=== PATIENT | female | born 1965 | race Caucasian/White ===

== ENCOUNTER 2023-06-02 08:05 | Outpatient (OUT) | payer OTHER, SELFPAY ==
[2023-06-02 08:39] LABS: Basophils Percent Auto 0.7 % (0.2-2.0); Eosinophils Absolute Auto 0.4 10^3/uL (0.0-0.7); Eosinophils Percent Auto 8.2 % (0.9-7.0); Hematocrit 44.2 % (36.0-48.0); Hemoglobin 14.7 g/dL (12.0-16.0); Immature Granulocytes Abs Auto 0.01 10^3/uL (0.00-0.03); Immature Granulocytes Pct Auto 0.2 % (0.0-0.5); Lymphocytes Absolute Auto 1.8 10^3/uL (1.2-3.8); Lymphocytes Percent Auto 40.1 % (20.5-60.0); Mean Corpuscular HGB Conc 33.3 g/dL (29.9-35.2); Mean Corpuscular Hemoglobin 28.6 pg (26.7-34.0); Mean Platelet Volume 11.5 fL (9.5-13.5); Monocytes Absolute Auto 0.4 10^3/uL (0.3-0.8); Monocytes Percent Auto 8.5 % (1.7-12.0); Neutrophils Absolute Auto 1.9 10^3/uL (1.4-6.5); Neutrophils Percent Auto 42.3 % (43.0-75.0); Platelet Count 206 10^3/uL (150-450); Red Blood Count 5.14 10^6/uL (4.20-5.40); Red Cell Distribution Width 14.3 % (11.0-15.0); White Blood Count 4.5 10^3/uL (4.0-11.0)
[2023-06-02 09:51] LABS: Alanine Aminotransferase 29 U/L (14-59); Albumin Level 3.8 g/dL (3.4-5.0); Alkaline Phosphatase 79 U/L (46-116); Anion Gap 10.4; Aspartate Amino Transferase 20 U/L (15-37); BUN Creatinine Ratio 20.5; Bilirubin Total 0.5 mg/dL (0.2-1.0); Calcium 9.5 mg/dL (8.5-10.1); Carbon Dioxide 29.1 mmol/L (21.0-32.0); Chloride 105 mmol/L (98-107); Chol HDL Ratio 2.9; Cholesterol 233 mg/dL (<=200); Estimated GFR (African America >60 (>=60); Estimated GFR (Non-African Ame >60 (>=60); Globulin 3.8 g/dL; Glucose 95 mg/dL (74-106); HDL Cholesterol 79 mg/dL (40-60); Potassium 4.5 mmol/L (3.5-5.1); Sodium 140 mmol/L (136-145); Thyroid Stimulating Hormone 1.292 uIU/mL (0.358-3.740); Total Protein 7.6 g/dL (6.4-8.2); Triglycerides 131 mg/dL (<=150); VLDL CHOLESTEROL 26.2 mg/dL
[2023-06-02 10:11] LABS: Estimated Average Glucose 105 mg/dL; Glycohemoglobin A1C 5.3 % (4.5-6.2)
[2023-06-04 12:13] LABS: Insulin 9.6 uIU/mL (2.6-24.9)
== END 2023-06-02 08:06 | disposition home or self-care (01) ==
PROVIDERS: PCP Family Medicine; Visit Provider Family Medicine
DX: Z00.00 Encounter for general adult medical examination without abnormal findings (principal)
CPT/HCPCS: 36415; 80053; 80061; 83036; 83525; 83540; 83550; 84436; 84443; 84481; 85025

== ENCOUNTER 2023-07-09 08:40 | Outpatient (OUT) | payer OTHER, SELFPAY ==
--- NOTE | 2023-07-09 08:15 | NM_ITS ---
Patient: CAMMY MERINO Exam Date: 07/09/2023 : 1965 Gender:F Ordering : DR Brad Medrano . Admission #: [id number] Family : Order #: [id number] CLICK HERE TO VIEW EXAM RADIOLOGY REPORT PROCEDURE: NM MOISÉS PERF SPECT REST STR COMPARISON: None. INDICATIONS: CHEST PAIN TECHNIQUE: Exam Description: Stress/Rest two day protocol gated SPECT Rest Imagin.0 mCi Tc-99m Cardiolite IV on 07/09/2023 Stress Imaging 30.0 mCi Tc-99m Cardiolite IV on 07/09/2023 Exercise Protocol: Juventino Heart Rate (bpm): Rest: 50 Max: 153 PMHR: 95 Blood Pressure: Rest: 120/80 Max: 178/92 Exercise Time: Minutes: 9 Seconds: 32 Stage Reached: Stage: 4 Mets 11.8 Symptoms: Rest and peak stress ECG findings were normal and the exercise portion of the study was normal per attending physician Dr. Thomas . For more details please see separate cardiac stress test report. FINDINGS: QUALITY OF STUDY: Excellent. PERFUSION DEFECT: None. LOCATION: N/A SIZE: N/A. SEVERITY: N/A. TYPE: N/A. WALL MOTION: Normal. LV SIZE: Normal. 63 mL. TID / TCD: None; 0.6 LVEF: Normal. Calculated EF 81%. SUMMARY: Myocardial perfusion imaging study is NORMAL. CONCLUSION: 1. Normal nuclear medicine myocardial perfusion scan. Dictated by: Brice Cormier M.D. on 07/10/2023 at 14:32 Approved by: Brice Cormier M.D. on 07/10/2023 at 14:34
--- NOTE | 2023-07-09 12:23 | PM.STRESS ---
Stress Test Stress Test Requesting physician: Brad Medrano Procedure: Exercise Cardiolite stress test General Information: Reason for Stress Test: Chest pain Cardiac History and Risk Factors: No personal risk factors listed. Father from [place]. Resting 12 - Lead Electrocardiogram: Rate & rhythm: Sinus bradycardia at a rate of 49. [place]: Normal T-waves: Flattened in aVL ST-segments: Normal orientation Stress Test: Protocol: Juventino protocol was followed, with injection of Cardiolite once target heart rate was achieved. Exercise capacity: Excellent exercise capacity. Total exercise time of 9 minutes 32 seconds reached Juventino stage 4 at 4.2MPH, 16% grade, & 11.8 METs. Blood pressure: Initial: 120/80, Maximum: 178/92, Recovery: 146/88 Rate & rhythm: Patient remained in sinus rhythm during the exercise and recovery portions of the study.? The maximum heart rate was 153, which was 95% of the maximum predicted heart rate 160. ST-segments & T-waves: There were no T-wave changes and no ST-segment changes when compared to the baseline EKG. Patient response/symptoms: There were no symptoms similar to the chief complaint. Interpretation: Normal exercise stress test. Patient was asymptomatic regarding chest pain. Cardiolite imaging interpretation will be reported separately. Clinical correlation required.?
== END 2023-07-09 08:41 | disposition home or self-care (01) ==
LOC: NM 08:41
PROVIDERS: PCP Family Medicine; Visit Provider Family Medicine
DX: R07.9 Chest pain, unspecified (principal)
CPT/HCPCS: 78452; 93017; A9500

== ENCOUNTER 2024-10-04 08:09 | Outpatient (OUT) | payer OTHER, SELFPAY ==
[2024-10-04 08:39] LABS: Basophils Percent Auto 0.5 % (0.2-2.0); Eosinophils Absolute Auto 0.2 10^3/uL (0.0-0.7); Eosinophils Percent Auto 4.1 % (0.9-7.0); Hematocrit 44.4 % (36.0-48.0); Hemoglobin 14.6 g/dL (12.0-16.0); Immature Granulocytes Abs Auto 0.01 10^3/uL (0.00-0.03); Immature Granulocytes Pct Auto 0.2 % (0.0-0.5); Lymphocytes Absolute Auto 1.8 10^3/uL (1.2-3.8); Lymphocytes Percent Auto 32.8 % (20.5-60.0); Mean Corpuscular HGB Conc 32.9 g/dL (29.9-35.2); Mean Corpuscular Hemoglobin 28.8 pg (26.7-34.0); Mean Corpuscular Volume 87.6 fL (81.0-99.0); Mean Platelet Volume 11.3 fL (9.5-13.5); Monocytes Absolute Auto 0.4 10^3/uL (0.3-0.8); Neutrophils Absolute Auto 3.1 10^3/uL (1.4-6.5); Neutrophils Percent Auto 55.4 % (43.0-75.0); Platelet Count 232 10^3/uL (150-450); Red Blood Count 5.07 10^6/uL (4.20-5.40); Red Cell Distribution Width 13.7 % (11.0-15.0); White Blood Count 5.6 10^3/uL (4.0-11.0)
[2024-10-04 08:49] LABS: Bilirubin Urine NEGATIVE (NEGATIVE); Blood Urine NEGATIVE (NEGATIVE); Clarity Urine CLEAR (CLEAR); Color Urine LT. YELLOW (YELLOW); Glucose Urine UA NEGATIVE (NEGATIVE); Ketones Urine NEGATIVE (NEGATIVE); Leukocyte Esterase Urine TRACE (NEGATIVE); Nitrite Urine NEGATIVE (NEGATIVE); Protein Urine NEGATIVE (NEG/TRACE); Urobilinogen Urine 0.2 EU/dL (0.2-1.0)
[2024-10-04 08:51] LABS: Estimated Average Glucose 111 mg/dL; Glycohemoglobin A1C 5.5 % (4.5-6.2)
[2024-10-04 09:32] LABS: Alanine Aminotransferase 31 U/L (14-59); Albumin Globulin Ratio 1.1; Albumin Level 3.7 g/dL (3.4-5.0); Alkaline Phosphatase 93 U/L (46-116); Anion Gap 13.2; Aspartate Amino Transferase 15 U/L (15-37); BUN Creatinine Ratio 21.7; Bilirubin Total 0.5 mg/dL (0.2-1.0); Calcium 9.4 mg/dL (8.5-10.1); Carbon Dioxide 28.9 mmol/L (21.0-32.0); Chloride 102 mmol/L (98-107); Chol HDL Ratio 2.8; Cholesterol 236 mg/dL (<=200); Estimated GFR (African America >60 (>=60 mL/min/1.73m^2); Estimated GFR (Non-African Ame >60 (>=60 mL/min/1.73m^2); Free T3 2.29 pg/mL (2.18-3.98); Globulin 3.4 g/dL; Glucose 93 mg/dL (74-106); HDL Cholesterol 83 mg/dL (40-60); Potassium 4.1 mmol/L (3.5-5.1); Sodium 140 mmol/L (136-145); Thyroid Stimulating Hormone 1.321 uIU/mL (0.358-3.740); Total Protein 7.1 g/dL (6.4-8.2); Triglycerides 99 mg/dL (<=150); VLDL CHOLESTEROL 19.8 mg/dL
[2024-10-04 09:52] LABS: Bacteria Urine SMALL #/HPF (NONE SEEN); Cast Seen? NONE SEEN #/LPF (NONE SEEN); Crystals Seen? None Seen #/HPF (None Seen); Mucus Urine LARGE (NONE SEEN); Squamous Epithelial Cell Urine FEW #/LPF (NONE/RARE)
[2024-10-05 11:07] LABS: Insulin 8.2 uIU/mL (2.6-24.9)
== END 2024-10-04 08:10 | disposition home or self-care (01) ==
LOC: LAB 08:11
PROVIDERS: PCP Family Medicine; Visit Provider Family Medicine
DX: Z00.00 Encounter for general adult medical examination without abnormal findings (principal)
CPT/HCPCS: 36415; 80053; 80061; 81001; 82306; 83036; 83525; 83540; 84436; 84443; 84481; 85025; 87086

== ENCOUNTER 2025-03-07 07:25 | Outpatient (OUT) | payer OTHER, SELFPAY ==
--- NOTE | 2025-03-07 07:36 | XR_ITS ---
The [address] [address] Patient Name: CAMMY MERINO MRN: [id number] date: 1965 Sex: F Assigned Patient Location: [facility] Current Patient Location: [facility] Accession/Order Number: [id number] Exam Date: 03/07/2025 14:18 Report Date: 03/07/2025 14:20 At the request of: TENISHA BARLOW MD Procedure: XR soft tissue neck LATERAL SOFT TISSUE NECK CLINICAL HISTORY: CHRONIC COUGHING R05.3 COMPARISON: None FINDINGS: Single lateral view the soft tissues demonstrate unremarkable. The tracheal air column. The laryngeal air column. Patient is mildly rotated which likely accounts for the prominence of the epiglottic soft tissues. Mild reversal cervical lordosis may be positional. Degenerative changes notably C4-C6. XR/XR soft tissue neck IMPRESSION: PROMINENT EPIGLOTTIS LIKELY POSITIONAL. OTHERWISE UNREMARKABLE X-RAY SOFT TISSUES OF THE NECK. Impression dictated by: Presley Elliott M.D. 03/07/2025 2:20 PM Dictation Location: [place] [address] Electronically authenticated by: [id number] Y Date: 03/07/2025 14:20
--- NOTE | 2025-03-07 07:36 | XR_ITS ---
[address] [address] Patient Name: CAMMY MERINO MRN: [id number] date: 1965 Sex: F Assigned Patient Location: [facility] Current Patient Location: [facility] Accession/Order Number: [id number] Exam Date: 03/07/2025 14:17 Report Date: 03/07/2025 14:18 At the request of: TENISHA BARLOW MD Procedure: XR chest 2V PA AND LATERAL CHEST: CLINICAL HISTORY: CHRONIC COUGHING R05.3 COMPARISON: None FINDINGS: Unremarkable cardiomediastinal silhouette. Right hilar calcified granulomas. Lungs are clear. No effusion or pneumothorax. Mild degenerative changes of the mid thoracic spine. XR/XR chest 2V IMPRESSION: NO ACUTE CARDIOPULMONARY ABNORMALITY. Impression dictated by: Presley Elliott M.D. 03/07/2025 2:18 PM Dictation Location: [place] [address] Electronically authenticated by: [id number] Y Date: 03/07/2025 14:18
== END 2025-03-07 07:26 | disposition home or self-care (01) ==
LOC: RAD 07:28
PROVIDERS: PCP Family Medicine; Visit Provider Family Medicine
DX: R05.3 Chronic cough (principal)
CPT/HCPCS: 70360; 71046

== ENCOUNTER 2025-04-15 16:25 | Outpatient (OUT) | payer OTHER, SELFPAY ==
[2025-04-15 16:48] LABS: Basophils Percent Auto 0.6 % (0.2-2.0); Eosinophils Absolute Auto 0.4 10^3/uL (0.0-0.7); Eosinophils Percent Auto 8.5 % (0.9-7.0); Hematocrit 41.3 % (36.0-48.0); Hemoglobin 14.1 g/dL (12.0-16.0); Lymphocytes Absolute Auto 1.8 10^3/uL (1.2-3.8); Lymphocytes Percent Auto 37.4 % (20.5-60.0); Mean Corpuscular HGB Conc 34.1 g/dL (29.9-35.2); Mean Corpuscular Hemoglobin 29.1 pg (26.7-34.0); Mean Corpuscular Volume 85.2 fL (81.0-99.0); Mean Platelet Volume 10.8 fL (9.5-13.5); Monocytes Absolute Auto 0.5 10^3/uL (0.3-0.8); Monocytes Percent Auto 9.5 % (1.7-12.0); Neutrophils Absolute Auto 2.1 10^3/uL (1.4-6.5); Platelet Count 235 10^3/uL (150-450); Red Blood Count 4.85 10^6/uL (4.20-5.40); Red Cell Distribution Width 13.8 % (11.0-15.0); White Blood Count 4.7 10^3/uL (4.0-11.0)
== END 2025-04-15 16:26 | disposition home or self-care (01) ==
PROVIDERS: PCP Family Medicine; Visit Provider Family Medicine
DX: R05.3 Chronic cough (principal)
CPT/HCPCS: 36415; 85025; 86713; 86738

== ENCOUNTER 2025-05-30 06:46 | Outpatient (OUT) | payer OTHER, SELFPAY ==
--- NOTE | 2025-05-30 | XR_ITS ---
The [address] [address] Patient Name: CAMMY MERINO MRN: [id number] date: 1965 Sex: F Assigned Patient Location: [facility] Current Patient Location: [facility] Accession/Order Number: [id number] Exam Date: 05/30/2025 08:05 Report Date: 05/30/2025 08:06 At the request of: TENISHA BARLOW MD Procedure: XR chest 2V PA AND LATERAL CHEST: CLINICAL HISTORY: RR05.3 Chronic coughing COMPARISON: 03/07/2025 FINDINGS: Unremarkable cardiomediastinal. Right hilar/mediastinal calcified granulomas. No focal opacity, effusion or pneumothorax. XR/XR chest 2V IMPRESSION: NO ACUTE CARDIOPULMONARY ABNORMALITY. Impression dictated by: Presley Elliott M.D. 05/30/2025 8:06 AM Dictation Location: [place] [address] Electronically authenticated by: [id number] Y Date: 05/30/2025 08:06
--- OUTSIDE RECORDS SUMMARY | 2025-05-30 06:48 | XMS_ITS | CCD ---
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 Foreign Angela RN 03/30/25 12:33:40 Post-Care Text: The patient received appropriate medication(s) safely administered during the perioperative period Surgical Procedures FT Entry 1 Procedure Description Procedure EGD AND COLONOSCOPY Modifiers . Surgeon Description EGD with gastric biopsy. Colonoscopy with left colon biopsy and rectal biopsy Primary Procedure Yes Primary Surgeon Mary Carey MD Start 03/30/25 12:35:00 Stop 03/30/25 12:54:00 Anesthesia Type General Surgical Service Gastroenterology Wound Class 2 - Clean-Contaminated Last Modified By: Foreign Angela RN 03/30/25 13:05:42 General Case Data FT Pre-Care Text: Classifies surgical wound, implements aseptic technique, initiates traffic control Entry 1 Case Information OR ENDO 1 FT Case Level Level 2 Wound Class 2 - Clean-Contaminated Specialty Gastroenterology ASA Class 2 Preop Diagnosis Heartburn, History of Postop Same As Preop No colon polyps, Left sided ulcerative colitis Postop Diagnosis EGD- Gastritis, Hiatal Outcomes Met? Yes hernia, LA grade D esophagitis. Colonoscopy- Internal hemorrhoids Last Modified By: Foreign Angela RN 03/30/25 13:05:51 Post-Care Text: The patient is free from signs and symptoms of infection Skin Assessment (Pre Procedure) FT Pre-Care Text: Implements protective measures to prevent skin/ tissue injury due to thermal or mechanical sources Evaluates for signs and symptoms of physical injury to skin and tissue Entry 1 Skin Integrity Dry, Warm Skin Abnormality No Outcomes Met? Yes Last Modified By: Foreign Angela RN 03/30/25 12:35:43 Post-Care Text: The patient is free from signs and symptoms of injury caused by extraneous objects Patient Positioning FT Pre-Care Text: Identifies physical alterations that require additional precautions for procedure-specific pos (more content not included)... Normal [facility] Discharge Instructionson Discharge Instructions Discharge Instructions BETSY MENCHACA :1965 Visit Date:03/30/2025 Inpatient Discharge Instructions Your Care Team Admitting Physician - Mary Carey MD Referring Physician - Mary Carey MD Reason for Your Visit LEFT SIDED ULCERATIVE COLITIS, HISTORY OF COLON POLYPS, HEARTBURN, ELEVATED LIVER ENZYMES Your Diagnosis Acute colitis Chronic GERD Tests Performed Pathology Tissue Exam -- Results Pending -- Please visit your patient portal for your results or contact your primary care physician. This Is Your Medications List ascorbic acid (Vitamin C) cetirizine cholecalciferol (Vitamin D3) esomeprazole (Nexium 40 mg Cap-EC) famotidine (Pepcid 40 mg Tab) famotidine (famotidine 40 mg Tab) levothyroxine mesalamine (mesalamine 1.2 g oral enteric coated tablet) multivitamin (Multi Vitamin+) potassium citrate Procedure History Colonoscopy (02/25/2021), H/O: tubal ligation (05/19/1989), D&C (03/24/1988). Discharge Vitals Temperature (Temporal Artery) 36.5 ???C Heart Rate (Monitored) 67 Respiratory Rate 12 Blood Pressure 110/59 Height 162 cm Weight 78.7 kg BMI 29.99 What to do next Instructions From Your Doctor Event Name Event Result Discharge Activity Resume normal activities in 24 hours Discharge Restrictions No driving for 24 hrs Discharge Diet(s) Regular Call Your Doctor For Persistent or heavy bleeding Discharge Instructions Discharge Instructions New Follow Up Appointments after Discharge Follow Up with Mary Carey When: Comments: Call for any problems. Where: [address] [place], [place] [address]dict [place]assandra, [address] [address] [phone] Business (1) Medications What How Much When Instructions Next Dose Unchanged ascorbic acid (Vitamin C) 500 Milligram By Mouth Every day Unchanged cetirizine 10 Milligram By Mouth Every day Unchanged cholecalciferol (Vitamin D3) 50,000 International unit By Mouth Every week Unchanged esomeprazole (Nexium 40 mg Cap-EC) 1 Capsules By Mouth Every day Unchanged famotidine (famotidine 40 mg Tab) 1 Tablets By Mouth Once a day (at bedtime) Unchanged famotidine (Pepcid 40 mg Tab) 1 Tablets By Mouth Once a day (at bedtime) Unchanged levothyroxine 25 Microgram By Mouth Every day Unchanged mesalamine (mesalamine 1.2 g oral enteric coated tablet) 2 Tablets By Mouth Every day Unchanged multivitamin (Multi Vitamin+) By Mouth Every day Unchanged potassium citrate Every day Test Results No qualifying data available. Allergies No Known Allergies Problems Ongoing - Any problem that you are currently receiving treatment for. Elevated liver enzymes Heartburn History of colon polyps Left sided ulcerative colitis Smoker Historical - Any problem that you are no longer receiving treatment for. ANEMIA, UNSPECIFIED Cystocele H/O: migraine Hypothyroidism Second degree uterine prolapse Education Materials Gastritis, Adult Gastritis is irritation and swelling (inflammation) of the stomach. There are two kinds of gastritis: ??? Acute gastritis. This kind develops quickly. ??? Chronic gastritis. This kind is much more common. It develops slowly and lasts for a long time. It is important to get help for this condition. If you do not get help, your stomach can bleed, and you can get sores (ulcers) in your stomach. What are the causes? This condition may be caused by: ??? Germs that get to your stomach and cause an infection. ??? Drinking too much alcohol. ??? Medicines you are taking. ??? Having too much acid in the stomach. ??? Having a disease of the stomach. Other causes may include: ??? An allergic reaction. ??? Some cancer treatments (radiation). ??? Smoking cigarettes or using products that contain nicotine or tobacco. In some cases, the cause of this condition is not known. What increases the risk? Having a disease of the intestines. ??? Having Crohn's disease. ??? Using aspirin or ibuprofen and other NSAIDs to treat other conditions. ??? Stress. What are the signs or symptoms? Pain in your stomach. ??? A burning feeling in your stomach. ??? Feeling like you may vomit (nauseous). ??? Vomiting or vomiting blood. ??? Feeling too full after you eat. ??? Weight loss. ??? Bad breath. ??? Blood in your poop (stool). In some cases, there are no symptoms. How is this treated? This condition is treated with medicines. The medicines that are used depend on what caused the condition. You may be given: ??? Antibiotic medicine, if your condition was caused by an infection from germs. ??? H2 blockers and similar medicines, if your condition was caused by too much acid in the stomach. Treatment may also include stopping the use of certain medicines, such as aspirin or ibuprofen. Follow these instructions at home: (more content not included)... Normal [facility] Comment on above: Result Comment: Elec tronically Signed By: Raad FERRERA, Tanya\.br\Date and Time Signed: 03/30/25 13:04 EDT Inpatient Patient Summaryon 03-30-2025 Inpatient Patient Summary Inpatient Patient Summary [place] [id number] [facility] Clinical Discharge Instructions PERSON INFORMATION Name: BETSY MENCHACA PHYSICIANS Admitting Physician: Mary Carey MD Attending Physician: Mary Carey MD PCP: Tenisha Medrano MD Diagnosis: Acute colitis; Chronic GERD Comment: PATIENT EDUCATION INFORMATION Instructions: Medication Leaflets: Follow up: MEDICATION LIST Medications to Continue with No Changes Other Medications ascorbic acid (Vitamin C) 500 Milligram By Mouth every day. cetirizine 10 Milligram By Mouth every day. cholecalciferol (Vitamin D3) 50,000 International unit By Mouth every week. esomeprazole (Nexium 40 mg Cap-EC) 1 Capsules By Mouth every day. Refills: 3., before dinner famotidine (famotidine 40 mg Tab) 1 Tablets By Mouth once a day (at bedtime). Refills: 3. famotidine (Pepcid 40 mg Tab) 1 Tablets By Mouth once a day (at bedtime). Refills: 2. levothyroxine 25 Microgram By Mouth every day. mesalamine (mesalamine 1.2 g oral enteric coated tablet) 2 Tablets By Mouth every day. Refills: 11., Ulcerative colitis multivitamin (Multi Vitamin+) By Mouth every day. potassium citrate every day. Comment: Normal [facility] Main OR PACU II Recordon Main OR PACU II Record Main OR PACU II Record PACU Phase II Document Type FT Summary Primary Physician: Mary Carey MD Finalized Date/Time: 03/30/25 13:38:16 Pt. Name: BETSY MENCHACA/Sex: 1965 Female Med Rec #: [id number] Physician: Mary Carey MD Financial #: [id number] Pt. Type: O Room/Bed: / Admit/Disch: 03/30/25 11:29:45 - Institution: Case Times PACU II FT Pre-Care Text: Identifies barriers to communication and implements measures to provide psychological support and determines knowledge level Develops individualized plan of care, and ensures continuity of care Maintains patient's dignity and privacy, and maintains patient confidentiality Identifies and reports philosophical, cultural, and spiritual beliefs and values Identifies individual values and wishes concerning care administers prescribed antibiotic therapy and immunizing agents as ordered, Evaluates postoperative tissue perfusion Implements thermoregulation measures, and monitors body temperature Evaluates postoperative respiratory status Evaluates postoperative cardiac status Evaluates postoperative neurological status Assesses pain control, collaborated in initiating patient-controlled analgesia and implements alternative methods of pain control Verifies allergies, administers prescribed medications and solutions, evaluates response to medications Entry 1 In PACU II 03/30/25 12:58:00 Discharge from PACU 03/30/25 13:25:00 II Outcomes Met? Yes Last Modified By: Tanya Shankar RN 03/30/25 13:38:11 Post-Care Text: The patient demonstrates knowledge of the expected response to the operative or invasive procedure The patient's care is consistent with the individualized perioperative plan of care The patient's right to privacy is maintained The patient's value system, lifestyle, ethnicity, and culture are considered, respected, and incorporated into the perioperative plan of care The patient participates in decisions affecting his or her perioperative plan of care. The patient is free from signs and symptoms of infection The patient has wound/tissue perfusion consistent with or improved from baseline levels established preoperatively The patient is at or returning to normothermia at the conclusion of the immediate postoperative period The patient's respiratory function is consistent with or improved from baseline levels established preoperatively The patient's cardiovascular status is consistent with or improved from baseline levels established preoperatively The patient's neurological status is consistent with or improved from baseline levels established preoperatively The patient demonstrates and/or reports adequate pain control throughout the perioperative period The patient received appropriate medication(s), safely administered during the perioperative period Finalized By: Tanya Shankar RN Document Signatures Signed By: Tanya Shankar RN 03/30/25 13:38 Normal [facility] Main OR Preoperative Recordo n 03-30-2025 Main OR Preoperative Record Main OR Preoperative Record Holding Area Document Type FT Summary Primary Physician: Mary Carey MD Finalized Date/Time: 03/30/25 11:40:15 Pt. Name: BETSY MENCHACA VIK Arellano/Sex: 1965 Female Med Rec #: [id number] Physician: Mary Carey MD Financial #: [id number] Pt. Type: O Room/Bed: / Admit/Disch: 03/30/25 11:29:45 - Institution: Case Times Holding FT Pre-Care Text: Verifies consent for planned procedure, identifies individual values and wishes concerning care, includes family members in perioperative teaching Secures patient's records' belongings, and valuables, maintains patient's dignity and privacy, and maintains patient confidentiality Entry 1 In Holding 03/30/25 07:00:00 Outcomes Met? Yes Last Modified By: Arin Albarran RN 03/30/25 11:39:13 Post-Care Text: The patient participates in decisions affecting his or her perioperative plan of care The patient's right to privacy is maintained Surgery Checklist FT Entry 1 Patient Birthday, ID Band Procedure History and Physical, Identification: Check, Patient Verification: Surgical Consent, With Participation Patient NPO after Midnight: No Date/Time: 03/30/25 07:00:00 Personal Items: Jewelry Personal Items necklace, braclets, Comment: rings Limitations: no Complaints of Pain: No Pain Comment: no Operative Site n/a Marking: Marked By: n/a Availability Equipment Verified: Does Patient Smoke No Patient states Yes Comment - Adult spouse postop adult Supervision supervision available Case Cancelled in No Holding Area see comments below for reason Last Modified By: Arin Albarran RN 03/30/25 11:40:13 Finalized By: Arin Albarran RN Document Signatures Signed By: Arin Albarran RN 03/30/25 11:40 Normal [facility] Outpatient Surgery Discharge Instructionon 03-30-2025 Outpatient Surgery Discharge Instruction Outpatient Surgery Discharge Instruction [address] [address] Patient Discharge Instructions PERSON INFORMATION Name: BETSY MENCHACA Date of : 1965 Current Date: 03/30/2025 12:28:44 PHYSICIANS Admitting Physician: Mary Carey MD Discharge Diagnosis: Acute colitis; Chronic GERD BETSY MENCHACA has been given the following list of follow-up instructions, prescriptions, and patient education materials: PATIENT FOLLOW-UP INFORMATION Diet: Regular Discharge Activity: Resume normal activities in 24 hours Discharge Restrictions: No driving for 24 hrs Call Your Doctor For: Persistent or heavy bleeding IF UNABLE TO CONTACT YOUR PHYSICIAN AND YOU FEEL IT IS AN EMERGENCY, GO TO THE NEAREST EMERGENCY ROOM OR CALL 911 ANGELIQUE [address] Paz MARY BETH, have received the attached patient education materials/instruction s and have verbalized understanding: May we do a follow up call? Yes No I was present when discharge instructions were given Patient Signature Date Clinican/Nurse Signature Date Follow up: Pharmacy Information: You may receive a survey from [facility] asking you to rate your care experience. Your feedback is important and will help us understand what we do well and how we can improve the quality of care we provide to you, your loved ones and our community. It???s an honor to serve you. Thank you for choosing [facility] HERE ARE THE MEDICATION CHANGES THAT OCCURRED DURING YOUR HOSPITAL STAY Medications to Continue with No Changes Other Medications ascorbic acid (Vitamin C) 500 Milligram By Mouth every day. cetirizine 10 Milligram By Mouth every day. cholecalciferol (Vitamin D3) 50,000 International unit By Mouth every week. esomeprazole (Nexium 40 mg Cap-EC) 1 Capsules By Mouth every day. Refills: 3., before dinner famotidine (famotidine 40 mg Tab) 1 Tablets By Mouth once a day (at bedtime). Refills: 3. famotidine (Pepcid 40 mg Tab) 1 Tablets By Mouth once a day (at bedtime). Refills: 2. levothyroxine 25 Microgram By Mouth every day. mesalamine (mesalamine 1.2 g oral enteric coated tablet) 2 Tablets By Mouth every day. Refills: 11., Ulcerative colitis multivitamin (Multi Vitamin+) By Mouth every day. potassium citrate every day. PATIENT EDUCATION INFORMATION Instructions: Medication Leaflets: [facility] Gastroenterology Office/Clin ic Noteon 03-16-2025 Gastroenterology Office/Clinic Note Gastroenterology Office/Clinic Note Chief Complaint Colonoscopy HPI Staff New patient is a(n) 60 year old female who presents today for a 3 year colonoscopy recall (OVERDUE). Denies Fhx colon cancer/diseases. Any n/v/c/d, abd pain, bloody or mucus stools? no Blood thinners? no GLP-1 agonists? no History of Present Illness Reviewed HPI collected by staff Review of Systems PHQ Score Initial Depression Screen Score: 0 SCORE All systems reviewed, negative; Except for above Physical Exam Vitals & Measurements HR: 70(Peripheral) BP: 115/75 HT: 162 cm HT: 64 in WT: 173.504 lb WT: 78.7 kg BMI: 29.99 No acute distress Procedure EGD 10/18/18: Impression and Plan 1. Distal esophageal Schatzki ring, dilated using 60 [place] Breen dilator 2. Concentric esophageal rings, proximal and distal esophageal biopsies obtained 3. Mild gastric erosions, biopsied Pathology: Diagnosis Comment (Verified) Distal squamous esophageal mucosa contains intraepithelial eosinophils up to 10 per high power field. Final Diagnosis (Verified) A: DISTAL ESOPHAGUS, BIOPSY: ??? SQUAMOUS MUCOSA WITH EOSINOPHILIC INFILTRATE AND MARKED BASAL HYPERPLASIA. B: STOMACH, BIOPSY: ??? ANTRAL MUCOSA WITH MILD CHRONIC GASTRITIS AND FOVEOLAR HYPERPLASIA. ??? NO H. PYLORI MICROORGANISMS IDENTIFIED IMMUNOSTAIN. C: PROXIMAL ESOPHAGUS, BIOPSY: ??? SQUAMOUS MUCOSA WITH OCCASIONAL EOSINOPHILIC INFILTRATE. Colonoscopy 02/25/21: Impression: 1. Normal terminal ileum, photograph taken 2. Sessile polyp, 2 mm, in the ascending, removed completely with cold snare 3. Normal rectal and colonic mucosa, random biopsies obtained from the rectum Recommendations: Repeat colonoscopy:: In 3 years. Pathology: Final Diagnosis (Verified) A: POLYP, ASCENDING COLON, POLYPECTOMY: ??? HYPERPLASTIC POLYP. B: RECTUM, BIOPSY: ??? COLONIC MUCOSA WITH LYMPHOID AGGREGATES, WITHIN NORMAL LIMITS. Assessment/Plan 1. Left sided ulcerative colitis (K51.50: Left sided colitis without complications) Diagnosed in 2011. She achieved clinical remission with oral mesalamine She achieved endoscopic healing and histologic healing. Decreased mesalamine dose from 2.4 grams to 1.2 grams There was no evidence of extra GI manifestation of ulcerative colitis Colonoscopy 02/2021: 1 HP, negative rectal biopsy She is still taking mesalamine 2.4g daily Has 1-2 BMs daily Reports minimal change in caliber of stools Denies blood in stools and urgency Schedule Colonoscopy to evaluate. Discussed risks such as bleeding, injury and perforation as well as benefits. Patient agreeable. 2. History of colon polyps (Z86.0100: Personal history of colon polyps, unspecified) 3. Heartburn (R12: Heartburn) Switch pantoprazole to Nexium before dinner, famotidine at bedtime symptoms most of the time had EGD before 4. Elevated liver enzymes (R74.8: Abnormal levels of other serum enzymes) in 2019 Labs done recently at [facility] Reviewed labs from outside hospital September 2024 had normal CBC and CMP I, Tamanna Vázquez, personally scribed for Mary Carey on 02/12/2025 13:10:42. . Documentation recorded by Tamanna Vázquez, accurately reflects the services I performed and decisions made by me. Mary Carey MD Follow-up No qualifying data available Problem List/Past Medical History Ongoing Elevated liver enzymes Heartburn History of colon polyps Left sided ulcerative colitis Smoker Historical ANEMIA, UNSPECIFIED Cystocele H/O: migraine Hypothyroidism Second degree uterine prolapse Procedure/Surgical History Colonoscopy (02/25/2021), H/O: tubal ligation (05/19/1989), D&C (03/24/1988). Medications cetirizine, 10 mg, Oral, Daily famotidine 40 mg Tab, 40 mg= 1 tab(s), Oral, Once a day (at bedtime), 3 refills levothyroxine, 25 mcg, Oral, Daily mesalamine 1.2 g oral enteric coated tablet, 2.4 gm= 2 tab(s), Oral, Daily, 11 refills Multi Vitamin+ Nexium 40 mg Cap-EC, 40 mg= 1 cap(s), Oral, Daily, 3 refills Pepcid 40 mg Tab, 40 mg= 1 tab(s), Oral, Once a day (at bedtime), 2 refills potassium citrate, Daily Vitamin C, 500 mg, Oral, Daily Vitamin D3, [id number] International_Unit, Oral, qWeek Allergies No Known Allergies Social History Alcohol - Low Risk, 11/25/2010 Never., 02/11/2025 Substance Abuse - Denies Substance Abuse, 11/25/2010 Never., 02/11/2025 Tobacco - Denies Tobacco Use, 11/25/2010 Former smoker, quit more than 30 days ago Tobacco Use:. Never Smokeless Tobacco Use:. Cigarettes, 02/12/2025 Family History Acute myocardial infarction: Father. Primary malignant neoplasm of female breast: Sister. Immunizations Vaccine Date Status influenza virus vaccine, inactivated 08/15/2023 Recorded SARS-CoV-2 (COVID-19) mRNA-1273 vaccine 11/25/2021 Recorded influenza virus vaccine, inactivated 08/18/2021 Recorded SARS-CoV-2 (COVID-19) mRNA-1273 vaccine (more content not included)... Normal [facility] Comment on above: Result Comment: Elec tronically Signed By: Mary Carey MD\.br\Date and Time Signed: 03/16/25 14:36 EDT Ambulatory Visit Summaryon 0 02-12-2025 Ambulatory Visit Summary Ambulatory Visit Summary BETSY MENCHACA :1965 Visit Date:02/12/2025 Ambulatory Visit Instructions Your Diagnosis Left sided ulcerative colitis History of colon polyps Heartburn Elevated liver enzymes Your Care Team Attending Physician - Mary Carey MD Primary Care Physician - Tenisha Medrano MD This Is Your Medications List esomeprazole (Nexium 40 mg Cap-EC) famotidine (famotidine 40 mg Tab) Contact prescribing physician if questions or concerns ascorbic acid (Vitamin C) cetirizine cholecalciferol (Vitamin D3) famotidine (Pepcid 40 mg Tab) levothyroxine mesalamine (mesalamine 1.2 g oral enteric coated tablet) multivitamin (Multi Vitamin+) potassium citrate [Image Removed: STOP]Stop taking these medications pantoprazole (pantoprazole 40 mg Oral EC Tab) Procedures Performed Colonoscopy (02/25/2021), H/O: tubal ligation (05/19/1989), D&C (03/24/1988). Discharge Vitals Heart Rate (Peripheral) 70 Blood Pressure 115/75 Height 162 cm Height 64 in Weight 78.7 kg Weight 173.504 lb BMI 29.99 Medications What How Much When Instructions New esomeprazole (Nexium 40 mg Cap-EC) 1 Capsules By Mouth Every day Refills: [address] [facility]/pharmacy #[id number] New famotidine (famotidine 40 mg Tab) 1 Tablets By Mouth Once a day (at bedtime) Refills: [address] [facility]/pharmacy #[id number] Unchanged ascorbic acid (Vitamin C) 500 Milligram By Mouth Every day Contact prescribing physician if questions or concerns Unchanged cetirizine 10 Milligram By Mouth Every day Contact prescribing physician if questions or concerns Unchanged cholecalciferol (Vitamin D3) 50,000 International unit By Mouth Every week Contact prescribing physician if questions or concerns Unchanged famotidine (Pepcid 40 mg Tab) 1 Tablets By Mouth Once a day (at bedtime) Contact prescribing physician if questions or concerns Unchanged levothyroxine 25 Microgram By Mouth Every day Contact prescribing physician if questions or concerns Unchanged mesalamine (mesalamine 1.2 g oral enteric coated tablet) 2 Tablets By Mouth Every day Contact prescribing physician if questions or concerns Unchanged multivitamin (Multi Vitamin+) Contact prescribing physician if questions or concerns Unchanged potassium citrate Every day Contact prescribing physician if questions or concerns Pharmacy Information [facility]/pharmacy #[id number]: [address] [place], [place] [phone] What How Much When Comments Stop Taking pantoprazole (pantoprazole 40 mg Oral EC Tab) 40 Milligram By Mouth 2 times a day Allergies No Known Allergies Problems Ongoing - Any problem that you are currently receiving treatment for. Elevated liver enzymes Heartburn History of colon polyps Left sided ulcerative colitis Smoker Historical - Any problem that you are no longer receiving treatment for. ANEMIA, UNSPECIFIED Cystocele H/O: migraine Hypothyroidism Second degree uterine prolapse Patient Survey You may receive a survey via text or e-mail asking about your office visit. Please share your experience with us by completing your survey. We appreciate your feedback and thank you for choosing us for your care. Normal [facility] X-ray reportOrdered By: Janes Hall on 12-30-2024 Study report [facility] [address] [place] [place] [id number] XRay Report Signed Patient: Betsy Menchaca MR#: [id number] : 1965 Acct:[id number] Age/Sex: 59 / F ADM Date: 5 Loc: [facility] Room: Type: [facility] Attending Dr: Stanislaw Truong MD Copies to: Stanislaw Truong MD~ Ordering Provider: Stanislaw Truong MD Date of Service: 12/30/24 XR/XR shoulder LT min 2V*: M25.512 - Pain in left shoulder 4 views left shoulder plain film HISTORY: Left anterior shoulder pain for months COMPARISON: None ACUTE FINDINGS: None DEGENERATIVE CHANGE: Mild SOFT TISSUE FINDINGS: Unremarkable JOINT EFFUSION: None POSTOP CHANGES: None BONY MINERALIZATION: Adequate XR/XR shoulder LT min 2V* IMPRESSION: Mild degeneration Impression dictated by: Soy Hall M.D.12/30/2024 4:09 PM Dictation Location: [place] [address] Transcribed By: [facility] 12/30/24 1609 Dictated By: Soy Hall DO 12/30/24 1608 Signed By: 12/30/24 1609 [facility] XR shoulder LT min 2V*on XR shoulder LT min 2V* [facility] [place] [address] XRay Report Signed Patient: Betsy Menchaca MR#: [id number] : 1965 Acct:[id number] Age/Sex: 59 / F ADM Date: 12/30/24 Loc: [facility] Room: Type: [facility] Attending Dr: Stanislaw Truong MD Copies to: Stanislaw Truong MD Ordering Provider: Stanislaw Truong MD Date of Service: 12/30/24 XR/XR shoulder LT min 2V*: M25.512 - Pain in left shoulder 4 views left shoulder plain film HISTORY: Left anterior shoulder pain for months COMPARISON: None ACUTE FINDINGS: None DEGENERATIVE CHANGE: Mild SOFT TISSUE FINDINGS: Unremarkable JOINT EFFUSION: None POSTOP CHANGES: None BONY MINERALIZATION: Adequate XR/XR shoulder LT min 2V* IMPRESSION: Mild degeneration Impression dictated by: Soy Hall M.D.12/30/2024 4:09 PM Dictation Location: [place] [address] Transcribed By: [facility] 12/30/24 1609 Dictated By: Soy Hall DO 12/30/24 1608 Signed By: 12/30/24 1609 Normal [facility] MA Mamm Screen w/CAD if perf and 3D Bilon 09-02-2024 MA Mamm Screen w/CAD if perf and 3D Viet Exam Date/Time: 08/30/2024 09:27 EDT Reason for Exam: Z12.31 Report IMPRESSION: BIRADS 1 NEGATIVE, NORMAL INTERVAL FOLLOW-UP.12 MONTH RECALL. CLINICAL HISTORY: Z12.31. COMPARISON: 08/04/2023. COMMENT: Routine views and tomosynthesis views of both breasts were obtained. The breasts are heterogeneously dense, which may obscure small masses. No dominant breast mass nor neoplastic calcifications are noted. There has been no significant change when compared to the prior exam. The examination was reviewed with Computer Aided Detection. Breast Density: Yes Mammography is very important to your health. The current [employer] and National [employer] Network guidelines recommends annual mammography beginning at age 40. This facility utilizes a reminder system to ensure all patients receive reminder notifications at the appropriate time based on the recommendations of this exam. Board Certified Radiologists. Accredited by the ACR and FDA. Ordering Provider: REFERRAL, SELF FINAL REPORT Dictated: 09/02/2024 1:45 pm Antelmo Godfrey M.D. Signed (Electronic Signature): 09/02/2024 1:45 pm Signed by: Antelmo Godfrey M.D. Transcribed by: CASEY Technologist: ROBERTO Assessment: BI-RADS Category 1-Negative Recommendation: Normal interval follow-up Normal [facility] US venous duplex LE BIon US venous duplex LE BI [facility] [address] [place], [place] [id number] Ultrasound Report Signed Patient: Betsy Menchaca MR#: [id number] : 1965 Acct:[id number] Age/Sex: 59 / F ADM Date: 06/02/24 Loc: Room: Type: [facility] Attending Dr: Minal Juan [employer] Ordering Provider: Minal Juan APRN Date of Service: 06/02/24 US/US venous duplex LE BI: I83.813 - Varicose veins of bilateral lower extremities w... Copies to: Minal Juan APRN BILATERAL LOWER EXTREMITY VENOUS DUPLEX INDICATION: Left ankle swelling and varicose veins. PROCEDURE: Color-flow duplex scanning is used to interrogate the deep venous system of the right and left lower extremities. The common femoral vein, femoral vein and popliteal vein show good compressibility with normal proximal and distal augmentation. The calf veins are compressible. US/US venous duplex LE BI IMPRESSION: NO EVIDENCE FOR DEEP VEIN THROMBOSIS OR PROXIMAL SUPERFICIAL THROMBOPHLEBITIS IN THE RIGHT OR LEFT LOWER EXTREMITY. Severe and continuous reflux was identified in the greater saphenous vein bilaterally. There is also severe reflux identified in the common femoral vein bilaterally. The right greater saphenous vein is patent from the groin to the ankle and size was twice normal. The left greater saphenous vein was patent from the groin to the ankle and the size was twice normal. Impression dictated by: Fran Shukla MD06/02/2024 11:57 AM [facility] Tech: Araceli Villareal Transcribed By: LIGIA 06/02/24 1157 Dictated By: Fran Shukla MD 06/02/24 1156 Signed By: 06/02/24 1157 Normal [facility] CT FEMUR RT WO CONon 022 CT FEMUR RT WO CON EXAMINATION: CT FEMU R RT WO CON HISTORY: Localized swelling of right lower limb COMPARISON: No relevant comparison available. TECHNIQUE: Multi-planar CT images were created without IV contrast. Dose reduction techniques were achieved by using automated exposure control and/or adjustment of mA and/or kV according to patient size and/or use of iterative reconstruction technique. FINDINGS: BONES: No acute fracture or dislocation. No focal lytic or sclerotic changes. No significant degenerative change. SOFT TISSUES: Negative. No visible soft tissue swelling. EFFUSION: None visible. OTHER: Negative. IMPRESSION: No abnormalities observed Electronically authenticated by: HERMILA SOLIS Date: 2022-09-17 08:44 Normal [facility] CBC AUTO DIFFon 05-13-2022 BASO # 0.0 103/ul Normal 0.0-0.1 [facility] Comment on above: Performed By: #### C BC #### [facility] [address] [place] [address] Dr. Elizabeth Mcpherson Basophils/100 WBC (Bld) 0.6 % Normal 0.2-2.0 [facility] Comment on above: Performed By: #### C BC #### [facility] [address] [place] [address] Dr. Elizabeth Mcpherson EO # 0.5 103/ul Normal 0.0-0.7 [facility] Comment on above: Performed By: #### C BC #### [facility] [address] [place] [address] Dr. Elizabeth Mcpherson Eosinophils/100 WBC (Bld) 8.4 % Critically high 0.9-7.0 [facility] Comment on above: Performed By: #### C BC #### [facility] [address] [place] [address] Dr. Elizabeth Mcpherson Erythrocyte distribution width (RBC) [Ratio] 14.3 % Normal 11.0-15.0 [facility] Comment on above: Performed By: #### C BC #### [facility] [address] [place] [address] Dr. Elizabeth Mcpherson Hematocrit (Bld) [Volume fraction] 42.8 % Normal 36.0-48.0 [facility] Comment on above: Performed By: #### C BC #### [facility] [address] [place] [address] Dr. Elizabeth Mcpherson Hemoglobin (Bld) [Mass/Vol] 14.0 g/dL Normal 12.0-16.0 [facility] Comment on above: Performed By: #### C BC #### [facility] [address] [place] [address] Dr. Elizabeth Mcpherson IG # 0.01 10e3/ul Normal 0.00-0.03 [facility] Comment on above: Performed By: #### C BC #### [facility] [address] [place] [address] Dr. Elizabeth Mcpherson IG % 0.2 % Normal 0.0-0.5 [facility] Comment on above: Performed By: #### C BC #### [facility] [address] [place] [address] Dr. Elizabeth Mcpherson LYMPH # 2.0 103/ul Normal 1.2-3.8 [facility] Comment on above: Performed By: #### C BC #### [facility] [address] [place] [address] Dr. Elizabeth Mcpherson Lymphocytes/100 WBC (Bld) 37.2 % Normal 20.5-60.0 [facility] Comment on above: Performed By: #### C BC #### [facility] [address] [place] [address] Dr. Elizabeth Mcpherson MANUAL DIFF REQ NO Normal [facility] Comment on above: Performed By: #### C BC #### [facility] [address] [place] [address] Dr. Elizabeth Mcpherson MCH (RBC) [Entitic mass] 28.5 pg Normal 26.7-34.0 [facility] Comment on above: Performed By: #### C BC #### [facility] [address] [place] [address] Dr. Elizabeth Mcpherson MCHC (RBC) [Mass/Vol] 32.7 g/dL Normal 29.9-35.2 [facility] Comment on above: Performed By: #### C BC #### [facility] [address] [place] [address] Dr. Elizabeth Mcpherson MCV (RBC) [Entitic vol] 87.2 fL Normal 81.0-99.0 [facility] Comment on above: Performed By: #### C BC #### [facility] [address] [place] [address] Dr. Elizabeth Mcpherson MONO # 0.4 103/ul Normal 0.3-0.8 [facility] Comment on above: Performed By: #### C BC #### [facility] [address] [place] [address] Dr. Elizabeth Mcpherson Monocytes/100 WBC (Bld) 7.9 % Normal 1.7-12.0 [facility] Comment on above: Performed By: #### C BC #### [facility] [address] [place] [address] Dr. Elizabeth Mcpherson NEUT # 2.5 103/ul Normal 1.4-6.5 [facility] Comment on above: Performed By: #### C BC #### [facility] [address] [place] [address] Dr. Elizabeth Mcpherson Neutrophils/100 WBC (Bld) 45.7 % Normal 43.0-75.0 [facility] Comment on above: Performed By: #### C BC #### [facility] [address] [place] [address] Dr. Elizabeth Mcpherson Platelet mean volume (Bld) [Entitic vol] 11.3 fL Normal 9.5-13.5 [facility] Comment on above: Performed By: #### C BC #### [facility] [address] [place] [address] Dr. Elizabeth Mcpherson PLT 213 103/ul Normal 150-450 [facility] Comment on above: Performed By: #### C BC #### [facility] [address] [place] [address] Dr. Elizabeth Mcpherson RBC 4.91 106/ul Normal 4.20-5.40 [facility] Comment on above: Performed By: #### C BC #### [facility] [address] [place] [address] Dr. Elizabeth Mcpherson WBC 5.4 103/ul Normal 4.0-11.0 [facility] Comment on above: Performed By: #### C BC #### [facility] [address] [place] [address] [address] Elizabeth Mcpherson FREE T3on 05-13-2022 FREE T3 2.54 pg/mlL Normal 2.18-3.98 [facility] Comment on above: Performed By: #### F T3, TSH, CMP, T4, LIPID #### [facility] [address] [place] [address] [address] Elizabeth Mcpherson GLYCOHEMOGLOBIN A1Con 2021 ADA RECOMMENDATION SEE BELOW Normal [facility] Comment on above: Result Comment: ADA RECOMMENDED LIMIT 4.0 - 6.0 ADA THERAPEUTIC TARGET < 7.0 ACTION SUGGESTED > 7.0 Performed By: #### A 1C #### [facility] [address] [place] [address] [address] Elizabeth Mcpherson Glucose [Mass/Vol] 111 mg/dL Normal [facility] Comment on above: Performed By: #### A 1C #### [facility] [address] [place] [address] [address] Elizabeth Mcpherson HbA1c (Bld) [Mass fraction] 5.5 % Normal 4.5-6.2 [facility] Comment on above: Performed By: #### A 1C #### [facility] [address] [place] [address] Dr. Elizabeth Mcpherson LIPID PROFILEon 05-13-2022 CHOL-HDL RATIO NORM SEE BELOW Normal [facility] Comment on above: Result Comment: 3.3 - 4.4 LOW RISK 4.4 - 7.1 AVERAGE RISK 7.1 - 11.0 MODERATE RISK >11.0 HIGH RISK Performed By: #### F T3, TSH, CMP, T4, LIPID #### [facility] [address] [place] [address] [address] Elizabeth Mcpherson Cholesterol [Mass/Vol] 245 mg/dL Critically high <=200 [facility] Comment on above: Performed By: #### F T3, TSH, CMP, T4, LIPID #### [facility] [address] [place] [address] [address] Elizabeth Mcpherson Cholesterol in HDL [Mass/Vol] 69 mg/dL Critically high 40-60 [facility] Comment on above: Performed By: #### F T3, TSH, CMP, T4, LIPID #### [facility] [address] [place] [address] [address] Elizabeth Mcpherson Cholesterol in LDL [Mass/Vol] 145.8 mg/dL Normal [facility] Comment on above: Performed By: #### F T3, TSH, CMP, T4, LIPID #### [facility] [address] [place] [address] [address] Elizabeth Mcpherson Cholesterol.total/Cho lesterol in HDL [Mass ratio] 3.6 {ratio} Normal [facility] Comment on above: Performed By: #### F T3, TSH, CMP, T4, LIPID #### [facility] [address] [place] [address] Dr. Elizabeth Mcpherson HDL NORMAL > or = 60 mg/dl - LO W CARDIOVASCULAR RISK <40 mg/dl - HIGH CARDIOVASCULAR RISK Normal [facility] Comment on above: Performed By: #### F T3, TSH, CMP, T4, LIPID #### [facility] [address] [place] [address] Dr. Elizabeth Mcpherson LDL CALC NORMAL SEE BELOW Normal [facility] Comment on above: Result Comment: <100 mg/dl OPTIMAL 100 - 129 mg/dl NEAR OR ABOVE OPTIMAL 130 - 159 mg/dl BORDERLINE HIGH 160 - 189 mg/dl HIGH >190 mg/dl VERY HIGH Performed By: #### F T3, TSH, CMP, T4, LIPID #### [facility] [address] [place] [address] [address] Elizabeth Mcpherson Triglyceride [Mass/Vol] 151 mg/dL Critically high <=150 [facility] Comment on above: Performed By: #### F T3, TSH, CMP, T4, LIPID #### [facility] [address] [place] [address] Dr. Elizabeth Mcpherson VLDL CALC 30.2 mg/dL Normal [facility] Comment on above: Performed By: #### F T3, TSH, CMP, T4, LIPID #### [facility] [address] [place] [address] Dr. Elizabeth Mcpherson PROF 14(COMP METB)on 022 Albumin [Mass/Vol] 3.6 g/dL Normal 3.4-5.0 [facility] Comment on above: Performed By: #### F T3, TSH, CMP, T4, LIPID #### [facility] [address] [address] [address] Elizabeth Mcpherson Albumin/Globulin [Mass ratio] 1.0 {ratio} Normal [facility] Comment on above: Performed By: #### F T3, TSH, CMP, T4, LIPID #### [facility] [address] [address] [address] Elizabeth Mcpherson ALP [Catalytic activity/Vol] 74 U/L Normal 46-116 [facility] Comment on above: Performed By: #### F T3, TSH, CMP, T4, LIPID #### [facility] [address] [place] [address] Dr. Elizabeth Mcpherson ALT [Catalytic activity/Vol] 27 U/L Normal 14-59 [facility] Comment on above: Performed By: #### F T3, TSH, CMP, T4, LIPID #### [facility] [address] [address] [address] Elizabeth Mcpherson Anion gap [Moles/Vol] 11.4 mmol/L Normal [facility] Comment on above: Performed By: #### F T3, TSH, CMP, T4, LIPID #### [facility] [address] [address] [address] Elizabeth Mcpherson AST [Catalytic activity/Vol] 12 U/L Critically low 15-37 [facility] Comment on above: Performed By: #### F T3, TSH, CMP, T4, LIPID #### [facility] [address] [address] [address] Elizabeth Mcpherson Bilirubin [Mass/Vol] 0.3 mg/dL Normal 0.2-1.0 [facility] Comment on above: Performed By: #### F T3, TSH, CMP, T4, LIPID #### [facility] [address] [address] [address] Elizabeth Mcpherson Calcium [Mass/Vol] 8.8 mg/dL Normal 8.5-10.1 [facility] Comment on above: Performed By: #### F T3, TSH, CMP, T4, LIPID #### [facility] [address] [address] [address] Elizabeth Mcpherson Chloride [Moles/Vol] 106 mmol/L Normal 98-107 [facility] Comment on above: Performed By: #### F T3, TSH, CMP, T4, LIPID #### [facility] [address] [place] [address] Dr. Elizabeth Mcpherson CO2 [Moles/Vol] 27.9 mmol/L Normal 21.0-32.0 [facility] Comment on above: Performed By: #### F T3, TSH, CMP, T4, LIPID #### [facility] [address] [place] [address] Dr. Elizabeth Mcpherson Creatinine [Mass/Vol] 0.88 mg/dL Normal 0.55-1.02 [facility] Comment on above: Performed By: #### F T3, TSH, CMP, T4, LIPID #### [facility] [address] [place] [address] Dr. Elizabeth Mcpherson EGFR-AF EGYPTIAN >60 Normal >=60 [facility] Comment on above: Performed By: #### F T3, TSH, CMP, T4, LIPID #### [facility] [address] [place] [address] Dr. Elizabeth Mcpherson EGFR-NON AF EGYPTIAN >60 Normal >=60 [facility] Comment on above: Performed By: #### F T3, TSH, CMP, T4, LIPID #### [facility] [address] [place] [address] Dr. Elizabeth Mcpherson Globulin (S) [Mass/Vol] 3.5 g/dL Normal [facility] Comment on above: Performed By: #### F T3, TSH, CMP, T4, LIPID #### [facility] [address] [place] [address] Dr. Elizabeth Mcpherson Glucose [Mass/Vol] 108 mg/dL Critically high 74-106 [facility] Comment on above: Performed By: #### F T3, TSH, CMP, T4, LIPID #### [facility] [address] [place] [address] Dr. Elizabeth Mcpherson Potassium [Moles/Vol] 4.3 mmol/L Normal 3.5-5.1 [facility] Comment on above: Performed By: #### F T3, TSH, CMP, T4, LIPID #### [facility] [address] [place] [address] Dr. Elizabeth Mcpherson Protein [Mass/Vol] 7.1 g/dL Normal 6.4-8.2 [facility] Comment on above: Performed By: #### F T3, TSH, CMP, T4, LIPID #### [facility] [address] [place] [address] Dr. Elizabeth Mcpherson Sodium [Moles/Vol] 141 mmol/L Normal 136-145 [facility] Comment on above: Performed By: #### F T3, TSH, CMP, T4, LIPID #### [facility] [address] [place] [address] Dr. Elizabeth Mcpherson Urea nitrogen [Mass/Vol] 19.0 mg/dL Critically high 7.0-18.0 [facility] Comment on above: Performed By: #### F T3, TSH, CMP, T4, LIPID #### [facility] [address] [place] [address] Dr. Elizabeth Mcpherson Urea nitrogen/Creatinine [Mass ratio] 21.6 mg/mg Normal [facility] Comment on above: Performed By: #### F T3, TSH, CMP, T4, LIPID #### [facility] [address] [place] [address] Dr. Elizabeth Mcpherson T4on 05-13-2022 T4 [Mass/Vol] 7.60 ug/dL Normal 4.80-13.90 [facility] Comment on above: Performed By: #### F T3, TSH, CMP, T4, LIPID #### [facility] [address] [place] [address] Dr. Elizabeth Mcpherson TSHon 05-13-2022 TSH 1.222 uIU/mL Normal 0.358-3.740 [facility] Comment on above: Performed By: #### F T3, TSH, CMP, T4, LIPID #### [facility] [address] [place] [address] [address] [address] Elizabeth Mcpherson VITAMIN D 25 OHon 05-13-2022 VIT D 25-OH 95.1 ng/mL Normal [facility] Comment on above: Performed By: #### V ITAD #### [facility] [address] [place], [place] [address] Dr. Elizabeth Mcpherson VIT D RANGES SEE BELOW Normal [facility] Comment on above: Result Comment: <20 ng/mL Vit D deficient 20 - <30 ng/mL Vit D insufficient 30 - 100 ng/mL Vit D sufficient >100 ng/mL Potential Toxicity Performed By: #### V ITAD #### [facility] [address] [place] [address] Dr. Elizabeth Mcpherson Vital Signs Date Time Vital Sign Value Performing Clinician Facility 03-30-2025 13:16-0400 SaO2% (BldA) [Mass fraction] 97 % Hernandez [facility] 03-30-2025 13:16-0400 Heart rate 62 /min Hernandez Sar[facility] 03-30-2025 13:16-0400 Respiratory rate 19 /min Hernandez Sar[facility] 03-30-2025 13:15-0400 Respiratory rate 11 /min Hernandez Sar[facility] 03-30-2025 13:15-0400 SaO2% (BldA) [Mass fraction] 94 % Hernandez Sar[facility] 03-30-2025 13:15-0400 Heart rate 61 /min Hernandez Sar[facility] 03-30-2025 13:15-0400 Blood Pressure Location Hernandez Sarmini [facility] 03-30-2025 13:15-0400 Diastolic blood pressure 81 mm[Hg] Hernandez [facility] 03-30-2025 13:15-0400 Mean blood pressure 97 mm[Hg] Hernandez Sar[facility] 03-30-2025 13:15-0400 Systolic blood pressure 129 mm[Hg] Hernandez Sar[facility] 03-30-2025 13:10-0400 SaO2% (BldA) [Mass fraction] 94 % Hernandez Sar[facility] 03-30-2025 13:10-0400 Heart rate 67 /min Hernandez Sar[facility] 03-30-2025 13:10-0400 Respiratory rate 15 /min Hernandez Sar[facility] 03-30-2025 13:10-0400 Blood Pressure Location Hernandez Sar[facility] 03-30-2025 13:10-0400 Diastolic blood pressure 53 mm[Hg] Hernandez [facility] 03-30-2025 13:10-0400 Mean blood pressure 76 mm[Hg] Hernandez [facility] 03-30-2025 13:10-0400 Systolic blood pressure 123 mm[Hg] Hernandez [facility] 03-30-2025 13:05-0400 Diastolic blood pressure 65 mm[Hg] Hernandez [facility] 03-30-2025 13:05-0400 Systolic blood pressure 121 mm[Hg] Hernandez [facility] 03-30-2025 13:05-0400 Blood Pressure Location Hernandez Sar[facility] 03-30-2025 13:05-0400 Mean blood pressure 84 mm[Hg] Hernandez [facility] 03-30-2025 12:58-0400 Body temperature 97.7 [degF] Hernandez [facility] 03-30-2025 12:55-0400 Respiratory rate 12 /min Hernandez Sar[facility] 03-30-2025 12:45-0400 Respiratory rate 12 /min Hernandez Sar[facility] 03-30-2025 12:30-0400 Respiratory rate 12 /min Hernandez [facility] 03-30-2025 11:52-0400 Body temperature 97.88 [degF] Hernandez [facility] 12-30-2024 10:31-0500 Body height 161.29 cm Tenisha Medrano MD Work Phone: [facility] 12-30-2024 10:31-0500 Body mass index (BMI) [Ratio] 27.6 kg/m2 Tenisha Medrano MD Work Phone: [facility] 12-30-2024 10:31-0500 Body weight 72 kg Tenisha Medrano MD Work Phone: [facility] 09-15-2024 10:30-0500 Body height 161.29 cm MD Tenisha Medrano Work Phone: [facility] 09-15-2024 10:30-0500 Body mass index (BMI) [Ratio] 27.8 kg/m2 MD Tenisha Medrano Work Phone: [facility] 09-15-2024 10:30-0500 Body temperature 97.2 [degF] MD Tenisha Medrano Work Phone: [facility] 09-15-2024 10:30-0500 Body weight 72.57 kg MD Tenisha Medrano Work Phone: [facility] 09-15-2024 10:30-0500 Diastolic blood pressure 68 mm[Hg] MD Tenisha Medrano Work Phone: [facility] 09-15-2024 10:30-0500 Heart rate 72 /min MD Tenisha Medrano Work Phone: [facility] 09-15-2024 10:30-0500 SaO2% (BldA) [Mass fraction] 97 % MD Tenisha Medrano Work Phone: [facility] 09-15-2024 10:30-0500 Systolic blood pressure 104 mm[Hg] MD Tenisha Medrano Work Phone: [facility] 07-15-2024 11:02-0400 Body height 162.56 cm MD Tenisha Medrano Work Phone: [facility] 07-15-2024 11:02-0400 Body mass index (BMI) [Ratio] 27.4 kg/m2 MD Tenisha Medrano Work Phone: [facility] 07-15-2024 11:02-0400 Body temperature 97.7 [degF] MD Tenisha Medrano Work Phone: [facility] 07-15-2024 11:02-0400 Body weight 72.57 kg MD Tenisha Medrano Work Phone: [facility] 07-15-2024 11:02-0400 Diastolic blood pressure 70 mm[Hg] MD Tenisha Medrano Work Phone: [facility] 07-15-2024 11:02-0400 Heart rate 62 /min MD Tenisha Medrano Work Phone: [facility] 07-15-2024 11:02-0400 Systolic blood pressure 110 mm[Hg] MD Tenisha Medrano Work Phone: [facility] 08-18-2021 12:00-0400 Body height 162.56 cm Stanislaw Claricehiwot Other [facility] Other 08-18-2021 12:00-0400 Body mass index (BMI) [Ratio] 27.46 kg/m2 Stanislaw Chiu Other [facility] Other 08-18-2021 12:00-0400 Body weight 72.58 kg Stanislaw Chiu Other [facility] Other Encounters Encounter Date Encounter Type Care Provider Facility Start: 05-13-2025 End: 05-13-2025 Patient encounter procedure Tenisha Ivory MD -MRI [address] Closed Work Phone: Start: 05-13-2025 End: 05-13-2025 ambulatory Tenisha Medrano MD Work Phone: [facility] Work Phone: Start: 03-30-2025 End: 03-30-2025 ambulatory Hernandez Talal Sarmini Facility:[facility] Start: 03-30-2025 End: 03-30-2025 Patient encounter procedure Hernandez Talal Sarmini [facility] Start: 02-12-2025 End: 02-12-2025 ambulatory Hernandez Talal Sarmini Facility:[facility] Start: 01-21-2025 End: 01-21-2025 Office outpatient visit 15 minutes Jorge A Kim DPM Work Phone: [facility] Comment on above: Numbness of toes (Pr imary Dx) Start: 01-21-2025 End: 01-21-2025 ambulatory JORGE A KIM Not Available Start: 12-30-2024 End: 12-30-2024 ambulatory Tenisha Medrano MD Work Phone: [facility] Work Phone: Start: 12-30-2024 End: 12-30-2024 Patient encounter procedure Tenisha Medrano MD Work Phone: [facility] Physician [facility] Work Phone: Start: 09-15-2024 End: 09-15-2024 Patient encounter procedure MD Tenisha Medrano Work Phone: [facility] Physician [facility] Vascular Surgery Work Phone: Start: 09-02-2024 End: 09-02-2024 ambulatory MD Tenisha Medrano Work Phone: [facility] Work Phone: Start: 09-02-2024 End: 09-02-2024 Patient encounter procedure MD Tenisha Medrano Work Phone: [facility] [address] Work Phone: Start: 08-30-2024 End: 08-30-2024 ambulatory SELF REFERRAL Facility:[facility] Start: 08-30-2024 End: 08-30-2024 Patient encounter procedure SELF REFERRAL [facility] Start: 07-15-2024 End: 07-15-2024 ambulatory MD Tenisha Medrano Work Phone: [facility] Work Phone: Start: 07-15-2024 End: 07-15-2024 Patient encounter procedure MD Tenisha Medrano Work Phone: [facility] Physician [facility] Vascular Surgery Work Phone: Start: 06-02-2024 End: 06-02-2024 Patient encounter procedure MD Tenisha Medrano Work Phone: [facility] Work Phone: Start: 06-02-2024 End: 06-02-2024 ambulatory MD Tenisha Medrano Work Phone: [facility] Work Phone: Start: 08-04-2023 End: 08-04-2023 Patient encounter procedure SELF REFERRAL [facility] Start: 09-16-2022 End: 09-17-[address] TENISHA MEDRANO Facility:[facility] Start: 07-01-2022 End: 07-01-2022 Patient encounter procedure ANTELMO FELDER [facility] Start: 05-19-2022 Encounter for genera l adult medical examination without abnormal findings DR TENISHA MEDRANO [facility] Start: 05-13-2022 End: 05-14-[address] TENISHA MEDRANO Facility:[facility] Start: 05-13-2022 End: 05-14-2022 Encounter for general adult medical examination without abnormal findings DR TENISHA MEDRANO Facility:[facility] Start: 11-25-2021 ([facility] C Vac) [facility] Co vid Vaccine Sherice Calvillo [facility] Start: 11-25-2021 End: 11-25-2021 ambulatory Sherice Calvillo Other [facility] Other Start: 10-24-2021 (Procedure) Lionel Chiu [facility] Start: 10-24-2021 End: 10-24-2021 ambulatory Stanislaw Chiu Other [facility] Other Start: 10-10-2021 End: 10-10-2021 ambulatory Stanislaw Chiu Other [facility] Other Start: 10-10-2021 Office outpatient vi sit 25 minutes Stanislaw Chiu [facility] Start: 10-03-2021 (Procedure) Lionel Chiu [facility] Start: 10-03-2021 End: 10-03-2021 ambulatory Stanislaw Chiu Other [facility] Other Start: 09-19-2021 End: 09-19-2021 ambulatory Stanislaw Chiu Other [facility] Other Start: 09-19-2021 Office outpatient vi sit 25 minutes Stanislaw Chiu [facility] Start: 09-12-2021 (Procedure) Short Stanislaw Chiu [facility] Start: 09-05-2021 Office outpatient vi sit 25 minutes Stanislaw Chiu [facility] Start: 08-18-2021 Office outpatient vi sit 25 minutes Stanislaw Claricehiwot [facility] Procedures Date Procedure Procedure Detail Performing Clinician Start: 05-13-2025 MRI of right knee Tenisha Medrano MD Work Phone: Start: 03-30-2025 Colonoscopy Mary Carey Start: 03-30-2025 Esophagogastroduodenoscopy Mary Gu inmonica Start: 12-30-2024 Plain X-ray of left shoulder Tenisha Medrano MD Work Phone: Start: 06-02-2024 Duplex scan of lower limb veins MD Radha Medrano Work Phone: Start: 08-04-2023 Mammography Jorge A Kim DPM Work Phone: Start: 02-25-2021 Colonoscopy Jorge A Kim DPM Work Phone: Start: 02-25-2021 Colonoscopy ANTELMO FELDER Start: 05-19-1989 H/O: tubal ligation ANTELMO FELDER Start: 03-24-1988 D&C ANTELMO FELDER Plan of Treatment Date Care Activity Detail Author Start: 02-25-2031 Screening for malign ant neoplasm of colon [facility] Start: 12-30-2024 Plain X-ray of left shoulder XR shoulder LT min 2V* [facility] Start: 12-30-2024 XR Shoulder - left Views [facility] Start: 08-04-2024 Screening for malign ant neoplasm of breast Mammogram [facility] Start: 07-13-2024 Influenza vaccination Influenza Vacc ine (#1) [facility] Start: 1993 Screening for malign ant neoplasm of cervix [facility] Start: 02-10-1984 Screening for malign ant neoplasm of cervix Pap Smear [facility] Start: 1965 Screening for malign ant neoplasm of colon [facility] US Lower extremity v ein - left [facility] Immunizations Immunization Date Immunization Notes Care Provider Nakul covarrubias 08-15-2023 influenza virus vaccine, unspecified formulation Jroge A Kim DPM Work Phone: [facility] 11-25-2021 COVID-19 Chandana Calvillo Other [facility] 08-18-2021 influenza virus vaccine, unspecified formulation Hernandez Sarmini [facility] 12-16-2020 COVID-19 mRNA-1273 (Moderna) MD Tenisha Medrano Work Phone: [facility] 11-18-2020 COVID-19 mRNA-1273 (Moderna) MD Tenisha Medrano Work Phone: [facility] 08-09-2020 influenza virus vaccine, unspecified formulation Hernandez Sarmini [facility] 09-03-2019 influenza, unspecifi ed formulation Hernandez Sarmini [facility] 08-26-2015 influenza virus vaccine, unspecified formulation Hernandez Sarmini [facility] 08-26-2015 influenza, seasonal, injectable Stanislaw Chiu Other [facility] Payers Date Payer Category Payer Unknown [id number] 2025 Private Health Insurance [employer] [id number] 2024 Self-pay [id number] 1965 Unknown [id number] 1965 Unknown [id number] 1965 Unknown [id number] 1965 Unknown [id number] 1965 Unknown [id number] 1965 Unknown [id number] 1959 Unknown [id number] Unknown [id number] Unknown [id number] Unknown [id number] Unknown [id number] Worker's Compensation [facility] t Ind [id number] Social History Date Type Detail Facility Start: 01-21-2025 Sex Assigned At [facility] [employer] [facility] Other Start: 03-22-2021 Tobacco smoking status Smoker (finding) [facility] Tobacco smoking status Never [facility] Start: 10-24-2021 End: 07-15-2024 Tobacco smoking status NHIS Ex-smoker (finding) [facility] Start: 1965 Sex Assigned At Female [facility] Start: 02-23-2010 End: 12-30-2024 Sex Female (finding) [facility] History of tobacco use Cigarette Smoker [facility] Start: 01-21-2025 Cigarettes smoked current (pack per day) - Reported 1 [facility] Start: 01-21-2025 Tobacco use and exposure Former smokeless tobacco user [facility] Start: 01-21-2025 Alcoholic beverage intake Ex-drinker (finding) [facility] Start: 01-20-2025 Gender identity Identifies as female gender (finding) [facility] Sexual Orientation [facility] Functional Status Date Assessment Result Facility 03-30-2025 Functional Status N/A [facility] Clinical Notes 08-18-2021 to 03-30-2025 Note Date & Type Note Facility 03-30-2025 Note Progress Note-Physic esdras Patient: BETSY MENCHACA Age: 60 years Sex: Female : 1965 Associated Diagnoses: None Author: Iron PEDROZA, Trenton Olivia Postoperative Information Postoperative disposition: Postoperative disposition: Home. Optimetrix number: Optimetrix number [id number]. Anesthetic utilized: Monitored anesthesia care. Health Status Allergies: Allergic Reactions (All) No Known Allergies Current medications: (Selected) Inpatient Medications Ordered Sodium Chloride 0.9% IV Antonia 1000 mL 1,000 mL: 1,000 mL, IV, 20 mL/hr, Routine, Start date 03/30/25 6:45:00 EDT, 50 hour(s), Total volume (mL): 1,000 Prescriptions Prescribed Nexium 40 mg Cap-EC: 40 mg = 1 cap(s), Oral, Daily, # 90 cap(s), Refills(s) 3, [id number], 162, cm, 02/12/25 12:52:00 EDT, Height/Length Dosing, 78.7, kg, 02/12/25 12:52:00 EDT, Weight Dosing Pepcid 40 mg Tab: 40 mg = 1 tab(s), Oral, Once a day (at bedtime), # 30 tab(s), Refills(s) 2, [id number], 162, cm, 03/22/21 10:15:00 EDT, Height/Length Dosing, 75.7, kg, 03/22/21 10:15:00 EDT, Weight Dosing famotidine 40 mg Tab: 40 mg = 1 tab(s), Oral, Once a day (at bedtime), # 90 tab(s), Refills(s) 3, [id number], 162, cm, 02/12/25 12:52:00 EDT, Height/Length Dosing, 78.7, kg, 02/12/25 12:52:00 EDT, Weight Dosing mesalamine 1.2 g oral enteric coated tablet: 2.4 gram, 2 tab(s), Oral, Daily, 60 tab(s), Refill(s) 11, [id number], 162, cm, 01/17/21 14:27:00 EST, Height/Length Dosing, 75.5, kg, 01/17/21 14:27:00 EST, Weight Dosing Documented Medications Documented Multi Vitamin+: Oral, Daily, Refill(s) 0, Prophylaxis Vitamin C: 500 mg, Oral, Daily, Refills(s) 0, Prophylaxis Vitamin D3: 50,000 International_Unit, Oral, qWeek, Refills(s) 0, Prophylaxis cetirizine: 10 mg, Oral, Daily, Refills(s) 0, Allergy symptoms levothyroxine: 25 microgram, Oral, Daily, Refills(s) 0, Thyroid potassium citrate: Daily, Refills(s) 0, Prophylaxis, Home Medications (10) Active cetirizine 10 mg, Oral, Daily famotidine 40 mg Tab 40 mg = 1 tab(s), Oral, Once a day (at bedtime) levothyroxine 25 microgram, Oral, Daily mesalamine 1.2 g oral enteric coated tablet 2.4 gram = 2 tab(s), Oral, Daily Multi Vitamin+ , Oral, Daily Nexium 40 mg Cap-EC 40 mg = 1 cap(s), Oral, Daily Pepcid 40 mg Tab 40 mg = 1 tab(s), Oral, Once a day (at bedtime) potassium citrate , Daily Vitamin C 500 mg, Oral, Daily Vitamin D3 50,000 International_Unit, Oral, qWeek Problem list: All Problems Elevated liver enzymes / SNOMED CT 5469247522 / Confirmed Heartburn / SNOMED CT 91500212 / Confirmed History of colon polyps / SNOMED CT 4583881831 / Confirmed Left sided ulcerative colitis / SNOMED CT 9319486462 / Confirmed Smoker / SNOMED CT 058615047 / Confirmed Added secondary to documentation in Social History. Resolved: ANEMIA, UNSPECIFIED / ICD-9-CM 285.9 Resolved: Cystocele / SNOMED CT 17078522 Resolved: H/O: migraine / SNOMED CT 281043570 Resolved: Hypothyroidism / SNOMED CT 42680123 Resolved: Second degree uterine prolapse / SNOMED CT 78324658 Physical Examination Vital Signs 03/30/2025 13:16 EDT SpO2 97 % 03/30/2025 13:16 EDT Heart Rate Monitored 62 bpm Respiratory Rate Monitored 19 br/min 03/30/2025 13:15 EDT Respiratory Rate Monitored 11 br/min 03/30/2025 13:15 EDT SpO2 94 % 03/30/2025 13:15 EDT Heart Rate Monitored 61 bpm 03/30/2025 13:15 EDT Systolic Blood Pressure 129 mmHg Diastolic Blood Pressure 81 mmHg Blood Pressure Location Left arm Mean Arterial Pressure, Cuff 97 mmHg 03/30/2025 13:10 EDT SpO2 94 % 03/30/2025 13:10 EDT Heart Rate Monitored 67 bpm Respiratory Rate Monitored 15 br/min 03/30/2025 13:10 EDT Systolic Blood Pressure 123 mmHg Diastolic Blood Pressure 53 mmHg LOW Blood Pressure Location Left arm Mean Arterial Pressure, Cuff 76 mmHg 03/30/2025 13:05 EDT Heart Rate Monitored 64 bpm Respiratory Rate Monitored 14 br/min SpO2 96 % 03/30/2025 13:05 EDT Systolic Blood Pressure 121 mmHg Diastolic Blood Pressure 65 mmHg 03/30/2025 13:05 EDT Blood Pressure Location Left arm Mean Arterial Pressure, Cuff 84 mmHg 03/30/2025 12:58 EDT SpO2 94 % 03/30/2025 12:58 EDT Heart Rate Monitored 67 bpm Respiratory Rate Monitored 12 br/min 03/30/2025 12:58 EDT Systolic Blood Pressure 110 mmHg Diastolic Blood Pressure 59 mmHg 03/30/2025 12:58 EDT Temperature Temporal Artery 36.5 DegC Blood Pressure Location Left arm Mean Arterial Pressure, Cuff 76 mmHg 03/30/2025 12:55 EDT Heart Rate Monitored 72 bpm bpm Respiratory Rate 12 br/min br/min 03/30/2025 12:54 EDT Systolic Blood Pressure 111 mmHg mmHg Diastolic Blood Pressure 73 mmHg mmHg 03/30/2025 12:51 EDT Systolic Blood Pressure 113 mmHg mmHg Diastolic Blood Pressure 75 mmHg mmHg 03/30/2025 12:50 EDT Heart Rate Monitored 74 bpm bpm SpO2 94 % % 03/30/2025 12:48 EDT Systolic Blood Pressure 119 mmHg mmHg Diastolic Blood Pressure 80 mmHg mmHg (more content not included)... [facility] Comment on above: Result Comment: Elec tronically Signed By: Iron PEDROZA, Trenton Olivia\.br\Date and Time Signed: 03/30/25 15:05 EDT 03-30-2025 Hospital Discharg e instructions Patient Education 03/30/2025 13:04:20 Gastritis, Adult, Qhmp-xj-Qevl Gastritis, Adult Gastritis is irritation and swelling (inflammation) of the stomach. There are two kinds of gastritis: Acute gastritis. This kind develops quickly. Chronic gastritis. This kind is much more common. It develops slowly and lasts for a long time. It is important to get help for this condition. If you do not get help, your stomach can bleed, and you can get sores (ulcers) in your stomach. What are the causes? This condition may be caused by: Germs that get to your stomach and cause an infection. Drinking too much alcohol. Medicines you are taking. Having too much acid in the stomach. Having a disease of the stomach. Other causes may include: An allergic reaction. Some cancer treatments (radiation). Smoking cigarettes or using products that contain nicotine or tobacco. In some cases, the cause of this condition is not known. What increases the risk? Having a disease of the intestines. Having Crohn's disease. Using aspirin or ibuprofen and other NSAIDs to treat other conditions. Stress. What are the signs or symptoms? Pain in your stomach. A burning feeling in your stomach. Feeling like you may vomit (nauseous). Vomiting or vomiting blood. Feeling too full after you eat. Weight loss. Bad breath. Blood in your poop (stool). In some cases, there are no symptoms. How is this treated? This condition is treated with medicines. The medicines that are used depend on what caused the condition. You may be given: Antibiotic medicine, if your condition was caused by an infection from germs. H2 blockers and similar medicines, if your condition was caused by too much acid in the stomach. Treatment may also include stopping the use of certain medicines, such as aspirin or ibuprofen. Follow these instructions at home: Medicines Take qiii-hml-bxyxnzr and prescription medicines only as told by your doctor. If you were prescribed an antibiotic medicine, take it as told by your doctor. Do not stop taking it even if you start to feel better. Alcohol use Do not drink alcohol if: ?Your doctor tells you not to drink. ?You are , may be , or are planning to become . If you drink alcohol: ?Limit your use to: ?0 1 drink a day for women. ?0 2 drinks a day for men. ?Know how much alcohol is in your drink. In the [place] one drink equals one 12 oz bottle of beer (355 mL), one 5 oz glass of wine (148 mL), or one 1 oz glass of hard liquor (44 mL). General instructions Eat small meals often, instead of large meals. Avoid foods and drinks that make you feel worse. Drink enough fluid to keep your pee (urine) pale yellow. Talk with your doctor about ways to manage stress. You can exercise or do deep breathing, meditation, or yoga. Do not smoke or use any products that contain nicotine or tobacco. If you need help quitting, ask your doctor. Keep all follow-up visits. Contact a doctor if: Your symptoms get worse. Your stomach pain gets worse. Your symptoms go away and then come back. You have a fever. Get help right away if: You vomit blood or something that looks like coffee grounds. You have black or dark red poop. You throw up any time you try to drink fluids. These symptoms may be an emergency. Get help right away. Call your local emergency services (911 in the [place] Do not wait to see if the symptoms will go away. Do not drive yourself to the hospital. Summary Gastritis is irritation and swelling (inflammation) of the stomach. You must get help for this condition. If you do not get help, your stomach can bleed, and you can get sores (ulcers) in your stomach. You can be treated with medicines for germs or medicines to block too much acid in your stomach. This information is not intended to replace advice given to you by your health care provider. Make sure you discuss any questions you have with your health care provider. Document Revised: 03/04/2022 Document Reviewed: 03/04/2022 [employer] Patient Education 2023 [employer]. 03/30/2025 13:04:13 Esophagitis Esophagitis Esophagitis is inflammation of the esophagus. The esophagus is the tube that carries food from the mouth to the stomach. Esophagitis can cause soreness or pain in the esophagus. This condition can make it difficult and painful to swallow. What are the causes? Most causes of esophagitis are not serious. Common causes of this condition include: Gastroesophageal reflux disease (GERD). This is when stomach contents move back up into the esophagus (reflux). Repeated vomiting. An allergic reaction, especially caused by food allergies (eosinophilic esophagitis). Injury to the esophagus by swallowing large pills with or without water, or swallowing certain types of medicines. Swallowing harmful chemicals, such as household cleaning products. Drinking a lot of alcohol. An infection of the esophagus. This most often occurs in people who have a weakened immune system. Radiation or chemotherapy treatment for cancer. Certain diseases such as sarcoidosis, Crohn's disease, and scleroderma. What are the signs or symptoms? Symptoms of this condition include: Difficult or painful swallowing. Pain with swallowing acidic liquids, such as citrus juices. You may also have pain when you burp. Chest pain and difficulty breathing. Nausea and vomiting. Pain in the abdomen. Weight loss. Ulcers in the mouth and white patches in the mouth (candidiasis). Fever. Coughing up blood or vomiting blood. Stool that is black, tarry, or bright red. How is this diagnosed? This condition may be diagnosed based on your medical history and a physical exam. You may also have other tests, including: A test to examine your esophagus and stomach with a small flexible tube with a camera (endoscopy). A test that measures the acidity level in your esophagus. A test that measures how much pressure is on your esophagus. A barium swallow or modified barium swallow to show the shape, size, and functioning of your esophagus. Allergy tests. How is this treated? Treatment for this condition depends on the cause of your esophagitis. In some cases, steroids or other medicines may be given to help relieve your symptoms or to treat the underlying cause of your condition. You may have to make some lifestyle changes, such as: Avoiding alcohol. Quitting any products that contain nicotine or tobacco. These products include cigarettes, chewing tobacco, and vaping devices, such as e-cigarettes. If you need help quitting, ask your health care provider. Changing your diet. Exercising. Changing your sleep habits and your sleep environment. Follow these instructions at home: Medicines Take pchb-xtq-kyqwsld and prescription medicines only as told by your health care provider. Do not take aspirin, ibuprofen, or other NSAIDs unless your health care provider told you to do so. If you have trouble taking pills: ?Use a pill splitter to decrease the size of the pill. This will decrease the chance of the pill getting stuck or injuring your esophagus. ?Drink water after you take a pill. Eating and drinking Avoid foods and drinks that seem to make your symptoms worse. Follow a diet as recommended by your health care provider. This may involve avoiding foods and drinks such as: ?Coffee and tea, with or without caffeine. ?Drinks that contain alcohol. ?Energy drinks and sports drinks. ?Carbonated drinks or sodas. ?Chocolate and cocoa. ?Peppermint and mint flavorings. ?Garlic and onions. ?Horseradish. ?Spicy and acidic foods, including peppers, chili powder, romero powder, vinegar, hot sauces, and barbecue sauce. ?Ballard fruit juices and citrus fruits, such as oranges, jeri, and limes. ?Tomato-based foods, such as red sauce, chili, salsa, and pizza with red sauce. ?Fried and fatty foods, such as donuts, sao tomean fries, potato chips, and high-fat dressings. ?High-fat meats, such as hot dogs and fatty cuts of red and white meats, such as rib eye steak, sausage, ham, and baker. ?High-fat dairy items, such as whole milk, butter, and cream cheese. Lifestyle Eat small, frequent meals instead of large meals. Avoid drinking large amounts of liquid with your meals. Avoid eating meals during the 2 3 hours before bedtime. Avoid lying down right after you eat. Do not exercise right after you eat. Do not use any products that contain nicotine or tobacco. These products include cigarettes, chewing tobacco, and vaping devices, such as e-cigarettes. If you need help quitting, ask your health care provider. General instructions Pay attention to any changes in your symptoms. Let your health care provider know about them. Wear loose-fitting clothing. Do not wear anything tight around your waist that causes pressure on your abdomen. Raise (elevate) the head of your bed about 6 inches (15 cm). You may need to use a wedge to do this. Try relaxation strategies such as yoga, deep breathing, or meditation to manage stress. If you need help reducing stress, ask your health care provider. If you are overweight, reduce your weight to an amount that is healthy for you. Ask your health care provider for guidance about a safe weight loss goal. Keep all follow-up visits. This is important. Contact a health care provider if: You have new symptoms. You have unexplained weight loss. You have difficulty swallowing, or it hurts to swallow. You have wheezing or a cough that does not go away. Your symptoms do not improve with treatment. You have frequent heartburn for more than two weeks. Get help right away if: You have sudden severe pain in your arms, neck, jaw, teeth, or back. You suddenly feel sweaty, dizzy, or light-headed. You have chest pain or shortness of breath. You vomit and the vomit is green, yellow, or black, or it looks like blood or coffee grounds. Your stool is red, bloody, or black. You have a fever. You cannot swallow, drink, or eat. These symptoms may represent a serious problem that is an emergency. Do not wait to see if the symptoms will go away. Get medical help right away. Call your local emergency services (911 in the [place] Do not drive yourself to the hospital. Summary Esophagitis is inflammation of the esophagus. Most causes of esophagitis are not serious. Follow your health care provider's instructions about eating and drinking. Contact a health care provider if you have new symptoms, have weight loss, or coughing that does not stop. Get help right away if you have severe pain in the arms, neck, jaw, teeth, or back, or if you have chest pain, shortness of breath, or fever. This information is not intended to replace advice given to you by your health care provider. Make sure you discuss any questions you have with your health care provider. Document Revised: 05/09/2021 Document Reviewed: 05/09/2021 [employer] Patient Education 2023 [employer]. 03/30/2025 13:04:11 Endoscopy, Care After Procedure [facility] ([facility]) Endoscopy Care After Procedure Please read the instructions outlined below and refer to this sheet in the next few weeks. These discharge instructions provide you with general information on caring for yourself after you leave the hospital. Your doctor may also give you specific instructions. While your treatment has been planned according to the most current medical practices available, unavoidable complications occasionally occur. If you have any problems or questions after discharge, please call your doctor. ACTIVITY You may resume your regular activity but move at a slower pace for the next 24 hours. Take frequent rest periods for the next 24 hours. Walking will help expel (get rid of) the air and reduce the bloated feeling in your abdomen. No driving for 24 hours (because of the anesthesia (medicine) used during the test). You may shower. Do not sign any important legal documents or operate any machinery for 24 hours (because of the anesthesia used during the test). NUTRITION Drink plenty of fluids. You may resume your normal diet. Begin with a light meal and progress to your normal diet. Avoid alcoholic beverages for 24 hours or as instructed by your caregiver. MEDICATIONS You may resume your normal medications unless your caregiver tells you otherwise. WHAT YOU CAN EXPECT TODAY You may experience abdominal discomfort such as a feeling of fullness or gas pains. FOLLOW-UP Your doctor will discuss the results of your test with you. SEEK IMMEDIATE MEDICAL ATTENTION IF ANY OF THE FOLLOWING OCCUR: Excessive nausea (feeling sick to your stomach) and/or vomiting. Severe abdominal pain and distention (swelling). Trouble swallowing. Temperature over 100 F (37.8 C). Rectal bleeding or vomiting of blood. Document Released: 06/12/2005 Document Re-Released: 04/22/2007 [employer] Patient Information [employer]. 03/30/2025 13:04:00 Colonoscopy, Care After Surgery [facility]) Colonoscopy Care After Surgery Please read the instructions outlined below and refer to this sheet in the next few weeks. These discharge instructions provide you with general information on caring for yourself after you leave the hospital. Your doctor may also give you specific instructions. While your treatment has been planned according to the most current medical practices available, unavoidable complications occasionally occur. If you have any problems or questions after discharge, please call your doctor. ACTIVITY You may resume your regular activity, but move at a slower pace for the next 24 hours. Take frequent rest periods for the next 24 hours. Walking will help get rid of the air and reduce the bloated feeling in your abdomen (belly). No driving for 24 hours (because of the anesthesia (medicine) used during the test). You may shower. Do not sign any important legal documents or operate any machinery for 24 hours (because of the anesthesia used during the test). NUTRITION Drink plenty of fluids. You may resume your normal diet as instructed by your doctor. Begin with a light meal and progress to your normal diet. Heavy or fried foods are harder to digest and may make you feel nauseated (sick to your stomach). Avoid alcoholic beverages for 24 hours or as instructed. MEDICATIONS You may resume your normal medications unless your doctor tells you otherwise. WHAT YOU CAN EXPECT TODAY Some feelings of bloating in the abdomen. Passage of more gas than usual. Spotting of blood in your stool or on the toilet paper. FOLLOW-UP Your doctor will discuss the results of your test with you. SEEK IMMEDIATE MEDICAL ATTENTION IF: There is more than a spotting of blood in your stool. There is abdominal distention (your abdomen is swollen). There is vomiting. You have a temperature over 101.5 F. There is abdominal pain or discomfort that is severe or gets worse throughout the day. Follow Up Care 02/12/2025 15:16:15 With:Mary Carey Address: [address] [place], [place] [address]viviana, [address] [place] [phone] [facility] (1) When: Unknown Comments:Call for any problems. [facility] 03-30-2025 Evaluation + Plan note Extrac yrn from: Title:ANES Post-operative Note - Endo Author:Trenton Ornelas MD. Date:03/30/25 Plan Transfer/Discharge: Transfer/Discharge Discharge when meets criteria ( From PACU to Ambulatory Surgery Unit, and To home ). Extracted from: Title:1Preop H&P Author:Cherry PEDROZA, Mary cid Date:03/30/25 Impression and Plan Impression: gerd, colitis Plan: -EGD and Colonoscopy Extracted from: Title:ANES Pre-operative Note - Endo Author:Trenton Perdue MD. Date:03/30/25 Plan [place] [employer] (ASA) physical status classification: Class II. Anesthetic Preoperative Plan: Anesthesia General, and -TIVA. [facility] [id number] NotePatient Education - Text Endoscopy Care After Procedure Please read the instructions outlined below and refer to this sheet in the next few weeks. These discharge instructions provide you with general information [facility] Your doctor may also give you specific instructions. While your treatment has been planned according to the most current medical practices available, unavoidable complications occasionally occur. If you have any problems or questions after discharge, please call your doctor. ACTIVITY ??? You may resume your regular activity but move at a slower pace for the next 24 hours. ??? Take frequent rest periods for the next 24 hours. ??? Walking will help expel (get rid of) the air and reduce the bloated feeling in your abdomen. ??? No driving for 24 hours (because of the anesthesia (medicine) used during the test). ??? You may shower. ??? Do not sign any important legal documents or operate any machinery for 24 hours (because of theanesthesia used during the test). NUTRITION ??? Drink plenty of fluids. ??? You may resume your normal diet. ??? Begin with a light meal and progress to your normal diet. ??? Avoid alcoholic beverages for 24 hours or as instructed by your caregiver. MEDICATIONS ??? You may resume your normal medications unless your caregiver tells you otherwise. WHAT YOU CAN EXPECT TODAY ??? You may experience abdominal discomfort such as a feeling of fullness or ???gas??? pains. FOLLOW-UP ??? Your doctor will discuss the results of your test with you. seek immediate medical attention if any of the following occur: ??? Excessive nausea (feeling sick to your stomach) and/or vomiting. ??? Severe abdominal pain and distention (swelling). ??? Trouble swallowing. ??? Temperature over 100 F (37.8??? C). ??? Rectal bleeding or vomiting of blood. Document Released: 06/12/2005 Document Re-Released: 04/22/2007 [employer]Care??? Patient Information ???2009 [employer]. Colonoscopy Care After Surgery Please read the instructions outlined below and refer to this sheet in the next few weeks. These discharge instructions provide you with general information on caring for yourself after you leave the[facility]. Your doctor may also give you specific instructions. While your treatment has been planned according to the most current medical practices available, unavoidable complications occasionally occur. If you have any problems or questions after discharge, please call your doctor. ACTIVITY You may resume your regular activity, but move at a slower pace for the next 24 hours. Take frequent rest periods for the next 24 hours. Walking will help get rid of the air and reduce the bloated feeling in your abdomen (belly). No driving for 24 hours (because of the anesthesia (medicine) used during the test). You may shower. Do not sign any important legal documents or operate any machinery for 24 hours (because of the anesthesia used during the test). NUTRITION Drink plenty of fluids. You may resume your normal diet as instructed by your doctor. Begin with a light meal and progress to your normal diet. Heavy or fried foods are harder to digestand may make you feel nauseated (sick to your stomach). Avoid alcoholic beverages for 24 hours or as instructed. MEDICATIONS You may resume your normal medications unless your doctor tells you otherwise. WHAT YOU CAN EXPECT TODAY Some feelings of bloating in the abdomen. Passage of more gas than usual. Spotting of blood in your stool or on the toilet paper. FOLLOW-UP Your doctor will discuss the results of your test with you. SEEK IMMEDIATE MEDICAL ATTENTION IF: There is more than a spotting of blood in your stool. There is abdominal distention (your abdomen is swollen). There is vomiting. You have a temperature over 101.5 F. There is abdominal pain or discomfort that is severe or gets worse throughout the day. Gastroenterology Esophagitis Esophagitis is inflammation of the esophagus. The esophagus is the tube that carries food from the mouth to the stomach. Esophagitis can cause soreness or pain in the esophagus. This condition can make it difficult and painful to swallow. What are the causes? Most causes of esophagitis are not serious. Common causes of this condition include: ??? Gastroesophageal reflux disease (GERD). This is when stomach contents move back up into the esophagus (reflux). ??? Repeated vomiting. ??? An allergic reaction, especially caused by food allergies (eosinophilic esophagitis). ??? Injury to the esophagus by swallowing large pills with or without water, or swallowing certain types of medicines. ??? Swallowing harmful chemicals, such as household cleaning products. ??? Drinking a lot of alcohol. ??? An infection of the esophagus. This most often occurs in people who have a weakened immune system. ??? Radiation or chemotherapy treatm (more content not included)...[facility]05-19-2025 NoteEndoscopic Procedure Report - Other Patient: BETSY MENCHACA Age: 60 years Sex: Female : 1965 Associated Diagnoses: None Author: Mary Carey MD Pre-Procedure Procedure Date 03/30/2025 12:56:00 . Procedure Type: Colonoscopy with biopsy. Procedure provider Performed by Mary Carey MD. Current history and physical Documented on chart. Colonoscopy ([id number]) on 02/25/2021 at 56 Years. H/O: tubal ligation ([id number]) on 05/19/1989 at 24 Years. D&C on 03/24/1988 at 23 Years.. Past Medical History Resolved Hypothyroidism (09622344): Resolved. ANEMIA, UNSPECIFIED (285.9): Resolved. H/O: migraine (218188388): Resolved. Cystocele (49663066): Resolved. Second degree uterine prolapse (52105869): Resolved.. Family History Primary malignant neoplasm of female breast Sister Acute myocardial infarction Father . Procedure History Colonoscopy ([id number]) on 02/25/2021 at 56 Years. H/O: tubal ligation ([id number]) on 05/19/1989 at 24 Years. D&C on 03/24/1988 at 23 Years.. Colorectal neoplasm risk assessment High risk UC. . Informed Consent After discussing the rationale, risks and benefits, and alternatives to this procedure, the patient provided signed consent for the procedure. Pre-procedure diagnosis: Diagnostic: Colitis. Medications (Selected) Inpatient Medications Ordered Lactated Ringers IV Antonia 1000 mL 1,000 mL: 1,000 mL, IV, 100 mL/hr, Routine, Start date 03/30/25 12:00:00 EDT, 10 hour(s), Total volume (mL): 1,000, 78.7 kg, 1.88, m2 Sodium Chloride 0.9% IV Antonia 1000 mL 1,000 mL: 1,000 mL, IV, 20 mL/hr, Routine, Start date 03/30/25 6:45:00 EDT, 50 hour(s), Total volume (mL): 1,000 Zofran 4 mg/2 mL Injection: 4 mg = 2 mL, Injection, IV Push, Once PRN Nausea/Vomiting, Routine, Start date 03/30/25 12:00:00 EDT, 03/30/25 12:00:00 EDT Prescriptions Prescribed Nexium 40 mg Cap-EC: 40 mg = 1 cap(s), Oral, Daily, # 90 cap(s), Refills(s) 3, Pharmacy: [facility]/pharmacy #[id number], 162, cm, 02/12/25 12:52:00 EDT, Height/Length Dosing, 78.7, kg, 02/12/25 12:52:00 EDT, Weight Dosing Pepcid 40 mg Tab: 40 mg = 1 tab(s), Oral, Once a day (at bedtime), # 30 tab(s), Refills(s) 2, Pharmacy: [facility]/pharmacy #[id number], 162, cm, 03/22/21 10:15:00 EDT, Height/Length Dosing, 75.7, kg, 03/22/21 10:15:00 EDT, Weight Dosing famotidine 40 mg Tab: 40 mg = 1 tab(s), Oral, Once a day (at bedtime), # 90 tab(s), Refills(s) 3, [id number], cm, 02/12/25 12:52:00 EDT, Height/Length Dosing, 78.7, kg, 02/12/25 12:52:00 EDT, Weight Dosing mesalamine 1.2 g oral enteric coated tablet: 2.4 gram, 2 tab(s), Oral, Daily, 60 tab(s), Refill(s) 11, [facility]/pharmacy #[id number], 162, cm, 01/17/21 14:27:00 EST, Height/Length Dosing, 75.5, kg, 01/17/21 14:27:00 EST, Weight Dosing Documented Medications Documented Multi Vitamin+: Oral, Daily, Refill(s) 0, Prophylaxis Vitamin C: 500 mg, Oral, Daily, Refills(s) 0, Prophylaxis Vitamin D3: 50,000 International_Unit, Oral, qWeek, Refills(s) 0, Prophylaxis cetirizine: 10 mg, Oral, Daily, Refills(s) 0, Allergy symptoms levothyroxine: 25 microgram, Oral, Daily, Refills(s) 0, Thyroid potassium citrate: Daily, Refills(s) 0, Prophylaxis ASA Classification: Class II. . Monitoring: See anesthesia record. . Procedure The procedure was performed in the hospital. See anesthesia record for sedation given during procedure. The patient was positioned starting in the left lateral decubitus position. Endoscope type usedwas an adult-size. The endoscope was lubricated then introduced through the anus. The scope was advanced to the cecum. No difficulties encountered during the procedure. The bowel preparation quality was adequate (see polyps greater than or equal to 6 millimeters). The patient tolerated the procedure well. Time to cecum: 2 min Time of withdrawal: 7 min Findings 1. Colonic mucosa with normal, with normal vascular pattern, no ulcers or erosions, no erythema, Lee score 0. Random biopsies were taken from the left colon and rectum to assess histology 2. Normal Terminal ileum 3. Small internal hemorrhoids Images Procedure images: Rec1_hd_video_2025_[id number]____[id number].jpg Rec_hd_video____39_[id number].jpg Rec_hd_video____12_634.jpg Rec_hd_video_2024____01_701.jpg Rec1_hd_video_2024___00_[id number].jpg . Post-Procedure Complications: none. Estimated blood loss: Minimal. Specimens: sent to pathology. Devices/ implants: none left in place. Impression and Plan 1. Colonic mucosa with normal, with normal vascular pattern, no ulcers or erosions, no erythema, Lee score 0. Random biopsies were taken from the left colon and rectum to assess histology 2. Normal Terminal ileum 3. Small internal hemorrhoids (more content not included)...[facility]:Result Comment: Electronically Signed By: Mary Carey MD\.br\Date and Time Signed: 03/30/25 12:57 EDTOther Comment: Missing Attachment - attachment storage system not supported [id number] Can be viewed in source system Missing Attachment - attachment storage system not supported [id number] Can be viewed in source systemMissing Attachment - attachment storage system not supported [id number] Can be viewed in source systemMissing Attachment - attachment storage system not supported [id number] Can be viewed in source systemMissing Attachment - attachment storage system not supported [id number] Can be viewed in source [id number] NoteEndoscopic Procedure Report - Other Patient: BETSY MENCHACA Age: 60 years Sex: Female : 1965 Associated Diagnoses: None Author: Mary Carey MD Pre-Procedure Procedure Date 03/30/2025 12:43:00 . Procedure Type: Esophagogastroduodenoscopy with biopsy. Procedure provider Performed by Mary Carey MD. Current history and physical Documented on chart. Informed Consent After discussing the rationale, risks and benefits, and alternatives to this procedure, the patient provided signed consent for the procedure. Pre-procedure diagnosis: GERD. Medications Anticoagulant/antiplatelet None. ASA Classification: Class II. . Monitoring: See anesthesia record. . Procedure The procedure was performed in the hospital. See anesthesia record for sedation given during procedure. The patient was positioned starting in the left lateral decubitus position and with safety measures. Endoscope type used was an adult- size, introduced orally, advanced to the 3rd portion of the duodenum. No difficulty was encountered during the procedure. Views were excellent. The patient tolerated the procedure well. Findings 1. Esophageal landmarks identified, diaphragm at 40 cm, GE junction at 36 cm, 4 cm hiatal hernia 2. LA grade D severe erosive esophagitis noted extending about 10-15 above the GE junction cm, cannot rule out Vickers's esophagus 3. Mild gastritis characterized by patchy erythema and minimal hemorrhage in the body of the stomach, otherwise normal examined stomach. Random biopsies were taken rule H. pylori 4. Normal examined duodenum Images Procedure images: Rec1_hd_video__51_[id number].jpg Rec1_hd_video__51_[id number].jpg Rec1_hd_video__51_[id number].jpg Rec1_hd_video__51_31_222.jpg Rec1_hd_video__51_28_050.jpg Rec1_hd_video__51_22_460.jpg Rec1_hd_video___19_960.jpg Rec1_hd_video__49_52_732.jpg Rec1_hd_video__49_49_[id number].jpg Rec1_hd_video__T1_[id number].jpg Rec1_hd_video__49_36_[id number].jpg Rec1_hd_video__49_30_[id number].jpg Rec1_hd_video__48_[id number].jpg Rec1_hd_video_2024___48_[id number].jpg . Post-Procedure Complications: none. Estimated blood loss: minimal. Specimens: sent to pathology. Devices/ implants: none left in place. Impression and Plan 1. Esophageal landmarks identified, diaphragm at 40 cm, GE junction at 36 cm, 4 cm hiatal hernia 2. LA grade D severe erosive esophagitis noted extending about 10-15 above the GE junction cm, cannot rule out Vickers's esophagus 3. Mild gastritis characterized by patchy erythema and minimal hemorrhage in the body of the stomach, otherwise normal examined stomach. Random biopsies were taken rule H. pylori 4. Normal examined duodenum Recommendations: -Resume previous diet -Increase Nexium 40 mg twice a day before meals, continue Pepcid at bedtime - Repeat EGD in 3 months to ensure esophagitis healing and assess for Vickers's, if not healed yet we will consider vonoprazan -Await pathology results, follow in GI clinic in 1-2 after dischargeNationwide Children'S HospitalComment on above:Result Comment: Electronically Signed By: Cherry PEDROZA, Mary Bolanos\.br\Date and Time Signed: 03/30/25 12:44 EDTOther Comment: Missing Attachment - attachment storage system not supported [id number] Can be viewed in source system Missing Attachment - attachment storage system not supported [id number] Can be viewed in source systemMissing Attachment - attachment storage system not supported [id number] Can be viewed in source systemMissing Attachment - attachment storage system not supported [id number] Can be viewed in source systemMissing Attachment - attachment storage system not supported [id number] Can be viewed in source systemMissing Attachment - attachment storage system not supported [id number] Can be viewed in source systemMissing Attachment - attachment storage system not supported [id number] Can be viewed in source systemMissing Attachment - attachment storage system not supported [id number] Can be viewed in source system Missing Attachment - attachment storage system not supported [id number] Can be viewed in source systemMissing Attachment - attachment storage system not supported [id number] Can be viewed in source systemMissing Attachment - attachment storage system not supported [id number] Can be viewed in source systemMissing Attachment - attachment storage system not supported [id number] Can be viewed in source systemMissing Attachment - attachment storage system not supported [id number] Can be viewed in source systemMissing Attachment - attachment storage system not supported [id number] Can be viewed in source [id number] Note History and Physical Patient: BETSY MENCHACA Age: 60 years Sex: Female : 1965 Associated Diagnoses: None Author: Mary Carey MD Preoperative Information Indication for procedure and diagnosis: gerd, colitis Chief Complaint as above Review of Systems All systems reviewed, negative except as mentioned above Health Status Current medications: (Selected) Inpatient Medications Ordered Lactated Ringers IV Antonia 1000 mL 1,000 mL: 1,000 mL, IV, 100 mL/hr, Routine, Start date 03/30/25 12:00:00 EDT, 10 hour(s), Total volume (mL): 1,000, 78.7 kg, 1.88, m2 Sodium Chloride 0.9% IV Antonia 1000 mL 1,000 mL: 1,000 mL, IV, 20 mL/hr, Routine, Start date 03/30/25 6:45:00 EDT, 50 hour(s), Total volume (mL): 1,000 Zofran 4 mg/2 mL Injection: 4 mg = 2 mL, Injection, IV Push, Once PRN Nausea/Vomiting, Routine, Start date 03/30/25 12:00:00 EDT, 03/30/25 12:00:00 EDT Prescriptions Prescribed Nexium 40 mg Cap-EC: 40 mg = 1 cap(s), Oral, Daily, # 90 cap(s), Refills(s) 3, Pharmacy: [id number], 162, cm, 02/12/25 12:52:00 EDT, Height/Length Dosing, 78.7, kg, 02/12/25 12:52:00 EDT, Weight Dosing Pepcid 40 mg Tab: 40 mg = 1 tab(s), Oral, Once a day (at bedtime), # 30 tab(s), Refills(s) 2, [id number], cm, 03/22/21 10:15:00 EDT, Height/Length Dosing, 75.7, kg, 03/22/21 10:15:00 EDT, Weight Dosing famotidine 40 mg Tab: 40 mg = 1 tab(s), Oral, Once a day (at bedtime), # 90 tab(s), Refills(s) 3, [id number] 162, cm, 02/12/25 12:52:00 EDT, Height/Length Dosing, 78.7, kg, 02/12/25 12:52:00 EDT, Weight Dosing mesalamine 1.2 g oral enteric coated tablet: 2.4 gram, 2 tab(s), Oral, Daily, 60 tab(s), Refill(s) 11, [id number], cm, 01/17/21 14:27:00 EST, Height/Length Dosing, 75.5, kg, 01/17/21 14:27:00 EST, Weight Dosing Documented Medications Documented Multi Vitamin+: Oral, Daily, Refill(s) 0, Prophylaxis Vitamin C: 500 mg, Oral, Daily, Refills(s) 0, Prophylaxis Vitamin D3: 50,000 International_Unit, Oral, qWeek, Refills(s) 0, Prophylaxis cetirizine: 10 mg, Oral, Daily, Refills(s) 0, Allergy symptoms levothyroxine: 25 microgram, Oral, Daily, Refills(s) 0, Thyroid potassium citrate: Daily, Refills(s) 0, Prophylaxis, Home Medications (10) Active cetirizine 10 mg, Oral, Daily famotidine 40 mg Tab 40 mg = 1 tab(s), Oral, Once a day (at bedtime) levothyroxine 25 microgram, Oral, Daily mesalamine 1.2 g oral enteric coated tablet 2.4 gram = 2 tab(s), Oral, Daily Multi Vitamin+ , Oral, Daily Nexium 40 mg Cap-EC 40 mg = 1 cap(s), Oral, Daily Pepcid 40 mg Tab 40 mg = 1 tab(s), Oral, Once a day (at bedtime) potassium citrate , Daily Vitamin C 500 mg, Oral, Daily Vitamin D3 50,000 International_Unit, Oral, qWeek Problem list: All Problems Smoker / SNOMED CT [id number] / Confirmed Added secondary to documentation in Social History. Left sided ulcerative colitis / SNOMED CT [id number] / Confirmed History of colon polyps / SNOMED CT 3355180046 / Confirmed Heartburn / SNOMED CT 71625483 / Confirmed Elevated liver enzymes / SNOMED CT 3302071451 / Confirmed Histories Past Medical History: Resolved Hypothyroidism (10786058): Resolved. ANEMIA, UNSPECIFIED (285.9): Resolved. H/O: migraine (326755551): Resolved. Cystocele (95749609): Resolved. Second degree uterine prolapse (39092633): Resolved. Family History: Father Acute myocardial infarction Sister Primary malignant neoplasm of female breast Procedure history: Colonoscopy (835012616) on 02/25/2021 at 56 Years. H/O: tubal ligation (720363789) on 05/19/1989 at 24 Years. D&C on 03/24/1988 at 23 Years. Social History Social & Psychosocial Habits Alcohol 02/12/2025 Risk Assessment: Low Risk Substance Abuse 02/12/2025 Risk Assessment: Denies Substance Abuse Tobacco 02/12/2025 Risk Assessment: Denies Tobacco Use 02/12/2025 Tobacco Use: Former smoker, quit more Smokeless tobacco use: Never Type: Cigarettes . Physical Examination Vital Signs (last 24 hrs) Last Charted Temp Temporal 36.6 DegC (MARCH 30 11:52) Heart Rate Monitored 64 bpm (MARCH 30:52) Resp Rate 16 br/min (MARCH 30 11:52) SBP 122 mmHg (MARCH 30 11:52) DBP 73 mmHg (MARCH 30 11:52) Weight 78.7 kg (MARCH 30 11:40) BMI 29.99 (MARCH 30 11:40) General: in Nad Abdomen: Soft, NTND Impression and Plan Impression: gerd, colitis Plan: -EGD and ColonoscopyNationwide Children'S HospitalComment on above:Result Comment: Electronically Signed By: Cherry PEDROZA, Mary Bolanos\.leeroy\Date and Time Signed: 03/30/25 12:28 [id number] NoteProgress Note-Physician Patient: BETSY MENCHACA Age: 60 years Sex: Female : 1965 Associated Diagnoses: None Author: Iron PEDROZA, Trenton Olivia Preoperative Information Anesthesia Preop Info: Time patient last ate or drank 03/30/2025 00:00:00. Anesthesia history: Patient history: No prior anesthetic problems. Anesthesia results: Anesthesia results from flowsheet : Results 03/30/2025 11:40 EDT Height and Weight - Text 03/30/2025 11:54 EDT Sodium Chloride 0.9% intravenous solution Begin Bag 1,000 mL mL 03/30/2025 11:52 EDT SpO2 97 % 03/30/2025 11:52 EDT Respiratory Rate Monitored 16 br/min 03/30/2025 11:52 EDT Temperature Temporal Artery 36.6 DegC Heart Rate Monitored 64 bpm Systolic Blood Pressure 122 mmHg Diastolic Blood Pressure 73 mmHg Blood Pressure Location Left arm Oxygen Therapy Room air 03/30/2025 11:50 EDT 03/30/2025 11:54 Over the needle Forearm Right 20 gauge Peripheral IV Activity: Start Peripheral IV Number of Attempts: 1 Peripheral IV Site Condition: No complications Peripheral IV Drainage Description: None Peripheral IV Infiltration Score: 0 Peripheral IV Phlebitis Score: 0 Peripheral IV Care: Secured with tape Peripheral IV Dressing: Dry, Intact, Transparent Peripheral IV Patency: No complications Peripheral IV Equipment: Manual Peripheral IV Tubing and Supplies 10 gtt Primary tubing, 42 extension tubing, IV start kit Peripheral IV Response to Activity: pt tolerated well, IV start per A Workman RN 03/30/2025 11:40 EDT Height/Length Measured 162 cm Height/Length Dosing 162.0 cm Weight Dosing 78.7 kg BSA Measured 1.88 m2 Body Mass Index Measured 29.99 kg/m2 Weight Measured 78.7 kg Verbalizes Home Medications Accurately Manages Home Medication Administration Independently Symptomatic After Exposure to Contagion No Symptomatic After Travel High-Risk Area No Droplet, Contact Isolation Verification N/A Airborne,Contact Isolation Verification N/A . Informed consent: Signed by patient. Re-evaluation prior to induction: Initial evaluation reviewed: No significant change. Review of Systems Respiratory: Negative except as documented in history of present illness. Cardiovascular: Negative except as documented in history of present illness. Health Status Allergies: Allergic Reactions (Selected) No Known Allergies, Allergies (1) Active Severity Reaction No Known Allergies None Documented Current medications: (Selected) Inpatient Medications Ordered Sodium Chloride 0.9% IV Antonia 1000 mL 1,000 mL: 1,000 mL, IV, 20 mL/hr, Routine, Start date 03/30/25 6:45:00 EDT, 50 hour(s), Total volume (mL): 1,000 Prescriptions Prescribed Nexium 40 mg Cap-EC: 40 mg = 1 cap(s), Oral, Daily, # 90 cap(s), Refills(s) 3, Pharmacy: [facility]/pharmacy #[id number], 162, cm, 02/12/25 12:52:00 EDT, Height/Length Dosing, 78.7, kg, 02/12/25 12:52:00 EDT, Weight Dosing Pepcid 40 mg Tab: 40 mg = 1 tab(s), Oral, Once a day (at bedtime), # 30 tab(s), Refills(s) 2, Pharmacy: [facility]/pharmacy #[id number], 162, cm, 03/22/21 10:15:00 EDT, Height/Length Dosing, 75.7, kg, 03/22/21 10:15:00 EDT, Weight Dosing famotidine 40 mg Tab: 40 mg = 1 tab(s), Oral, Once a day (at bedtime), # 90 tab(s), Refills(s) 3, Pharmacy: [facility]/pharmacy #[id number], 162, cm, 02/12/25 12:52:00 EDT, Height/Length Dosing, 78.7, kg, 02/12/25 12:52:00 EDT, Weight Dosing mesalamine 1.2 g oral enteric coated tablet: 2.4 gram, 2 tab(s), Oral, Daily, 60 tab(s), Refill(s) 11, [facility]/pharmacy #[id number], 162, cm, 01/17/21 14:27:00 EST, Height/Length Dosing, 75.5, kg, 01/17/21 14:27:00 EST, Weight Dosing Documented Medications Documented Multi Vitamin+: Oral, Daily, Refill(s) 0, Prophylaxis Vitamin C: 500 mg, Oral, Daily, Refills(s) 0, Prophylaxis Vitamin D3: 50,000 International_Unit, Oral, qWeek, Refills(s) 0, Prophylaxis cetirizine: 10 mg, Oral, Daily, Refills(s) 0, Allergy symptoms levothyroxine: 25 microgram, Oral, Daily, Refills(s) 0, Thyroid potassium citrate: Daily, Refills(s) 0, Prophylaxis, Home Medications (10) Active cetirizine 10 mg, Oral, Daily famotidine 40 mg Tab 40 mg = 1 tab(s), Oral, Once a day (at bedtime) levothyroxine 25 microgram, Oral, Daily mesalamine 1.2 g oral enteric coated tablet 2.4 gram = 2 tab(s), Oral, Daily Multi Vitamin+ , Oral, Daily Nexium 40 mg Cap-EC 40 mg = 1 cap(s), Oral, Daily Pepcid 40 mg Tab 40 mg = 1 tab(s), Oral, Once a day (at bedtime) potassium citrate , Daily Vitamin C 500 mg, Oral, Daily Vitamin D3 50,000 International_Unit, Oral, qWeek , Medications (1) Active Scheduled: (0) Continuous: (1) Sodium Chloride 0.9% 1,000 mL 1,000 mL, IV, 20 mL/hr PRN: (0) Problem list: All Problems Elevated liver enzymes / SNOMED CT 1074319429 / Confirmed Heartburn / SNOMED CT 88056994 / Confirmed History of colon polyps / SNOMED CT 4660996044 / Confirmed Left sided ulcerative colitis / SNOMED CT 6069206146 / Confirmed Smoker / SNOMED CT 016723101 / Confirmed Adde (more content not included)...[facility] Children'S HospitalComment on above: Result Comment: Electronically Signed By: Iron PEDROZA, Trenton Olivia\.br\Date and Time Signed: 03/30/25 12:00 [id number] History of Present illness Narrative* Jorge A Kim DPM - 01/21/2025 10:30 AM EDT Reason for Appointment Established Patient: RT toeS numbness History of Present Illness Established patient presents for RT toe 2 and 3 numbness. Patient has noticed numbness feeling for the past few months. Numbness comes and goes.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
== END 2025-05-30 06:47 | disposition home or self-care (01) ==
LOC: LAB 06:46
PROVIDERS: PCP Family Medicine; Visit Provider Family Medicine
DX: R05.3 Chronic cough (principal)
CPT/HCPCS: 71046; 87070; 87077; 87205

== ENCOUNTER 2025-09-22 12:28 | Outpatient (OUT) | payer OTHER, SELFPAY ==
--- OUTSIDE RECORDS SUMMARY | 2025-09-10 11:00 | XMS_ITS ---
Author Organization [facility] in [place] Address [address] [place] [address] Care Team Providers Care Leather Lacer Name Role Phone Baljinder Medrano Primary Care Provider Allergies No Known Allergies REASON FOR VISIT Started with left sided back pain- moved over to the right side, shooting down into the buttock andin the thigh- sometimes down to the ankle, Has been taking IBU but isn't supposed to be due to Colitis- is the only thing that will help some, Went to chiropractor earlier in the week Medications Medication SIG (Take, Route, Frequency, Duration) Notes Start Date End Date Status Multivitamin ActivepredniSONE 10 MG5 tabs per day for 3 days, 4 tabs per day for 3 ays, 3 tabs perday for 3 days, 2 tabs per day for 3days, 1 tab a day for 3 days, 1/2 tab a day for 4 days Orally Once a day; Duration: 19 days5Active Baclofen 20 MG1-2 tabs Orally qhs5ActiveTrelegy Ellipta 100-62.5-25 MCG/ACT1 puff Inhalation Once a day5ActiveNexIUM 20 MG1 tablet orally twice dailyActiveMesalamine 1.2 GMTAKE 2 TABLET BY MOUTH EVERY DAY; Duration: 90 daysActiveLevothyroxine Sodium 25 MCG1 tablet in the morning on an empty stomach Orally Once a day; Duration: 90 daysActiveFamotidine 40 MG1 tablet Orally Once a day5ActiveFluconazole 100 MG1 tablet Orally daily; Duration: 10 days 5ActiveCetirizine HCl 10 MGTAKE 1 TABLET BY MOUTH EVERY DAY; Duration: 90 daysActiveVitamin CActiveVitamin D3 1.25 MG (61668 UT)1 capsule Orally once a week; Duration: 90 daysActiveVentolin HFA 108 (90 Base) MCG/ACT2 puff as needed Inhalation every 4 hrs5Active Social History Tobacco Use: Social History Observation Description Date Details (start date - stop date) Former Smoker 11/12/1981 - 11/12/2000 Tobacco Use/Smoking Question Answer Notes Patient is a former smoker When did you start smoking?11/12/1981When did you stop smoking?11/12/2000 Problems Problem Type SNOMED Code ICD Code Onset Dates Problem Status W/U Status Risk Notes Problem Lumbar radiculopathy (486747239) Lumbar r adiculopathy (M54.16) Activeconfirmed Vital Signs Height 63 in 09/10/2025 Blood pressure systolic 134 mm Hg 09/10/20 25 Blood pressure diastolic 96 mm Hg 025 Encounters Encounter Location Date Provider Diagnosis [facility] [address] [place] [address] 09/10/2025 Baljinder Hoy Lumbar radiculopathy M54.16 Assessments Encounter Date Diagnosis (ICD Code) Assessment Notes Treatment Notes Treatment Clinical Notes Section Notes 09/10/2025 Lumbar radiculopathy (ICD-10 - M 54.16) 09/10/2025OtherRecommended to rest and use a heating pad on the area. Take NSAIDs for pain as needed Plan Of Treatment Medication Medication Name Sig Start Date Stop Date Notes predniSONE 10 MG 5 tabs per day for 3 days, 4 tabs per day for 3 ays, 3 tabs perday for 3 days, 2 tabs per day for 3 days, 1 tab a day for 3 days, 1/2 tab a day for 4 days Orally Once a day; Duration: 19 days 09/10/2025 Baclofen 20 MG1-2 tabs Orally qhs09/10/2025Mesalamine 1.2 GMTAKE 2 TABLET BY MOUTH EVERY DAY; Duration: 90 daystiZANidine HCl 4 MG2 tablets Orally at bedtime 08/20/2023Treatment Notes Assessment Notes Other Recommended to rest and use a heating pad on the area. Take NSAIDs for pain as needed Pending Test Test Name Order Date XR LSPINE MIN 4 VIEWS 09/10/2025 Medications Administered Medication Instructions Date of Administration Dosage Notes Ketorolac Tromethamine mgOrphenadrine Rrmspuj47 mgTriamcinolone 40 mg/ml 20 mg Progress Notes * Betsy MENCHACA BDOB: [birth year] (60 yo F)Acc No.[id number]:09/10/2025 Progress Note Patient: Betsy CUNNINGHAM :?Brad IvoryTray Medrano ([facility]), MDDOB:1965???Age: 60 Y???Sex:FemaleDate:09/10/2025Phone:[phone]:[address] [place] [address], [place], [id number] In:03:50 PM ESTCheck Out:04:53 PM EST Subjective: * Chief Complaints: * S tarted with left sided back pain- moved over to the right side, shooting down into the buttock and in the thigh- sometimes down to the ankleHas been taking IBU but isn't supposed to be due to Colitis- is the only thing that will help someWent to chiropractor earlier in the week * HPI: ???General:? Back pain and then pain radiating into R leg has had sig back painint past has been gpoing on for years - come and goes - has been this bad for lat6-8 week sbut progressively worse. ???Back Pain:? The patient complains of -. The symptoms have been present for1-2 days. The patient believes symptoms are injury related No. The symptoms are mild. Symptomatic treatment has included heating pad, stretching. Associated symptoms include None. * ROS: ???General/Constitutional:?Lightheadedness?denies.?Change in appetite?denies.?Weight Change?denies.?Cardiovascular:?Irregular heartbeat?denies.?Swelling in hands/feet denies.?Respiratory:?Shortness of breath?denies.?Shortness of breath with e xertion?denies.?Wheezing?denies.?Musculoskeletal:?Comments?See HPI for details.?Neurologic:?Dizziness?denies.?Fainting?denies.?Headache denies.? * Active Problem List M76.11 Psoas tendinitis, ri ght hip Modified On:05/20/2023 Status:ntgdrvgfrB54.909Migraine headache Modified On:05/20/2023 Status:rykfvmismJ81.9Hypothyroidism Modified On:05/20/2023 Status:iayrcjecoK17.9Vitamin D deficiency Modified On:05/20/2023 Status:iuotbqporL74.50Arthralgia Modified On:05/20/2023 Status:wsebmhjusL32.9Colitis Modified On:05/20/2023 Status:lukyuarlgC50.0Osteoporosis Modified On:05/20/2023 Status:iquzucpkgC76.90Cervical disc disease Modified On:05/20/2023 Status:jqcvlwjesJ69.2Seasonal allergic rhinitis Modified On:05/20/2023 Status:pmuqyzjduU90.2Schatzki's ring Modified On:08/20/2023 Status:tbsrctirpH35.00Well adult Modified On:05/21/2023 Status:aumnsryfmR04.8Varicose vein Modified On:07/16/2024 Status:xjahikbzmO22.9Acute bronchitis, unspecified organism Modified On:12/25/2024 Status:smfqzzyjwR22.9Acute bronchitis Modified On:02/16/2025 Status:bqflcvlatF11.90Internal derangement of knee Modified On:04/23/2025U Status:twipidnrpU55.70Barrett esophagus Modified On:07/20/2025U Status:kfuhjwrxiR72.1Sacroiliitis Modified On:08/13/2025W/U Status:dcrdbvifwH33.16Lumbar radiculopathy Modified On:09/10/2025W/U Status:confirmed * Medical History: * Surgical History: E sophageal Dilation- Dr. Howard 10/2018Total Abdominal Hysterectomy 11/2010Trapezius Trigger Point Inj- Dr. Chiu ervical branch Block C3,C4,C5 ervical Facet Medial Branch Denercation C3,C4,C5- Dr. Chiu GD/Colonoscopy 03/30/2025 * Hospitalization/Major Diagno stic Procedure: D enies Past Hospitalization * Family History: F ather: 60 yrs, Heart Attack- at 62. M other: . B dominiqueer(s): alive. S ister(s): alive, breast cancer, diagnosed with Diabetes. S on(s): alive. 1 brother(s) , 2 sister(s) . 3 son(s) - healthy. . * Social History: ???Tobacco Use:?Tobacco Use/Smoking?Patient is a?former smoker ?When did you start smoking??11/12/1981 ?When did you stop smoking??11/12/2000 * Medications: T akingCetirizine HCl 10 MG Tablet TAKE 1 TABLET BY MOUTH EVERY DAY Famotidine 40 MG Tablet 1 tablet Orally Once a day Fluconazole 100 MG Tablet 1 tablet Orally daily Levothyroxine Sodium 25 MCG Tablet 1 tablet in the morning on an empty stomach Orally Once a day Mesalamine 1.2 GM Tablet Delayed Release TAKE 2 TABLET BY MOUTH EVERY DAY Multivitamin NexIUM(Esomeprazole Magnesium) 20 MG Capsule Delayed Release 1 tablet orally twice daily tiZANidine HCl 4 MG Tablet 2 tablets Orally at bedtime Trelegy Ellipta(Uglejpvqxcl-Mdxvciidy-Amoygl) 100-62.5-25 MCG/ACT Aerosol Powder Breath Activated 1 puff Inhalation Once a day Ventolin HFA(Albuterol Sulfate HFA) 108 (90 Base) MCG/ACT Aerosol Solution 2 puff as needed Inhalation every 4 hrs Vitamin C Vitamin D3 1.25 MG (16766 UT) Capsule 1 capsule Orally once a week Medication List reviewed and reconciled with the patientTaking Cetirizine HCl 10 MG Tablet TAKE 1 TABLET BY MOUTH EVERY DAY Taking Famotidine 40 MG Tablet 1 tablet Orally Once a day Taking Fluconazole 100 MG Tablet 1 tablet Orally daily Taking Levothyroxine Sodium 25 MCG Tablet 1 tablet in the morning on an empty stomach Orally Once a day Taking Mesalamine 1.2 GM Tablet Delayed Release TAKE 2 TABLET BY MOUTH EVERY DAY Taking Multivitamin Taking NexIUM(Esomeprazole Magnesium) 20 MG Capsule Delayed Release 1 tablet orally twice daily Taking tiZANidine HCl 4 MG Tablet 2 tablets Orally at bedtime Taking Trelegy Ellipta(Dfqcrtuykko-Xsntoecnt-Tgfokf) 100-62.5-25 MCG/ACT Aerosol Powder Breath Activated 1 puff Inhalation Once a day Taking Ventolin HFA(Albuterol Sulfate HFA) 108 (90 Base) MCG/ACT Aerosol Solution 2 puff as needed Inhalation every 4 hrs Taking Vitamin C Taking Vitamin D3 1.25 MG (96438 UT) Capsule 1 capsule Orally once a week Medication List reviewed and reconciled with the patient * Allergies: N .K.D.A.no[Allergies Verified] Objective: * Vitals: W t: Not Taken - Patient Unable, Ht: 63 in, BP:134/96mm Hg. * Examination: ???General Examination: ?GENERAL APPEARANCE:?in no acute distress, well developed, well nourished.?LUNGS:? clear to auscultation bilaterally.?CARDIO:? S1, S2 normal, no murmurs, rubs, gallops.?MUSCULOSKELETAL:?poor romin back due tpopaon adn + SR on the right improved with knee flexion decreased patellar reflex.?EXTREMITIES:? no clubbing, cyanosis, or edema.?NEUROLOGIC:? alert, oriented to time, place, & person. ??? Assessment: * Assessment: 1.?Lumbar radiculopathy - M54.16 (Primary)??? Plan: * Treatment: Stop tiZANidine HCl Tablet, 4 MG, 2 tablets, Orally, at bedtime;?Start Baclofen Tablet, 20 MG,1-2 tabs, Orally, qhs, 60, Refills 3;?Start predniSONE Tablet, 10 MG, 5 tabs per day for 3 days, 4 tabs per day for 3 ays, 3 tabs perday for 3 days, 2 tabs per day for 3 days, 1 tab a day for 3 days, 1/2 tab a day for 4 days, Orally, Once a day, 19 days, 47, Refills 0;?Refill Mesalamine Tablet Delayed Release, 1.2 GM, TAKE 2 TABLET BY MOUTH EVERY DAY, 90 days, 180, Refills 3.?Imaging: XR LSPINE MIN 4 VIEWS2.?Others? Notes: Recommended to rest and use a heating pad on the area. Take NSAIDs for pain as needed? * Therapeutic Injections: Triamcinolone 40 mg/ml : 120 mg (Route: Intramuscular) given by Bonnie Amezquita SA on left gluteus (Lumbar radiculopathy)??? Ketorolac Tromethamine : 60 mg (Route: Intramuscular) given by Bonnie Amezquita SA on right gluteus (Lumbar radiculopathy)??? Orphenadrine Citrate : 60 mg (Route: Intramuscular) given by Bonnie Amezquita SA on right gluteus (Lumbar radiculopathy) * Procedure Codes: [id number] THERAP.INJ. OF MED. INTRAMUSCULAR OR [id number] TMC ACET,PER 10MG., Units: 12.00 J1885 TORADOL, PER 15 MG, Units: 4.00 , Modifiers: JZ J2360 NORFLEX,UP TO 60MG. * * Sign off status: CompletedVisit Status:?CHK (Check Out) true * Provider: Donald Medrano ([facility])MD Date: 1 Generated for Printing/Faxing/eTransmitting on:?09/22/2025 12:31 PM EST History and Physical Notes * HPI (History of Present Illness) CategorySub-CategoryDetailNotesCategory NotesGeneral Back pain and then pain radiating into R leg has had sig back painint past has been gpoing on for years - come and goes - has been this bad for lat6-8 week sbut progressively worse Examination CategorySub-CategoryDetailNotesCategory NotesGeneral ExaminationGENERAL APPEARANCE:in no acute distress, well developed, well nourishedCARDIO:S1, S2 normal, no murmurs, rubs, gallopsLUNGS:clear to auscultation bilaterally NEUROLOGIC:alert, oriented to time, place, & personEXTREMITIES:no clubbing, cyanosis, or edemaMUSCULOSKELETAL:poor romin back due tpopaon adn + SR on the right improved with knee flexiondecreased patellar reflex
--- OUTSIDE RECORDS SUMMARY | 2025-09-15 03:50 | XMS_ITS ---
Author Organization [facility] in [place] Address [address] [place] [address] Care Team Providers Care Solution Make Up Operator Name Role Phone Baljinder Medrano Primary Care Provider [phone] REASON FOR VISIT MRI lspine Encounters Encounter Location Date Provider Diagnosis [facility] [address] [place] [address] 09/15/2025 Baljinder Medrano Lumbar radiculopathy M54.16 Assessments Encounter Date Diagnosis (ICD Code) Assessment Notes Treatment Notes Treatment Clinical Notes Section Notes 09/15/2025 Lumbar radiculopathy (ICD-10 - M 54.16) Plan Of Treatment Pending Test Test Name Order Date MRI LSPINE WO CON 09/15/2025 Progress Notes * Betsy MENCHACA BDOB: [birth year] (60 yo F)Acc No.[id number]:09/15/2025 Patient:?Betsy MENCHACA :1965???Age:60 Y???Sex:FemalePhone:[phone] Address:[address] [place] [address], [address] Subjective: * Chief Complaints: * M RI lspine * Medical History: * Surgical History: * Hospitalization/Major Diagno stic Procedure: * Medications: Objective: * Vitals: * Physical Examination: ??? Assessment: * Assessment: 1.?Lumbar radiculopathy - M54.16 (Primary)??? Plan: * Treatment: ?Imaging: MRI LSPINE WO CON * Procedure Codes: * true * Date:?Generated for Printing/Faxing/eTransmitting on:?09/22/2025 12:31 PM EST
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
--- OUTSIDE RECORDS SUMMARY | 2025-09-21 04:20 | XMS_ITS ---
Author Organization [facility] [place] Address [address] [place] [address] Care Team Providers Care Platform Loader Name Role Phone Baljinder Medrano Primary Care Provider REASON FOR VISIT MRI question Encounters Encounter Location Date Provider Diagnosis [facility] [address] [place] [address] 09/21/2025 Baljinder Mitchell Sacroiliitis M46.1 Assessments Encounter Date Diagnosis (ICD Code) Assessment Notes Treatment Notes Treatment Clinical Notes Section Notes 09/21/2025 Sacroiliitis (ICD-10 - M46.1) Plan Of Treatment Pending Test Test Name Order Date MRI Sacrum Coccyx w/o Contrast Progress Notes * Betsy MENCHACA BDOB: [birth year] (60 yo F)Acc No.[id number]:09/21/2025 Patient:?Betsy MENCHACA :1965???Age:60 Y???Sex:FemalePhone:[phone] Address:[address] [place] [address], [phone] Subjective: * Chief Complaints: * M RI question * Medical History: * Surgical History: * Hospitalization/Major Diagno stic Procedure: * Medications: Objective: * Vitals: * Physical Examination: ??? Assessment: * Assessment: 1.?Sacroiliitis - M46.1 (Primary)??? Plan: * Treatment: ?Imaging: MRI Sacrum Coccyx w/o Contrast * Procedure Codes: * true * Date:?Generated for Printing/Faxing/eTransmitting on:?09/22/2025 12:30 PM EST
--- NOTE | 2025-09-22 | MR_ITS ---
The [address] [address] Patient Name: CAMMY MERINO MRN: [id number] date: 1965 Sex: F Assigned Patient Location: MRI Current Patient Location: MRI Accession/Order Number: [id number] Exam Date: 09/22/2025 13:00 Report Date: 09/22/2025 18:17 At the request of: TENISHA BARLOW MD Procedure: MR pelvis wo con MR pelvis wo con 09/22/2025 2:30 PM SIGNS AND SYMPTOMS: lumbar radiculopathy PROTOCOL: Multiplanar multisequence MR images of the pelvis were obtained without IV contrast COMPARISON: None. FINDINGS: Hips: Alignment: Normal Femoroacetabular impingement anatomy: None. Dysplasia: None. Fluid: No joint effusion. Labrum: Grossly intact. Cartilage: Femoral: Preserved. Acetabular: Preserved. Capsule/ligaments: Normal. Muscles/tendons/entheses: Flexors: Normal. Extensors: Normal. Abductors: Normal. Adductors: Normal. Rotators: Normal. Hamstrings: Normal. Bones (other than subarticular marrow): Edema is noted in the sacral ala bilaterally. Linear T1 hypointense signal is noted along the sacral ala left greater than right. These changes are most consistent with sacral insufficiency fractures more notably on the left compared to the right. Degenerative changes are noted in the lower lumbar spine which are better detailed on lumbar spine MRI from the same date. Vessels: Normal. Nerves: Visualized bilateral sciatic and femoral nerves appear normal. Soft tissues: Normal. Viscera: Visualized pelvic structures appear normal. No lymphadenopathy by size criteria. No free fluid in the pelvis. There is evidence of prior hysterectomy. MR/MR pelvis wo con IMPRESSION: Edema is noted in the sacral ala bilaterally. Linear T1 hypointense signal is noted along the sacral ala left greater than right. These changes are most consistent with sacral insufficiency fractures more notably on the left compared to the right. Impression dictated by: Paddy Cheung M.D. 09/22/2025 6:17 PM Dictation Location: [place] [address] Electronically authenticated by: [id number] Y Date: 09/22/2025 18:17
--- NOTE | 2025-09-22 | MR_ITS ---
The [address] [address] Patient Name: CAMMY MERINO MRN: [id number] date: 1965 Sex: F Assigned Patient Location: MRI Current Patient Location: MRI Accession/Order Number: [id number] Exam Date: 09/22/2025 13:00 Report Date: 09/22/2025 18:04 At the request of: TENISHA BARLOW MD Procedure: MR lumbar spine wo con MR lumbar spine wo con 09/22/2025 2:30 PM SIGNS AND SYMPTOMS: ^lumbar radiculopathy PROTOCOL: Multiplanar multisequence MR images of the lumbar spine without IV contrast COMPARISON: None. FINDINGS: The bones of the lumbar spine are in anatomic alignment. There is preservation of vertebral body heights. There is severe intervertebral disc height loss at L4-5 with Schmorl's node formation in the endplates. Edema is noted along the sacral ala bilaterally. These may represent sacral insufficiency fractures. There is a benign-appearing hemangioma of the L2 vertebral body. The conus terminates at the inferior endplate of the L1 vertebral body level. No epidural or paraspinous fluid collection is appreciated. Simple cysts are noted in the renal cortices requiring no further follow-up. At T12-L1: There is a normal disc, central canal, and neural foramen. At L1-L2: There is a normal disc, central canal, and neural foramen. At L2-L3: There is a normal disc, central canal, and neural foramen. At L3-L4: There is a broad-based disc bulge with mild spinal canal narrowing and mild bilateral neural foraminal narrowing. At L4-L5: There is a circumferential disc bulge with facet hypertrophy and ligamentum flavum thickening. There is mild spinal canal stenosis with mild left and moderate right neural foraminal stenosis. At L5-S1: There is facet hypertrophy. There is a broad-based disc bulge with mild endplate osteophyte formation. There is mild right neural foraminal narrowing without spinal canal narrowing. MR/MR lumbar spine wo con IMPRESSION: Edema is noted along the sacral ala bilaterally. These may represent sacral insufficiency fractures. At L4-L5: There is a circumferential disc bulge with facet hypertrophy and ligamentum flavum thickening. There is mild spinal canal stenosis with mild left and moderate right neural foraminal stenosis. Lesser degrees of degenerative changes noted as above. Impression dictated by: aPddy Cheung M.D. 09/22/2025 6:04 PM Dictation Location: [place] [address] Electronically authenticated by: [id number] Y Date: 09/22/2025 18:04
--- OUTSIDE RECORDS SUMMARY | 2025-09-22 12:31 | XMS_ITS | Clinical Summary ---
Author Organization [facility] Address [address] [place] [address] Care Team Providers Care Television Repairer Name Role Phone Unavailable Primary Care Provider Unavailabl e Allergies No known active allergies Medications MedicationSigDispense QuantityRefillsLast FilledStart DateEnd DateStatus cetirizine (ZyrTEC) 10 MG tablet Take 10 mg by mouth Daily11/06/2024ctive cholecalciferol (Vitamin D-3) 1.25 MG (53384 UT) capsule Take by mouth 1 (one) time per week5Active levothyroxine (Synthroid, Levoxyl) 25 MCG tablet TAKE 1 TABLET BY MOUTH EVERY DAY IN THE MORNING ON EMPTY STOMACH FOR 90 DAYS Active mesalamine (Lialda) 1.2 g EC tablet Take 2.4 g by mouth DailyActive pantoprazole (ProtoNix) 40 MG EC tablet Take 40 mg by mouth in the morning and 40 mg before bedtime.Active tiZANidine (Zanaflex) 4 MG tablet Take 8 mg by mouth at alliwlc5702/15/2024ctive Ascorbic Acid (VITAMIN C PO) Take by mouthActive Multiple Vitamin (multivitamin) tablet Take 1 tablet by mouth DailyActive Active Problems No known active problems Family History Medical HistoryRelationNameCommentsHeart attackFatherDiabetes type INieceBreast cancerSisterDiabetes type ISisterRelationNameStatusCommentsFatherNieceAlive Sister Social History Tobacco UseTypesPacks/DayYears UsedDateSmoking Tobacco: QearbyCjmdmlxpfk177 Smokeless Tobacco: Former Tobacco Cessation:Counseling Given: Not Answered Alcohol UseStandard Drinks/WeekCommentsNot Currently0 (1 standard drink = 0.6 oz pure alcohol)CommentsUnknownSex and Gender InformationValueDate Recorded Sex Assigned at RposkZrxhju79/11/2025 10:45 AM EDTLegal RumHnaayc24/15/2023 11:05 PM EDTGender EsfbkitfTndyit74/11/2025 10:45 AM EDTSexual OrientationNot on file Last Filed Vital Signs Vital SignReadingTime TakenCommentsBlood Znjveehc371/9301/ 12:00 PM EST Pulse--Temperature--Respiratory Rate--Oxygen Saturation--Inhaled Oxygen Concentration--Qfqone22.2 kg (157 lb)09/16/2021 12:00 PM BNAJsvkbd786 cm (5' 3 ) 09/16/2021 12:00 PM EDTBody Mass Index27.8109/16/2021 12:00 PM EDT Plan of Treatment Health MaintenanceDue DateLast DoneCommentsCT Rmjmuakhvstg1965FIT-DNA 1965FIT1965FOBT1965 9945Jecesxlixmosf1963Pap Smear02/10/1984 Cervical Cancer Mhlbkytss36/31/1993HPV/Odcwzo3502/09/19934495Xnyzlxmkt45/23/2024 08/04/2023, 07/01/2022, 02/10/2022, Additional history existsCOVID-19 Vaccine ( season)501/, 12/16/2020, 11/18/2020Influenza Vaccine (#1)/02/2023, 08/18/2021, 08/09/2020, Additional history exists Apvdfqzphyq60/16/203104/olorectal Cancer Ymkdfiqln37/16/2031Pneumococcal Vaccine: Pediatrics (0 to 5 Years) and At-Risk Patients (6 to 64 Years)Aged Out No longer eligible based on patient's age to complete this topic Procedures Procedure NamePriorityDate/TimeAssociated DiagnosisCommentsMAMMOGRAM, BILATERAL, SCREEN:*Feegddg2008/04/2023 11:58 AM EDTfrom Last 3 Months or Most Recently Relevant to Health Maintenance Results * MAMMOGRAM, BILATERAL, SCREEN:* (08/04/2023 11:58 AM EDT)Anatomical Region LateralityModalityRadiographic Imaging Narrative Authorizing ProviderResult TypeResult StatusUnknown Practice AIMG XR PROCEDURES Final Result from Last 3 Months or Most Recently Relevant to Health Maintenance Insurance
--- OUTSIDE RECORDS SUMMARY | 2025-09-22 12:32 | XMS_ITS | Patient Health Record ---
Author Organization The [facility] in [place] Address [address] [place] [address] Care Team Providers Care Restaurant Crew Person Name Role Phone Baljinder Barlow Primary Care Provider Allergies No Known Allergies Results Component Value Reference Range Notes CBC AUTO DIFF Reviewed date:10/06/2024 02:07:35 PM Interpretation: Performing Lab: Notes/Report: [facility] , White Blood Count 5.6 4.0-11.0 10 3/uL Red Blood Count5.074.20-5.40 10 6/xXMayoqhguxa08.612.0-16.0 g/gYMtyjbeqbew37.4 36.0-48.0 %Mean Corpuscular Sooavr70.681.0-99.0 fLMean Corpuscular Hemoglobin 28.826.7-34.0 pgMean Corpuscular HGB Conc32.929.9-35.2 g/dLRed Cell Distribution Width13.711.0-15.0 %Platelet Rtgbp051229-130 10 3/uLMean Platelet Yexdrp40.39.5- 13.5 fLNeutrophils Percent Auto55.443.0-75.0 %Lymphocytes Percent Auto32.820.5- 60.0 %Monocytes Percent Auto7.01.7-12.0 %Eosinophils Percent Auto4.10.9-7.0 % Basophils Percent Auto0.50.2-2.0 %Immature Granulocytes Pct Auto0.20.0-0.5 % Neutrophils Absolute Auto3.11.4-6.5 10 3/uLLymphocytes Absolute Auto1.81.2-3.8 10 3/uLMonocytes Absolute Auto0.40.3-0.8 10 3/uLEosinophils Absolute Auto0.20.0- 0.7 10 3/uLBasophils Absolute Auto0.00.0-0.1 10 3/uLImmature Granulocytes Abs Auto0.010.00-0.03 10 3/uLPerforming Lab:see note - [facility] FREE T3 Reviewed date:10/06/2024 02:07:35 PM Interpretation: Performing Lab: Notes/Report: [facility] ,Free T32.292.18-3.98 pg/mLPerforming Lab:see [facility] GLYCOHEMOGLOBIN A1C Reviewed date:10/06/2024 02:07:35 PM Interpretation: Performing Lab: Notes/Report: [facility] ,Glycohemoglobin A1C5.54.5-6.2 % ADA RECOMMENDED LIMIT 4.0 - 6.0 ADA THERAPEUTIC TARGET < 7.0 ACTION SUGGESTED > 7.0 Estimated Average Wcqpjtm394Vvqlelglcb [facility] Reviewed date:10/06/2024 02:07:35 PM Interpretation: Performing Lab: Notes/Report: [facility] ,Insulin8.22.6-24.9 uIU/mL Performed at: [facility] [address] [id number] Lab[employer] Filter Plant: Swapnil Ruiz PhD, Phone: [phone] Performing Lab:[facility] LBIRON Reviewed date:10/06/2024 02:07:35 PM Interpretation: Performing Lab: Notes/Report: [facility] ,Iron56.050.0-170.0 ug/dLPerforming Lab:see [facility] LB LIPID PROFILE Reviewed date:10/06/2024 02:07:35 PM Interpretation: Performing Lab: Notes/Report: [facility] ,Psqsduyzbqfkh94<=150 mg/wIUkbxokxcshm492<=200 mg/dLHDL Jjtugnnjyzm5374-64 mg/dL > or =60 mg/dl - LOW CARDIOVASCULAR RISK <40 mg/dl - HIGH CARDIOVASCULAR RISK LDL Cholesterol Nblzxeowqu537.0 <100 mg/dl OPTIMAL 100-129 mg/dl NEAR OR ABOVE OPTIMAL 130-159 mg/dl BORDERLINE HIGH 160-189 mg/dl HIGH >190 mg/dl VERY HIGH VLDL NJGCBVBIAKM27.8Chol HDL Ratio2.8 3.3 - 4.4 LOW RISK 4.4 - 7.1 AVERAGE RISK 7.1 - 11.0 MODERATE RISK >11.0 HIGH RISK Performing Lab:see note - [facility] LBPROF 14(COMP METB) Reviewed date:10/06/2024 02:07:35 PM Interpretation: Performing Lab: Notes/Report: [facility] ,Wtwdoi596299-742 mmol/LPotassium4.13.5-5.1 mmol/CMgsivtnd33728-711 mmol/LCarbon Snzciuz53.921.0-32.0 mmol/LAnion Gap13.4Myhwaof2154-356 mg/dLBlood Urea Nitrogen 20.07.0-18.0 mg/dLCreatinine0.920.55-1.02 mg/dLEstimated GFR ( Edda>60 >=60 mL/min/1.73m 2Estimated GFR (Non- Crystal>60>=60 mL/min/1.73m 2BUN Creatinine Ratio21.4Vhspvnu9.48.5-10.1 mg/dLBilirubin Total0.50.2-1.0 mg/dL Aspartate Amino Rihbdrkjlso0183-15 U/LAlanine Gpojvfytlrmlnufq3316-03 U/L Alkaline Buqthkgofky6591-306 U/LTotal Protein7.16.4-8.2 g/dLAlbumin Level3.73.4- 5.0 g/dLGlobulin3.4Albumin Globulin Ratio1.1Performing Lab:see note - [facility] LBT4 Reviewed date:10/06/2024 02:07:35 PM Interpretation: Performing Lab: Notes/Report: [facility] ,T4 Thyroxine7.804.80-13.90 ug/dLPerforming Lab:see [facility] LBTSH Reviewed date:10/06/2024 02:07:35 PM Interpretation: Performing Lab: Notes/Report: [facility] ,Thyroid Stimulating Hormone1.3210.358-3.740 uIU/mLPerforming Lab:see noteML - [facility] LBUA RANDOM W or MICROSCOPIC Reviewed date:10/06/2024 02:07:35 PM Interpretation: Performing Lab: Notes/Report: [facility] ,Color UrineLT. YELLOWYELLOWClarity UrineCLEARCLEARSpecific Florien Urine1.020 1.005-1.025pH Urine6.05.0-9.0Protein UrineNEGATIVENEG/TRACE mg/dLGlucose Urine UANEGATIVENEGATIVE mg/dLBilirubin UrineNEGATIVENEGATIVEKetones UrineNEGATIVE NEGATIVE mg/dLBlood UrineNEGATIVENEGATIVENitrite UrineNEGATIVENEGATIVE Urobilinogen Urine0.20.2-1.0 EU/dLLeukocyte Esterase UrineTRACENEGATIVEWBC Urine 5-10NONE SEEN #/HPFRBC Urine2-50-2 #/HPFBacteria UrineSMALLNONE SEEN #/HPFMucus UrineLARGENONE SEENSquamous Epithelial Cell UrineFEWNONE/RARE #/LPFCrystals Seen?None SeenNone Seen #/HPFCast Seen?NONE SEENNONE SEEN #/LPFPerforming Lab: see note - [facility] LBVITAMIN D 25 [place] Reviewed date:10/06/2024 02:07:35 PM Interpretation: Performing Lab: Notes/Report: [facility] ,Vitamin D110.8 <20 ng/mL Vit D deficient 20-<30 ng/mL Vit D insufficient 30-100 ng/mL Vit D sufficient >100 ng/mL Potential Toxicity Performing Lab:see noteML - [facility] LBWhite Blood Cells Reviewed date:06/25/2025 07:48:03 AM Interpretation: Performing Lab: Notes/Report: [facility] ,White Blood CellsSee Below For Report White Blood Cells White Blood CellsFew White Blood Cells Performing Lab:see noteLC - [facility] LBEpithelial Cells Reviewed date:06/25/2025 07:48:03 AM Interpretation: Performing Lab: Notes/Report: [facility] ,Epithelial CellsSee Below For Report Epithelial Cells Few Performing Lab:see noteLC - [facility] LBResult 1 Reviewed date:06/25/2025 07:48:03 AM Interpretation: Performing Lab: Notes/Report: [facility] ,Result 1See Below For Report Result 1 Few gram positive cocci Performing Lab:see note - [facility] LBResult 2 Reviewed date:06/25/2025 07:48:03 AM Interpretation: Performing Lab: Notes/Report: [facility] ,Result 2See Below For Report Result 2 COMPUTER MECHANIC Performing Lab:see note - [facility] LBResult 3 Reviewed date:06/25/2025 07:48:03 AM Interpretation: Performing Lab: Notes/Report: [facility] ,Result 3See Below For Report Result 3 COMPUTER MECHANIC Performing Lab:see noteLC - [facility] LBResult 4 Reviewed date:06/25/2025 07:48:03 AM Interpretation: Performing Lab: Notes/Report: [facility] ,Result 4See Below For Report Result 4 COMPUTER MECHANIC Performing Lab:see note - [facility] LBGram Stain Evaluation Reviewed date:06/25/2025 07:48:03 AM Interpretation: Performing Lab: Notes/Report: [facility] ,Gram Stain EvaluationSee Below For Report Gram Stain Evaluation This specimen is of good quality and is acceptable for routine Gram Stain Evaluationbacterial culture. Gram Stain Evaluation This specimen is of good quality and is acceptable for routine Performing Lab:see note - [facility] LBLower Respiratory Culture Reviewed date:06/25/2025 07:48:03 AM Interpretation: Performing Lab: Notes/Report: [facility] ,Lower Respiratory CultureSee Below For Report Lower Respiratory Culture Haemophilus parainfluenzae O:HAEPAR Isolated Lower Respiratory CultureModerate growth Lower Respiratory Culture Haemophilus parainfluenzae O:HAEPAR Isolated Lower Respiratory CultureAmoxicillin-clavulanic acid, azithromycin, clarithromycin, Lower Respiratory Culture Haemophilus parainfluenzae O:HAEPAR Isolated Lower Respiratory Culturecefaclor, Lower Respiratory Culture Haemophilus parainfluenzae O:HAEPAR Isolated Lower Respiratory Culturecefprozil, cefdinir, cefixime, cefpodoxime, and cefuroxime Lower Respiratory Culture Haemophilus parainfluenzae O:HAEPAR Isolated Lower Respiratory Cultureare oral Lower Respiratory Culture Haemophilus parainfluenzae O:HAEPAR Isolated Lower Respiratory Cultureagents that may be used as empiric therapy for respiratory Lower Respiratory Culture Haemophilus parainfluenzae O:HAEPAR Isolated Lower Respiratory Culturetract Lower Respiratory Culture Haemophilus parainfluenzae O:HAEPAR Isolated Lower Respiratory Cultureinfections due to Haemophilus spp. The results of Lower Respiratory Culture Haemophilus parainfluenzae O:HAEPAR Isolated Lower Respiratory Culturesusceptibility Lower Respiratory Culture Haemophilus parainfluenzae O:HAEPAR Isolated Lower Respiratory Culturetests with these antimicrobial agents are often not Lower Respiratory Culture Haemophilus parainfluenzae O:HAEPAR Isolated Lower Respiratory Culturenecessary for Lower Respiratory Culture Haemophilus parainfluenzae O:HAEPAR Isolated Lower Respiratory Culturemanagement of individual patients (CLSI). If susceptibility Lower Respiratory Culture Haemophilus parainfluenzae O:HAEPAR Isolated Lower Respiratory Culturetesting Lower Respiratory Culture Haemophilus parainfluenzae O:HAEPAR Isolated Lower Respiratory Cultureis desired please contact the laboratory within 3 days. Lower Respiratory Culture Haemophilus parainfluenzae O:HAEPAR Isolated Lower Respiratory CultureBeta lactamase negative. Lower Respiratory Culture Haemophilus parainfluenzae O:HAEPAR Isolated Lower Respiratory Culture Lower Respiratory Culture Haemophilus parainfluenzae O:HAEPAR Isolated Lower Respiratory CultureRoutine respiratory xena also. Lower Respiratory Culture Haemophilus parainfluenzae O:HAEPAR Isolated Lower Respiratory CultureModerate growth Lower Respiratory Culture Haemophilus parainfluenzae O:HAEPAR Isolated Lower Respiratory CultureSee Below For Report Lower Respiratory Culture Haemophilus parainfluenzae O:HAEPAR Isolated Lower Respiratory CulturePerformed at: CB - [facility] [place] Lower Respiratory Culture Haemophilus parainfluenzae O:HAEPAR Isolated Lower Respiratory [address] [place], [place] [id number] Lower Respiratory Culture Haemophilus parainfluenzae O:HAEPAR Isolated Lower Respiratory CultureLab Director: Swapnil Ruiz PhD, Phone: [phone] Lower Respiratory Culture Haemophilus parainfluenzae O:HAEPAR Isolated Performing Lab:see note LC - [facility] LB SEE REPORT - Project Specialist Id information not found for OBX-specific studio producer legend LAB TESTING Reviewed date:04/18/2025 05:13:06 PM Interpretation: Performing Lab: Notes/Report: [id number] LEGIONELLA PNEUMOPHILA [facility] ,Miscellaneous TestCOMMENT. Test Ordered: [id number] Legionella pneumophila Abs. Legionella pneumophila Abs. Note: BN Non Reactive Reference Range: Non Reactive This is a qualitative assay that detects total antibodies (IgG/IgM/IgA) to L. pneumophila Groups 1-6 by EIA method. This assay cannot differentiate between previous exposure/infection and current infection. Serological testing is not recommended for diagnosis. Per current recommendations, culture of lower respiratory secretions and/or the Legionella urinary antigen test should be used for diagnosis of infection with Legionella. Performed at: [address] [id number] Lab[employer] Filter Plant: Handy Hua MD, Phone: [phone] Performed at: [address] [id number] Lab[employer] Filter Plant: Swapnil Ruiz PhD, Phone: [phone] Performing Lab:see [facility] LBLAB TESTING Reviewed date:04/18/2025 05:13:06 PM Interpretation: Performing Lab: Notes/Report: [id number] MYCOPLASMA PNEUMONIAE IGM,IGG [facility] ,Miscellaneous TestCOMMENT. Test Ordered: [id number] Mycoplasma pneu. IgG/IgM Abs M pneumoniae IgG Abs 602 [H ] U/mL Reference Range: 0-99 Negative: <100 Indeterminate: 100 - 320 Positive: >320 The reference interval established is intended as a baseline only. Values >100 may indicate a recent infection with Mycoplasma pneumoniae and need to be confirmed either by a positive IgM result and/or an additional specimen drawn 2-4 weeks later showing a significant increase in antibody levels. M pneumoniae IgM Abs <770 U/mL Reference Range: 0-769 Negative <770 Clinically significant amount of M. pneumoniae antibody not detected. Low Positive 770 - 950 M. pneumoniae specific IgM presumptively detected. It is recommended that another sample be collected 1-2 weeks later to assure reactivity. Positive >950 Highly significant amount of M. pneumoniae specific IgM antibody detected. Performed at: [address] [id number] Lab[employer] Plant: Swapnil Ruiz PhD, Phone: [phone] Performing Lab:see [facility] LBCBC AUTO DIFF Reviewed date:04/15/2025 09:10:22 PM Interpretation: Performing Lab: Notes/Report: [facility] ,White Blood Count4.74.0-11.0 10 3/uLRed Blood Count4.854.20-5.40 10 6/uL Vrlgsizfzc24.112.0-16.0 g/jCDdvcpyyfkb75.336.0-48.0 %Mean Corpuscular Tngois44.2 81.0-99.0 fLMean Corpuscular Mvtkzgisqa42.126.7-34.0 pgMean Corpuscular HGB Conc 34.129.9-35.2 g/dLRed Cell Distribution Width13.811.0-15.0 %Platelet Cplkd690 150-450 10 3/uLMean Platelet Nufwhu42.89.5-13.5 fLNeutrophils Percent Auto44.0 43.0-75.0 %Lymphocytes Percent Auto37.420.5-60.0 %Monocytes Percent Auto9.51.7- 12.0 %Eosinophils Percent Auto8.50.9-7.0 %Basophils Percent Auto0.60.2-2.0 % Immature Granulocytes Pct Auto0.00.0-0.5 %Neutrophils Absolute Auto2.11.4-6.5 10 3/uLLymphocytes Absolute Auto1.81.2-3.8 10 3/uLMonocytes Absolute Auto0.50.3-0.8 10 3/uLEosinophils Absolute Auto0.40.0-0.7 10 3/uLBasophils Absolute Auto0.00.0- 0.1 10 3/uLImmature Granulocytes Abs Auto0.000.00-0.03 10 3/uLPerforming Lab:see noteML - [facility] LBXR chest 2V Reviewed date:03/08/2025 01:05:46 PM Interpretation: Performing Lab: Notes/Report: Source Facility: [facility] [place] [address] [place] [address] XRay Report Signed Patient: CAMMY MERNIO MR#: [id number] : 1965 Acct:[id number] Age/Sex: 60 / F ADM Date: 03/07/25 Loc: RAD Attending Dr: Brad Barlow M.D. Ordering Physician: Brad Barlow M.D. Date of Service: 03/07/25 Procedure(s): XR chest 2V Accession Number(s): [id number] cc: Brad Barlow M.D. [address] [address] Patient Name: CAMMY MERINO MRN: [id number] date: 1965 Sex: F Assigned Patient Location: [facility] Current Patient Location: RAD Accession/Order Number: [id number] Exam Date: 03/07/2025 14:17 Report Date: 03/07/2025 14:18 At the request of: BRAD BARLOW MD Procedure: XR chest 2V PA AND LATERAL CHEST: CLINICAL HISTORY: CHRONIC COUGHING R05.3 COMPARISON: None FINDINGS: Unremarkable cardiomediastinal silhouette. Right hilar calcified granulomas. Lungs are clear. No effusion or pneumothorax. Mild degenerative changes of the mid thoracic spine. XR/XR chest 2V IMPRESSION: NO ACUTE CARDIOPULMONARY ABNORMALITY. Impression dictated by: Presley Elliott M.D. 03/07/2025 2:18 PM Dictation Location: [place] [address] Electronically authenticated by: [id number] Y Date: 03/07/2025 14:18 Dictated By: Presley Elliott M.D. Signed By: 03/07/25 1420 DD/ 1418 TD/TT: Armored Service Technician:Urine Culture, Routine Reviewed date:10/06/2024 02:07:35 PM Interpretation: Performing Lab: Notes/Report: [facility] ,Urine Culture, RoutineSee Below For Report Urine Culture, Routine Urine Culture, RoutineMixed urogenital xena Urine Culture, Routine Urine Culture, Umazfbt75,000-25,000 colony forming units per mL Urine Culture, Routine Urine Culture, RoutinePerformed at: CB - [facility] [place] Urine Culture, Routine Urine Culture, [address] [place], [place] [id number] Urine Culture, Routine Urine Culture, RoutineLab Director: Swapnil Ruiz PhD, Phone: [phone] Urine Culture, Routine Performing Lab:see note LC - [facility] LB SEE REPORT - Project Specialist Id information not found for OBX-specific studio producer legend XR soft tissue neck Reviewed date:03/08/2025 01:05:46 PM Interpretation: Performing Lab: Notes/Report: Source Facility: [address] [address] XRay Report Signed Patient: CAMMY MERINO MR#: [id number] : 1965 Acct:[id number] Age/Sex: 60 / F ADM Date: 03/07/25 Loc: RAD Attending Dr: Brad Barlow M.D. Ordering Physician: Brad Barlow M.D. Date of Service: 03/07/25 Procedure(s): XR soft tissue neck Accession Number(s): [id number] cc: Brad Barlow M.D. [place] [address] Patient Name: CAMMY MERINO MRN: [id number] date: 1965 Sex: F Assigned Patient Location: [facility] Current Patient Location: [facility] Accession/Order Number: [id number] Exam Date: 03/07/2025 14:18 Report Date: 03/07/2025 14:20 At the request of: BRAD BARLOW MD Procedure: XR soft tissue neck LATERAL SOFT TISSUE NECK CLINICAL HISTORY: CHRONIC COUGHING R05.3 COMPARISON: None FINDINGS: Single lateral view the soft tissues demonstrate unremarkable. The tracheal air column. The laryngeal air column. Patient is mildly rotated which likely accounts for the prominence of the epiglottic soft tissues. Mild reversal cervical lordosis may be positional. Degenerative changes notably C4-C6. XR/XR soft tissue neck IMPRESSION: PROMINENT EPIGLOTTIS LIKELY POSITIONAL. OTHERWISE UNREMARKABLE X-RAY SOFT TISSUES OF THE NECK. Impression dictated by: Presley Elliott M.D. 03/07/2025 2:20 PM Dictation Location: [place] [address] Electronically authenticated by: [id number] Y Date: 03/07/2025 14:20 Dictated By: Presley Elliott M.D. Signed By: 03/07/25 1423 DD/ 142 TD/TT: Armored Service Technician:XR chest 2V Reviewed date:05/30/2025 02:53:00 PM Interpretation: Performing Lab: Notes/Report: Source Facility: [place] [address] XRay Report Signed Patient: CAMMY MERINO MR#: [id number] : 1965 Acct:[id number] Age/Sex: 60 / F ADM Date: 05/30/25 Loc: LAB Attending Dr: Brad Barlow M.D. Ordering Physician: Brad Barlow M.D. Date of Service: 05/30/25 Procedure(s): XR chest 2V Accession Number(s): [id number] cc: Brad Barlow M.D. [place] [address] Patient Name: CAMMY MERINO MRN: [id number] date: 1965 Sex: F Assigned Patient Location: LAB Current Patient Location: LAB Accession/Order Number: [id number] Exam Date: 05/30/2025 08:05 Report Date: 05/30/2025 08:06 At the request of: BRAD BARLOW MD Procedure: XR chest 2V PA AND LATERAL CHEST: CLINICAL HISTORY: RR05.3 Chronic coughing COMPARISON: 03/07/2025 FINDINGS: Unremarkable cardiomediastinal. Right hilar/mediastinal calcified granulomas. No focal opacity, effusion or pneumothorax. XR/XR chest 2V IMPRESSION: NO ACUTE CARDIOPULMONARY ABNORMALITY. Impression dictated by: Presley Elliott M.D. 05/30/2025 8:06 AM Dictation Location: [place] [address] Electronically authenticated by: [id number] Y Date: 05/30/2025 08:06 Dictated By: Presley Elliott M.D. Signed By: 05/30/25808 DD/ 5 TD/TT: Armored Service Technician: Reason For Referral No Information Medications Medication SIG (Take, Route, Frequency, Duration) Notes Start Date End Date Status Mesalamine 1.2 GM TAKE 2 TABLET BY MOUTH EVERY D AY; Duration: 90 days ActivepredniSONE 10 MG5 tabs per day for 3 days, 4 tabs per day for 3 ays, 3 tabs perday for 3 days, 2 tabs per day for 3days, 1 tab a day for 3 days, 1/2 tab a day for 4 days Orally Once a day; Duration: 19 days5Active Baclofen 20 MG1-2 tabs Orally qhs5ActiveFamotidine 40 MG1 tablet Orally Once a day5ActiveFluconazole 100 MG1 tablet Orally daily; Duration: 10 days5ActiveVitamin CActiveCetirizine HCl 10 MGTAKE 1 TABLET BY MOUTH EVERY DAY; Duration: 90 daysActiveVitamin D3 1.25 MG (75146 UT)1 capsule Orally once a week; Duration: 90 daysActiveTrelegy Ellipta 100-62.5-25 MCG/ACT1 puff Inhalation Once a day5ActiveVentolin HFA 108 (90 Base) MCG/ACT2 puff as needed Inhalation every 4 hrs5ActiveNexIUM 20 MG1 tablet orally twice dailyActiveMultivitaminActiveLevothyroxine Sodium 25 MCG1 tablet in the morning on an empty stomach Orally Once a day; Duration: 90 daysActive Social History Tobacco Use: Social History Observation Description Date Details (start date - stop date) Former Smoker 11/12/1981 - 11/12/2000 Tobacco Use/Smoking Question Answer Notes Patient is a former smoker When did you start smoking?11/12/1981When did you stop smoking?11/12/2000Alcohol Screen (Audit-C) Question Answer Notes Did you have a drink containing alcohol in the p ast year? Yes How often did you have 6 or more drinks on one occasion in the past year?Never (0 point)How often did you have a drink containing alcohol in the past year?Less than monthly (1 point)Hbdrqm3TudpzbbvfxobldRjnlqdtxCMPVF-N (Standard) Question Answer Notes Did you have a drink containing alcohol in the p ast year? 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)ActiveconfirmedProblemLumbar radiculopathy (846590472)Lumbar radiculopathy (M54.16)ActiveconfirmedProblemArthralgia (84974336)Arthralgia (M25.50)ActiveconfirmedProblemSacroiliitis (80736439)Sacroiliitis (M46.1)Active confirmedProblemColitis (30508050)Colitis (K52.9)ActiveconfirmedProblem Osteoporosis (02481918)Osteoporosis (M81.0)ActiveconfirmedProblemAcute bronchitis (49123387)Acute bronchitis (J20.9)ActiveconfirmedProblemWell adult (843400217)Well adult (Z00.00)ActiveconfirmedProblemCervical disc disease (280307679)Cervical disc disease (M50.90)ActiveconfirmedProblemAcute bronchitis (04082048)Acute bronchitis, unspecified organism (J20.9)ActiveconfirmedProblem Seasonal allergic rhinitis (083522180)Seasonal allergic rhinitis (J30.2)Active confirmedProblemInternal derangement of knee (84599502)Internal derangement of knee (M23.90)ActiveconfirmedProblemSchatzki's ring (67025197)Schatzki's ring (K22.2)Activeconfirmed Vital Signs Temperature 98.6 degrees Fahrenheit 02/16/2025 Blood pressure zzxicmnrd99 mm Hg09/10/20257508Rjddey95 in09/10/2025lood pressure jlrvbyxk360 mm Hg09/10/20255072Srpbyr741 lbs03/16/2025BMI30.47 kg/m203/16/2025 Encounters Encounter Location Date Provider Diagnosis [facility] [address] [place] [facility] [place] [address] 12/25/2024 Baljinder Hoy Acute bronchitis, unspecified organism J20.9 [facility] [address] [place] [address] 06/03/2025 Baljinder Hoy Seasonal allergic rhinitis J30.2 [facility] [address] [place] [place] [place] [address] 09/29/2024 Baljinder Hoy Well adult Z00.00 an d Seasonal allergic rhinitis J30.2 [facility] [address] [place] [place] [place] [address] 02/16/2025 Baljinder Hoy Acute bronchitis J20 .9 [facility] [address] [place] [place] [address] 03/16/2025 Baljinder Hoy Acute bronchitis, unspecified organism J20.9 [facility] [address] [place] [place] [place] [address] 04/23/2025 Baljindre Hoy Internal derangement of knee, right M23.91 [facility] [address] [place] [place] [place] [address] 09/10/2025 Baljinder Hoy Lumbar radiculopathy M54.16 [facility] [address] [place] [place] [place] [address] 05/19/2025 Baljinder Hoy [facility] [place] [place] [address] 05/28/2025Doug HoyChronic coughing R05.3 and Cough, persistent R05.3[facility] [place] [place] [address]/ Baljinder HoyB[facility] [place] [place] [place] [address]/02/2025Doug HoyLumbar radiculopathy M54.16BuUC[facility] [place] [place] [address]/08/2025Doug Hoy Sacroiliitis M46.1B[facility] [facility] [place] [address]/02/2025Doug HoyBVNorthern [facility] [facility] [place] [place] [address]/Doug HoyAcute bronchitis J20.9BColor[facility] Long [facility] [facility] [place] [address]/Doug Hoy Chronic coughing R05.3[facility] [facility] [place] [address]/Doug [facility] [facility] [place] [address]/02/2025Doug HoyCough, persistent R05.3 [facility] [facility] [place] [address] 04/18/2025Doug HoyBB[facility] [facility] [place] [place] [address]/oug [facility] [facility] [place] [address]/[facility] [facility] [place] [address]/oug [facility] [facility] [place] [address]/Doug Hoy Assessments Encounter Date Diagnosis (ICD Code) Assessment Notes Treatment Notes Treatment Clinical Notes Section Notes 09/29/2024 Well adult (ICD-10 - Z00.00) 09/29/2024Seasonal allergic rhinitis (ICD-10 - J30.2)5Acute bronchitis, unspecified organism (ICD-10 - J20.9)Rest and drink more liquids, especially water. You may use a humidifier or vaporizer to help keep the drainage moist. Jhut-eex-ldfwfjj Nasal Saline may help the stuffy and runny nose. Use Ibuprofen and or Tylenol as needed for fever, chills, body aches or pain. Children 5 years old should not be given iupm-kua-uqnrndl cough and cold medications such as guaifenesin and dextromethorphan. If you're over age 5, you may try ikwi-wdx-ofoapvz cold medications such as guaifenesin and dextromethorphan, or multi-symptom cold reliever such as Dayquil to help reduce the symptoms. Antibiotics have been prescribed. You should take these until completed and follow the directions. Antibiotics can sometimescause upset stomach, and in rare cases, serious allergic reactions or serious gastrointestinal problems. If you start having severe abdominal pain, severe vomiting, or bloody diarrhea, you should be reevaluated by your physician or urgent care immediately. Follow up with your Primary Care Provider or return to clinic if symptoms do not improve within 3-5 days. If you develop severe symptoms such as shortness of breath, repeated vomiting, coughing up blood, or chest pain you should [facility] or call [phone] bronchitis (ICD-10 - J20.9)5Acute bronchitis, unspecified organism (ICD-10 - J20.9)Rest and drink more liquids, especially water. You may use a humidifier or vaporizer to help keep the drainage moist. Jote-biy-hcshmbp Nasal Saline may help the stuffy and runny nose. Use Ibuprofen and or Tylenol as needed for fever, chills, body aches or pain. Children 5 years old should not be given zmwf-hde-ieynhsc cough and cold medications such as guaifenesin and dextromethorphan. If you're over age 5, you may try moas-zlp-epnnsnf cold medications such as guaifenesin and dextromethorphan, or multi-symptom cold reliever such as Dayquil to help reduce the symptoms. Antibiotics have been prescribed. You should take these until completed and follow the directions. Antibiotics can sometimescause upset stomach, and in rare cases, serious allergic reactions or serious gastrointestinal problems. If you start having severe abdominal pain, severe vomiting, or bloody diarrhea, you should be reevaluated by your physician or urgent care immediately. Follow up with your Primary Care Provider or return to clinic if symptoms do not improve within 3-5 days. If you develop severe symptoms such as shortness of breath, repeated vomiting, coughing up blood, or chest pain you should go to the emergency room or call [phone] derangement of knee, right (ICD-10 - M23.91)06/03/2025Seasonal allergic rhinitis (ICD-10 - J30.2)09/10/2025Lumbar radiculopathy (ICD-10 - M54.16)02/27/2025ute bronchitis (ICD-10 - J20.9)03/06/2025hronic coughing (ICD-10 - R05.3)04/15/2025 Cough, persistent (ICD-10 - R05.3)05/28/2025hronic coughing (ICD-10 - R05.3) 05/28/2025ough, persistent (ICD-10 - R05.3)09/15/2025Lumbar radiculopathy (ICD- 10 - M54.16)09/21/2025Sacroiliitis (ICD-10 - M46.1)09/10/2025OtherRecommended to rest and use a heating pad on the area. Take NSAIDs for pain as needed Plan Of Treatment Pending Test Test Name Order Date CMP (COMPLETE METABOLIC PANEL) 3 CMP (COMPLETE METABOLIC PANEL) 4 HEMOGLOBIN A1C (GLYCO) 09/29/2024 HEMOGLOBIN A1C (GLYCO) 05/21/2023 IRON, TOTAL 05/21/2023 IRON, TOTAL 09/29/2024 LIPID PANEL (CHOL/TRIG/HDL/LDL) 09/29/20 24 LIPID PANEL (CHOL/TRIG/HDL/LDL) 05/21/20 23 CBC WITH DIFF 05/21/2023 CBC WITH DIFF 09/29/2024 VITAMIN D, 25 LEVEL (TOTAL) 09/29/2024 XR Chest PA and Lateral (Routine CXR) * 05/28/2025 EKG w Interp & Report - performed 2022 Urinalysis Microscopic 09/29/2024 Insulin Level 09/29/2024 Insulin Level 05/21/2023 Cardiolyte Stress Test 05/21/2023 Legionella pneumophila Antibody(IgM), IF 04/15/2025 LEGIONELLA PNEUMOPHILA AB (IGG), IFA 02/2025 CBC W/AUTO DIFF 04/15/2025 Mycoplasma pneumoniae IgG Abs 04/15/2025 Mycoplasma pneumoniae IgM Abs 04/15/2025 MRI Sacrum Coccyx w/o Contrast 5 CULTURE URINE 09/29/2024 MRI KNEE RT WO CON 04/23/2025 MRI LSPINE WO CON 09/15/2025 XR CHEST 2 V 03/06/2025 XR LSPINE MIN 4 VIEWS 09/10/2025 THYROID PANEL (T4/TSH/FREE T3) 3 THYROID PANEL (T4/TSH/FREE T3) 4 Gram Stain w/Sputum Cult Rflx 05/28/2025 Future Test Test Name Order Date EKG w Interp & Report - performed 2022 Insurance Providers Payer Name Payer Address Payer Phone Subscriber Number Group Number Insured Name Patient Relationship to Insured Coverage Start Date Coverage End Date MMO [employer] [address] [place] [address] [id number] Petar Cammy carson Self - patient is the insured 3 Medications Administered Medication Instructions Date of Administration Dosage Notes Kenalog-40 380 mgKetorolac Aeegcaumpgbb29/30/333932 mgOrphenadrine Citrate 560 mgTriamcinolone 40 mg/ml480 mgTriamcinolone 40 mg/ml 580 mgTriamcinolone 40 mg/ml5120 mg Medical (General) History Medical History History ICD Code Colitis K52.9 Arthralgia M25.50 Cervical disc disease M50.90 Hypothyroidism E03.9 Migraine headache G43.909 Osteoporosis M81.0 Psoas tendinitis, right hip M76.11 Schatzki's ring K22.2 Seasonal allergic rhinitis J30.2 Vitamin D deficiency E55.9 Surgical History Surgery Date(Month/Year) EGD/Colonoscopy 03/30/2025 Cervical branch Block C3,C4,C5 09/2021 Trapezius Trigger Point Inj- Dr. Chiu 08/2021 Esophageal Dilation- Dr. Howard 10/2018 Total Abdominal Hysterectomy 11/2010 Cervical Facet Medial Branch Denercation C3,C4,C5- Dr. Chiu 10/2021
--- OUTSIDE RECORDS SUMMARY | 2025-09-22 12:34 | XMS_ITS | CCD ---
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 03/30/25 12:30:00 03/30/25 12:30:00 03/30/25 12:40:00 Time Out 03/30/25 12:56:00 03/30/25 12:56:00 03/30/25 12:56:00 Procedure EGD AND COLONOSCOPY(.) EGD AND COLONOSCOPY(.) EGD AND COLONOSCOPY(.) Comments Dr. Perdue supervising help in room case Last Modified By: Julio César FERRERA, Foreign Angela RN, Foreign Gaitan RN 03/30/25 12:57:07 03/30/25 12:57:07 03/30/25 12:57:07 Entry 4 Entry 5 Case Attendee Cherry PEDROZA, Mary Angela RN, Foreign Bolanos Role Performed Surgeon - Primary Brim Edge Trimmer - Primary Time In 03/30/25 12:30:00 03/30/25 [...] (If Applicable) PreOp Antibiotic No Time Out Víctor Saleh Given Participants Dorian Cuenca Kirstyn K, Cherry PEDROZA, Mary Bolanos, Julio César FERRERA, Foreign Best Time Out Complete 03/30/25 12:31:00 Outcomes Met? [...] precautions for procedure-specific pos (more content not included)...[facility] CenterDischarge Instructionson [id number] InstructionsDischarge Instructions BETSY MENCHACA :1965 Visit Date:03/30/2025 Inpatient Discharge Instructions Your Care Team Admitting Physician - Mary Carey MD Referring Physician - Magdiel Carey MDmad Talal Reason for Your Visit LEFT SIDED ULCERATIVE [...] When: Comments: Call for any problems. Where: [address] [place] [address], [address] [address] [phone] Business (1) Medications What How Much When [...] not get help, your stomach can bleed, andyou can get sores (ulcers) in your stomach. [...] these instructions at home: (more content not included)...[facility] CenterComment on above:Result Comment: Electronically Signed By: Raad FERRERA, Tanya\.leeroy\Date and Time Signed: 03/30/25 13:04 EDTInpatient Patient Summaryon [id number] Patient SummaryInpatient Patient Summary [place] [id number] [facility] Clinical Discharge Instructions PERSON INFORMATION Name: BETSY MENCHACA PHYSICIANS Admitting Physician: Mary Carey MD Attending Physician: Mary Carey MD PCP: Yen PEDROZA, Tenisha Discharge Diagnosis: Acute colitis; Chronic GERD Comment: PATIENT [...] Mouth every day. potassium citrate every day. Comment:[facility] CenterMain OR PACU II Recordon [id number] OR PACU II RecordMain OR PACU II Record PACU Phase II Document Type FT Summary Primary Physician: Mary Carey MD Finalized Date/Time: 03/30/25 13:38:16 Pt. Name: BETSY MENCHACAO.B./Sex: 1965 Female Med Rec #: [id number] Physician: Mary Carey MD Financial #: [id number] Pt. Type: O Room/Bed: / Admit/Disch: 03/30/25 [...] and monitors body temperature Evaluates postoperative respiratory statusEvaluates postoperative cardiac status Evaluates postoperative neurological status [...] individualized perioperative plan of care The patient's rightto privacy is maintained The patient's value system, [...] with or improved from baseline levels established preoperativelyThe patient's cardiovascular status is consistent with or improved from baseline levels established preoperatively The patient's neurological status is consistent with or improved from baseline levels established preoperatively The patient demonstrates and/or reports adequate pain control throughout the perioperative period The patient received appropriate medication(s), safely administered during the perioperativeperiod Finalized By: Tanya Shankar RN Document Signatures Signed By: Tanya Shankar RN 03/30/25 13:38NoMercy Health Defiance HospitalMain OR Preoperative Recordon [id number] OR Preoperative RecordMain OR Preoperative Record Holding Area Document Type FT Summary Primary Physician: Mary Carey MD Finalized Date/Time: 03/30/25 11:40:15 Pt. Name: BETSY MENCHACA Adan/Sex: 1965 Female Med Rec #: [id number] Physician: Mary Carey MD Financial #: [id number] Pt. Type: O Room/Bed: / Admit/Disch: 03/30/25 [...] or her perioperative plan of care The patient'sright to privacy is maintained Surgery Checklist FT [...] Signatures Signed By: Arin Albarran RN 03/30/25 11:40NormalFisher Pan Medical CenterOutpatient Surgery Discharge Instructionon 76-07-2462Lnffhsjmec Surgery Discharge InstructionOutpatient Surgery Discharge Instruction [place] [id number] Patient Discharge Instructions PERSON INFORMATION Name: BETSY MENCHACA Date of : 1965 Current Date: 03/30/2025 12:28:44 PHYSICIANS Admitting Physician: Cherry PEDROZA, Mary Bolanos Discharge Diagnosis: Acute colitis; Chronic GERD BETSY [...] THE NEAREST EMERGENCY ROOM OR CALL 911 I, BETSY MENCHACA, have received the attached patient education materials/instructions and have verbalized understanding: May we do a follow up call? Yes No I was present when discharge instructions were given Patient Signature Date Clinican/Nurse Signature Date Follow up: Pharmacy Information: You may receive a survey from [facility] asking you to rate your care experience. Your feedback is important and will help us understand what we do well and how we can improve the quality of care we provide to you, your loved ones and our community. It???s an honor to serve you. Thank you for choosing [facility] HERE ARE THE MEDICATION CHANGES [...] every day. PATIENT EDUCATION INFORMATION Instructions: Medication Leaflets:[facility] CenterGastroenterology Office/Clinic Noteon [id number] Office/Clinic Note Gastroenterology Office/Clinic Note Chief Complaint [...] Distal esophageal Schatzki ring, dilated using 60 Kazakh Breen dilator 2. Concentric esophageal rings, proximal [...] enzymes) in 2019 Labs done recently at [facility] Reviewed labs from outside hospital September [...] C, 500 mg, Oral, Daily Vitamin D3, [address] International_Unit, Oral, qWeek Allergies No Known Allergies [...] (COVID-19) mRNA-1273 vaccine (more content not included)... [facility] CenterComment on above:Result Comment: Electronically Signed By: Cherry PEDROZA, Mary Bolanos\.br\Date and Time Signed: 03/16/25 14:36 EDTAmbulatory Visit Summaryon 74-46-8089Pyxolauzme Visit SummaryAmbulatory Visit Summary BETSY MENCHACA :1965 Visit Date:02/12/2025 Ambulatory Visit Instructions Your Diagnosis Left sided ulcerative colitis History of colon polyps Heartburn Elevated liver enzymes Your Care Team Attending Physician - Cherry PEDROZA, Mary Bolanos Primary Care Physician - Tenisha Barlow MD This Is Your Medications List esomeprazole [...] Mouth Every day Refills: 3 Pickup at [facility]/pharmacy #[id number] New famotidine (famotidine 40 mg Tab) 1 Tablets By Mouth Once a day (at bedtime) Refills: 3 Pickup at [facility]/pharmacy #[id number] Unchanged ascorbic acid (Vitamin C) 500 [...] physician if questions or concerns Pharmacy Information [facility]/pharmacy #[id number]: [address] [place], [place] [phone] What How Much When Comments Stop Taking [...] you for choosing us for your care. [facility] CenterX-ray reportOrdered By: Soy Hall on [id number] reportOHIOHEALTH RIV[facility]IDE [facility] [address] [place] [address] XRay Report Signed Patient: Betsy Menchaca MR#: [id number] : 1965 Acct:[id number] Age/Sex: 59 / F ADM Date: 5 Loc: [facility] Room: Type: [facility] Attending Dr: Stanislaw Truong MD Copies to: [...] Soy Hall M.D.12/30/2024 4:09 PM Dictation Location: RADIO--23 Transcribed By: LIGIA 12/30/24 1609 Dictated By: Soy Hall DO 12/30/24 1608 Signed By: 12/30/24 1609 [facility]XR [facility] min 2V*on [id number] shoulder LT min 2V*[facility] [address] [place] [address] XRay Report Signed Patient: Betsy Menchaca MR#: [id number] : 1965 Acct:[id number] Age/Sex: 59 / F ADM Date: 12/30/24 Loc: [facility] Room: Type: [facility] Attending Dr: Stanislaw Truong MD Copies to: [...] Soy Hall M.D.12/30/2024 4:09 PM Dictation Location: [facility]-23 Transcribed By: LIGIA 12/30/24 1609 Dictated By: Soy Hall DO 12/30/24 1608 Signed By: 12/30/24 1609[facility] HospitalMA Mamm Screen w/CAD if perf and 3D Bilon 66-81-5055OM Mamm Screen w/CAD if perf and 3D BilExam Date/Time: 08/30/2024 09:27 EDT Reason for Exam: [...] very important to your health. The current [employer] and National Comprehensive Cancer [...] Assessment: BI-RADS Category 1-Negative Recommendation: Normal interval follow-upChillicothe VA Medical CenterCT FEMUR RT WO CONon [id number] FEMUR RT WO CONEXAMINATION: CT FEMUR RT WO CON HISTORY: Localized swelling of [...] Electronically authenticated by: HERMILA SOLIS Date: 2022-09-17 08:44NoCommunity [facility] Center AUTO DIFFon [id number] #0.0 103/ulNormal0.0-0.1[facility] CenterComment on above:Performed By: #### CBC #### [facility] [address] [place], [place] [address] Dr. Elizabeth Figueroasophils/100 WBC (Bld)0.6 %Normal0.2-2.0[facility] Comment on above:Performed By: #### CBC #### [facility] [address] [place] [address] [address] Elizabeth Walker #0.5 103/ulNormal0.0-0.7The [facility] HospitalComment on above: Performed By: #### CBC #### [facility] [address] [place] [address] Dr. Elizabeth Davidsonosinophils/100 WBC (Bld)8.4 %Critically high0.9-7.0The [facility] HospitalComment on above:Performed By: #### CBC #### [facility] [address] [place] [address] Dr. Elizabeth Davidsonrythrocyte distribution width (RBC) [Ratio]14.3 %Sppbzy87.0-15.0 The [facility] HospitalComment on above:Performed By: #### CBC #### [facility] [address] [place] [address] Dr. Elizabeth McphersonHematocrit (Bld) [Volume fraction]42.8 %Tewezf83.0-48.0The [facility] HospitalComment on above:Performed By: #### CBC #### [facility] [address] [place] [address] Dr. Elizabeth McphersonHemoglobin (Bld) [Mass/Vol]14.0 g/eUMwnwmm83.0-16.0The [facility] HospitalComment on above:Performed By: #### CBC #### [facility] [address] [place] [address] Dr. Elizabeth Bhat #0.01 10e3/ulNormal0.00-0.03The [facility] HospitalComment on above:Performed By: #### CBC #### [facility] [address] [place] [address] Dr. Elizabeth Bhat %0.2 %Normal0.0-0.5The [facility] HospitalComment on above: Performed By: #### CBC #### [facility] [address] [place] [address] Dr. Elizabeth OrtizMPH #2.0 103/ulNormal1.2-3.8The [facility] HospitalComment on above:Performed By: #### CBC #### [facility] [address] [place] [address] Dr. Elizabeth Ortizmphocytes/100 WBC (Bld)37.2 %Ybyqss38.5-60.0The St. Elizabeth Hospitalment on above:Performed By: #### CBC #### [facility] [address] [place] [address] Dr. Elizabeth FreedUAL DIFF REQNONormalThe [facility] HospitalComment on above: Performed By: #### CBC #### [facility] [address] [place] [address] Dr. Elizabeth Kathleen (RBC) [Entitic mass]28.5 ztSjhroc84.7-34.0The [facility] HospitalComment on above:Performed By: #### CBC #### [facility] [address] [place] [address] Dr. Elizabeth Kathleen (RBC) [Mass/Vol]32.7 g/pPBzmrmf70.9-35.2The [facility] HospitalComment on above:Performed By: #### CBC #### [facility] [address] [place] [address] Dr. Elizabeth Kathleen (RBC) [Entitic vol]87.2 iIXfrmvg30.0-99.0The [facility] HospitalComment on above:Performed By: #### CBC #### [facility] [address] [place] [address] Dr. Elizabeth Qureshi #0.4 103/ulNormal0.3-0.8The [facility] HospitalComment on above:Performed By: #### CBC #### [facility] [address] [place] [address] Dr. Elizabeth Herringocytes/100 WBC (Bld)7.9 %Normal1.7-12.0The [facility] Comment on above:Performed By: #### CBC #### [facility] [address] [place] [address] Dr. Elizabeth Solis #2.5 103/ulNormal1.4-6.5The [facility] HospitalComment on above:Performed By: #### CBC #### [facility] [address] [place] [address] [address] Elizabeth Sanchezutrophils/100 WBC (Bld)45.7 %Dqvkzu02.0-75.0The [facility] on above:Performed By: #### CBC #### [facility] [address] [place] [address] [address] Elizabeth Nicelet mean volume (Bld) [Entitic vol]11.3 fLNormal9.5-13.5The [facility] HospitalComhenry ford hospital on above:Performed By: #### CBC #### [facility] [address] [place] [address] Dr. Elizabeth McphersonPLT213 103/peYeofax332-888Twl [facility] HospitalComhenry ford hospital on above: Performed By: #### CBC #### [facility] [address] [place] [address] Dr. Elizabeth McphersonRBC4.91 106/ulNormal4.20-5.40The [facility] HospitalComhenry ford hospital on above:Performed By: #### CBC #### [facility] [address] [place] [address] Dr. Elizabeth McphersonWBC5.4 103/ulNormal4.0-11.0The [facility] on above: Performed By: #### CBC #### [facility] [address] [place] [address] Dr. Elizabeth McphersonFREE T3on 73-35-1983YDKF T32.54 pg/mlLNormal2.18-3.98The [facility] on above:Performed By: #### FT3, TSH, CMP, T4, LIPID #### [facility] [address] [place] [address] Dr. Elizabeth McphersonGLYCOHEMOGLOBIN A1Con 22-87-6412PYC RECOMMENDATIONSEE BELOWNormal The [facility] HospitalComhenry ford hospital on above:Result Comment: ADA RECOMMENDED LIMIT 4.0 - 6.0 ADA THERAPEUTIC TARGET < 7.0 ACTION SUGGESTED > 7.0Performed By: #### A1C #### [facility] [address] [place] [address] [address] Elizabeth McphersonGlucose [Mass/Vol]111 mg/dLCommunity Regional Medical Center on above:Performed By: #### A1C #### [facility] [address] [place] [address] Dr. Elizabeth McphersonHbA1c (Bld) [Mass fraction]5.5 %Normal4.5-6.2[facility] on above:Performed By: #### A1C #### [facility] [address] [place] [address] Dr. Elizabeth McphersonLIPID PROFILEon 36-90-5896LTIN-HDL RATIO NORMSEE [facility] CenterComhenry ford hospital on above:Result Comment: 3.3 - 4.4 LOW RISK 4.4 - 7.1 AVERAGE RISK 7.1 - 11.0 MODERATE RISK >11.0 HIGH RISKPerformed By: #### FT3, TSH, CMP, T4, LIPID #### [facility] [address] [place] [address] Dr. Elizabeth Benitezesterol [Mass/Vol]245 mg/dLCritically high<=200The [facility] on above:Performed By: #### FT3, TSH, CMP, T4, LIPID #### [facility] [address] [place] [address] Dr. Elizabeth Benitezesterol in HDL [Mass/Vol]69 mg/dLCritically jqhy87-70QthUniversity Hospitals TriPoint Medical Center on above:Performed By: #### FT3, TSH, CMP, T4, LIPID #### [facility] [address] [place] [address] Dr. Elizabeth Benitezesterol in LDL [Mass/Vol]145.8 mg/dLCommunity Regional Medical Center on above:Performed By: #### FT3, TSH, CMP, T4, LIPID #### [facility] [address] [place] [address] Dr. Elizabeth Chen.total/Cholesterol in HDL [Mass ratio]3.6 {ratio} NormalUniversity Hospitals TriPoint Medical Center on above:Performed By: #### FT3, TSH, CMP, T4, LIPID #### [facility] [address] [place] [address] [address] Elizabeth Fairbanks NORMAL> or = 60 mg/dl - LOW CARDIOVASCULAR RISK <40 mg/dl - HIGH CARDIOVASCULAR RISKCommunity Regional Medical Center on above:Performed By: #### FT3, TSH, CMP, T4, LIPID #### [facility] [address] [place] [address] [address] Elizabeth McphersonLDL CALC NORMALSEE BELOWOhioHealth Nelsonville Health CenterComment on above:Result Comment: <100 mg/dl OPTIMAL 100 - 129 mg/dl NEAR OR ABOVE OPTIMAL 130 - 159 mg/dl BORDERLINE HIGH 160 - 189 mg/dl HIGH >190 mg/dl VERY HIGH Performed By: #### FT3, TSH, CMP, T4, LIPID #### [facility] [address] [place] [address] Dr. Elizabeth McphersonTriglyceride [Mass/Vol]151 mg/dLCritically high<=150The [facility] on above:Performed By: #### FT3, TSH, CMP, T4, LIPID #### [facility] [address] [place] [address] Dr. Elizabeth Shah CALC30.2 mg/dLOhioHealth Nelsonville Health CenterComhenry ford hospital on above: Performed By: #### FT3, TSH, CMP, T4, LIPID #### [facility] [address] [place] [address] Dr. Elizabeth McphersonPROF 14(COMP METB)on 61-03-0089Etilhcy [Mass/Vol]3.6 g/dLNormal 3.4-5.0The [facility] on above:Performed By: #### FT3, TSH, CMP, T4, LIPID #### [facility] [address] [place] [address] Dr. Elizabeth McphersonAlbumin/Globulin [Mass ratio]1.0 {ratio}NormalThe [facility] on above:Performed By: #### FT3, TSH, CMP, T4, LIPID #### [facility] [address] [place] [address] Dr. Elizabeth HeathP [Catalytic activity/Vol]74 U/OYdjnpx51-024Hpv [facility] HospitalComment on above:Performed By: #### FT3, TSH, CMP, T4, LIPID #### [facility] [address] [place] [address] [address] Elizabeth Castaneda [Catalytic activity/Vol]27 U/MFsdzdp97-14Kki [facility] HospitalComment on above:Performed By: #### FT3, TSH, CMP, T4, LIPID #### [facility] [address] [place] [address] Dr. Elizabeth Fall gap [Moles/Vol]11.4 mmol/LNormalSouthwest General Health Center Comment on above:Performed By: #### FT3, TSH, CMP, T4, LIPID #### [facility] [address] [place] [address] Dr. Elizabeth McphersonAST [Catalytic activity/Vol]12 U/LCritically znd99-65Dzm [facility] HospitalComment on above:Performed By: #### FT3, TSH, CMP, T4, LIPID #### [facility] [address] [place] [address] Dr. Elizabeth McphersonBilirubin [Mass/Vol]0.3 mg/dLNormal0.2-1.0The [facility] Comment on above:Performed By: #### FT3, TSH, CMP, T4, LIPID #### [facility] [address] [place] [address] Dr. Elizabeth McphersonCalcium [Mass/Vol]8.8 mg/dLNormal8.5-10.1[facility] Comment on above:Performed By: #### FT3, TSH, CMP, T4, LIPID #### [facility] [address] [place] [address] Dr. Elizabeth McphersonChloride [Moles/Vol]106 mmol/EOcexuc41-663Wib [facility] Comment on above:Performed By: #### FT3, TSH, CMP, T4, LIPID #### [facility] [address] [place] [address] Dr. Elizabeth McphersonCO2 [Moles/Vol]27.9 mmol/EKfbjql61.0-32.0[facility] Comment on above:Performed By: #### FT3, TSH, CMP, T4, LIPID #### [facility] [address] [place] [address] Dr. Elizabeth McphersonCreatinine [Mass/Vol]0.88 mg/dLNormal0.55-1.02[facility] Health CenterComment on above:Performed By: #### FT3, TSH, CMP, T4, LIPID #### [facility] [address] [place] [address] Dr. Elizabeth DavidsonGFR-AF IRISH>60Normal>=60The [facility] HospitalComment on above:Performed By: #### FT3, TSH, CMP, T4, LIPID #### [facility] [address] [place] [address] Dr. Elizabeth DavidsonGFR-NON AF IRISH>60Normal>=60The [facility] HospitalComment on above:Performed By: #### FT3, TSH, CMP, T4, LIPID #### [facility] [address] [place] [address] Dr. Elizabeth McphersonGlobulin (S) [Mass/Vol]3.5 g/dLNormalThe [facility] HospitalComment on above:Performed By: #### FT3, TSH, CMP, T4, LIPID #### [facility] [address] [place] [address] Dr. Elizabeth McphersonGlucose [Mass/Vol]108 mg/dLCritically aeoh89-116DxaUniversity Hospitals Tri[facility] Center on above:Performed By: #### FT3, TSH, CMP, T4, LIPID #### [facility] [address] [place] [address] Dr. Elizabeth McphersonPotassium [Moles/Vol]4.3 mmol/LNormal3.5-5.1The [facility] Comment on above:Performed By: #### FT3, TSH, CMP, T4, LIPID #### [facility] [address] [place] [address] Dr. Elizabeth McphersonProtein [Mass/Vol]7.1 g/dLNormal6.4-8.2[facility] Comment on above:Performed By: #### FT3, TSH, CMP, T4, LIPID #### [facility] [address] [place] [address] [address] Elizabeth Mcarthurdium [Moles/Vol]141 mmol/JBuztro116-154Hzh [facility] Comment on above:Performed By: #### FT3, TSH, CMP, T4, LIPID #### [facility] [address] [place] [address] [address] Elizabeth McphersonUrea nitrogen [Mass/Vol]19.0 mg/dLCritically high7.0-18.0The [facility] HospitalComment on above:Performed By: #### FT3, TSH, CMP, T4, LIPID #### [facility] [address] [place] [address] Dr. Elizabeth Dupree nitrogen/Creatinine [Mass ratio]21.6 mg/mgOhioHealth Nelsonville Health CenterComment on above:Performed By: #### FT3, TSH, CMP, T4, LIPID #### [facility] [address] [place] [address] Dr. Elizabeth McphersonT4on 46-33-1671U7 [Mass/Vol]7.60 ug/dLNormal4.80-13.90The [facility] HospitalComment on above:Performed By: #### FT3, TSH, CMP, T4, LIPID #### [facility] [address] [place] [address] Dr. Elizabeth MachadoHokhris 63-76-8926KVE0.222 uIU/mLNormal0.358-3.740The [facility] HospitalComment on above:Performed By: #### FT3, TSH, CMP, T4, LIPID #### [facility] [address] [place] [address] Dr. Elizabeth McphersonVITAMIN D 25 OHon 42-23-2102VRE D 25-OH95.1 ng/mLNormalThe [facility] HospitalComment on above:Performed By: #### VITAD #### [facility] [address] [place] [address] Dr. Elizabeth Limon D RANGES[place] BELOWNormalThe [facility] HospitalComment on above: Result Comment: <20 ng/mL Vit D deficient 20 - <30 ng/mL Vit D insufficient 30 - 100 ng/mL Vit D sufficient >100 ng/mL Potential ToxicityPerformed By: #### VITAD #### [facility] [address] [address] [address] Elizabeth Mcpherson Vital Signs Date TimeVital SignValuePerforming NbbxcybaxIxrkyxdg88-25-5424 11:16-0400 Diastolic blood sfeiepzr69 mm[Hg]Tenisha Barlow MD Work Phone: [phone]10-14-2025 11:16-0400 Heart rate59 /Cole Barlow MD Work Phone: [phone] [address] [place], [place] 3362410-14-2025 11:16-0400 Respiratory rate16 /Cole Barlow MD Work Phone: 1(167)[address] [place], [place] 3362410-14-2025 11:16-0400 SaO2% (BldA) [Mass fraction]98 %Tenisha Barlow MD Work Phone: 1(639)[address] [place], [place] 3362410-14-2025 11:16-0400 Systolic blood mm[Hg]Tenisha Barlow MD Work Phone: 1(881)[address] [place], [place] 3362410-14-2025 10:42-0400 Inhaled oxygen flow rate3 L/Cole Barlow MD Work Phone: 1(071)[address] [place], [place] 3362410-14-2025 10:07-0400 Body hgopku811.02 cmTenisha Barlow MD Work Phone: 1(169)[address] [place], [place] 3362410-14-2025 10:07-0400 Body twjrzy13.57 kgTenisha Barlow MD Work Phone: 1(431)[address] [place], [place] 3362405-19-2025 13:16-0400 SaO2% (BldA) [Mass fraction]97 %Mary Romanmini [facility]05-19-2025 13:16-0400Heart rate62 /minMuhammad Sarmini [facility]05-19-2025 13:16-0400 Respiratory rate19 /minMuhammad Sarmini [facility]05-19-2025 13:15-0400 Respiratory rate11 /minMuhammad Sarmini [facility]05-19-2025 13:15-3400KtI5% (BldA) [Mass fraction]94 %Hernandez Sarmini [facility]05-19-2025 13:15-0400Heart rate61 /minMuhammad Sarmini [address] [place], [place] 6354805-19-2025 13:15-0400Blood Pressure LocationMuhammad Sarmini [address] [place], [place] 6354805-19-2025 13:15-0400 Diastolic blood utyegbqa89 mm[Hg]Hernandez Sarmini [address] [place], [place] 6354805-19-2025 13:15-0400Mean blood bkaoanzh12 mm[Hg]Hernandez Sarmini [facility]05-19-2025 13:15-0400 Systolic blood masnmnof597 mm[Hg]Hernandez Sarmini [address] [place], [place] 6354805-19-2025 13:10-5917FcX3% (BldA) [Mass fraction]94 %Hernandez Sarmini [facility]05-19-2025 13:10-0400Heart rate67 /minMuhammad Sarmini [facility]05-19-2025 13:10-0400 Respiratory rate15 /minMuhammad Sarmini [address] [place], [place] 6354805-19-2025 13:10-0400Blood Pressure LocationMuhammad Sarmini [address] [place], [place] 6354805-19-2025 13:10-0400 Diastolic blood ojkmspgb30 mm[Hg]Hernandez Sarmini [address] [place], [place] 6354805-19-2025 13:10-0400Mean blood crowhkcm45 mm[Hg]Hernandez Sarmini [address]05-19-2025 13:10-0400 Systolic blood voiqnslq967 mm[Hg]Hernandez Sarmini [address]05-19-2025 13:05-0400 Diastolic blood hzexwffn52 mm[Hg]Hernandez Sarmini [address] [place], [place] 6354805-19-2025 13:05-0400 Systolic blood trirckcw987 mm[Hg]Hernandez Sarmini [address] [place], [place] 6354805-19-2025 13:05-0400Blood Pressure LocationMuhammad Sarmini [address] [place], [place] 6354805-19-2025 13:05-0400Mean blood lxiwkgqi18 mm[Hg]Hernandez Sarmini [address] [place], [place] 6354805-19-2025 12:58-0400Body zfrtvprymvb96.7 [degF]Hernandez Sarmini [address] [place], [place] 6354805-19-2025 12:55-0400 Respiratory rate12 /minMuhammad Sarmini [address] [place], [place] 6354805-19-2025 12:45-0400 Respiratory rate12 /minMuhammad Sarmini [address] [place], [place] 6354805-19-2025 12:30-0400 Respiratory rate12 /minMuterryd Jessiemini [facility]05-19-2025 11:52-0400Body sfexrlyeycq09.88 [degF]Mary Romanmini [facility]02-18-2025 10:31-0500Body hqodrt637.29 cmTenisha Barlow MD Work Phone: 1(560)159-[address] [place], [place] 9458902-18-2025 10:31-0500 Body mass index (BMI) [Ratio]27.6 kg/l8BshtswpTenisha Barlow MD Work Phone: 1(009)439-[address] [place], [place] 9458902-18-2025 10:31-0500 Body rvoabg35 kgTenisha Barlow MD Work Phone: [phone])[address]11-04-2024 10:30-0500 Body dgoyjx773.29 cmMD Tenisha Barlow Work Phone: [phone])[address]11-04-2024 10:30-0500 Body mass index (BMI) [Ratio]27.8 kg/m2MD Tenisha Barlow Work Phone: 1(620)[address] [place], [place] 3362411-04-2024 10:30-0500 Body owjsmegfqfi93.2 [degF]MD Tenisha Barlow Work Phone: 1(637)[address] [place], [place] 3362411-04-2024 10:30-0500 Body omlwhv20.57 kgMD Tenisha Barlow Work Phone: 1(652)[address] [place], [place] 3362411-04-2024 10:30-0500 Diastolic blood jxzexqil32 mm[Hg]MD Tenisha Barlow Work Phone: [phone])[address]11-04-2024 10:30-0500 Heart rate72 /minMD Tenisha Barlow Work Phone: 1(518)[address] [place], [place] 3362411-04-2024 10:30-0500 SaO2% (BldA) [Mass fraction]97 %MD Tenisha Barlow Work Phone: 1(908)144-[address] [place], [place] 9458911-04-2024 10:30-0500 Systolic blood fcerfwik335 mm[Hg]MD Tenisha Barlow Work Phone: [phone])[address]09-03-2024 11:02-0400 Body .56 cmMD Tenisha Yen Work Phone: 1(978)[address]09-03-2024 11:02-0400 Body mass index (BMI) [Ratio]27.4 kg/m2MD Tenisha Fortunatoaebl Work Phone: 1(460)[address] [place], [place] 3362409-03-2024 11:02-0400 Body znlcwtyvhge98.7 [degF]MD Tenisha Barlow Work Phone: 1(109)[address] [place], [place] 3362409-03-2024 11:02-0400 Body ltpsym66.57 kgMD Tenisha Barlow Work Phone: 1(111)[address] [place], [place] 3362409-03-2024 11:02-0400 Diastolic blood fisqxqyh28 mm[Hg]MD Tenisha Barlow Work Phone: 1(501)[address] [place], [place] 3362409-03-2024 11:02-0400 Heart rate62 /minMD Tenisha Barlow Work Phone: 1(178)[address] [place], [place] 3362409-03-2024 11:02-0400 Systolic blood mm[Hg]MD Tenisha Barlow Work Phone: [phone])[address]10-07-2021 12:00-0400 Body obywwl575.56 cmThomas Felter Other [employer] Other 10-07-2021 12:00-0400Body mass index (BMI) [Ratio] 27.46 kg/r5Wgqixb Felter Other [employer] Other 10-07-2021 12:00-0400Body tdvmwo50.58 kgThomas Felter Other [employer] Other Encounters Encounter DateEncounter TypeCare ProviderFacilityStart: 09-16-2025 End: 62-88-2420eltnrmarbaEgfxmjb M Hoy MD Work Phone: [phone]-Mtnxldodu [facility] Mg[facility] BCStart: 09-16-2025 End: 72-58-7786Bnjkesc encounter procedureThrocio KOHLICount Includes [facility] Pain Mgmt BC Work Phone: Start: 09-14-2025 End: 83-71-3706rnjdnyrozyJiqbxrvx Talal SarminiFacility:[facility] DHStart: 09-14-2025 End: 93-25-8993Llxivef encounter procedureMuhammad Talal Sarmini [phone]-[facility]jeF[facility] Start: 09-02-2025 End: 90-06-1989lmentwlsoaToccweg M Hoy MD Work Phone: [phone]-Xfsbyjnae Health Pain Mgmt BCStart: 09-02-2025 End: 46-20-0319Xvtbcql encounter procedureThrocio KOHLICount Includes [facility] Pain [facility] Work Phone: Start: 09-01-2025 End: 26-05-5100safsefymumOuxunxv M Hoy MD Work Phone: -Flu VaccineStart: 09-01-2025 End: 37-08-2851Gdsrzey encounter procedureEarl Bain DO-Flu VaccineStart: 08-25-2025 End: 01-00-9691pqmwxmfqwnOatrkx FelterFacility:[facility] Start: 42-29-9507Iur-patient / Non-visitThrocio KOHLICount Includes [facility] Pain Mgmt BC Work Phone: Start: 08-11-2025 End: 49-51-8784nkxlxhxygqJqrehju M Hoy MD Work Phone: [facility] Work Phone: Start: 08-11-2025 End: 48-54-5556Mgppxip encounter procedureThorcio KOHLICount Includes [facility] Pain Mgmt Work Phone: Start: 07-14-2025 End: 94-89-8531nrmidgjucfFakfgedz Talal SarminiFacility:FTMCStart: 07-14-2025 End: 36-79-4828sgsrnrazwgUqxupykw Talal SarminiFacility:CD:[id number]: 05-13-2025 End: 59-36-1243Uljushm encounter procedureTenisha Ivory MD-MRI [address] Closed Work Phone: Start: 05-13-2025 End: 72-10-3603knsnkppmkvUctxbrj M Hoy MD Work Phone: [facility] Work Phone: Start: 03-30-2025 End: 46-69-0742lcayvfjxadZtrypjgz Talal SarminiFacility:FTMCStart: 03-30-2025 End: 89-33-9174Oiavvez encounter procedureMuhammad Talal Sarmini [facility] Start: 02-12-2025 End: 99-74-3715sodwocbyehLemkgeui Talal SarminiFacility:[facility] DHStart: 01-21-2025 End: 57-10-7917Xfwote outpatient visit 15 minutesEugene R Kubitz DPM Work Phone: NOOF SWS PODIATRYComment on above:Numbness of toes (Primary Dx)Start: 01-21-2025 End: 38-71-5277ukdrmxjnbkNFPDRZ R KUBITZNot AvailableStart: 12-30-2024 End: 16-22-1661oxkrbzkpepAafpunu M Hoy MD Work Phone: [facility] Work Phone: Start: 12-30-2024 End: 25-22-6222Cucpabz encounter Vitor Barlow MD Work Phone: [facility] Work Phone: Start: 09-15-2024 End: 43-66-2051Xxrrpgn encounter procedureMD Tenisha Hoy Work Phone: [facility] Vascular Surgery Work Phone: Start: 09-02-2024 End: 19-54-3198ehsdvbnxulKD Tenisha M Hoy Work Phone: [facility] Work Phone: Start: 09-02-2024 End: 73-17-1903Bjrvspa encounter procedureMD Tenisha Hoy Work Phone: [facility] [address] Work Phone: start: 08-30-2024 End: 85-90-2311ekqrbsbzdtOBJB REFERRALFacility:FTMCStart: 08-30-2024 End: 72-26-3053Jjtotmx encounter procedureSELF REFERRALTr[facility] Start: 07-15-2024 End: 32-95-4572zzwalocyftXP Tenisha M Hoy Work Phone: [facility] Work Phone: Start: 07-15-2024 End: 41-09-7209Heahadu encounter procedureMD Tenisha Hoy Work Phone: [facility] Vascular Surgery Work Phone: Start: 06-02-2024 End: 99-54-4818vtakumsszhTN Tenisha M Hoy Work Phone: [facility] Work Phone: Start: 06-02-2024 End: 13-20-1518Qicmjph encounter procedureMD Tenisha Hoy Work Phone: [facility] [place] Work Phone: Start: 08-04-2023 End: 81-47-2715Epssvem encounter procedureSELF REFERRALTr[facility] Start: 09-16-2022 End: 28-06-6882dgrzskscgsOZ TEINSHA HOYFacility:F9Ofezm: 07-01-2022 End: 96-10-5173Cwaruuc encounter procedureANTELMO FELDER [facility] Start: 09-28-0909Yobetezus for general adult medical examination without abnormal findingsDR TENISHA FORTUNATOYThe Saint [facility] HospitalStart: 05-13-2022 End: 08-08-7097jwjbofhyyxAO TENISHA HOYFacility:I0Pleea: 05-13-2022 End: 83-56-7428Uvkobygww for general adult medical examination without abnormal findingsDR TENISHA HOYFacility:I7Tkmch: 11-25-2021([facility] C Vac) [facility] Covid VaccineJohn A. Andrew Memorial Hospitaln [facility] ClinicStart: 11-25-2021 End: 97-48-3665mtavnmhjvuQgfv Fit Other [employer] Other Start: 10-24-2021(Procedure) Barbi Chiu [facility] OutPtStart: 10-24-2021 End: 14-48-5071cgdotwvdvcJbhtoy Felter Other [facility] Other Start: 10-10-2021 End: 16-95-0498oyfjmwyllrZuhqkh Felter Other [employer] Other Start: 87-71-3857Smpyfj outpatient visit 25 minutes Stanislaw [facility] [place]Start: 10-03-2021(Procedure) [facility]Pro[facility] OutPtStart: 10-03-2021 End: 79-55-9722cmlvrsqwrxHwtqsk Felter Other [employer] Other Start: 09-19-2021 End: 90-39-9297ciqbhypfqwKdijzv Felter Other [facility] Other Start: 29-29-7310Jvhzsk outpatient visit 25 minutes Stanislaw OneilBart [facility] [place]Start: 09-12-2021(Procedure) Lionel [facility] OutPtStart: 67-65-6207Mipcvi outpatient visit 25 minutesThomas FelterFPG [facility] [place] CreekStart: 08-18-2021 Office outpatient visit 25 minutesThomas FelterFPG [facility] [place] Procedures DateProcedureProcedure DetailPerforming ClinicianStart: 47-70-2940JQX of right kneeTenisha Barlow MD Work Phone: Start: 30-70-7747AkfwsrbbzogMulfsebx Sarmini Start: 48-51-1197DhvhynxsqstafzymqnermwryvgHoifkyeq Sarminmonica Start: 57-48-0982Bgglr X-ray of left shoulderDomeka Barlow MD Work Phone: Start: 22-40-8830Xyjwqz scan of lower limb veinsMD Tenisha Barlow Work Phone: Start: 48-76-6399XjamodtfuljVsupir Kubitz DPM Work Phone: start: 33-83-7963VjltafndymwKcoyvd Kubitz DPM Work Phone: start: 41-92-7860VvfmbhlwknyRVTGJJB BRUNER start: 05-19-1989H/O: tubal ligationWIJORY FELDER start: 03-24-1988D&CWILLIAM BRADFORD Plan of Treatment DateCare ActivityDetailAuthorStart: 52-04-1166Jptaynglw for malignant neoplasm of colonNOMS HealthcareStart: 17-07-1090TiuqunkapGlenbeigh Hospital CenterStart: 67-65-4140Qcrsd X-ray of left shoulderXR shoulder LT min 2V*[facility] Hospitaltart: 78-28-2569YM Shoulder - left ViewsCleveland Clinic Fairview Hospitaltart: 16-13-1100Qtzwetxrl for malignant neoplasm of breast MammogramNONH HealthcareStart: 60-28-0613Uqzlnqwzo vaccinationInfluenza Vaccine (#1)[facility] HealthcareStart: 82-77-7520Hallzfzlh for malignant neoplasm of cervix NOM HealthcareStart: 82-42-4825Oxhbgaldy for malignant neoplasm of cervixPap SmearNOMS HealthcareStart: 41-55-8916Ykwipmcmf for malignant neoplasm of colon [facility] HealthcarePatient EducationPromedica Def[facility] Hospital Work Phone: [facility] referralGreene [facility] Hospital Work Phone: US Lower extremity vein - leftOhio[facility] Immunizations Immunization DateImmunizationNotesCare FkclvbjbJidqlfws88-89-7325byrgqmqjo virus vaccine, unspecified formulationEugene Kubitz DPM Work Phone: [phone]-TcgwoMain Campus Medical Center Digestive Nielws55-19-2399 COVID-19 ModernaDawn Fitt Other [facility]10-07-2021influenza virus vaccine, unspecified formulationMuhammad Sarmini 520-1081Jfcmbl-IwpnsMain Campus Medical Center Digestive Dwpwgs68-19-4466 COVID-19 mRNA-1273 (Moderna)MD Tenisha Barlow Work Phone: [facility]01-07-2021COVID-19 mRNA-1273 (Moderna)MD Tenisha Barlow Work Phone: [facility]09-28-2020influenza virus vaccine, unspecified formulationMuhammad Sarmini 185-4993Twijqg-ZbhjyMain Campus Medical Center Digestive Wffutn37-96-1125 influenza, unspecified formulationMuhammad Sarmini 574-6856Wxdoba-TlpimMain Campus Medical Center Digestive Dhxdrd01-75-1882 influenza virus vaccine, unspecified formulationMuhammad Sarmini 245-5803Hmjqds-FiyidMain Campus Medical Center Digestive Kctjik75-98-8971 influenza, seasonal, injectableThomas Felter Other [facility] Payers DatePayer CategoryPayerPolicy [id number] [id number] Health InsuranceELYRIA MEMORIAL HOSPITALCAL MUTUAL ..[id number]-epa [id number] 2..1.525332.3.57[id number] 2..1.681210.3.57[id number] 2..1.764991.3.57[id number] 2..1.770793.3.57[id number] 2..1.769262.3.57[id number] 2..1.593900.3.57[id number] 2..840.1.882135.3.57[id number] 2.16.840.1.872417.3.57[id number] 2.16.840.1.569322.3.57[id number] 2.16.840.1.898307.19 [id number] 2.16.840.1.1[id number] 2.16.840.1.8[id number] 2.16.840.1.165345.3.579.2.531 [id number] 2.16.840.1.581614.3.579.2.531Worker's CompensationFirelands Wray [facility] [id number] Social History DateTypeDetailFacilityStart: 73-64-7353Ycs Assigned At [facility] [place] [facility] Other Start: 69-72-3800Zsthiji smoking statusSmoker (finding)[facility] CenterTobacco smoking statusNeverCleveland Clinic Medina Hospitaltart: 10-24-2021 End: 20-61-0651Lwhcqwp smoking status NHISEx-smoker (finding)[facility] Hospitaltart: 44-56-0032Bil Assigned At [facility]ertart: 02-23-2010 End: 26-58-2520IdkTlmgar (finding)[facility] CenterHistory of tobacco useCigarette SmokerNONH HealthcareStart: 75-88-3282Qsgyrkdydu smoked current (pack per day) - Dvrdpvuy2ELZH HealthcareStart: 56-21-7944Niqptgl use and exposureFormer smokeless tobacco userNOMS HealthcareStart: 01-21-2025 Alcoholic beverage intakeEx-drinker (finding)NOMS HealthcareStart: 01-20-2025 Gender identityIdentifies as female gender (finding)NOMS HealthcareSexual OrientationFishBrandenburg Center Functional Status XnzkGzutwdezdoBpsnjfHygezoep56-60-8907Mlgtbtnddc StatusN/AFisher - [facility] Clinical Notes 08-18-2021 to 08-11-2025 Note Date & QnxkJiptQinccmfw55-40-8625 Evaluation note* Diagnosis Onset Date Resolution Status Admit Date Greater trochanteric bursitis of left hi p acuteSeptember 2024 2:56pmLow back painacuteSept2024 2:56pm Sacroiliitis, not elsewhere classifiedacuteSeptember 2024 2:56pm [facility] Work Phone: 1(500) 521-715609-30-2025 Evaluation note* Diagnosis Onset Date Resolution Status Admit Date Greater trochanteric bursitis of left hi p acuteSeptember 2024 2:56pmLow back painacuteSeptember 2024 2:56pm Sacroiliitis, not elsewhere classifiedacuteSeptember 2024 2:56pmGreater trochanteric bursitis of left hipacuteOctober 2024 10:22amLow back pain acuteOctober 2024 10:22amSacroiliitis, not elsewhere classifiedacute October 2024 10:22am [facility] Work Phone: 1(137) 294-118309-30-2025 Evaluation note* Diagnosis Onset Date Resolution Status Admit Date Greater trochanteric bursitis of left hi p acuteSeptember 2024 2:56pmLow back painacuteSeptember 2024 2:56pm Sacroiliitis, not elsewhere classifiedacuteSept2024 2:56pmGreater trochanteric bursitis of left hipacuteOctober 2024 10:22amLow back pain acuteOctober 2024 10:22amSacroiliitis, not elsewhere classifiedacute September 02, 2025 10:22amGreater trochanteric bursitis of left hipacuteNov2024 10:25amLow back painacuteNov2024 10:25amSacroiliitis, not elsewhere classifiedacuteNov2024 10:25am [facility] Work Phone: 1(957) 979-614705-19-2025 NoteProgress Note-Physician Patient: BETSY MENCHACA Age: 60 years Sex: Female : 1965 Associated Diagnoses: None Author: Iron PEDROZA, Trenton Olivia Postoperative Information Postoperative disposition: Postoperative disposition: Home. Optimetrix number: Optimetrix number [id number]. Anesthetic utilized: Monitored anesthesia care. Health Status [...] Daily, # 90 cap(s), Refills(s) 3, Pharmacy: [facility]/pharmacy #[id number], 162, cm, 02/12/25 12:52:00 EDT, Height/Length Dosing, 78.7, kg, 02/12/25 12:52:00 EDT, Weight Dosing Pepcid 40 mg Tab: 40 mg = 1 tab(s), Oral, Once a day (at bedtime), # 30 tab(s), Refills(s) 2, Pharmacy: [facility]/pharmacy #[id number], 162, cm, 03/22/21 10:15:00 EDT, Height/Length Dosing, 75.7, kg, 03/22/21 10:15:00 EDT, Weight Dosing famotidine 40 mg Tab: 40 mg = 1 tab(s), Oral, Once a day (at bedtime), # 90 tab(s), Refills(s) 3, Pharmacy: [facility]/pharmacy #[id number], 162, cm, 02/12/25 12:52:00 EDT, Height/Length Dosing, 78.7, kg, 02/12/25 12:52:00 EDT, Weight Dosing mesalamine 1.2 g oral enteric coated tablet: 2.4 gram, 2 tab(s), Oral, Daily, 60 tab(s), Refill(s) 11, [facility]/pharmacy #[id number], 162, cm, 01/17/21 14:27:00 EST, Height/Length [...] Problems Elevated liver enzymes / SNOMED CT 7965626844 / Confirmed Heartburn / SNOMED CT 66556519 / Confirmed History of colon polyps / SNOMED CT 3693819613 / Confirmed Left sided ulcerative colitis / SNOMED CT 9441193740 / Confirmed Smoker / SNOMED CT 996554608 / Confirmed Added secondary to documentation in Social History. Resolved: ANEMIA, UNSPECIFIED / ICD-9-CM 285.9 Resolved: Cystocele / SNOMED CT 47545388 Resolved: H/O: migraine / SNOMED CT 487092695 Resolved: Hypothyroidism / SNOMED CT 51713391 Resolved: Second degree uterine prolapse / SNOMED CT 48568489 Physical Examination Vital Signs 03/30/2025 13:16 EDT [...] Pressure 80 mmHg mmHg (more content not included)...[facility] HospitalComment on above:Result Comment: Electronically Signed By: Trenton Perdue MD\.leeroy\Date and Time Signed: 03/30/25 15:05 [id number] Hospital Discharge instructions Patient Education 03/30/2025 13:04:20 Gastritis, Adult, Iwad-mg-Fkyi Gastritis, Adult Gastritis is irritation and swelling (inflammation) of the stomach. There are two kinds of gastritis: Acute gastritis. This kind develops quickly. Chronic gastritis. This kind is much more common. It develops slowly and lasts for a long time. It is important to get help for this condition. If you do not get help, your stomach can bleed, andyou can get sores (ulcers) in your stomach. [...] Follow these instructions at home: Medicines Take crzy-nue-zuclkhr and prescription medicines only as told by [...] away. Call your local emergency services (911 int [place] Do not wait to see if [...] provider. Document Revised: 03/04/2022 Document Reviewed: 03/04/2022 General Assembly Patient Education 2023 [employer]. 03/30/2025 13:04:13 Esophagitis Esophagitis Esophagitis is inflammation [...] Follow these instructions at home: Medicines Take khqk-hpb-jaxvcqo and prescription medicines only as told by [...] powder, vinegar, hot sauces, and barbecue sauce. ?Walsh fruit juices and citrus fruits, such as oranges, jeri, and limes. ?Tomato-based foods, such as red sauce, chili, salsa, and pizza with red sauce. ?Fried and fatty foods, such as donuts, pashto fries, potato chips, and high-fat dressings. ?High-fat [...] you need help quitting, ask your health careprovider. General instructions Pay attention to any changes [...] or meditation to manage stress. If you needhelp reducing stress, ask your health care provider. [...] provider. Document Revised: 05/09/2021 Document Reviewed: 05/09/2021 General Assembly Patient Education 2023 [employer] 03/30/2025 13:04:11 Endoscopy, Care After Procedure [facility] Endoscopy Care After Procedure Please read the [...] blood. Document Released: 06/12/2005 Document Re-Released: 04/22/2007 ExitCare Patient Information [employer]. 03/30/2025 13:04:00 Colonoscopy, Care After Surgery Salam (CUSTOM) Colonoscopy Care After Surgery Please read the instructions outlined below and refer to this sheet in the next few weeks. These discharge instructions provide you with general information on caring for yourself after you leave thespecial care hospital. Your doctor may also give you [...] Up Care 02/12/2025 15:16:15 With:Mary Carey Address: [address] [place] [address], [address] [address]- [phone] Business (1) When: Unknown Comments:Call for any problems. [facility] 05-19-2025 Evaluation + Plan noteExtracted from:Title: ANES Post-operative Note - EndoAuthor:Trenton Perdue MD.Date:03/30/25 Plan Transfer/Discharge: Transfer/Discharge Discharge when meets criteria ( From PACU to Ambulatory Surgery Unit, and To home ). Extracted from:Title:1Preop H&PAuthor:Cherry PEDROZA, Mary BrownalDate:03/30/25 Impression and Plan Impression: gerd, colitis Plan: -EGD and Colonoscopy Extracted from:Title:ANES Pre-operative Note - EndoAuthor:Trenton Perdue MD.Date: 03/30/25 Plan [place] [employer] Anesthesiologists (ASA) physical status classification: Class II. Anesthetic Preoperative Plan: Anesthesia General, and -TIVA.[facility] 05-19-2025 NotePatient Education - Text Endoscopy Care After Procedure Please read the instructions outlined below and refer to this sheet in the next few weeks. These discharge instructions provide you with general information on caring for yourself after you leave thespecial care hospital. Your doctor may also give you [...] Document Re-Released: 04/22/2007 ExitCare??? Patient Information ???2009 [employer]. Colonoscopy Care After Surgery Please read the instructions outlined below and refer to this sheet in the next few weeks. These discharge instructions provide you with general information on caring for yourself after you leave thespecial care hospital. Your doctor may also give you [...] Radiation or chemotherapy treatm (more content not included)...[facility] [facility] NoteEndoscopic Procedure Report - Other Patient: BETSY MENCHACA Age: 60 years Sex: Female : 1965 Associated Diagnoses: None Author: Mary Carey MD Pre-Procedure Procedure Date 03/30/2025 12:56:00 . Procedure Type: Colonoscopy with biopsy. Procedure provider Performed by Mary Carey MD. Current history and physical Documented on chart. Colonoscopy ([id number]) on 02/25/2021 at 56 Years. H/O: tubal ligation ([id number]) on 05/19/1989 at 24 Years. D&C on 03/24/1988 at 23 Years.. Past Medical History Resolved Hypothyroidism (62230819): Resolved. ANEMIA, UNSPECIFIED (285.9): Resolved. H/O: migraine (950763139): Resolved. Cystocele (97982446): Resolved. Second degree uterine prolapse (33405070): Resolved.. Family History Primary malignant neoplasm of female breast Sister Acute myocardial infarction Father . Procedure History Colonoscopy ([id number]) on 02/25/2021 at 56 Years. H/O: tubal ligation ([id number]) on 05/19/1989 at 24 Years. D&C on [...] Daily, # 90 cap(s), Refills(s) 3, Pharmacy: [facility]/pharmacy #[id number], 162, cm, 02/12/25 12:52:00 EDT, Height/Length Dosing, 78.7, kg, 02/12/25 12:52:00 EDT, Weight Dosing Pepcid 40 mg Tab: 40 mg = 1 tab(s), Oral, Once a day (at bedtime), # 30 tab(s), Refills(s) 2, Pharmacy: [facility]/pharmacy #[id number], 162, cm, 03/22/21 10:15:00 EDT, Height/Length Dosing, 75.7, kg, 03/22/21 10:15:00 EDT, Weight Dosing famotidine 40 mg Tab: 40 mg = 1 tab(s), Oral, Once a day (at bedtime), # 90 tab(s), Refills(s) 3, Pharmacy: [facility]/pharmacy #[id number], 162, cm, 02/12/25 12:52:00 EDT, Height/Length Dosing, 78.7, kg, 02/12/25 12:52:00 EDT, Weight Dosing mesalamine 1.2 g oral enteric coated tablet: 2.4 gram, 2 tab(s), Oral, Daily, 60 tab(s), Refill(s) 11, [facility]/pharmacy #[id number], 162, cm, 01/17/21 14:27:00 EST, Height/Length [...] 3. Small internal hemorrhoids Images Procedure images: Rec1_hd_video_2024__T1_07__205.jpg Rec1_hd_video__T1_02_39_301.jpg Rec1_hd_video_2024__T1_02_12_634.jpg Rec1_hd_video__T1__01_701.jpg Rec1_hd_video__T12_00_52_053.jpg . Post-Procedure Complications: none. Estimated blood loss: Minimal. Specimens: sent to pathology. Devices/ implants: none left in place. Impression and Plan 1. Colonic mucosa with normal, with normal vascular pattern, no ulcers or erosions, no erythema, Lee score 0. Random biopsies were taken from the left colon and rectum to assess histology 2. Normal Terminal ileum 3. Small internal hemorrhoids (more content not included)...[facility] HospitalComment on above:Result Comment: Electronically Signed By: Mary Carey MD\.br\Date and Time Signed: 03/30/25 12:57 EDTOther Comment: Missing Attachment - attachment storage system not supported [id number] Can be viewed in source system Missing Attachment - attachment storage system not supported [id number] Can be viewed in source systemMissing Attachment - attachment storage system not supported [id number] Can be viewed in source systemMissing Attachment - attachment storage system not supported [id number] Can be viewed in source systemMissing Attachment - attachment storage system not supported [id number] Can be viewed in source [id number] NoteEndoscopic Procedure Report - Other Patient: BETSY [...] images: Rec1_hd_video__51_38_458.jpg Rec1_hd_video__51_35_824.jpg Rec1_hd_video__51_33_313.jpg Rec1_hd_video__51_31_222.jpg Rec1_hd_video__51_28_050.jpg Rec1_hd_video__51_22_460.jpg Rec1_hd_video__51_19_960.jpg Rec1_hd_video__49_52_732.jpg Rec1_hd_video__49_49_935.jpg Rec1_hd_video__49_39_423.jpg Rec1_hd_video__49_36_379.jpg Rec1_hd_video__49_30_701.jpg Rec1_hd_video__48_40_797.jpg Rec1_hd_video__48_37_841.jpg . Post-Procedure Complications: none. Estimated blood loss: [...] follow in GI clinic in 1-2 after dischargeProvidence HospitalComment on above:Result Comment: Electronically Signed By: Cherry PEDROZA, Mary Bolanos\.br\Date and Time Signed: 03/30/25 12:44 EDTOther Comment: Missing Attachment - attachment storage system not supported [id number] Can be viewed in source system Missing Attachment - attachment storage system not supported [id number] Can be viewed in source systemMissing Attachment - attachment storage system not supported [id number] Can be viewed in source systemMissing Attachment - attachment storage system not supported [id number] Can be viewed in source systemMissing Attachment - attachment storage system not supported [id number] Can be viewed in source systemMissing Attachment - attachment storage system not supported [id number] Can be viewed in source systemMissing Attachment - attachment storage system not supported [id number] Can be viewed in source systemMissing Attachment - attachment storage system not supported [id number] Can be viewed in source system Missing Attachment - attachment storage system not supported [id number] Can be viewed in source systemMissing Attachment - attachment storage system not supported [id number] Can be viewed in source systemMissing Attachment - attachment storage system not supported [id number] Can be viewed in source systemMissing Attachment - attachment storage system not supported [id number] Can be viewed in source systemMissing Attachment - attachment storage system not supported [id number] Can be viewed in source systemMissing Attachment - attachment storage system not supported [id number] Can be viewed in source [id number] Note History and Physical Patient: BETYS MENCHACA Age: 60 years Sex: Female : [...] Daily, # 90 cap(s), Refills(s) 3, Pharmacy: [facility]/pharmacy #[id number], 162, cm, 02/12/25 12:52:00 EDT, Height/Length Dosing, 78.7, kg, 02/12/25 12:52:00 EDT, Weight Dosing Pepcid 40 mg Tab: 40 mg = 1 tab(s), Oral, Once a day (at bedtime), # 30 tab(s), Refills(s) 2, Pharmacy: [facility]/pharmacy #[id number], 162, cm, 03/22/21 10:15:00 EDT, Height/Length Dosing, 75.7, kg, 03/22/21 10:15:00 EDT, Weight Dosing famotidine 40 mg Tab: 40 mg = 1 tab(s), Oral, Once a day (at bedtime), # 90 tab(s), Refills(s) 3, Pharmacy: [facility]/pharmacy #[id number], 162, cm, 02/12/25 12:52:00 EDT, Height/Length Dosing, 78.7, kg, 02/12/25 12:52:00 EDT, Weight Dosing mesalamine 1.2 g oral enteric coated tablet: 2.4 gram, 2 tab(s), Oral, Daily, 60 tab(s), Refill(s) 11, [facility]/pharmacy #[id number], 162, cm, 01/17/21 14:27:00 EST, Height/Length [...] list: All Problems Smoker / SNOMED CT 000995023 / Confirmed Added secondary to documentation in Social History. Left sided ulcerative colitis / SNOMED CT 1354100147 / Confirmed History of colon polyps / SNOMED CT 5245054705 / Confirmed Heartburn / SNOMED CT 71283364 / Confirmed Elevated liver enzymes / SNOMED CT 9572907741 / Confirmed Histories Past Medical History: Resolved Hypothyroidism (89963814): Resolved. ANEMIA, UNSPECIFIED (285.9): Resolved. H/O: migraine (336644940): Resolved. Cystocele (76261724): Resolved. Second degree uterine prolapse (34254507): Resolved. Family History: Father Acute myocardial infarction Sister Primary malignant neoplasm of female breast Procedure history: Colonoscopy ([id number]) on 02/25/2021 at 56 Years. H/O: tubal ligation ([id number]) on 05/19/1989 at 24 Years. D&C on [...] 11:52) Heart Rate Monitored 64 bpm (MARCH 30 11:52) Resp Rate 16 br/min (MARCH 30 11:52) SBP 122 mmHg (MARCH 30 11:52) DBP 73 mmHg (MARCH 30 11:52) Weight 78.7 kg (MARCH 30 11:40) BMI 29.99 (MARCH 30 11:40) General: in Nad Abdomen: Soft, NTND Impression and Plan Impression: gerd, colitis Plan: -EGD and ColonoscopyProvidence HospitalComment on above:Result Comment: Electronically Signed By: Cherry PEDROZA, Mary Bolanos\.br\Date and Time Signed: 03/30/25 12:28 [id number] NoteProgress Note-Physician Patient: BETSY MENCHACA Age: 60 years Sex: Female : 1965 Associated Diagnoses: None Author: Iron PEDROZA, Trenton Kirkland. Preoperative Information Anesthesia Preop Info: Time patient [...] Daily, # 90 cap(s), Refills(s) 3, Pharmacy: [facility]/pharmacy #[id number], 162, cm, 02/12/25 12:52:00 EDT, Height/Length Dosing, 78.7, kg, 02/12/25 12:52:00 EDT, Weight Dosing Pepcid 40 mg Tab: 40 mg = 1 tab(s), Oral, Once a day (at bedtime), # 30 tab(s), Refills(s) 2, [id number], cm, 03/22/21 10:15:00 EDT, Height/Length Dosing, 75.7, kg, 03/22/21 10:15:00 EDT, Weight Dosing famotidine 40 mg Tab: 40 mg = 1 tab(s), Oral, Once a day (at bedtime), # 90 tab(s), Refills(s) 3, Pharmacy: [facility]/pharmacy #[id number], 162, cm, 02/12/25 12:52:00 EDT, Height/Length Dosing, 78.7, kg, 02/12/25 12:52:00 EDT, Weight Dosing mesalamine 1.2 g oral enteric coated tablet: 2.4 gram, 2 tab(s), Oral, Daily, 60 tab(s), Refill(s) 11[id number], cm, 01/17/21 14:27:00 EST, Height/Length [...] Problems Elevated liver enzymes / SNOMED CT 0930286104 / Confirmed Heartburn / SNOMED CT 46042402 / Confirmed History of colon polyps / SNOMED CT 7394552782 / Confirmed Left sided ulcerative colitis / SNOMED CT 1364869087 / Confirmed Smoker / SNOMED CT 276206593 / Confirmed Adde (more content not included)...[facility] HospitalComment on above: Result Comment: Electronically Signed By: Iron PEDROZA, Trenton Olivia\.br\Date and Time Signed: 03/30/25 12:00 [id number] History of Present illness Narrative* Jorge A Ochoa, OCTAVIANO - 01/21/2025 10:30 AM EDT Reason for [...] joint equinus right. SHOE GEAR EVALUATION: Under [employer] athletic shoes. Imaging Studies: HEEL X-RAY: 11-08-2022: [...] be reconsidered. 8.Reappoint p.r.n.. documented in this encounterMercy Hospital [id number] Evaluation note* Diagnosis Onset Date Resolution Status Admit Date Impingement syndrome of left shoulder acuteFebruary 2024 10:26am [facility] Work Phone: [phone]) 792-752901-14-2022 Evaluation note* Encounter Date Diagnosis Assessment Notes Treatment Notes Treatment Clinical Notes Nov, Encounter for immunization (ICD- 10 - Z23) Patient presents for COVID-19 vaccination BOOSTER. Pre-screening form answers evaluated with patient. Patient denies current illness or allergic reaction to component of COVID-19 vaccine. Patient provided with current copy of EUA. [employer] Other 11-29-2021 Evaluation note* Encounter Date Diagnosis Assessment Notes Treatment Notes Treatment Clinical Notes Sep, Cervical pain (ICD-10 - M54.2) Sep,rthritis of neck (ICD-10 - M47.812) Patient's main [...] with patient in regards to patients condition. Sep,egenerative disc disease, cervical (ICD-10 - M50.30) Sep,hronic pain (ICD-10 - G89.29) Sep,OtherAbove note written by Halima Astorga LPN, Skidder Lever Operator. Edited and approved by Dr. Stanislaw Chiu MD. [employer] Other 11-08-2021 Evaluation note* Encounter Date Diagnosis Assessment Notes Treatment Notes Treatment Clinical Notes Sep, Cervical pain (ICD-10 - M54.2) Sep,rthritis of neck (ICD-10 - M47.812) Patient's main [...] with patient in regards to patients condition. Sep,egenerative disc disease, cervical (ICD-10 - M50.30) Sep,hronic pain (ICD-10 - G89.29) Sep,OtherAbove note written by Roman Lu MA, Skidder Lever Operator. Edited and approved by Dr. Stanislaw Chiu MD. [employer] Other 10-25-2021 Evaluation note* Encounter Date Diagnosis Assessment Notes Treatment Notes Treatment Clinical Notes Aug, Cervical pain (ICD-10 - M54.2) Aug,rthritis of neck (ICD-10 - M47.812) Patient's main complaint is her cervical pain. Patient has failed multiple conservative treatment options. Based on location of pain and exam findings, patient is a candidate for right cervical facetmedial branch nerve blocks which we will proceed with. Risks and benefits of procedure explained topatient; patient verbalizes understanding. It was further explained, should the procedure provide significant short term benefit, we could consider repeat nerve blocks with subsequent radiofrequency ablations. Aug,egenerative disc disease, cervical (ICD-10 - M50.30) Aug,hronic pain (ICD-10 - G89.29) Aug,OtherAbove note written by Mirian Drake CMA, Skidder Lever Operator. Edited and approved by Dr. Stanislaw Chiu MD. [employer] Other 10-07-2021 Evaluation note* Encounter Date Diagnosis [...] spine discussed in detail with patient in regardsto patients condition. Aug,egenerative disc disease, cervical (ICD-10 - M50.30) Aug,hronic pain (ICD-10 - G89.29) Aug,OtherMedical decision making shows a new problem to me with further workup planned or suggested with thepotential for extensive treatment options that were considered with the most applicable given this patient's situation as noted above. Treatment options considered include a combination of physical th erapy approaches, pharmacologic management, and interventional procedures. Those most applicable tothe patient were discussed at this time. Risk [...] prolonged functional impairment requiring constant patient reassessment andhigh-level medical decision making. The amount and complexity of data reviewed is high given that patient labs, radiology reports, and other test were obtained, reviewed and summarized as applicable from the physician portal and/or outside medical records. Pertinent positive and negative findings were considered in medical decision-making. [employer] Other Evaluation + Plan note No data available for this section [facility] CenterEvaluation noteNo InformationNort [employer] Other Evaluation noteNo assessment information available [facility] Work Phone: Evaluation note* Diagnosis Onset Date Resolution Status Varicose veins of bilateral lower extrem ities with pain acute [facility] Work Phone: Evaluation note* Diagnosis Onset Date Resolution Status Varicose veins of bilateral lower extrem ities with pain acuteVaricose veins of bilateral lower extremities with painacute [facility] Work Phone: Evaluation note* Diagnosis Onset Date Resolution Status Admit Date Impingement syndrome of left shoulder acuteFebruary 2024 10:26am [facility] Work Phone: Evaluation note* Diagnosis Numbness of toes- Primary Disturbance of skin sensation documented in this encounter [facility]* Diagnosis Onset Date Resolution Status Admit Date Greater trochanteric bursitis of left hi p acuteSeptember 2024 2:56pmLow back painacuteSeptember 2024 2:56pm Sacroiliitis, not elsewhere classifiedacuteSeptember 2024 2:56pm [facility] Work Phone: History general Narrative - Reported* Type Description Date Medical History chronic back pain Medical HistoryhyperthyroidismMedical HistoryanemiaMedical HistoryUCMedical HistoryVIT DMedical HistoryosteoporosisSurgical Historytubal [id number] Surgical [id number] HistoryTAH / bladder [id number] Pxqcznivnbkblrzvqo9277Vjqbswhlvtsmeis Historyaccident - crack [id number] [employer] Other Hospital Discharge instructions No data available for this section [facility] CenterProgress note No data available for this section [facility] CenterReason for referral (narrative)No reason for referral information availableGreene Memorial Hospital Work Phone: Summary Purpose Family History Relationship Condition Age at Onset Recorded Date/T sergei father Heart disease Unknown fatherDeceasedUnknownHeart diseaseUnknown Relationship Condition Age at Onset Recorded Date/T sergei father Heart disease Unknown DeceasedUnknown Advance Directives Advance Directive Response Recorded Date/ Time Advance Directives No November 21, 2019 6:07pm Advance Directive Response Recorded Date/ Time Advance Directives No November 21, 2019 5:07pm Advance Directive Response Recorded Date/ Time Advance Directives No August 12, 2025 10:09am Advance Directive Response Recorded Date/ Time Advance Directives No August 12, 2025 9:09am Chief Complaint and Reason for Visit Chief Complaint Admit Date SCIATIC PAIN August 11, 2025 2:56pm LUMBAR PAIN August 25, 2025 9 :27am Reason for Visit Admit Date Greater trochanteric bursitis of left hi p August 11, 2025 2:56pm Low back pain August 11, 2025 2:56pm Sacroiliitis, not elsewhere classified S eptember 2024 2:56pm Chief Complaint I83.813 Chief Complaint I83.813 SELF REF FOR VARICOSE VEINS; HAD F/F DONE FRMCReason for VisitVaricose veins of bilateral lower extremities with pain Chief Complaint SELF REF FOR VARICOS E VEINS; HAD F/F DONE 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 December 30 10:26am M25.512 - Pain in left shoulder December 30, 2024 10:33am Reason for Visit Admit Date Impingement syndrome of left shoulder Fe bruary 2024 10:26am Chief Complaint Admit Date M23.90 May 13, 2025 10:51 am Chief Complaint Admit Date M23.90 May 13, 2025 10:51 am SCIATIC PAIN August 11, 2025 2:56pm Chief Complaint Admit Date SCIATIC PAIN August 11, 2025 2:56pm LUMBAR PAIN August 25, 2025 9 :27am F/U LEFT SI JOINT INJECTION August 10:22am Reason for Visit Admit Date Greater trochanteric bursitis of left hi p August 11, 2025 2:56pm Low back pain August 11, 2025 2:56pm Sacroiliitis, not elsewhere classified S eptember 2024 2:56pm Greater trochanteric bursitis of left hi p September 02, 2025 10:22am Low back pain September 02, 2025 1 0:22am Sacroiliitis, not elsewhere classified O ctober 2024 10:22am Chief Complaint Admit Date SCIATIC PAIN August 11, 2025 2:56pm LUMBAR PAIN August 25, 2025 9 :27am Z23 September 01, 2025 8 :00am F/U LEFT SI JOINT INJECTION August 10:22am Chief Complaint Admit Date SCIATIC PAIN August [...] 1 0:25am Sacroiliitis, not elsewhere classified N ovember 2024 10:25am Additional Source Comments REASON FOR VISIT (unrecogniz ed section and content) REF BY DR BARLOW FOR CERVICAL P AIN3 WK RECHECKRIGHT CERVICAL MBB/HHFOLLOW UP AFTER RIGHT CERVICAL MBBRIGHT CERVICAL FACET MBB C3 C4/DSFOLLOW UP AFTER RIGHT CERVICAL BLOCKModerna Booster Employee RIGHT CERVICAL RFA C3 C4 CJ Care Team (unrecognized sect ion and content) Team Status: Active Member Role Status Yudith Barlow MD Primary Care Provider Active Team Status: Inactive Member Role Status Yudith Barlow MD Primary Care Provider Active Start: June 02, 2024 End: June 02, 2024Minal Juan NP-CAttending ProviderActiveStart: June 02, 2024 End: June 02, 2024 Team Status: Inactive Member Role Status Yudith Barlow MD Primary Care Provider Active Start: July 15, 2024 End: July 15, 2024Itzel Hearn ProviderActiveStart: July 15, 2024 End: July 15, 2024 Team Status: Inactive Member Role Status Yudith Barlow MD Primary Care Provider Active Start: September 02, 2024 End: September 02radha FELDMAN , CHCAttending ProviderActiveStart: September 02, 2024 End: September 02, 2024 Team Status: Inactive Member Role Status Yudith Barlow MD Primary Care Provider Active Start: September 15, 2024 End: September 15, 2024Itzel Hearn ProviderActiveStart: September 15, 2024 End: September 15, 2024 Team Status: Inactive Member Role Status Yudith Barlow MD Primary Care Provider Active Start: December 30, 2024 End: December 30, 2024Itzel Stone ProviderActiveStart: December 30, 2024 End: December 30, 2024 Team Status: Active Member Role Status Yudith Truong MD Attending Provider Active Star t: December 30, 2024 Momo Dobbs Care ProviderActiveStart: December 30, 2024 Team Status: Inactive Member Role Status Yudith Truong MD Attending Provider Active Star t: December 30, 2024 End: December 30, 2024Momo Dobbs Care ProviderActiveStart: December 30, 2024 End: December 30, 2024 Team Status: Inactive Member Role Status Dates Tenisha M Hoy , MD Primary Care Provider Active Start: May 13, 2025 End: May 13, 2025Itzel Dobbs ProviderActiveStart: May 13, 2025 End: May 13, 2025 Team Status: Inactive Member Role Status Yudith Barlow MD Primary Care Provider Active Start: August 11, 2025 End: August 11Itzel Suarez ProviderActiveStart: August 11, 2025 End: August 11, 2025 Team Status: Active Member Role Status Yudith Barlow MD Primary Care Provider Active Start: August 25, 2025 Itzel Caruso ProviderActiveStart: August 25, 2025 Stanislaw Chiu MDOther ProviderActiveStart: August 25, 2025 Team Status: Active Member Role/Relationship Status Yudith Barlow MD Primary Care Provider Active Team Status: Inactive Member Role/Relationship Status Dates Tenisha Barlow MD Primary Care Provider Active Start: August 11, 2025 End: August 11Itzel Suarez ProviderActiveStart: August 11, 2025 End: August 11, 2025 Team Status: Active Member Role/Relationship Status Yudith Barlow MD Primary Care Provider Active Start: August 25, 2025 Itzel Caruso ProviderActiveStart: August 25, 2025 Nuris Caruso ProviderActiveStart: August 25, 2025 Team Status: Inactive Member Role/Relationship Status Dates Tenisha Barlow MD Primary Care Provider Active Start: September 02, 2025 End: September 02, 2025ThItzel Suarez ProviderActiveStart: September 02, 2025 End: September 02, 2025 Team Status: Inactive Member Role/Relationship Status Yudith Barlow MD Primary Care Provider Active Start: September 01, 2025 End: September 01radha Saunders - DO GASTON CHCAttending ProviderActiveStart: September 01, 2025 End: September 01, 2025 Team Status: Inactive Member Role/Relationship Status Yudith Barlow MD Primary Care Provider Active Start: September 02, 2025 End: September 02, 2025ThItzel Suarez ProviderActiveStart: September 02, 2025 End: September 02, 2025 Team Status: Inactive Member Role/Relationship Status Dates Tenisha Barlow MD Primary Care Provider Active Start: September 16, 2025 End: September 16, 2025ThItzel Suarez ProviderActiveStart: September 16, 2025 End: September 16, 2025 INFORMATION SOURCE (unrecogn ized section and content) DATE CREATED AUTHOR 09/22/2022 [facility] DATE CREATED AUTHOR AUTHOR'S ORGANIZ ATION 01/24/2025 [facility] DATE CREATED AUTHOR AUTHOR'S ORGANIZ ATION 04/01/2025 [facility] DATE CREATED AUTHOR AUTHOR'S ORGANIZ ATION 04/09/2025 [facility] DATE CREATED AUTHOR AUTHOR'S ORGANIZ ATION 07/16/2025 [facility] DATE CREATED AUTHOR AUTHOR'S ORGANIZ ATION 07/19/2025 [facility] DATE CREATED AUTHOR AUTHOR'S ORGANIZ ATION 09/04/2025 [facility] DATE CREATED AUTHOR AUTHOR'S ORGANIZ ATION 09/16/2025 [facility] Goals (unrecognized section and content) Goals may [...] BE BASED ON THE PRIMARY CLINICAL RECORDS. [employer] [facility]. provides no warranty or guarantee of the accuracy or completeness of information in this document.
== END 2025-09-22 12:29 | disposition home or self-care (01) ==
LOC: MRI 12:28
PROVIDERS: PCP Family Medicine; Visit Provider Family Medicine
DX: M54.16 Radiculopathy, lumbar region (principal); M46.1 Sacroiliitis, not elsewhere classified; M48.48XA Fatigue fracture of vertebra, sacral and sacrococcygeal region, initial encounter for fracture
CPT/HCPCS: 72148; 72195

== ENCOUNTER 2025-10-06 15:28 | Outpatient (OUT) | payer OTHER, SELFPAY ==
--- OUTSIDE RECORDS SUMMARY | 2025-09-22 14:10 | XMS_ITS ---
Author Organization [facility] [place] Address [address] [place] [address] Care Team Providers Care Inseam Trimmer Name Role Phone Mitchell Baljinder Primary Care Provider [phone] Reason For Referral Diagnosis 1 Sacral fracture (S32 .10XA) Referral Organization [facility] Referring Provider First Name Baljinder Referring Provider Last Name Mitchell [facility] Referred Provider Karlos Puente Referred Provider Specialty Neurosurgery Referral Priority Routine REASON FOR VISIT mri spine Encounters Encounter Location Date Provider Diagnosis [facility] [address] [facility] [place] [address] 09/22/2025 Baljinder Bucioabel Sacral fracture S32.10XA Assessments Encounter Date Diagnosis (ICD Code) Assessment Notes Treatment Notes Treatment Clinical Notes Section Notes 09/22/2025 Sacral fracture (ICD-10 - S32.10 XA) Plan Of Treatment Referrals Referral Date Details 09/23/2025 09/23/2025Karlos Progress Notes * Betsy MENCHACA BDOB: [birth year] (60 yo F)Acc No.[id number]:09/22/2025 Patient:?Betsy MENCHACA :1965???Age:60 Y???Sex:FemalePhone:[phone] Address:[address] [place] [address], [id number] Subjective: * Chief Complaints: * M ri spine * Medical History: * Surgical History: * Hospitalization/Major Diagno stic Procedure: * Medications: Objective: * Vitals: * Physical Examination: ??? Assessment: * Assessment: 1.?Sacral fracture - S32.10XA (Primary)??? Plan: * Treatment: ? Referral To:Karlos Puente??Neurosurgery ?Reason: * Procedure Codes: * true * Date:?Generated for Printing/Faxing/eTransmitting on:?10/06/2025 03:30 PM EST Consultation Request Notes Referral Date Referring Provider Referred Provider Not 09/23/2025 Baljinder Medrano [place]
--- OUTSIDE RECORDS SUMMARY | 2025-09-29 06:42 | XMS_ITS | Continuity of Care Document ---
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 Name Role Phone Brad Medrano MD Primary Care Provider Stanislaw Chiu MD Attending Provider [phone] Stanislaw Chiu MD Other Provider Earl Shrestha DO Attending Provider [phone] Ariela Elliott APRN Attending Provider Care Teams Patient Care Team Team Status: Active Member Role/Relationship Status Yudith Medrano MD Primary Care Provider Active Visit Care Team Team Status: Inactive Member Role/Relationship Status Dates Brad Medrano MD Primary Care Provider Active Start: August 11, 2025 End: August 11, 2025Itzel Caruso ProviderActiveStart: August 11, 2025 End: August 11, 2025 Visit Care Team Team Status: Active Member Role/Relationship Status Yudith Medrano MD Primary Care Provider Active Start: August 25, 2025 Itzel Caruso ProviderActiveStart: August 25, 2025 Stanislaw Chiu MDOther ProviderActiveStart: August 25, 2025 Visit Care Team Team Status: Inactive Member Role/Relationship Status Yudith Medrano MD Primary Care Provider Active Start: September 01, 2025 End: September 01radha FELDMAN DO CHCAttending ProviderActiveStart: September 01, 2025 End: September 01, 2025 Visit Care Team Team Status: Inactive Member Role/Relationship Status Dates Brad Medrano MD Primary Care Provider Active Start: September 02, 2025 End: September 02, 2025Throcio Itzel Chiu ProviderActiveStart: September 02, 2025 End: September 02, 2025 Visit Care Team Team Status: Inactive Member Role/Relationship Status Dates Brad Medrano MD Primary Care Provider Active Start: September 16, 2025 End: September 16rocio Itzel Chiu ProviderActiveStart: September 16, 2025 End: September 16, 2025 Patient Care Team Team Status: Inactive Member Role/Relationship Status Dates Brad Medrano MD Primary Care Provider Active Start: September 29, 2025 End: September 29, 2025Dick Saini ProviderActiveStart: September 29, 2025 End: September 29, 2025 Chief Complaint and Reason for Visit Chief Complaint Admit Date SCIATIC PAIN August 11, 2025 2:56pm LUMBAR PAIN August 25, 2025 9 :27am Z23 September 01, 2025 8 :00am F/U LEFT SI JOINT INJECTION August 10:22am RECHECK September 16, 2025 1 0:25am low back pain September 29, 2025 10:56am Reason for Visit Admit Date Greater trochanteric [...] Type Reason(s) Provider Provider Contact Information P braxton Address Start Date Call Dr. Gerard office to schedule a follow up appointment if you do not already have one scheduledThrocio Chiu , P MDWork Phone: [phone] [email or web address] [facility] [address] Allergies, Adverse Reactions, Alerts Allergen Type Severity Reaction Last Updated Verified Status No Known Allergies Allergy Unknown September 29, 2025 11:06amYesActive Social History Smoking Status Status Start Date End Date Date of Observa tion Ex-smoker (finding) August 12, 2025 10:09am Observation Status Observation Response Date of Response Legal Sex [facility] (finding) [facility] 1964 Family History Relationship Condition Age [...] 9:56amUnknownActiveLow back painSeptember 2024 2:47pmUnknownActiveChronic painSeptember 2023 9:56amUnknownActiveAge related osteoporosisNovember 2024 11:41amUnknown ActiveDegenerative disc disease, cervicalSeptember 2023 9:56amUnknownActive Chronic back painOctober 2020 11:29amUnknownActiveLeft shoulder pain December 29, 2024 4:34pmUnknownActiveSacroiliitis, not elsewhere classified August 11, 2025 2:47pmUnknownActiveInactive/Resolved Problems Problem Diagnosis/Recorded Date Onset Date [...] Acid (Vitamin C) (Vitamin C) 1,000 mg YluazqWinjav5CPITTlzvfPmnbgja 2020 11:00pmComplies with drug therapyAlendronate (Fosamax) 70 mg AnlukvXxauoqubvouq15KWAMcwagz week September 08, 2021 11:00pmSept2023 9:54amLevothyroxine 25 mcg Tablet Utdyrr01AEJRHReefiCseryzb 2020 11:00pmComplies with drug therapyPotassium 75 mg NfhgxpOozrbe63MPFEMrxctSdshdha 2020 11:00pmComplies with drug therapyErgocalciferol (Vitamin D2) 1,250 mcg (50,000 unit) CapsuleDiscontinued 56864HVXLQMIm DirectedOctober 2020 11:00pmpt2023 9:54am Mesalamine (Lialda) 1.2 gram Tablet,Delayed Release (Dr/Ec)Active2.4GMPODaily September 08, 2021 11:00pmComplies with drug therapyMultivitamin (Daily Multi- Vitamin) kqrlchLygczi9AMDXXFvwumWmjrumn 2024 11:00pmComplies with drug therapyCholecalciferol (Vitamin D3) 1,250 mcg (50,000 unit) jsgqbyvYfbmjr70959 UNITPOevery 2023 11:00pmComplies with drug therapy Pantoprazole 40 mg tablet,delayed release (DR/EC)DiscontinuedMGPOSe2023 11:00pmSept2024 2:24pmCetirizine 10 mg penxqzPgadxc09YFQGVxolx July 14, 2024 11:00pmComplies with drug therapyMiscellaneous Medical Supply incdShcgnexryxvh5IMEOFSAAKXTFYRZaxqu4218Hgqqitroi 2nd, 2024 11:00pm August 25, 2025 9:05amVaricose veins of both lower extremities with pain Varicose veins of bilateral lower extremities with khpp39-71 compression thigh high stockingsCalcium Carbonate (Calcium 600) 600 mg calcium (1,500 mg) tablet Pfcjoo502WUVHLajyc dailyNov2024 12:00amComplies with drug therapy Famotidine 40 mg pjthcrThieba89QVXOUmpgg dailySept2024 11:00pm Complies with drug therapyEsomeprazole Magnesium 40 mg capsule,delayed release(DR/EC)Jcdjcy27ULDCIhqkxWkyttshhr 29th, 2025 11:00pmComplies with drug therapy Immunizations Immunization Event Date Not Given Reason Dose Number 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 Number Reason(s) Given Vaccine Information Statement (VIS) Detail Administration Location COVID-19 mRNA-1273 (Moderna) November 18, 2020 [id number][facility] Hospital for Rehabilitation CtrCOVID-19 mRNA-1273 (Moderna)November 252COVID-19 mRNA-1273 (Moderna)December [id number]'s Hospital for Rehabilitation CtrTrivalent Influenza VaccineOctephra[facility] 2014 Vital Signs Vital Reading Result Reference Range Collection Date/Time Height 63 [in_i] August 25, 2025 9:41zsWtcrjw65.57 kgOctephraim mcdowell regional medical center 2024 9:07amHeart Rate59 /oeu44-199Afbguxg 2024 10:16amRespiratory rate16 /wyc94-36Tsahjni 2024 10:16amOxygen saturation by Pulse unfhmzrg03 %95-100[facility] 2024 10:16amBP Bmtkoxwg336 mm[Hg]100-140Octephraim m[facility] 2024 10:16amBP Idqgbuqpa79 mm[Hg]60-100Octephraim mcdowell [facility] 2024 10:16amInhaled oxygen flow rate3 L/minHutzel [facility]'S Hospital 2024 9:01wiFrbdhm43 [in_i]September 29, 2025 11:05wlOtccak69.20 kg September 29, 2025 11:05amBMI (Body Mass Index)30.9 kg/s0CxzncmaxSeptember 29, 2025 11:05am Advance Directives Advance Directive Response Recorded Date/ Time Advance Directives No August 12, 2025 9:09am Insurance Providers Guarantor Betsy Benny Nikolai Address [address] [place] [id number] Info.Home Phone: Payer Group Member ID Coverage Type Subscriber Relationship to Subscriber Effective Date Expiration Date MMO Id: [id number] Encounters Encounter Location(s) Arrival/Admit Date Discharge/Departure Date Discharge/Departure Disposition Provider(s) Departed Physician/ Provider Office Visit -[facility] August 11, 2025 2:56pm August 11, 2025 3:54pm Discharged to home care or self care (routine discharge) [facility] 9:27am Taya Caruso MDDeparted Clinical-Flu VaccineAugephraim [facility] 2024 8:00am September 01, 2025 8:05amBryTaya Mireles DODeparted Physician/Provider [facility] 2024 10:22amOctober 2024 10:50amDischarged to home care or self care (routine discharge)Taya Caruso MDDeparted Physician/Provider Office Visit-[facility] September 16, 2025 10:25amNovember 2024 10:52amDischarged to home care or self care (routine discharge)Taya Caruso MDDeparted Physician/Provider Office Visit-[facility] 2024 10:56amNovember 2024 11:40amDischarged to home care or self care (routine discharge)Ariela Elliott APRN Recent Diagnosis Onset Date Admit Date Greater [...] back painacuteNov2024 10:25amSacroiliitis, not elsewhere classifiedacuteNov2024 10:25am Plan of Treatment Author Daryl Pollack [facility] 2024 9:51amPatient notes considerable improvement in their [...] myself Stanislaw Chiu M.D. Author Stanislaw Chiu [facility] 2024 9:00amPatients primary complaint today is severe right low [...] niko's PCP did order an MRI, I explained to the patient that I agree this is reasonable and we will also follow up with her regarding the results of this. Note scribed by ABA Coughlin, reviewed and amended by myself Stanislaw Chiu M.D. Author Stanislaw Chiu [facility] Mi[facility]burgAuthoredSeptember 2024 3:30pmPatients primary complaint today is severe [...] scheduled test information is unavailable Pending Tests Test Name Ordered Date Scheduled Date XR dexa axial skeleton September 29, 2025 11:40 am Future Visits Future appointment information is unavailable Future Procedures Procedure Name Ordered Date Scheduled Date Discharge Order August 25, 2025 10:21am Octob er 2024 10:21am Future Medications Future medication information is unavailable Patient Instructions Instruction Admit Date Low back pain in adults August 11, 2025 2:56pm Know your Meds Felter Non Diagnostic BlockOctober 2024 9:27am
--- OUTSIDE RECORDS SUMMARY | 2025-10-06 15:31 | XMS_ITS | Patient Health Record ---
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 Ordering Physician: Tensiha Barlow M.D. Date of Service: 03/07/25 Procedure(s): XR soft tissue neck Accession Number(s): [id number] cc: Tenisha Barlow M.D. [address] [address] Patient Name: CAMMY MENCHACA MRN: [id number] date: 1965 Sex: F Assigned Patient Location: RAD Current Patient Location: RAD Accession/Order Number: [id number] Exam Date: 03/07/2025 14:18 Report Date: 03/07/2025 14:20 At the request of: TENISHA BARLOW MD Procedure: XR soft tissue neck [...] Elliott M.D. 03/07/2025 2:20 PM Dictation Location: [place] [address] Electronically authenticated by: [id number] Y Date: 03/07/2025 14:20 Dictated By: Presley Elliott M.D. Signed By: 03/07/251422 DD/ 19 TD/TT: Personal Banker: XR chest 2V Reviewed date:03/08/2025 01:05:46 PM Interpretation: Performing Lab: Notes/Report: Source Facility: [place] [address] XRay Report Signed Patient: CAMMY MENCHACA MR#: [id number] : 1965 Acct:[id number] Age/Sex: 60 / F ADM Date: 03/07/25 Loc: RAD Attending Dr: Tenisha Barlow M.D. Ordering Physician: Tenisha Barlow M.D. Date of Service: 03/07/25 Procedure(s): XR chest 2V Accession Number(s): [id number] cc: Tenisha Barlow M.D. [place] [address] Patient Name: CAMMY MENCHACA MRN: [id number] date: 1965 Sex: F Assigned Patient Location: [facility] Current Patient Location: [facility] Accession/Order Number: [id number] Exam Date: 03/07/2025 14:17 Report Date: 03/07/2025 14:18 At the request of: TENISHA BARLOW MD Procedure: XR chest 2V PA AND LATERAL CHEST: CLINICAL HISTORY: CHRONIC COUGHING R05.3 COMPARISON: None FINDINGS: Unremarkable cardiomediastinal silhouette. Right hilar calcified granulomas. Lungs are clear. No effusion or pneumothorax. Mild degenerative changes of the mid thoracic spine. XR/XR chest 2V IMPRESSION: NO ACUTE CARDIOPULMONARY ABNORMALITY. Impression dictated by: Presley Elliott M.D. 03/07/2025 2:18 PM Dictation Location: [place] [address] Electronically authenticated by: [id number] Y Date: 03/07/2025 14:18 Dictated By: Presley Elliott M.D. Signed By: 03/07/25 1420 DD/ 1418 TD/TT: Personal Banker: CBC AUTO DIFF Reviewed date:04/15/2025 09:10:22 PM Interpretation: Performing Lab: Notes/Report: [facility] , White Blood Count 4.7 4.0-11.0 10 3/uL Red Blood Count4.854.20-5.40 10 6/qPEypkxhaxse09.112.0-16.0 g/aWUrsvogfasf62.3 36.0-48.0 %Mean Corpuscular Jjraxx26.281.0-99.0 fLMean Corpuscular Hemoglobin 29.126.7-34.0 pgMean Corpuscular HGB Conc34.129.9-35.2 g/dLRed Cell Distribution Width13.811.0-15.0 %Platelet Devft170584-248 10 3/uLMean Platelet Rltwpi03.89.5- 13.5 fLNeutrophils Percent Auto44.043.0-75.0 %Lymphocytes Percent Auto37.420.5- 60.0 %Monocytes Percent Auto9.51.7-12.0 %Eosinophils Percent Auto8.50.9-7.0 % Basophils Percent Auto0.60.2-2.0 %Immature Granulocytes Pct Auto0.00.0-0.5 % Neutrophils Absolute Auto2.11.4-6.5 10 3/uLLymphocytes Absolute Auto1.81.2-3.8 10 3/uLMonocytes Absolute Auto0.50.3-0.8 10 3/uLEosinophils Absolute Auto0.40.0- 0.7 10 3/uLBasophils Absolute Auto0.00.0-0.1 10 3/uLImmature Granulocytes Abs Auto0.000.00-0.03 10 3/uLPerforming Lab:see note - [facility] LBLAB TESTING Reviewed date:04/18/2025 05:13:06 PM Interpretation: Performing Lab: Notes/Report: [id number] MYCOPLASMA PNEUMONIAE IGM,IGG [facility] ,Miscellaneous TestCOMMENT. confirmed either by a positive IgM result and/or an Performed at: [facility] only. Values >100 may indicate a recent weeks later to assure reactivity. Indeterminate: 100 - 320 M. pneumoniae specific IgM presumptively detected. It Reference Range: 0-99 IgM antibody detected. M pneumoniae IgM Abs <770 U/mL CB Clinically significant amount of M. pneumoniae antibody [address] [place] [phone] Positive: >320 not detected. Test Ordered: [id number] Mycoplasma pneu. IgG/IgM Abs additional specimen drawn 2-4 weeks later showing a Positive >950 Negative: <100 is recommended that another sample be collected 1-2 The reference interval established is intended as a infection with Mycoplasma pneumoniae and need to be significant increase in antibody levels. Reference Range: 0-769 Low Positive 770 - 950 Sustainable Agriculture Specialist: Swapnil Ruiz PhD, Phone: [phone] M pneumoniae IgG Abs 602 [H ] U/mL Highly significant amount of M. pneumoniae specific Negative <770 Performing Lab:[facility] LBLAB TESTING Reviewed date:04/18/2025 05:13:06 PM Interpretation: Performing Lab: Notes/Report: [id number] LEGIONELLA PNEUMOPHILA [facility] ,[facility] Adaaneous TestCOMMENT. Sustainable Agriculture Specialist: Swapnil Ruiz PhD, Phone: [phone] Reference Range: Non Reactive Performed at: [facility] Test Ordered: [id number] Legionella pneumophila Abs. exposure/infection and current infection. Serological recommendations, culture of lower respiratory secretions for diagnosis of infection with Legionella. This assay cannot differentiate between previous [address] [place], [place] [id number] Non Reactive (IgG/IgM/IgA) to L. pneumophila Groups 1-6 by EIA method. testing is not recommended for diagnosis. Per current Sustainable Agriculture Specialist: Handy Hua MD, Phone: [phone] [address] [place], [place] [id number] Legionella pneumophila Abs. Note: BN and/or the Legionella urinary antigen test should be used Performed at: [facility] This is a qualitative assay that detects total antibodies Performing Lab:[facility] Labwarp LBWhite Blood Cells Reviewed date:06/25/2025 07:48:03 AM Interpretation: Performing Lab: Notes/Report: [facility] ,White Blood CellsSee Below For ReportWhite Blood CellsWhite Blood CellsFewWhite Blood CellsPerforming Lab:see noteProv[facility] LBEpithelial Cells Reviewed date:06/25/2025 07:48:03 AM Interpretation: Performing Lab: Notes/Report: [facility] ,Epithelial CellsSee Below For Report Few Epithelial Cells Performing Lab:see [facility] LBResult 1 Reviewed date:06/25/2025 07:48:03 AM Interpretation: Performing Lab: Notes/Report: [facility] ,Result 1See Below For Report Few gram positive cocci Result 1 Performing Lab:see [facility] LBResult 2 Reviewed date:06/25/2025 07:48:03 AM Interpretation: Performing Lab: Notes/Report: [facility] ,Result 2See Below For Report Result 2 ACCOUNTS PAYABLE BOOKKEEPER Performing Lab:see note - [facility] LBResult 3 Reviewed date:06/25/2025 07:48:03 AM Interpretation: Performing Lab: Notes/Report: [facility] ,Result 3See Below For Report ACCOUNTS PAYABLE BOOKKEEPER Result 3 Performing Lab:[facility] LBResult 4 Reviewed date:06/25/2025 07:48:03 AM Interpretation: Performing Lab: Notes/Report: [facility] ,Result 4See Below For Report ACCOUNTS PAYABLE BOOKKEEPER Result 4 Performing Lab:see [facility]Prov[facility] LBGram Stain Evaluation Reviewed date:06/25/2025 07:48:03 AM Interpretation: Performing Lab: Notes/Report: [facility] ,Gram Stain EvaluationSee Below For Report This specimen is of good quality and is acceptable for routine Gram Stain Evaluation Gram Stain Evaluationbacterial culture. This specimen is of good quality and is acceptable for routine Gram Stain Evaluation Performing Lab:see noteProv[facility] LBLower Respiratory Culture Reviewed date:06/25/2025 07:48:03 AM Interpretation: Performing Lab: Notes/Report: [facility] ,Lower Respiratory CultureSee Below For Report Haemophilus parainfluenzae Isolated O:HAEPAR Lower Respiratory Culture Lower Respiratory CultureModerate growth Haemophilus parainfluenzae Isolated O:HAEPAR Lower Respiratory Culture Lower Respiratory CultureAmoxicillin-clavulanic acid, azithromycin, clarithromycin, Haemophilus parainfluenzae Isolated O:HAEPAR Lower Respiratory Culture Lower Respiratory Culturecefaclor, Haemophilus parainfluenzae Isolated O:HAEPAR Lower Respiratory Culture Lower Respiratory Culturecefprozil, cefdinir, cefixime, cefpodoxime, and cefuroxime Haemophilus parainfluenzae Isolated O:HAEPAR Lower Respiratory Culture Lower Respiratory Cultureare oral Haemophilus parainfluenzae Isolated O:HAEPAR Lower Respiratory Culture Lower Respiratory Cultureagents that may be used as empiric therapy for respiratory Haemophilus parainfluenzae Isolated O:HAEPAR Lower Respiratory Culture Lower Respiratory Culturetract Haemophilus parainfluenzae Isolated O:HAEPAR Lower Respiratory Culture Lower Respiratory Cultureinfections due to Haemophilus spp. The results of Haemophilus parainfluenzae Isolated O:HAEPAR Lower Respiratory Culture Lower Respiratory Culturesusceptibility Haemophilus parainfluenzae Isolated O:HAEPAR Lower Respiratory Culture Lower Respiratory Culturetests with these antimicrobial agents are often not Haemophilus parainfluenzae Isolated O:HAEPAR Lower Respiratory Culture Lower Respiratory Culturenecessary for Haemophilus parainfluenzae Isolated O:HAEPAR Lower Respiratory Culture Lower Respiratory Culturemanagement of individual patients (CLSI). If susceptibility Haemophilus parainfluenzae Isolated O:HAEPAR Lower Respiratory Culture Lower Respiratory Culturetesting Haemophilus parainfluenzae Isolated O:HAEPAR Lower Respiratory Culture Lower Respiratory Cultureis desired please contact the laboratory within 3 days. Haemophilus parainfluenzae Isolated O:HAEPAR Lower Respiratory Culture Lower Respiratory CultureBeta lactamase negative. Haemophilus parainfluenzae Isolated O:HAEPAR Lower Respiratory Culture Lower Respiratory Culture Haemophilus parainfluenzae Isolated O:HAEPAR Lower Respiratory Culture Lower Respiratory CultureRoutine respiratory xena also. Haemophilus parainfluenzae Isolated O:HAEPAR Lower Respiratory Culture Lower Respiratory CultureModerate growth Haemophilus parainfluenzae Isolated O:HAEPAR Lower Respiratory Culture Lower Respiratory CultureSee Below For Report Haemophilus parainfluenzae Isolated O:HAEPAR Lower Respiratory Culture Lower Respiratory CulturePerformed at: - [facility] [place] Haemophilus parainfluenzae Isolated O:HAEPAR Lower Respiratory Culture Lower Respiratory [address] [place], [place] [id number] Haemophilus parainfluenzae Isolated O:HAEPAR Lower Respiratory Culture Lower Respiratory CultureLab Director: Swapnil Ruiz PhD, Phone: [phone] Haemophilus parainfluenzae Isolated O:HAEPAR Lower Respiratory Culture Performing Lab:see note LC - [facility] LB SEE REPORT - Senior Information Developer Id information not found for OBX-specific producer 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 Ordering Physician: Tenisha Barlow M.D. Date of Service: 05/30/25 Procedure(s): XR chest 2V Accession Number(s): [id number] cc: Tenisha Barlow M.D. [place] [address] Patient Name: CAMMY MENCHACA MRN: [id number] date: 1965 Sex: F Assigned Patient Location: LAB Current Patient Location: LAB Accession/Order Number: [id number] Exam Date: 05/30/2025 08:05 Report Date: 05/30/2025 08:06 At the request of: TENISHA BARLOW MD Procedure: XR chest 2V PA AND LATERAL CHEST: CLINICAL HISTORY: RR05.3 Chronic coughing COMPARISON: 03/07/2025 FINDINGS: Unremarkable cardiomediastinal. Right hilar/mediastinal calcified granulomas. No focal opacity, effusion or pneumothorax. XR/XR chest 2V IMPRESSION: NO ACUTE CARDIOPULMONARY ABNORMALITY. Impression dictated by: Presley Elliott M.D. 05/30/2025 8:06 AM Dictation Location: [place] [address] Electronically authenticated by: [id number] Date: 05/30/2025 08:06 Dictated By: Presley Elliott M.D. Signed By: 05/30/25 0809 DD/ 5 TD/TT: Personal Banker:MR lumbar spine wo con Reviewed date:09/22/2025 07:11:37 PM Interpretation: Performing Lab: Notes/Report: Source Facility: [place] [address] Magnetic Resonance Report Signed Patient: CAMMY MENCHACA MR#: [id number] : 1965 Acct:[id number] Age/Sex: 60 / F ADM Date: 09/22/25 Loc: MRI Attending Dr: Tenisha Barlow M.D. Ordering Physician: Tenisha Barlow M.D. Date of Service: 09/22/25 Procedure(s): MR lumbar spine wo con Accession Number(s): [id number] cc: Tenisha Barlow M.D. [place] [address] Patient Name: CAMMY MENCHACA MRN: [id number] date: 1965 Sex: F Assigned Patient Location: MRI Current Patient Location: MRI Accession/Order Number: [id number] Exam Date: 09/22/2025 13:00 Report Date: 09/22/2025 18:04 At the request of: TENISHA BARLOW MD Procedure: MR lumbar spine wo con MR lumbar spine wo con 09/22/2025 2:30 PM SIGNS AND SYMPTOMS: lumbar radiculopathy PROTOCOL: Multiplanar multisequence MR images of the lumbar spine without IV contrast COMPARISON: None. FINDINGS: The bones of the lumbar spine are in anatomic alignment. There is preservation of vertebral body heights. There is severe intervertebral disc height loss at L4-5 with Schmorl's node formation in the endplates. Edema is noted along the sacral ala bilaterally. These may represent sacral insufficiency fractures. There is a benign-appearing hemangioma of the L2 vertebral body. The conus terminates at the inferior endplate of the L1 vertebral body level. No epidural or paraspinous fluid collection is appreciated. Simple cysts are noted in the renal cortices requiring no further follow-up. At T12-L1: There is a normal disc, central canal, and neural foramen. At L1-L2: There is a normal disc, central canal, and neural foramen. At L2-L3: There is a normal disc, central canal, and neural foramen. At L3-L4: There is a broad-based disc bulge with mild spinal canal narrowing and mild bilateral neural foraminal narrowing. At L4-L5: There is a circumferential disc bulge with facet hypertrophy and ligamentum flavum thickening. There is mild spinal canal stenosis with mild left and moderate right neural foraminal stenosis. At L5-S1: There is facet hypertrophy. There is a broad-based disc bulge with mild endplate osteophyte formation. There is mild right neural foraminal narrowing without spinal canal narrowing. MR/MR lumbar spine wo con IMPRESSION: Edema is noted along the sacral ala bilaterally. These may represent sacral insufficiency fractures. At L4-L5: There is a circumferential disc bulge with facet hypertrophy and ligamentum flavum thickening. There is mild spinal canal stenosis with mild left and moderate right neural foraminal stenosis. Lesser degrees of degenerative changes noted as above. Impression dictated by: Paddy Cheung M.D. 09/22/2025 6:04 PM Dictation Location: [place] [address] Electronically authenticated by: [id number] Y Date: 09/22/2025 18:04 Dictated By: Paddy Cheung M.D. Signed By: 09/22/251805 DD/ 03 TD/TT: Personal Banker: pelvis wo con Reviewed date:09/22/2025 07:11:37 PM Interpretation: Performing Lab: Notes/Report: Source Facility: [place] [address] [address] [address] Magnetic Resonance Report Signed Patient: CAMMY MENCHACA MR#: [id number] : 1965 Acct:[id number] Age/Sex: 60 / F ADM Date: 09/22/25 Loc: MRI Attending Dr: Tenisha Barlow M.D. Ordering Physician: Tenisha Barlow M.D. Date of Service: 09/22/25 Procedure(s): MR pelvis wo con Accession Number(s): [id number] cc: Tenisha Barlow M.D. [address] [address] Patient Name: CAMMY MENCHACA MRN: [id number] date: 1965 Sex: F Assigned Patient Location: MRI Current Patient Location: MRI Accession/Order Number: [id number] Exam Date: 09/22/2025 13:00 Report Date: 09/22/2025 18:17 At the request of: TENISHA BARLOW MD Procedure: MR pelvis wo con MR pelvis wo con 09/22/2025 2:30 PM SIGNS AND SYMPTOMS: lumbar radiculopathy PROTOCOL: Multiplanar multisequence MR images of the pelvis were obtained without IV contrast COMPARISON: None. FINDINGS: Hips: Alignment: Normal Femoroacetabular impingement anatomy: None. Dysplasia: None. Fluid: No joint effusion. Labrum: Grossly intact. Cartilage: Femoral: Preserved. Acetabular: Preserved. Capsule/ligaments: Normal. Muscles/tendons/entheses: Flexors: Normal. Extensors: Normal. Abductors: Normal. Adductors: Normal. Rotators: Normal. Hamstrings: Normal. Bones (other than subarticular marrow): Edema is noted in the sacral ala bilaterally. Linear T1 hypointense signal is noted along the sacral ala left greater than right. These changes are most consistent with sacral insufficiency fractures more notably on the left compared to the right. Degenerative changes are noted in the lower lumbar spine which are better detailed on lumbar spine MRI from the same date. Vessels: Normal. Nerves: Visualized bilateral sciatic and femoral nerves appear normal. Soft tissues: Normal. Viscera: Visualized pelvic structures appear normal. No lymphadenopathy by size criteria. No free fluid in the pelvis. There is evidence of prior hysterectomy. MR/MR pelvis wo con IMPRESSION: Edema is noted in the sacral ala bilaterally. Linear T1 hypointense signal is noted along the sacral ala left greater than right. These changes are most consistent with sacral insufficiency fractures more notably on the left compared to the right. Impression dictated by: Paddy Cheung M.D. 09/22/2025 6:17 PM Dictation Location: [place] [address] Electronically authenticated by: [id number] Y Date: 09/22/2025 18:17 Dictated By: Paddy Cheung M.D. Signed By: 09/22/251819 DD/ 16 TD/TT: Personal Banker: Reason For Referral Diagnosis 1 Sacral fracture (S32 .10XA) Referral Organization [facility] Medicine Referring Provider First Name Baljinder Referring Provider Last Name Mitchell Referring Provider Speciality Family [facility] ty Referred Provider Karlos Puente Referred Provider Specialty Neurosurgery Referral Priority Routine Medications Medication SIG (Take, Route, Frequency, Duration) Notes Start Date End Date Status Calcium 600 MG 1 tablet with meals Orally Twice a day; Duration: 30 days 5ActiveMesalamine 1.2 GMTAKE 2 TABLET BY MOUTH EVERY DAY; Duration: 90 daysActivepredniSONE 10 MG5 tabs per day for 3 [...] DAY; Duration: 90 daysActiveVitamin D3 1.25 MG (76846 UT)1 capsule Orally once a week; Duration: 90 daysActiveTrelegy Ellipta 100-62.5-25 MCG/ACT1 puff Inhalation Once a day5ActiveVentolin HFA 108 (90 Base) MCG/ACT2 puff as needed Inhalation every 4 hrs5ActiveNexIUM 20 MG1 tablet orally twice dailyActiveMultivitaminActiveLevothyroxine Sodium 25 MCG1 tablet in the morning on an empty stomach Orally Once a day; Duration: 90 daysActivetraMADol HCl 50 MG 1 tablet Orally 4 times a day- PRN; Duration: 7 days5Active Social History Tobacco Use: Social History Observation [...] in the past year?Less than monthly (1 point)Kbziuq5HkvtjqeoixfzdaGrinfeamMBAJR-C (Standard) Question Answer Notes Did you have a drink containing alcohol in the p ast year? No Bffbat2QasmboalblltcxKzrkrfsi Problems Problem Type SNOMED Code ICD Code Onset Dates Problem Status W/U Status Risk Notes Problem Enthesopathy of hip region (3093 6004) Psoas tendinitis, right hip (M76.11) ActiveconfirmedProblemMigraine variant with headache (disorder) (192127598) Migraine headache (G43.909)ActiveconfirmedProblemHypothyroidism (01376649) Hypothyroidism (E03.9)ActiveconfirmedProblemVaricose vein (78848755)Varicose vein (I86.8)ActiveconfirmedProblemVitamin D deficiency (98316202)Vitamin D deficiency (E55.9)ActiveconfirmedProblemBarrett esophagus (842672237)Vickers esophagus (K22.70)ActiveconfirmedProblemLumbar radiculopathy (785559873)Lumbar radiculopathy (M54.16)ActiveconfirmedProblemArthralgia (65215736)Arthralgia (M25.50)ActiveconfirmedProblemSacroiliitis (08963803)Sacroiliitis (M46.1)Active confirmedProblemColitis (12433321)Colitis (K52.9)ActiveconfirmedProblem Osteoporosis (56725157)Osteoporosis (M81.0)ActiveconfirmedProblemAcute bronchitis (95396237)Acute bronchitis (J20.9)ActiveconfirmedProblemWell adult (268969779)Well adult (Z00.00)ActiveconfirmedProblemCervical disc disease (550430760)Cervical disc disease (M50.90)ActiveconfirmedProblemAcute bronchitis (43439104)Acute bronchitis, unspecified organism (J20.9)ActiveconfirmedProblem Seasonal allergic rhinitis (299758305)Seasonal allergic rhinitis (J30.2)Active confirmedProblemInternal derangement of knee (96460679)Internal derangement of knee (M23.90)ActiveconfirmedProblemSchatzki's ring (61510151)Schatzki's ring (K22.2)Activeconfirmed Vital Signs Temperature 98.6 degrees Fahrenheit 02/16/2025 Blood pressure rtcqtgwho36 mm Hg09/10/20252652Kpexip90 in09/10/2025lood pressure uelxpwvl741 mm Hg09/10/20256400Swngmu505 lbs03/16/2025BMI30.47 kg/m203/16/2025 Encounters Encounter Location Date Provider Diagnosis [facility] [address] [place] [address] 12/25/2024 Baljinder Hoy Acute bronchitis, unspecified organism J20.9 [place] [address] [place] [address] 02/16/2025 Baljinder Hoy Acute bronchitis J20 .9 [facility] [address] [place] [address] 03/16/2025 Baljinder Hoy Acute bronchitis, unspecified organism J20.9 [facility] [address] [place] [address] 04/23/2025 Baljinder Hoy Internal derangement of knee, right M23.91 [facility] [address] [place] [address] 06/03/2025 Baljinder Barlow Seasonal allergic rhinitis J30.2 [facility] [address] [place] [address] 09/10/2025 Baljinder Hoy Lumbar radiculopathy M54.16 [facility] [address] [place] [address] 10/06/2024 Baljinder Hoy [facility] [place] [address] 12/05/2024[facility] [place] [address]/02/2025Doug HoyBVEast [facility] [place] [address]/Doug HoyAcute bronchitis J20.9B[facility] [facility] [place] [address]/Doug Hoy Chronic coughing R05.3B[facility] [place] [address]/[facility] [place] [address]/02/2025Doug HoyCough, persistent R05.3 [facility] [facility] [place] [address] 04/18/2025[facility] [place] [address]/06/2025[facility] [place] [address]/Doug HoyChronic coughing R05.3 and Cough, persistent R05.3B[facility] [place] [address]/[facility] [place] [address]/02/2025Doug HoyLumbar radiculopathy M54.16[facility] [place] [address]/08/2025 Baljinder HoySacroiliitis M46.1B[facility] [place] [address]/09/2025Doug HoySacral fracture S32.10XABVH [facility] [facility] [place] [address]/10/2025Doug Hoy [facility] [place] [facility] [place] [address] 09/29/2025Doug Hoy Assessments Encounter Date Diagnosis (ICD Code) Assessment Notes Treatment Notes Treatment Clinical Notes Section Notes 12/25/2024 Acute bronchitis, unspecified or ganism (ICD-10 - J20.9) Rest and drink more liquids, especially water. You may use a humidifier or vaporizer to help keep the drainage moist. Yeew-qgs-zaxfbzq Nasal Saline may help the stuffy and runny nose. Use Ibuprofen and or Tylenol as needed for fever, chills, body aches or pain. Children 5 years old should not be given lhot-bvb-ijhiwke cough and cold medications such as guaifenesin and dextromethorphan. If you're over age 5, you may try aumk-jae-whnbesa cold medications such as guaifenesin and dextromethorphan, or multi-symptom cold reliever such as Dayquil to help reduce the symptoms. Antibiotics have been pre scribed. You should take these until completed and follow the directions. Antibiotics can sometimescause upset stomach, and in rare cases, serious allergic reactions or serious gastrointestinal problems. If you start having severe abdominal pain, severe vomiting, or bloody diarrhea, you should be r eevaluated by your physician or urgent care immediately. Follow up with your Primary Care Provider or return to clinic if symptoms do not improve within 3-5 days. If you develop severe symptoms such as shortness of breath, repeated vomiting, coughing up blood, or chest pain you should go to the emergency room or call [phone] bronchitis (ICD-10 - J20.9)5Acute bronchitis, unspecified organism (ICD-10 - J20.9)Rest and drink more liquids, especially water. You may use a humidifier or vaporizer to help keep the drainage moist. Tzay-lcc-uqvetqf Nasal Saline may help the stuffy and runny nose. Use Ibuprofen and or Tylenol as needed for fever, chills, body aches or pain. Children 5 years old should not be given xgaj-zsj-mywtiwu cough and cold medications such as guaifenesin and dextromethorphan. If you're over age 5, you may try apvu-jmh-nwmefzc cold medications such as guaifenesin and dextromethorphan, [...] go to the emergency room or call [phone] derangement of knee, right (ICD-10 - M23.91)06/03/2025Seasonal allergic rhinitis (ICD-10 - J30.2)09/10/2025Lumbar radiculopathy (ICD-10 - M54.16)5Acute bronchitis (ICD-10 - J20.9)03/06/2025hronic coughing (ICD-10 - R05.3)04/15/2025 Cough, persistent (ICD-10 - R05.3)05/28/2025hronic coughing (ICD-10 - R05.3) 05/28/2025ough, persistent (ICD-10 - R05.3)09/15/2025Lumbar radiculopathy (ICD- 10 - M54.16)09/21/2025Sacroiliitis (ICD-10 - M46.1)09/22/2025Sacral fracture (ICD-10 - S32.10XA)09/10/2025OtherRecommended to rest and use a heating pad on the area. Take NSAIDs for pain as needed Plan Of Treatment Pending Test Test Name Order Date CMP (COMPLETE METABOLIC PANEL) 3 CMP (COMPLETE METABOLIC PANEL) 4 HEMOGLOBIN A1C (GLYCO) 09/29/2024 HEMOGLOBIN A1C (GLYCO) 05/21/2023 IRON, TOTAL 05/21/2023 IRON, TOTAL 09/29/2024 LIPID PANEL (CHOL/TRIG/HDL/LDL) 09/29/20 24 LIPID PANEL (CHOL/TRIG/HDL/LDL) 05/21/20 23 CBC WITH DIFF (EXP 09/2025) 05/21/2023 CBC WITH DIFF (EXP 09/2025) 09/29/2024 VITAMIN D, 25 LEVEL (TOTAL) 09/29/2024 [...] Date MMO [employer] [address] [place] [phone] [id number] Cammy Bolden Self - patient is the insured 3 Medications Administered Medication Instructions Date of Administration Dosage Notes Kenalog-40 mgKetorolac Mwbhafvybaen57/30/202560 mgOrphenadrine Citrate mgTriamcinolone 40 mg/ml mgTriamcinolone 40 mg/ml mgTriamcinolone 40 mg/ml20 mg Medical (General) History Medical History History ICD Code Colitis K52.9 Arthralgia M25.50 Cervical disc disease M50.90 Hypothyroidism E03.9 Migraine headache G43.909 Osteoporosis M81.0 Psoas tendinitis, right hip M76.11 Schatzki's ring K22.2 Seasonal allergic rhinitis J30.2 Vitamin D deficiency E55.9 Surgical History Surgery Date(Month/Year) EGD/Colonoscopy 03/30/2025 Cervical Facet Medial Branch Denercation C3,C4,C5- Dr. Chiu 10/2021 Cervical branch Block C3,C4,C5 09/2021 Trapezius Trigger Point Inj- Dr. Chiu 08/2021 Esophageal Dilation- Dr. Howard 10/2018 Total Abdominal Hysterectomy 11/2010
--- OUTSIDE RECORDS SUMMARY | 2025-10-06 15:31 | XMS_ITS | Clinical Summary ---
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 Role Phone Unavailable Primary Care Provider Unavailabl e Allergies No known active allergies Medications MedicationSigDispense QuantityRefillsLast FilledStart DateEnd DateStatus cetirizine (ZyrTEC) 10 MG tablet Take 10 mg by mouth Daily11/06/2024ctive cholecalciferol (Vitamin D-3) 1.25 MG (65675 UT) capsule Take by mouth 1 (one) [...] tablet Take 8 mg by mouth at alqjfpy7202/15/2024ctive Ascorbic Acid (VITAMIN C PO) Take by mouthActive Multiple Vitamin (multivitamin) tablet Take 1 tablet by mouth DailyActive Active Problems No known active problems Family History Medical HistoryRelationNameCommentsHeart attackFatherDiabetes type INieceBreast cancerSisterDiabetes type ISisterRelationNameStatusCommentsFatherNieceAlive Sister Social History Tobacco UseTypesPacks/DayYears UsedDateSmoking Tobacco: XlorufGbfdlhdodi097 Smokeless Tobacco: Former Tobacco Cessation:Counseling Given: Not Answered Alcohol UseStandard Drinks/WeekCommentsNot Currently0 (1 standard drink = 0.6 oz pure alcohol)CommentsUnknownSex and Gender InformationValueDate Recorded Sex Assigned at NleroHpppct57/11/2025 10:45 AM EDTLegal YpjRroulk98/15/2023 11:05 PM EDTGender TjlzwkfhCmbish86/11/2025 10:45 AM EDTSexual OrientationNot on file Last Filed Vital Signs Vital SignReadingTime TakenCommentsBlood Firydkgt129/9301/ 12:00 PM EST Pulse--Temperature--Respiratory Rate--Oxygen Saturation--Inhaled Oxygen Concentration--Kdjkmm04.2 kg (157 lb)09/16/2021 12:00 PM QFKFhblea066 cm (5' 3 ) 09/16/2021 12:00 PM EDTBody Mass Index27.8109/16/2021 12:00 PM EDT Plan of Treatment Health MaintenanceDue DateLast DoneCommentsCT Bsafyjwuhlcg1963FIT-DNA 1963FIT1963FOBT1963 8172Xxjxqapgrpuur1963Pap Smear02/10/1984 Cervical Cancer Gmzuluvcq90/31/1993HPV/Todjnb7202/09/19932437Epaktqpow76/23/2024 08/04/2023, 07/01/2022, 02/10/2022, Additional history existsCOVID-19 Vaccine ( season)501/, 12/16/2020, 11/18/2020Influenza Vaccine (#1)/02/2023, 08/18/2021, 08/09/2020, Additional history exists Sjjyslnwblk81/16/203104/olorectal Cancer Sceqgopxq42/16/2031Pneumococcal Vaccine: Pediatrics (0 to 5 Years) and At-Risk Patients (6 to 64 Years)Aged Out No longer eligible based on patient's age to complete this topic Procedures Procedure NamePriorityDate/TimeAssociated DiagnosisCommentsMAMMOGRAM, BILATERAL, SCREEN:*Yguocut0208/04/2023 11:58 AM EDTfrom Last 3 Months or Most Recently Relevant to Health Maintenance Results * MAMMOGRAM, BILATERAL, SCREEN:* (08/04/2023 11:58 AM EDT)Anatomical Region LateralityModalityRadiographic Imaging Narrative Authorizing ProviderResult TypeResult StatusUnknown Practice AIMG XR PROCEDURES Final Result from Last 3 Months or Most Recently Relevant to Health Maintenance Insurance
--- OUTSIDE RECORDS SUMMARY | 2025-10-06 15:41 | XMS_ITS | CCD ---
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 11:40NormalFisher Pan Medical CenterOutpatient Surgery Discharge Instructionon 04-34-2886Dhuuinkwih Surgery Discharge InstructionOutpatient Surgery Discharge Instruction [place] [address] Patient Discharge Instructions PERSON INFORMATION Name: BETSY [...] to serve you. Thank you for choosing [facility] HERE ARE THE MEDICATION CHANGES THAT OCCURRED [...] every day. PATIENT EDUCATION INFORMATION Instructions: Medication Leaflets:[facility] HospitalG[facility]ology Office/Clinic Noteon [id number] Office/Clinic Note Gastroenterology Office/Clinic Note Chief Complaint [...] Distal esophageal Schatzki ring, dilated using 60 [place] [employer] Breen dilator 2. Concentric esophageal rings, proximal [...] enzymes) in 2019 Labs done recently at [facility] Reviewed labs from outside hospital September [...] C, 500 mg, Oral, Daily Vitamin D3, [address] International_Unit, Oral, qWeek Allergies No Known Allergies [...] (COVID-19) mRNA-1273 vaccine (more content not included)... [facility] HospitalComment on above:Result Comment: Electronically Signed By: Cherry PEDROZA, Mary Bolanos\.br\Date and Time Signed: 03/16/25 14:36 EDTAmbulatory Visit Summaryon 79-27-5628Tsqqttvnwt Visit SummaryAmbulatory Visit Summary BETSY MENCHACA :1965 [...] Mouth Every day Refills: 3 Pickup at [facility]/pharmacy #[id number] New famotidine (famotidine 40 mg Tab) 1 Tablets By Mouth Once a day (at bedtime) Refills: 3 Pickup at [facility]/pharmacy #[id number] Unchanged ascorbic acid (Vitamin C) 500 [...] physician if questions or concerns Pharmacy Information [facility]/pharmacy #[id number]: [address], [place] [phone] What How Much When Comments Stop Taking [...] you for choosing us for your care. [facility] HospitalX-ray reportOrdered By: Soy Hall on 63-09-0113Qvtir reportMARY [facility] [address] [place] [address] XRay Report Signed Patient: Betsy Menchaca MR#: [id number] : 1965 Acct:[id number] Age/Sex: 59 / F ADM Date: 5 Loc: [facility] Room: Type: [facility] Attending Dr: Stanislaw Truong MD Copies [...] 12/30/24 1608 Signed By: 12/30/24 1609 [facility]XR [facility] min 2V*on [id number] shoulder LT min 2V*[facility] [address] [place] [address] XRay Report Signed Patient: Betsy Menchaca MR#: [id number] : 1965 Acct:[id number] Age/Sex: 59 / F ADM Date: 12/30/24 Loc: [facility] Room: Type: [facility] Attending Dr: Stanislaw Truong MD Copies [...] Soy Hall M.D.12/30/2024 4:09 PM Dictation Location: [facility] Transcribed By: LIGIA 12/30/24 1609 Dictated By: Soy Hall DO 12/30/24 1608 Signed By: 12/30/24 1609[facility] Phys[facility] CenterMA Mamm Screen w/CAD if perf and 3D Bilon 19-72-9967VQ Mamm Screen w/CAD if perf and 3D [...] very important to your health. The current [employer] and National Comprehensive Cancer [...] Assessment: BI-RADS Category 1-Negative Recommendation: Normal interval follow-upMansfield HospitalCT FEMUR RT WO CONon [id number] FEMUR RT WO CONEXAMINATION: CT FEMUR RT [...] Electronically authenticated by: HERMILA SOLIS Date: 2022-09-17 08:44NoSt. [facility] AUTO DIFFon [id number] #0.0 103/ulNormal0.0-0.1Mart[facility] Ferry HospitalComment on above:Performed By: #### CBC #### [facility] [address] [place], [place] [address] Dr. Elizabeth Figueroasophils/100 WBC (Bld)0.6 %Normal0.2-2.0[facility] Comment on above:Performed By: #### CBC #### [facility] [address] [place] [address] [address] Elizabeth Walker #0.5 103/ulNormal0.0-0.7The [facility] Regional Medical CenterComment on above: Performed By: #### CBC #### [facility] [address] [place] [address] Dr. Elizabeth Davidsonosinophils/100 WBC (Bld)8.4 %Critically high0.9-7.0The [facility] Regional Medical CenterComment on above:Performed By: #### CBC #### [facility] [address] [place] [address] Dr. Elizabeth Davidsonrythrocyte distribution width (RBC) [Ratio]14.3 %Rsthab51.0-15.0 The [facility] Regional Medical CenterComment on above:Performed By: #### CBC #### [facility] [address] [place] [address] Dr. Elizabeth McphersonHematocrit (Bld) [Volume fraction]42.8 %Pucbus11.0-48.0The [facility] Medical CenterComment on above:Performed By: #### CBC #### [facility] [address] [place] [address] Dr. Elizabeth McphersonHemoglobin (Bld) [Mass/Vol]14.0 g/dTRuwvtd83.0-16.0The [facility] CenterComment on above:Performed By: #### CBC #### [facility] [address] [place] [address] Dr. Elizabeth Bhat #0.01 10e3/ulNormal0.00-0.03The [facility] Medical CenterComment on above:Performed By: #### CBC #### [facility] [address] [place] [address] Dr. Elizabeth Bhat %0.2 %Normal0.0-0.5The [facility] Medical CenterComment on above: Performed By: #### CBC #### [facility] [address] [place] [address] Dr. Elizabeth OrtizMPH #2.0 103/ulNormal1.2-3.8The [facility] Medical CenterComment on above:Performed By: #### CBC #### [facility] [address] [place] [address] Dr. Elizabeth Ortizmphocytes/100 WBC (Bld)37.2 %Prszmi77.5-60.0The [facility] Medical Centerment on above:Performed By: #### CBC #### [facility] [address] [place] [address] Dr. Elizabeth FreedUAL DIFF REQNONormalThe [facility] Medical CenterComment on above: Performed By: #### CBC #### [facility] [address] [place] [address] Dr. Elizabeth Kathleen (RBC) [Entitic mass]28.5 ejVsumck93.7-34.0The [facility] Medical CenterComment on above:Performed By: #### CBC #### [facility] [address] [place] [address] Dr. Elizabeth Kathleen (RBC) [Mass/Vol]32.7 g/mQLecthf15.9-35.2The [facility] Medical CenterComment on above:Performed By: #### CBC #### [facility] [address] [place] [address] Dr. Elizabeth Kathleen (RBC) [Entitic vol]87.2 oAPpkigl87.0-99.0The [facility] Medical CenterComment on above:Performed By: #### CBC #### [facility] [address] [place] [address] Dr. Elizabeth Qureshi #0.4 103/ulNormal0.3-0.8The [facility] Medical CenterComment on above:Performed By: #### CBC #### [facility] [address] [place] [address] Dr. Elizabeth Herringocytes/100 WBC (Bld)7.9 %Normal1.7-12.0The [facility] Comment on above:Performed By: #### CBC #### [facility] [address] [place] [address] Dr. Elizabeth Solis #2.5 103/ulNormal1.4-6.5The [facility] Medical CenterComment on above:Performed By: #### CBC #### [facility] [address] [place] [address] [address] Elizabeth Sanchezutrophils/100 WBC (Bld)45.7 %Juaknw14.0-75.0The [facility] on above:Performed By: #### CBC #### [facility] [address] [place] [address] [address] Elizabeth Nicelet mean volume (Bld) [Entitic vol]11.3 fLNormal9.5-13.5The [facility] CenterComaspirus ontonagon hospital on above:Performed By: #### CBC #### [facility] [address] [place] [address] Dr. Elizabeth McphersonPLT213 103/ieItpeig957-713Slo [facility] CenterComasp[facility] onton[facility] on above: Performed By: #### CBC #### [facility] [address] [place] [address] Dr. Elizabeth McphersonRBC4.91 106/ulNormal4.20-5.40The [facility] CenterComaspirus ontonagon hospital on above:Performed By: #### CBC #### [facility] [address] [place] [address] Dr. Elizabeth McphersonWBC5.4 103/ulNormal4.0-11.0The [facility] on above: Performed By: #### CBC #### [facility] [address] [place] [address] Dr. Elizabeth McphersonFREE T3on 97-47-3185VXKE T32.54 pg/mlLNormal2.18-3.98The [facility] on above:Performed By: #### FT3, TSH, CMP, T4, LIPID #### [facility] [address] [place] [address] Dr. Elizabeth McphersonGLYCOHEMOGLOBIN A1Con 94-61-3910OGV RECOMMENDATIONSEE BELOWNormal The [facility] CenterComaspirus ontonagon hospital on above:Result Comment: ADA RECOMMENDED LIMIT 4.0 - 6.0 ADA THERAPEUTIC TARGET < 7.0 ACTION SUGGESTED > 7.0Performed By: #### A1C #### [facility] [address] [place] [address] [address] Elizabeth McphersonGlucose [Mass/Vol]111 mg/dLMemorial Health System [facility] on above:Performed By: #### A1C #### [facility] [address] [place] [address] Dr. Elizabeth McphersonHbA1c (Bld) [Mass fraction]5.5 %Normal4.5-6.2[facility] on above:Performed By: #### A1C #### [facility] [address] [place] [address] Dr. Elizabeth McphersonLIPID PROFILEon 76-70-4506OBQN-HDL RATIO NORMSEE [facility] HospitalComaspirus ontonagon hospital on above:Result Comment: 3.3 - 4.4 LOW RISK 4.4 - 7.1 AVERAGE RISK 7.1 - 11.0 MODERATE RISK >11.0 HIGH RISKPerformed By: #### FT3, TSH, CMP, T4, LIPID #### [facility] [address] [place] [address] Dr. Elizabeth Benitezesterol [Mass/Vol]245 mg/dLCritically high<=200The [facility] on above:Performed By: #### FT3, TSH, CMP, T4, LIPID #### [facility] [address] [place] [address] Dr. Elizabeth Benitezesterol in HDL [Mass/Vol]69 mg/dLCritically fhtw65-32KqgOhioHealth Grove City Methodist Hospital on above:Performed By: #### FT3, TSH, CMP, T4, LIPID #### [facility] [address] [place] [address] Dr. Elizabeth Benitezesterol in LDL [Mass/Vol]145.8 mg/dLMemorial Health System [facility] on above:Performed By: #### FT3, TSH, CMP, T4, LIPID #### [facility] [address] [place] [address] Dr. Elizabeth Chen.total/Cholesterol in HDL [Mass ratio]3.6 {ratio} NormalOhioHealth Grove City [facility] Hospital on above:Performed By: #### FT3, TSH, CMP, T4, LIPID #### [facility] [address] [place] [address] [address] Elizabeth Fairbanks NORMAL> or = 60 mg/dl - LOW CARDIOVASCULAR RISK <40 mg/dl - HIGH CARDIOVASCULAR RISKMemorial Health System [facility] Hospital on above:Performed By: #### FT3, TSH, CMP, T4, LIPID #### [facility] [address] [place] [address] [address] Elizabeth McphersonLDL CALC NORMALSEE BELOWClermont County HospitalComment on above:Result Comment: <100 mg/dl OPTIMAL 100 - 129 mg/dl NEAR OR ABOVE OPTIMAL 130 - 159 mg/dl BORDERLINE HIGH 160 - 189 mg/dl HIGH >190 mg/dl VERY HIGH Performed By: #### FT3, TSH, CMP, T4, LIPID #### [facility] [address] [place] [address] Dr. Elizabeth McphersonTriglyceride [Mass/Vol]151 mg/dLCritically high<=150The [facility] on above:Performed By: #### FT3, TSH, CMP, T4, LIPID #### [facility] [address] [place] [address] Dr. Elizabeth Shah CALC30.2 mg/dLClermont County HospitalComaspirus ontonagon hospital on above: Performed By: #### FT3, TSH, CMP, T4, LIPID #### [facility] [address] [place] [address] Dr. Elizabeth McphersonPROF 14(COMP METB)on 72-75-4057Ipfsads [Mass/Vol]3.6 g/dLNormal 3.4-5.0The [facility] on above:Performed By: #### FT3, TSH, CMP, T4, LIPID #### [facility] [address] [place] [address] Dr. Elizabeth McphersonAlbumin/Globulin [Mass ratio]1.0 {ratio}NormalThe [facility] on above:Performed By: #### FT3, TSH, CMP, T4, LIPID #### [facility] [address] [place] [address] Dr. Elizabeth HeathP [Catalytic activity/Vol]74 U/DFxpypv21-798Ivg [facility] CenterComment on above:Performed By: #### FT3, TSH, CMP, T4, LIPID #### [facility] [address] [place] [address] [address] Elizabeth Castaneda [Catalytic activity/Vol]27 U/CAsonfe12-88Wwq [facility] CenterComment on above:Performed By: #### FT3, TSH, CMP, T4, LIPID #### [facility] [address] [place] [address] Dr. Elizabeth Fall gap [Moles/Vol]11.4 mmol/LNormalMartins Ferry Hospital Comment on above:Performed By: #### FT3, TSH, CMP, T4, LIPID #### [facility] [address] [place] [address] Dr. Elizabeth McphersonAST [Catalytic activity/Vol]12 U/LCritically heu75-83Olx [facility] CenterComment on above:Performed By: #### FT3, TSH, CMP, T4, LIPID #### [facility] [address] [place] [address] Dr. Elizabeth McphersonBilirubin [Mass/Vol]0.3 mg/dLNormal0.2-1.0The [facility] Comment on above:Performed By: #### FT3, TSH, CMP, T4, LIPID #### [facility] [address] [place] [address] Dr. Elizabeth McphersonCalcium [Mass/Vol]8.8 mg/dLNormal8.5-10.1[facility] Comment on above:Performed By: #### FT3, TSH, CMP, T4, LIPID #### [facility] [address] [place] [address] Dr. Elizabeth McphersonChloride [Moles/Vol]106 mmol/IHomcgl74-299Dcx [facility] Comment on above:Performed By: #### FT3, TSH, CMP, T4, LIPID #### [facility] [address] [place] [address] Dr. Elizabeth McphersonCO2 [Moles/Vol]27.9 mmol/CYanryc05.0-32.0[facility] Comment on above:Performed By: #### FT3, TSH, CMP, T4, LIPID #### [facility] [address] [place] [address] Dr. Elizabeth McphersonCreatinine [Mass/Vol]0.88 mg/dLNormal0.55-1.02[facility]erry HospitalComment on above:Performed By: #### FT3, TSH, CMP, T4, LIPID #### [facility] [address] [place] [address] Dr. Elizabeth DavidsonGFR-AF CITIZEN OF [place]>60Normal>=60The [facility] Medical CenterComment on above:Performed By: #### FT3, TSH, CMP, T4, LIPID #### [facility] [address] [place] [address] Dr. Elizabeth DavidsonGFR-NON AF CITIZEN OF [place]>60Normal>=60The [facility] CenterComment on above:Performed By: #### FT3, TSH, CMP, T4, LIPID #### [facility] [address] [place] [address] Dr. Elizabeth McphersonGlobulin (S) [Mass/Vol]3.5 g/dLNormalThe [facility] CenterComment on above:Performed By: #### FT3, TSH, CMP, T4, LIPID #### [facility] [address] [place] [address] Dr. Elizabeth McphersonGlucose [Mass/Vol]108 mg/dLCritically hoix08-402WzxOhioHealth Grove [facility] Hospital on above:Performed By: #### FT3, TSH, CMP, T4, LIPID #### [facility] [address] [place] [address] Dr. Elizabeth McphersonPotassium [Moles/Vol]4.3 mmol/LNormal3.5-5.1The [facility] Comment on above:Performed By: #### FT3, TSH, CMP, T4, LIPID #### [facility] [address] [place] [address] Dr. Elizabeth McphersonProtein [Mass/Vol]7.1 g/dLNormal6.4-8.2[facility] Comment on above:Performed By: #### FT3, TSH, CMP, T4, LIPID #### [facility] [address] [place] [address] [address] Elizabeth Mcarthurdium [Moles/Vol]141 mmol/CAiyiha249-791Iqg [facility] Comment on above:Performed By: #### FT3, TSH, CMP, T4, LIPID #### [facility] [address] [place] [address] [address] Elizabeth McphersonUrea nitrogen [Mass/Vol]19.0 mg/dLCritically high7.0-18.0The [facility] CenterComment on above:Performed By: #### FT3, TSH, CMP, T4, LIPID #### [facility] [address] [place] [address] Dr. Elizabeth Dupree nitrogen/Creatinine [Mass ratio]21.6 mg/mgClermont County HospitalComment on above:Performed By: #### FT3, TSH, CMP, T4, LIPID #### [facility] [address] [place] [address] Dr. Elizabeth McphersonT4on 63-19-2967C0 [Mass/Vol]7.60 ug/dLNormal4.80-13.90The [facility] CenterComment on above:Performed By: #### FT3, TSH, CMP, T4, LIPID #### [facility] [address] [place] [address] Dr. Elizabeth MachadoHokhris 87-23-8978WZC8.222 uIU/mLNormal0.358-3.740The [facility] CenterComment on above:Performed By: #### FT3, TSH, CMP, T4, LIPID #### [facility] [address] [place] [address] Dr. Elizabeth McphersonVITAMIN D 25 OHon 49-82-2558JYB D 25-OH95.1 ng/mLNormalThe [facility] CenterComment on above:Performed By: #### VITAD #### [facility] [address] [place] [address] Dr. Elizabeth Limon D RANGESSEE BELOWNormalThe [facility] HospitalComment on above: Result Comment: <20 ng/mL Vit D deficient 20 - <30 ng/mL Vit D insufficient 30 - 100 ng/mL Vit D sufficient >100 ng/mL Potential ToxicityPerformed By: #### VITAD #### [facility] [address] [place] [address] [address] Elizabeth Mcpherson Vital Signs Date TimeVital SignValuePerforming ZoljwyjdpJnemblni65-53-1054 11:16-0400 Diastolic blood doompkjy82 mm[Hg]Tenisha Barlow MD Work Phone: [phone])[address]10-14-2025 11:16-0400 Heart rate59 /Cole Barlow MD Work Phone: [phone] [place], [place] [address]23[address]10-14-2025 11:16-0400 Respiratory rate16 /Cole Barlow MD Work Phone: [phone])[address] [place], [place] [address]10-14-2025 11:16-0400 SaO2% (BldA) [Mass fraction]98 %Tenisha Barlow MD Work Phone: [phone])[address] [place], [place] [address]23[address]10-14-2025 11:16-0400 Systolic blood mifosvrx958 mm[Hg]Tenisha Barlow MD Work Phone: [phone])[address] [place], [place] [address]10-14-2025 10:42-0400 Inhaled oxygen flow rate3 L/Cole Barlow MD Work Phone: [phone])[address] [place], [place] [address]10-14-2025 10:07-0400 Body lmihtj232.02 cmTenisha Barlow MD Work Phone: [phone])[address] [place], [place] [address]10-14-2025 10:07-0400 Body myquxn20.57 kgTenisha Barlow MD Work Phone: [phone])[address] [place], [place] 7[address]605-19-2025 13:16-0400 SaO2% (BldA) [Mass fraction]97 %Mary Romanmini [facility]05-19-2025 13:16-0400Heart rate62 /minMuhammad Sarmini [facility]05-19-2025 13:16-0400 Respiratory rate19 /minMuhammad Sarmini [facility]05-19-2025 13:15-0400 Respiratory rate11 /minMuhammad Sarmini [facility]05-19-2025 13:15-0020DiI4% (BldA) [Mass fraction]94 %Hernandez Sarmini [facility]05-19-2025 13:15-0400Heart rate61 /minMuhammad Sarmini [address] [place], [place] 14[address]05-19-2025 13:15-0400Blood Pressure LocationMuhammad Sarmini [address] [place], [place] 1421705-19-2025 13:15-0400 Diastolic blood rfervisv11 mm[Hg]Hernandez Sarmini [address] [place], [place] 14[address]05-19-2025 13:15-0400Mean blood mm[Hg]Hernandez Sarmini [facility]05-19-2025 13:15-0400 Systolic blood ejzujsbt418 mm[Hg]Hernandez Sarmini [address] [place], [place] 14[address]05-19-2025 13:10-1406MyN9% (BldA) [Mass fraction]94 %Hernandez Sarmini [facility]05-19-2025 13:10-0400Heart rate67 /minMuhammad Sarmini [facility]05-19-2025 13:10-0400 Respiratory rate15 /minMuhammad Sarmini [address] [place], [place] 14[address]05-19-2025 13:10-0400Blood Pressure LocationMuhammad Sarmini [address] [place], [place] 1421705-19-2025 13:10-0400 Diastolic blood jxcezqpv92 mm[Hg]Hernandez Sarmini [address] [place], [place] 14[address]05-19-2025 13:10-0400Mean blood ezdozsno81 mm[Hg]Hernandez Sarmini [address]05-19-2025 13:10-0400 Systolic blood bepeikma359 mm[Hg]Hernandez Sarmini [address]05-19-2025 13:05-0400 Diastolic blood brzusmsq27 mm[Hg]Hernandez Sarmini [address] [place], [place] 1421705-19-2025 13:05-0400 Systolic blood omgftdiu524 mm[Hg]Hernandez Sarmini [address] [place], [place] 1421705-19-2025 13:05-0400Blood Pressure LocationMuhammad Sarmini [address] [place], [place] 1421705-19-2025 13:05-0400Mean blood bwccouan18 mm[Hg]Hernandez Sarmini [address] [place], [place] 1421705-19-2025 12:58-0400Body htbadfmbobq26.7 [degF]Hernandez Sarmini [address] [place], [place] 1421705-19-2025 12:55-0400 Respiratory rate12 /minMuhammad Sarmini [address] [place], [place] 1421705-19-2025 12:45-0400 Respiratory rate12 /minMuhammad Sarmini [address] [place], [place] 14[address]05-19-2025 12:30-0400 Respiratory rate12 /minMuterryd Jessiemini [facility]05-19-2025 11:52-0400Body zxnuziaeduf09.88 [degF]Mary Romanmini [facility]02-18-2025 10:31-0500Body .29 cmTenisha Barlow MD Work Phone: 1([phone])585-[address] [place], [place] 4574002-18-2025 10:31-0500 Body mass index (BMI) [Ratio]27.6 kg/k2AubhjokTenisha Barlow MD Work Phone: 1([phone])409-[address] [place], [place] 4574002-18-2025 10:31-0500 Body kgTenisha Barlow MD Work Phone: [phone])[address]11-04-2024 10:30-0500 Body .29 cmMD Tenisha Barlow Work Phone: [phone]11-04-2024 10:30-0500 Body mass index (BMI) [Ratio]27.8 kg/m2MD Tenisha Barlow Work Phone: [phone])[address] [place], [place] 723[address]11-04-2024 10:30-0500 Body lylshbfjxdr84.2 [degF]MD Tenisha Barlow Work Phone: [phone])[address] [place], [place] 7239611-04-2024 10:30-0500 Body etoqeu56.57 kgMD Tenisha Barlow Work Phone: 1(560)[address] [place], [place] 723[address]11-04-2024 10:30-0500 Diastolic blood fjovbmji55 mm[Hg]MD Tenisha Barlow Work Phone: [phone]11-04-2024 10:30-0500 Heart rate72 /minMD Tenisha Barlow Work Phone: [phone])[address] [place], [place] 7239611-04-2024 10:30-0500 SaO2% (BldA) [Mass fraction]97 %MD Tenisha Barlow Work Phone: [phone])786-[address] [place], [place] 4574011-04-2024 10:30-0500 Systolic blood pqporzez684 mm[Hg]MD Tenisha Barlow Work Phone: [phone]09-03-2024 11:02-0400 Body eqopwe956.56 cmMD Tenisha Yen Work Phone: [phone]09-03-2024 11:02-0400 Body mass index (BMI) [Ratio]27.4 kg/m2MD Tenisha Fortunatoabel Work Phone: [phone])[address] [place], [place] 7239609-03-2024 11:02-0400 Body rifflrqdyzb54.7 [degF]MD Tenisha Barlow Work Phone: [phone] [address] [place], [place] 7239609-03-2024 11:02-0400 Body oaejsx75.57 kgMD Tenisha Barlow Work Phone: [phone] [place], [place] 7239609-03-2024 11:02-0400 Diastolic blood ukiijbru80 mm[Hg]MD Tenisha Barlow Work Phone: [phone] [place], [place] 7239609-03-2024 11:02-0400 Heart rate62 /minMD Tenisha Barlow Work Phone: [phone])[address] [place], [place] 7239609-03-2024 11:02-0400 Systolic blood zbnifltl084 mm[Hg]MD Tenisha Barlow Work Phone: [phone])[address]10-07-2021 12:00-0400 Body umivnn788.56 cmThomas Felter Other [employer] Other 10-07-2021 12:00-0400Body mass index (BMI) [Ratio] 27.46 kg/u8Qyztnq Felter Other [employer] Other 10-07-2021 12:00-0400Body qflebw56.58 kgThomas Felter Other [employer] Other Encounters Encounter DateEncounter TypeCare ProviderFacilityStart: 09-16-2025 End: 17-19-8773hhiojjmdzmCpagsmc M Hoy MD Work Phone: [phone]-Swgxwwlqz [facility] BCStart: 09-16-2025 End: 96-55-3985Vwiamjc encounter procedureThrocio KOHLIFirsthealth [facility] Work Phone: Start: 09-14-2025 End: 98-51-0392fnduycsnkpJdpcjiza Talal SarminiFacility:[facility] DHStart: 09-14-2025 End: 77-22-5790Rswwhwd encounter procedureMuhammad Talal Sarmini [phone]-PszxsOhio[facility] Start: 09-02-2025 End: 37-50-8815ewdqgsruueZtgbrhc M Hoy MD Work Phone: [phone]-Huzdsfwtj [facility] Mg[facility] BCStart: 09-02-2025 End: 20-56-9867Kzrerzj encounter procedureThrocio KOHLIFirsthealth [facility] Work Phone: Start: 09-01-2025 End: 81-67-7607liwpsisqmdXviqqsx M Hoy MD Work Phone: -Flu VaccineStart: 09-01-2025 End: 97-90-3608Spjkgkp encounter procedureEarl Bain DO-Flu VaccineStart: 08-25-2025 End: 65-66-2751soaupkhbitBflflz FelterFacility:[facility] Start: 84-60-9092Hps-patient / Non-visitThrocio KOHLIFirsthealth [facility] BC Work Phone: Start: 08-11-2025 End: 73-46-8173wutxbbqxbaOleizzr M Hoy MD Work Phone: [facility] Work Phone: Start: 08-11-2025 End: 91-47-3513Busnqqz encounter procedureThrocio KOHLIFirst[facility] Work Phone: Start: 07-14-2025 End: 36-55-3911yxedkbeqonZbugdpsz Talal SarminiFacility:FTMCStart: 07-14-2025 End: 76-45-8325xypbnpoeskTwbeypfa Talal SarminiFacility:CD:[id number]: 05-13-2025 End: 00-82-3403Adilttx encounter procedureTenisha Ivory MD-MRI [address] Closed Work Phone: Start: 05-13-2025 End: 46-47-0309bpippassonIdkdsdf M Hoy MD Work Phone: [facility] Work Phone: Start: 03-30-2025 End: 53-39-1624kscufczspcIwypxlrj Talal SarminiFacility:FTMCStart: 03-30-2025 End: 52-53-1687Kdsjwki encounter procedureMuhammad Talal Sarmini [facility] Start: 02-12-2025 End: 30-97-4703tfphtafdgtUqknenin Talal SarminiFacility:[facility] DHStart: 01-21-2025 End: 07-23-1631Trqgxx outpatient visit 15 minutesEugene R Kubitz DPM Work Phone: NOXQ SWS PODIATRYComment on above:Numbness of toes (Primary Dx)Start: 01-21-2025 End: 26-49-6687gsdgxgoyfxRKQNCV R KUBITZNot AvailableStart: 12-30-2024 End: 70-70-0443eswgntfyscDnclzba M Hoy MD Work Phone: [facility] Work Phone: Start: 12-30-2024 End: 81-75-1184Glrdodf encounter Vitor Barlow MD Work Phone: [facility] Work Phone: Start: 09-15-2024 End: 47-80-7910Aigxuok encounter procedureMD Tenisha Hoy Work Phone: [facility] V[facility] Surgery Work Phone: Start: 09-02-2024 End: 82-51-6822zejobkurwrFI Tenisha M Hoy Work Phone: [facility] Work Phone: Start: 09-02-2024 End: 28-72-3313Ihjgcqv encounter procedureMD Tenisha Hoy Work Phone: [facility] [address] Work Phone: start: 08-30-2024 End: 53-29-7445mdnhggwbfsIVOR REFERRALFacility:FTMCStart: 08-30-2024 End: 05-09-4126Qknnayl encounter procedureSELF REFERRALAcmc Healthcare System Start: 07-15-2024 End: 98-24-1958hwlxmszdaxUQ Tenisha M Hoy Work Phone: [facility] Work Phone: Start: 07-15-2024 End: 77-28-3700Wfkecwh encounter procedureMD Tenisha Hoy Work Phone: [facility] Vascular Surgery Work Phone: Start: 06-02-2024 End: 93-85-9768soqfstuewvJX Tenisha M Hoy Work Phone: [facility] Work Phone: Start: 06-02-2024 End: 19-66-7652Cqdyzmr encounter procedureMD Tenisha Hoy Work Phone: [facility]-Ul[facility] [place] Work Phone: Start: 08-04-2023 End: 57-28-5953Hidrjhn encounter procedureSELF REFERRALAcmc Healthcare System Start: 09-16-2022 End: 53-04-5959eptgpkryhqUN TENISHA HOYFacility:V0Xctyk: 07-01-2022 End: 88-81-5052Ukerovb encounter procedureANTELMO FELDER [facility] Start: 47-20-5193Zblcywuig for general adult medical examination without abnormal findingsDR TENISHA FORTUNATOYThe Farmington HospitalStart: 05-13-2022 End: 36-28-3805bhghsyekriLG TENISHA HOYFacility:H9Cvqcv: 05-13-2022 End: 53-34-3427Aymkdzkwh for general adult medical examination without abnormal findingsDR TENISHA HOYFacility:N3Grmpp: 11-25-2021([facility] C Vac) [facility] Covid VaccineM[facility]n [facility] ClinicStart: 11-25-2021 End: 27-16-1308skjycoqeevDuji Fit Other [employer] Other Start: 10-24-2021(Procedure) Barbi Chiu [facility] OutPtStart: 10-24-2021 End: 03-96-9384dlrftsdybqLrqyad Felter Other [employer] Other Start: 10-10-2021 End: 99-18-2770hffkcnvfsuIbewgc Felter Other [employer] Other Start: 61-20-7561Dpkvmf outpatient visit 25 minutes Stanislaw [facility] [place]Start: 10-03-2021(Procedure) [facility] OutPtStart: 10-03-2021 End: 75-52-7134dswrnhcqdqCidncd Felter Other [employer] Other Start: 09-19-2021 End: 54-74-2457mfoiznzmwmQuqveb Felter Other Nort [employer] Other Start: 84-58-3811Pcamxd outpatient visit 25 minutes Stanislaw OneilBart [facility] [place]Start: 09-12-2021(Procedure) Lionel Stanislaw [facility] OutPtStart: 00-55-7345Skuddr outpatient visit 25 minutesThomas FelterFPG [facility] [place] CreekStart: 08-18-2021 Office outpatient visit 25 minutesThomas FelterFPG [facility] [place] Procedures DateProcedureProcedure DetailPerforming ClinicianStart: 55-74-0606DLU of right kneeTenisha Barlow MD Work Phone: Start: 89-31-3164AsimguxsfktXwjededt Sarmini Start: 93-69-6077IohyjgihhshqdcbrxqwkrlpbktAnudeexh Sarminmonica Start: 83-59-6941Lunep X-ray of left shoulderDomeka Barlow MD Work Phone: Start: 93-31-4425Fhoeev scan of lower limb veinsMD Tenisha Barlow Work Phone: Start: 67-93-0235BnzvotzbpeoXwsvfj Kubitz DPM Work Phone: start: 58-08-4660QwuqesqnvylWbkkos Kubitz DPM Work Phone: start: 49-92-8247BngskgxtiejNSHCARP BRUNER start: 05-19-1989H/O: tubal ligationWIJORY FELDER start: 03-24-1988D&CWILLIAM BRADFORD Plan of Treatment DateCare ActivityDetailAuthorStart: 92-02-8232Ujjlgthzp for malignant neoplasm of colonNOMS HealthcareStart: 91-32-8037LmvdfgqfcC[facility] Clinic [facility] CenterStart: 32-80-4006Zjyle X-ray of left shoulderXR shoulder LT min 2V*[facility] Hospitaltart: 18-96-8458UJ Shoulder - left ViewsParkview Health Montpelier Hospitaltart: 83-50-9397Yupkxlrnt for malignant neoplasm of breast MammogramNOIA HealthcareStart: 11-29-4455Olvpcsgah vaccinationInfluenza Vaccine (#1)[facility] HealthcareStart: 07-99-9902Biooqdacf for malignant neoplasm of cervix NOM HealthcareStart: 73-50-8177Gdvbksbsd for malignant neoplasm of cervixPap SmearNOMS HealthcareStart: 06-56-7069Sosndhgjr for malignant neoplasm of colon [facility] HealthcarePatient EducationOhiohealth [facility] Medical Center Work Phone: [facility] referral[facility] Work Phone: [place] Lower extremity vein - leftCh[facility] Immunizations Immunization DateImmunizationNotesCare DrbzucbpLbkcgtew83-32-5566sfdaknjnm virus vaccine, unspecified formulationEugene Kubitz DPM Work Phone: [phone]-PmpxfMer[facility] Hospital Digestive Mkaypw79-18-7273 COVID-19 ModernaDawn Fitt Other [facility]10-07-2021influenza virus vaccine, unspecified formulationMuhammad Sarmini 921-1928Tettxr-ZruggMercy Health Defiance Hospital Digestive Fzubrc77-44-9619 COVID-19 mRNA-1273 (Moderna)MD Tenisha Barlow Work Phone: [facility]01-07-2021COVID-19 mRNA-1273 (Moderna)MD Tenisha Barlow Work Phone: [facility]09-28-2020influenza virus vaccine, unspecified formulationMuhammad Sarmini 760-9013Jbgpbg-YerirMercy Health [facility] Hospital Digestive Lgxenz71-11-3191 influenza, unspecified formulationMuhammad Sarmini 492-7812Uqteog-YcxobMercy Health [facility] Hospital Digestive Kxvsat59-68-6008 influenza virus vaccine, unspecified formulationMuhammad Sarmini [phone]-FhftiMercy Health [facility] Hospital Digestive Weftct20-00-1746 influenza, seasonal, injectableThomas Felter Other [facility] Payers DatePayer CategoryPayerPolicy [id number] Health InsuranceCHILDREN'S HOSPITAL OF COLUMBUSCAL MUTUAL ..[id number]-wjs [id number]-zn65-424j7[id number] 2..1.672429.3.57[id number] 2..1.037178.3.579.[id number] 2..1.623342.3.57[id number] 2..1.263212.3.57[id number] 2..1.369359.3.57[id number] 2..1.883713.3.57[id number] 2..840.1.717622.3.57[id number] 2.16.840.1.070316.3.57[id number] 2.16.840.1.730865.3.579.[id number] 2.16.840.1.415801.19 [id number] 2.16.840.1.001145.3.579.2.645Kraigqe88805800 2.16.840.1.0492[id number] 2.16.840.1.301045.3.579.2.531 [id number] 2.16.840.1.650510.3.579.2.531Worker's CompensationFirelands Lutheran Medical Center [id number]-[id number] Social History DateTypeDetailFacilityStart: 46-39-8588Ppg Assigned At [facility] [employer] Other Start: 62-68-8594Kgxuwig smoking statusSmoker (finding)[facility] SystemTobacco smoking statusNeverOhioHealth Nelsonville Health Centertart: 10-24-2021 End: 92-47-1068Zkxdfmk smoking status NHISEx-smoker (finding)[facility] Hospitaltart: 60-50-7461Zgo Assigned At [facility] Healthcaretart: 02-23-2010 End: 97-15-2562FrzGhdyfn (finding)[facility] HospitalHistory of tobacco useCigarette SmokerNOIA HealthcareStart: 18-65-1300Dfkupeubkw smoked current (pack per day) - Rgkynbvl0BKHD HealthcareStart: 78-59-7089Wjhphky use and exposureFormer smokeless tobacco userNOMS HealthcareStart: 01-21-2025 Alcoholic beverage intakeEx-drinker (finding)NOMS HealthcareStart: 01-20-2025 Gender identityIdentifies as female gender (finding)NOMS HealthcareSexual OrientationFishUniversity of Maryland St[facility] Functional Status WrhuWbsdotggvaEbtyknKpqbarkz11-76-9432Poavewjhlt StatusN/AFisher - [facility] Clinical Notes 08-18-2021 to 08-11-2025 Note Date & MlibJpbeAbbjpxmi05-92-8979 Evaluation note* Diagnosis Onset Date Resolution Status Admit Date Greater trochanteric bursitis of left hi p acuteSeptember 2024 2:56pmLow back painacuteSept2024 2:56pm Sacroiliitis, not elsewhere classifiedacuteSeptember 2024 2:56pm [facility] Work Phone: 1(414) 385-546409-30-2025 Evaluation note* Diagnosis Onset Date Resolution Status Admit Date Greater trochanteric bursitis of left hi p acuteSeptember 2024 2:56pmLow back painacuteSeptember 2024 2:56pm Sacroiliitis, not elsewhere classifiedacuteSeptember 2024 2:56pmGreater trochanteric bursitis of left hipacuteOctober 2024 10:22amLow back pain acuteOctober 2024 10:22amSacroiliitis, not elsewhere classifiedacute October 2024 10:22am [facility] Work Phone: 1(390) 335-471009-30-2025 Evaluation note* Diagnosis Onset Date Resolution Status Admit Date Greater trochanteric bursitis of left hi p acuteSeptember 2024 2:56pmLow back painacuteSeptember 2024 2:56pm Sacroiliitis, not elsewhere classifiedacuteSept2024 2:56pmGreater trochanteric bursitis of left hipacuteOctober 2024 10:22amLow back pain acuteOctober 2024 10:22amSacroiliitis, not elsewhere classifiedacute September 02, 2025 10:22amGreater trochanteric bursitis of left hipacuteNov2024 10:25amLow back painacuteNov2024 10:25amSacroiliitis, not elsewhere classifiedacuteNov2024 10:25am [facility] Work Phone: 1(192) 905-989305-19-2025 NoteProgress Note-Physician Patient: BETSY MENCHACA Age: 60 [...] Daily, # 90 cap(s), Refills(s) 3, Pharmacy: [facility]/pharmacy #[id number], 162, cm, 02/12/25 12:52:00 EDT, Height/Length Dosing, 78.7, kg, 02/12/25 12:52:00 EDT, Weight Dosing Pepcid 40 mg Tab: 40 mg = 1 tab(s), Oral, Once a day (at bedtime), # 30 tab(s), Refills(s) 2, Pharmacy: [facility]/pharmacy #[id number], 162, cm, 03/22/21 10:15:00 EDT, Height/Length Dosing, 75.7, kg, 03/22/21 10:15:00 EDT, Weight Dosing famotidine 40 mg Tab: 40 mg = 1 tab(s), Oral, Once a day (at bedtime), # 90 tab(s), Refills(s) 3, Pharmacy: [facility]/pharmacy #[id number], 162, cm, 02/12/25 12:52:00 EDT, Height/Length Dosing, 78.7, kg, 02/12/25 12:52:00 EDT, Weight Dosing mesalamine 1.2 g oral enteric coated tablet: 2.4 gram, 2 tab(s), Oral, Daily, 60 tab(s), Refill(s) 11, [facility]/pharmacy #[id number], 162, cm, 01/17/21 14:27:00 EST, Height/Length [...] Problems Elevated liver enzymes / SNOMED CT 2516221279 / Confirmed Heartburn / SNOMED CT 63100589 / Confirmed History of colon polyps / SNOMED CT 4661442427 / Confirmed Left sided ulcerative colitis / SNOMED CT 5207591742 / Confirmed Smoker / SNOMED CT 627612413 / Confirmed Added secondary to documentation in Social History. Resolved: ANEMIA, UNSPECIFIED / ICD-9-CM 285.9 Resolved: Cystocele / SNOMED CT 54377168 Resolved: H/O: migraine / SNOMED CT 653651267 Resolved: Hypothyroidism / SNOMED CT 42710400 Resolved: Second degree uterine prolapse / SNOMED CT 22982843 Physical Examination Vital Signs 03/30/2025 13:16 EDT [...] Pressure 80 mmHg mmHg (more content not included)...[facility] HospitalComment on above:Result Comment: Electronically Signed By: Trenton Perdue MD\.leeroy\Date and Time Signed: 03/30/25 15:05 [id number] Hospital Discharge instructions Patient Education 03/30/2025 13:04:20 Gastritis, Adult, Riwx-md-Rtwk Gastritis, Adult Gastritis is irritation and swelling [...] Follow these instructions at home: Medicines Take mkoz-iia-rsacwhr and prescription medicines only as told by [...] provider. Document Revised: 03/04/2022 Document Reviewed: 03/04/2022 [employer] Patient Education 2023 [employer]. 03/30/2025 13:04:13 Esophagitis Esophagitis Esophagitis is inflammation [...] Follow these instructions at home: Medicines Take obqb-qlu-lxjcebt and prescription medicines only as told by [...] powder, vinegar, hot sauces, and barbecue sauce. ?Edmunds fruit juices and citrus fruits, such as oranges, jeri, and limes. ?Tomato-based foods, such as red sauce, chili, salsa, and pizza with red sauce. ?Fried and fatty foods, such as donuts, persian fries, potato chips, and high-fat dressings. ?High-fat [...] provider. Document Revised: 05/09/2021 Document Reviewed: 05/09/2021 [employer] Patient Education 2023 [employer] 03/30/2025 13:04:11 Endoscopy, Care After Procedure [facility] [place] Endoscopy Care After Procedure Please read the [...] 06/12/2005 Document Re-Released: 04/22/2007 ExitCare Patient Information [employer]. 03/30/2025 13:04:00 Colonoscopy, Care After Surgery Salam (CUSTOM) Colonoscopy Care After Surgery Please read the instructions outlined below and refer to this sheet in the next few weeks. These discharge instructions provide you with general information on caring for [facility] Your doctor may also give you [...] Up Care 02/12/2025 15:16:15 With:Mary Carey Address: [address] [place] [address], [address] [address]- [phone] Business (1) When: Unknown Comments:Call for any problems. [facility] 05-19-2025 Evaluation + Plan noteExtracted from:Title: ANES Post-operative Note - EndoAuthor:Trenton Perdue MD.Date:03/30/25 Plan Transfer/Discharge: Transfer/Discharge Discharge when meets criteria ( From PACU to Ambulatory Surgery Unit, and To home ). Extracted from:Title:1Preop H&PAuthor:Cherry PEDROZA, Mary BrownalDate:03/30/25 Impression and Plan Impression: gerd, colitis Plan: -EGD and Colonoscopy Extracted from:Title:ANES Pre-operative Note - EndoAuthor:Trenton Perdue MD.Date: 03/30/25 Plan [place] [employer] Anesthesiologists (ASA) physical status classification: Class II. Anesthetic Preoperative Plan: Anesthesia General, and -TIVA.[facility] 05-19-2025 NotePatient Education - Text Endoscopy Care After Procedure Please read the instructions outlined below and refer to this sheet in the next few weeks. These discharge instructions provide you with general information on caring for yourself [facility] Your doctor may also give you [...] Document Re-Released: 04/22/2007 ExitCare??? Patient Information ???2009 [employer]. Colonoscopy Care After Surgery Please read the instructions outlined below and refer to this sheet in the next few weeks. These discharge instructions provide you with general information on caring for yourself [facility]. Your doctor may also give you [...] Radiation or chemotherapy treatm (more content not included)...[facility]05-[facility]-20[facility] NoteEndoscopic Procedure Report - Other Patient: BETSY MENCHACA Age: 60 years Sex: Female : 1965 Associated Diagnoses: None Author: Mary Carey MD Pre-Procedure Procedure Date 03/30/2025 12:56:00 . Procedure Type: Colonoscopy with biopsy. Procedure provider Performed by Mary Carey MD. Current history and physical Documented on chart. Colonoscopy ([id number]) on 02/25/2021 at 56 Years. H/O: tubal ligation (323517044) on 05/19/1989 at 24 Years. D&C on 03/24/1988 at 23 Years.. Past Medical History Resolved Hypothyroidism (52706219): Resolved. ANEMIA, UNSPECIFIED (285.9): Resolved. H/O: migraine (763218296): Resolved. Cystocele (38724146): Resolved. Second degree uterine prolapse (75753471): Resolved.. Family History Primary malignant neoplasm of female breast Sister Acute myocardial infarction Father . Procedure History Colonoscopy (634828692) on 02/25/2021 at 56 Years. H/O: tubal ligation ([id number]) on 05/19/1989 at 24 Years. D&C on [...] Daily, # 90 cap(s), Refills(s) 3, Pharmacy: [facility]/pharmacy #[id number], 162, cm, 02/12/25 12:52:00 EDT, Height/Length Dosing, 78.7, kg, 02/12/25 12:52:00 EDT, Weight Dosing Pepcid 40 mg Tab: 40 mg = 1 tab(s), Oral, Once a day (at bedtime), # 30 tab(s), Refills(s) 2, Pharmacy: [facility]/pharmacy #[id number], 162, cm, 03/22/21 10:15:00 EDT, Height/Length Dosing, 75.7, kg, 03/22/21 10:15:00 EDT, Weight Dosing famotidine 40 mg Tab: 40 mg = 1 tab(s), Oral, Once a day (at bedtime), # 90 tab(s), Refills(s) 3, Pharmacy: [facility]/pharmacy #[id number], 162, cm, 02/12/25 12:52:00 EDT, Height/Length Dosing, 78.7, kg, 02/12/25 12:52:00 EDT, Weight Dosing mesalamine 1.2 g oral enteric coated tablet: 2.4 gram, 2 tab(s), Oral, Daily, 60 tab(s), Refill(s) 11, [facility]/pharmacy #[id number], 162, cm, 01/17/21 14:27:00 EST, Height/Length [...] 3. Small internal hemorrhoids (more content not included)...[facility] HospitalComment on above:Result Comment: Electronically Signed By: Mary Carey MD\.br\Date and Time Signed: 03/30/25 12:57 EDTOther Comment: Missing Attachment - attachment storage system not supported [id number] Can be viewed in source system Missing Attachment - attachment storage system not supported [id number] Can be viewed in source systemMissing Attachment - attachment storage system not supported [id number] Can be viewed in source systemMissing Attachment - attachment storage system not supported [id number] Can be viewed in source systemMissing Attachment - attachment storage system not supported [id number] Can be viewed in source [id number] NoteEndoscopic Procedure Report - Other Patient: BETSY [...] follow in GI clinic in 1-2 after dischargeBethesda North HospitalComment on above:Result Comment: Electronically Signed By: Cherry PEDROZA, Mary Bolanos\.br\Date and Time Signed: 03/30/25 12:44 EDTOther Comment: Missing Attachment - attachment storage system not supported [id number] Can be viewed in source system Missing Attachment - attachment storage system not supported [id number] Can be viewed in source systemMissing Attachment - attachment storage system not supported [id number] Can be viewed in source systemMissing Attachment - attachment storage system not supported 5192377 Can be viewed in source systemMissing Attachment - attachment storage system not supported 3451021 Can be viewed in source systemMissing Attachment - attachment storage system not supported 9280602 Can be viewed in source systemMissing Attachment - attachment storage system not supported 3252860 Can be viewed in source systemMissing Attachment - attachment storage system not supported 6036748 Can be viewed in source system Missing Attachment - attachment storage system not supported 4927338 Can be viewed in source systemMissing Attachment - attachment storage system not supported 4443768 Can be viewed in source systemMissing Attachment - attachment storage system not supported 1579691 Can be viewed in source systemMissing Attachment - attachment storage system not supported 6017531 Can be viewed in source systemMissing Attachment - attachment storage system not supported 5086168 Can be viewed in source systemMissing Attachment - attachment storage system not supported 3504753 Can be viewed in source [id number] Note History and Physical Patient: BETSY MENCHACA [...] Daily, # 90 cap(s), Refills(s) 3, Pharmacy: [facility]/pharmacy #[id number], 162, cm, 02/12/25 12:52:00 EDT, Height/Length Dosing, 78.7, kg, 02/12/25 12:52:00 EDT, Weight Dosing Pepcid 40 mg Tab: 40 mg = 1 tab(s), Oral, Once a day (at bedtime), # 30 tab(s), Refills(s) 2, Pharmacy: [facility]/pharmacy #[id number], 162, cm, 03/22/21 10:15:00 EDT, Height/Length Dosing, 75.7, kg, 03/22/21 10:15:00 EDT, Weight Dosing famotidine 40 mg Tab: 40 mg = 1 tab(s), Oral, Once a day (at bedtime), # 90 tab(s), Refills(s) 3, Pharmacy: [facility]/pharmacy #[id number], 162, cm, 02/12/25 12:52:00 EDT, Height/Length Dosing, 78.7, kg, 02/12/25 12:52:00 EDT, Weight Dosing mesalamine 1.2 g oral enteric coated tablet: 2.4 gram, 2 tab(s), Oral, Daily, 60 tab(s), Refill(s) 11, [facility]/pharmacy #6177, 162, cm, 01/17/21 14:27:00 EST, Height/Length [...] list: All Problems Smoker / SNOMED CT 991824578 / Confirmed Added secondary to documentation in Social History. Left sided ulcerative colitis / SNOMED CT 6068114041 / Confirmed History of colon polyps / SNOMED CT 7207715450 / Confirmed Heartburn / SNOMED CT 84482607 / Confirmed Elevated liver enzymes / SNOMED CT 6848669594 / Confirmed Histories Past Medical History: Resolved Hypothyroidism (28729419): Resolved. ANEMIA, UNSPECIFIED (285.9): Resolved. H/O: migraine (729349371): Resolved. Cystocele (46584019): Resolved. Second degree uterine prolapse (20098679): Resolved. Family History: Father Acute myocardial infarction Sister Primary malignant neoplasm of female breast Procedure history: Colonoscopy (226487081) on 02/25/2021 at 56 Years. H/O: tubal ligation (502439530) on 05/19/1989 at 24 Years. D&C on [...] Plan Impression: gerd, colitis Plan: -EGD and ColonoscopyBethesda North HospitalComment on above:Result Comment: Electronically Signed By: Cherry PEDROZA, Mary Bolanos\.br\Date and Time Signed: 03/30/25 12:28 [id number] NoteProgress Note-Physician Patient: BETSY MENCHACA Age: 60 [...] Daily, # 90 cap(s), Refills(s) 3, Pharmacy: [facility]/pharmacy #[id number], 162, cm, 02/12/25 12:52:00 EDT, Height/Length [...] bedtime), # 90 tab(s), Refills(s) 3, Pharmacy: [facility]/pharmacy #[id number], 162, cm, 02/12/25 12:52:00 EDT, Height/Length [...] Problems Elevated liver enzymes / SNOMED CT 2735766070 / Confirmed Heartburn / SNOMED CT 10913591 / Confirmed History of colon polyps / SNOMED CT 1701683916 / Confirmed Left sided ulcerative colitis / SNOMED CT 6508938161 / Confirmed Smoker / SNOMED CT 139068328 / Confirmed Adde (more content not included)...[facility] Result Comment: Electronically Signed By: Iron PEDROZA, Trenton Olivia\.br\Date and Time Signed: 03/30/25 12:00 [id number] History of Present illness Narrative* Jorge A [...] joint equinus right. SHOE GEAR EVALUATION: Under [employer] athletic shoes. Imaging Studies: HEEL X-RAY: 11-08-2022: [...] be reconsidered. 8.Reappoint p.r.n.. documented in this encounterLee's Summit [id number] Evaluation note* Diagnosis Onset Date Resolution Status Admit Date Impingement syndrome of left shoulder acuteFebruary 2024 10:26am [facility] Work Phone: 1(213) 387-233001-14-2022 Evaluation note* Encounter Date Diagnosis Assessment Notes Treatment Notes Treatment Clinical Notes Nov, Encounter for immunization (ICD- 10 - Z23) Patient presents for COVID-19 vaccination BOOSTER. Pre-screening form answers evaluated with patient. Patient denies current illness or allergic reaction to component of COVID-19 vaccine. Patient provided with current copy of EUA. [employer] Other 11-29-2021 Evaluation note* Encounter Date Diagnosis [...] Sep,OtherAbove note written by Halima Astorga LPN, [employer]. Edited and approved by Dr. Stanislaw Chiu MD. [employer] Other 11-08-2021 Evaluation note* Encounter Date Diagnosis [...] Sep,OtherAbove note written by Roman Lu MA, [employer]. Edited and approved by Dr. Stanislaw hCiu MD. [employer] Other 10-25-2021 Evaluation note* Encounter Date Diagnosis [...] Aug,OtherAbove note written by Mirian Drake CMA, [employer]. Edited and approved by Dr. Stanislaw Chiu MD. [employer] Other 10-07-2021 Evaluation note* Encounter Date Diagnosis [...] negative findings were considered in medical decision-making. [employer] Other Evaluation + Plan note No data available for this section [facility] CenterEvaluation noteNo InformationNort [employer] Other Evaluation noteNo assessment information available [facility] Work Phone: Evaluation note* Diagnosis Onset Date Resolution Status Varicose veins of bilateral lower extrem ities with pain acute [facility] Work Phone: Evaluation note* Diagnosis Onset Date Resolution Status Varicose veins of bilateral lower extrem ities with pain acuteVaricose veins of bilateral lower extremities with painacute [facility] Work Phone: Evaluation note* Diagnosis Onset Date Resolution Status Admit Date Impingement syndrome of left shoulder acuteFebruary 2024 10:26am [facility] Work Phone: Evaluation note* Diagnosis Numbness of toes- Primary Disturbance of skin sensation documented in this encounter [facility]* Diagnosis Onset Date Resolution Status Admit Date Greater trochanteric bursitis of left hi p acuteSeptember 2024 2:56pmLow back painacuteSeptember 2024 2:56pm Sacroiliitis, not elsewhere classifiedacuteSeptember 2024 2:56pm [facility] Work Phone: History general Narrative - Reported* Type Description Date Medical History chronic back pain Medical HistoryhyperthyroidismMedical HistoryanemiaMedical HistoryUCMedical HistoryVIT DMedical HistoryosteoporosisSurgical Historytubal [id number] Surgical [id number] HistoryTAH / bladder [id number] [id number] Historyaccident - crack [id number] [employer] Other Hospital Discharge instructions No data available for this section [facility] No data available for this section [facility] SystemReason for referral (narrative)No reason for referral information availableEast [facility] Work Phone: Summary Purpose Family History [...] FOR VARICOS E VEINS; [facility] vv f/u no testingReason for VisitVaricose veins of bilateral lower extremities with pain Varicose veins of bilateral lower extremities with pain Chief Complaint Admit Date 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 NX December 30 10:26am [...] section and content) DATE CREATED AUTHOR 09/22/2022 [facility] DATE CREATED AUTHOR AUTHOR'S ORGANIZ ATION 01/24/2025 [facility] DATE CREATED AUTHOR AUTHOR'S ORGANIZ ATION 04/01/2025 [facility] DATE CREATED AUTHOR AUTHOR'S ORGANIZ ATION 04/09/2025 [facility] DATE CREATED AUTHOR AUTHOR'S ORGANIZ ATION 07/16/2025 [facility] DATE CREATED AUTHOR AUTHOR'S ORGANIZ ATION 07/19/2025 [facility] DATE CREATED AUTHOR AUTHOR'S ORGANIZ ATION 09/04/2025 [facility] DATE CREATED AUTHOR AUTHOR'S ORGANIZ ATION 09/16/2025 [facility] Goals (unrecognized section and content) Goals [...] BE BASED ON THE PRIMARY CLINICAL RECORDS. [employer] [facility]. provides no warranty or guarantee of the accuracy or completeness of information in this document.
== END 2025-10-06 15:29 | disposition home or self-care (01) ==
LOC: RAD 15:28
PROVIDERS: PCP Family Medicine; Visit Provider Nurse Practitioner Family
DX: M81.0 Age-related osteoporosis without current pathological fracture (principal)
CPT/HCPCS: 77080

== ENCOUNTER 2025-10-08 05:10 | Emergency (ER) | payer OTHER, SELFPAY ==
--- OUTSIDE RECORDS SUMMARY | 2025-10-01 23:59 | XMS_ITS | Continuity of Care Document ---
Author Organization [facility] Address 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 Name Role Phone Mitchell Brad Primary Care Physician Encounter FT_QUEENIE [id number] Date(s): 10/01/25 - 10/01/25 [facility] [address] [address] Encounter Diagnosis Left sided ulcerative colitis(Discharge Diagnosis) - 10/01/25 Elevated liver enzymes(Discharge Diagnosis) - 10/01/25 Heartburn(Discharge Diagnosis) - 10/01/25 History of colon polyps(Discharge Diagnosis) - 10/01/25 Vickers's esophagus(Discharge Diagnosis) - 10/01/25 Discharge Disposition: Home (Routine DC) Attending Physician: Yamilet Rocha PA-C Encounter Type: Clinic Allergies, Adverse Reactions, Alerts No Known Allergies Immunizations Given and Recorded VaccineDateStatusRefusal Reasoninfluenza virus vaccine, yqorbroywhd87/4/23 Recordedinfluenza virus vaccine, aizzvkmdaww00/7/21Recordedinfluenza virus vaccine, inactivated08/09/20Recordedinfluenza virus vaccine, pojxrgoqahv89/15/15 RlnhjjlxMWYT-WdF-0 (COVID-19) mRNA-1273 vaccine11/25/2181VelgxkkrOQCA-EzN-2 (COVID- 19) mRNA-1273 vaccine12/16/2086XdhewoafCYIL-VcM-4 (COVID-19) mRNA-1273 vaccine11/18/20 Recordedinfluenza, unspecified tvlzwbeckca12/23/19Recorded Medications cetirizine 10 mg, Oral, Daily, Refills(s) 0, Allergy symptoms Start Date: 10/17/18 Status: Ordered Medication Dispense Status: Completed Total Allowed Fills: 1 Fills Dispensed: 0 famotidine 40 mg Tab 40 mg = 1 tab(s), Oral, Once a day (at bedtime), # 90 tab(s), Refills(s) 3, Pharmacy: [facility]/pharmacy #[id number], 162, cm, 02/12/25 12:52:00 EDT, Height/Length Dosing, 78.7, kg, 02/12/25 12:52:00 EDT, WeightDosing Start Date: 02/12/25 Status: Ordered Medication Dispense Status: Completed Quantity: 90.0 Unit: tab(s) Total Allowed Fills: 4 Fills Dispensed: 0 levothyroxine 25 microgram, Oral, Daily, Refills(s) 0, Thyroid Start Date: 09/25/13 Status: Ordered Medication Dispense Status: Completed Total Allowed Fills: 1 Fills Dispensed: 0 mesalamine 1.2 g oral enteric coated tablet 2.4 gram, 2 tab(s), Oral, Daily, 60 tab(s), Refill(s) 11, [facility]/pharmacy #[id number], 162, cm, 01/17/21 14:27:00 EST, Height/Length Dosing, 75.5, kg, 01/17/21 14:27:00 EST, Weight Dosing Start Date: 01/17/21 Status: Ordered Medication Dispense Status: Completed Quantity: 60.0 Unit: tab(s) Total Allowed Fills: 12 Fills Dispensed: 0 Multi Vitamin+ Oral, Daily, Refill(s) 0, Prophylaxis Start Date: 02/12/25 Status: Ordered Medication Dispense Status: Completed Total Allowed Fills: 1 Fills Dispensed: 0 Nexium 40 mg Cap-EC 40 mg = 1 cap(s), Oral, BID, # 180 cap(s), Refills(s) 3, Pharmacy: [facility]/pharmacy #[id number], 162, cm, 03/30/25 11:41:00 EDT, Height/Length Dosing, 78.7, kg, 03/30/25 11:41:00 EDT, Weight Dosing Start Date: 04/29/25 Status: Ordered Medication Dispense Status: Completed Quantity: 180.0 Unit: cap(s) Total Allowed Fills: 4 Fills Dispensed: 0 potassium citrate Daily, Refills(s) 0, Prophylaxis Start Date: 12/24/15 Status: Ordered Medication Dispense Status: Completed Total Allowed Fills: 1 Fills Dispensed: 0 Vitamin C 500 mg, Oral, Daily, Refills(s) 0, Prophylaxis Start Date: 12/24/15 Status: Ordered Medication Dispense Status: Completed Total Allowed Fills: 1 Fills Dispensed: 0 Vitamin D3 50,000 International_Unit, Oral, qWeek, Refills(s) 0, Prophylaxis Start Date: 10/17/18 Status: Ordered Medication Dispense Status: Completed Total Allowed Fills: 1 Fills Dispensed: 0 Problem List ConditionConfirmationCourseEffective DatesStatusHealth StatusInformantANEMIA, UNSPECIFIEDConfirmedResolvedCystoceleConfirmedResolvedH/O: migraineConfirmed ResolvedHeartburnConfirmedActiveHistory of colon polypsConfirmedActive HypothyroidismConfirmedResolvedLeft sided ulcerative colitisConfirmedActive Elevated liver enzymesConfirmedActiveSecond degree uterine prolapseConfirmed ZukzksesStetbt0JnjneqskvQscqbq 1Added secondary to documentation in Social History. Procedures ProcedureDateRelated DiagnosisBody SiteStatusColonoscopy03/30/25Completed Esophagogastroduodenoscopy03/30/2538TxrjgpmmbWuhrpakctyt2/16/21CompletedH/O: tubal ligation05/19/89CompletedD&03/24/88Completed Social History Social History TypeResponseSmoking StatusFormer smoker, quit more than 30 days ago;Never; Type: Cigarettes entered on: 10/01/25Birth SexFemaleSex RepresentationFemale (finding) Patient Care team information Care Team Personnel Name: Brad Medrano MD Position: FT Physician Member Role: Primary Care Physician Address: [address] [place] [address] Telecom: Care Team Related Persons Name: JAZMYNE MERINO Name: JAZMYNE MERINO Name: JAZMYNE MERINO Name: JAZMYNE MERINO Name: JAZMYNE MERINO Name: BRIANNA SOSA Insurance Providers Guarantor name: CAMMY FUNEZJIMENA Health Plan Information #: 1 Payer: [employer] Payer Identifier: [id number] Member Number: [id number] Group Number: [id number] Subscriber Identifier: [id number] Relationship to Subscriber: spouse Coverage Type: PRIVATE HEALTH INSURANCE Coverage Verification Date: Telecom: [phone] Address: [facility] [address] [id number] [place] [address]
[2025-10-08 05:21] VITALS: BP 155/104; PULSE 78; O2SAT 98; BMI 29.8
[2025-10-08] MEDS: LIDOCAINE HCL 1%-EPINEPHRINE 1:100,000 20 ML MDV 10 ML INJ (05:37)
[2025-10-08] MEDS: OXYMETAZOLINE HCL 0.05% NASAL SPRAY 2 SPRAY NS (05:37)
--- OUTSIDE RECORDS SUMMARY | 2025-10-08 05:54 | XMS_ITS | CCD ---
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 InstructionOutpatient Surgery Discharge Instruction [place] [address] Patient Discharge Instructions PERSON INFORMATION Name: BETSY [...] to serve you. Thank you for choosing [facility] HERE ARE THE MEDICATION CHANGES THAT [...] every day. PATIENT EDUCATION INFORMATION Instructions: Medication Leaflets:[facility]Gastroenterology Office/Clinic Noteon 07-84-0592Himakeuejsqtewmg Office/Clinic Note Gastroenterology Office/Clinic Note Chief Complaint [...] Distal esophageal Schatzki ring, dilated using 60 Burkinan Breen dilator 2. Concentric esophageal rings, proximal [...] enzymes) in 2019 Labs done recently at [facility] Reviewed labs from outside hospital September 2024 [...] C, 500 mg, Oral, Daily Vitamin D3, [address] [employer], Oral, qWeek Allergies No Known Allergies [...] (COVID-19) mRNA-1273 vaccine (more content not included)... [facility] HospitalComment on above:Result Comment: Electronically Signed By: Cherry PEDROZA, Mary Bolanos\.br\Date and Time Signed: 03/16/25 14:36 EDTAmbulatory Visit Summaryon 64-82-1401Wiibozuwjk Visit SummaryAmbulatory Visit Summary BETSY MENCHACA :1965 [...] Mouth Every day Refills: 3 Pickup at [facility]/pharmacy #[id number] New famotidine (famotidine 40 mg Tab) 1 Tablets By Mouth Once a day (at bedtime) Refills: 3 Pickup at [facility]/pharmacy #[id number] Unchanged ascorbic acid (Vitamin C) 500 [...] physician if questions or concerns Pharmacy Information [facility]/pharmacy #[id number]: [address], [place] [phone] What How Much When Comments Stop Taking [...] you for choosing us for your care. [facility] HospitalX-ray reportOrdered By: Soy Hall on 36-48-1863Orkhd reportBLANCHARD VALLEY [facility] [address] [place] [address] XRay Report Signed Patient: Betsy Menchaca MR#: [id number] : 1965 Acct:[id number] Age/Sex: 59 / F ADM Date: 5 Loc: [facility] Room: Type: [facility] Attending Dr: Stanislaw Truong MD Copies to: [...] DO 12/30/24 1608 Signed By: 12/30/24 1609 [facility]XR [facility] min 2V*on 68-61-8598EF shoulder LT min 2V*[facility] [address] [place] [address] XRay Report Signed Patient: Betsy Menchaca MR#: [id number] : 1965 Acct:[id number] Age/Sex: 59 / F ADM Date: 12/30/24 Loc: [facility] Room: Type: [facility] Attending Dr: Stanislaw Truong MD Copies to: [...] Soy Hall M.D.12/30/2024 4:09 PM Dictation Location: [facility]-23 Transcribed By: LIGIA 12/30/24 1609 Dictated By: Soy Hall DO 12/30/24 1608 Signed By: 12/30/24 1609[facility] Physician [facility] CenterMA Mamm Screen w/CAD if perf and 3D Bilon 32-70-6190OG Mamm Screen w/CAD if perf and 3D [...] very important to your health. The current [employer] and National Comprehensive Cancer [...] Assessment: BI-RADS Category 1-Negative Recommendation: Normal interval follow-upAultman Orrville HospitalCT FEMUR RT WO CONon 65-05-1479IX FEMUR RT WO CONEXAMINATION: CT FEMUR RT [...] Electronically authenticated by: HERMILA SOLIS Date: 2022-09-17 08:44NoMer[facility] AUTO DIFFon 16-28-1814CTVB #0.0 103/ulNormal0.0-0.1[facility]uff[facility] HospitalComment on above:Performed By: #### CBC #### [facility] [address] [place], [place] [address] Dr. Elizabeth Figueroasophils/100 WBC (Bld)0.6 %Normal0.2-2.0[facility] Comment on above:Performed By: #### CBC #### [facility] [address] [place] [address] [address] Elizabeth Walker #0.5 103/ulNormal0.0-0.7The [facility]S Medical CenterComment on above: Performed By: #### CBC #### [facility] [address] [place] [address] Dr. Elizabeth Davidsonosinophils/100 WBC (Bld)8.4 %Critically high0.9-7.0The [facility]'S Medical CenterComment on above:Performed By: #### CBC #### [facility] [address] [place] [address] Dr. Elizabeth Davidsonrythrocyte distribution width (RBC) [Ratio]14.3 %Esevdg18.0-15.[address] [facility]S Medical CenterComment on above:Performed By: #### CBC #### [facility] [address] [place] [address] Dr. Elizabeth McphersonHematocrit (Bld) [Volume fraction]42.8 %Niridj23.0-48.0The [facility]'S Medical CenterComment on above:Performed By: #### CBC #### [facility] [address] [place] [address] Dr. Elizabeth McphersonHemoglobin (Bld) [Mass/Vol]14.0 g/rURswybl44.0-16.0The [facility]S Medical CenterComment on above:Performed By: #### CBC #### [facility] [address] [place] [address] Dr. Elizabeth Bhat #0.01 10e3/ulNormal0.00-0.03The [facility]S Medical CenterComment on above:Performed By: #### CBC #### [facility] [address] [place] [address] Dr. Elizabeth Bhat %0.2 %Normal0.0-0.5The [facility]S Medical CenterComment on above: Performed By: #### CBC #### [facility] [address] [place] [address] Dr. Elizabeth OrtizMPH #2.0 103/ulNormal1.2-3.8The [facility]S Medical CenterComment on above:Performed By: #### CBC #### [facility] [address] [place] [address] Dr. Elizabeth Ortizmphocytes/100 WBC (Bld)37.2 %Nfughw35.5-60.0The [facility] Medical Centerment on above:Performed By: #### CBC #### [facility] [address] [place] [address] Dr. Elizabeth FreedUAL DIFF REQNONormalThe [facility]S Medical CenterComment on above: Performed By: #### CBC #### [facility] [address] [place] [address] Dr. Elizabeth Kathleen (RBC) [Entitic mass]28.5 wsUtrsep73.7-34.0The [facility] Medical CenterComment on above:Performed By: #### CBC #### [facility] [address] [place] [address] Dr. Elizabeth Kathleen (RBC) [Mass/Vol]32.7 g/gZNtuwlv19.9-35.2The [facility] Medical CenterComment on above:Performed By: #### CBC #### [facility] [address] [place] [address] Dr. Elizabeth Kathleen (RBC) [Entitic vol]87.2 eOGeglla85.0-99.0The [facility] Medical CenterComment on above:Performed By: #### CBC #### [facility] [address] [place] [address] Dr. Elizabeth Qureshi #0.4 103/ulNormal0.3-0.8The [facility] Medical CenterComment on above:Performed By: #### CBC #### [facility] [address] [place] [address] Dr. Elizabeth Herringocytes/100 WBC (Bld)7.9 %Normal1.7-12.0The [facility] Comment on above:Performed By: #### CBC #### [facility] [address] [place] [address] Dr. Elizabeth Solis #2.5 103/ulNormal1.4-6.5The [facility] Medical CenterComment on above:Performed By: #### CBC #### [facility] [address] [place] [address] [address] Elizabeth Sanchezutrophils/100 WBC (Bld)45.7 %[place]ryn95.0-75.0The [facility] on above:Performed By: #### CBC #### [facility] [address] [place] [address] [address] Elizabeth Nicelet mean volume (Bld) [Entitic vol]11.3 fLNormal9.5-13.5The [facility] Medical CenterComsouthwest regional rehabilitation center on above:Performed By: #### CBC #### [facility] [address] [place] [address] Dr. Elizabeth McphersonPLT213 103/bkLazyzu289-569Nmh [facility] CenterComsouthwest regional rehabilitation center on above: Performed By: #### CBC #### [facility] [address] [place] [address] Dr. Elizabeth McphersonRBC4.91 106/ulNormal4.20-5.40The [facility] Medical CenterComsouthwest regional rehabilitation center on above:Performed By: #### CBC #### [facility] [address] [place] [address] Dr. Elizabeth McphersonWBC5.4 103/ulNormal4.0-11.0The [facility] on above: Performed By: #### CBC #### [facility] [address] [place] [address] Dr. Elizabeth McphersonFREE T3on 5607DWHB T32.54 pg/mlLNormal2.18-3.98The [facility] on above:Performed By: #### FT3, TSH, CMP, T4, LIPID #### [facility] [address] [place] [address] Dr. Elizabeth McphersonGLYCOHEMOGLOBIN A1Con 70-04-8735OZZ RECOMMENDATIONSEE BELOWNormal The [facility] CenterComsouthwest regional rehabilitation center on above:Result Comment: ADA RECOMMENDED LIMIT 4.0 - 6.0 ADA THERAPEUTIC TARGET < 7.0 ACTION SUGGESTED > 7.0Performed By: #### A1C #### [facility] [address] [place] [address] [address] Elizabeth McphersonGlucose [Mass/Vol]111 mg/dLKettering Health Miamisburg on above:Performed By: #### A1C #### [facility] [address] [place] [address] Dr. Elizabeth McphersonHbA1c (Bld) [Mass fraction]5.5 %Normal4.5-6.2[facility] on above:Performed By: #### A1C #### [facility] [address] [place] [address] Dr. Elizabeth McphersonLIPID PROFILEon 85-58-7114YTXB-HDL RATIO NORMSEE [facility] SystemComsouthwest regional rehabilitation center on above:Result Comment: 3.3 - 4.4 LOW RISK 4.4 - 7.1 AVERAGE RISK 7.1 - 11.0 MODERATE RISK >11.0 HIGH RISKPerformed By: #### FT3, TSH, CMP, T4, LIPID #### [facility] [address] [place] [address] Dr. Elizabeth Benitezesterol [Mass/Vol]245 mg/dLCritically high<=200The [facility] on above:Performed By: #### FT3, TSH, CMP, T4, LIPID #### [facility] [address] [place] [address] Dr. Elizabeth Benitezesterol in HDL [Mass/Vol]69 mg/dLCritically vnea63-83WydMercer County Community Hospital on above:Performed By: #### FT3, TSH, CMP, T4, LIPID #### [facility] [address] [place] [address] Dr. Elizabeth Benitezesterol in LDL [Mass/Vol]145.8 mg/dLKettering Health Miamisburg on above:Performed By: #### FT3, TSH, CMP, T4, LIPID #### [facility] [address] [place] [address] Dr. Elizabeth Chen.total/Cholesterol in HDL [Mass ratio]3.6 {ratio} NormalMercer County Community Hospital on above:Performed By: #### FT3, TSH, CMP, T4, LIPID #### [facility] [address] [place] [address] [address] Elizabeth Fairbanks NORMAL> or = 60 mg/dl - LOW CARDIOVASCULAR RISK <40 mg/dl - HIGH CARDIOVASCULAR RISKKettering Health Miamisburg on above:Performed By: #### FT3, TSH, CMP, T4, LIPID #### [facility] [address] [place] [address] [address] Elizabeth McphersonLDL CALC NORMALSEE BELOWWexner Medical CenterComment on above:Result Comment: <100 mg/dl OPTIMAL 100 - 129 mg/dl NEAR OR ABOVE OPTIMAL 130 - 159 mg/dl BORDERLINE HIGH 160 - 189 mg/dl HIGH >190 mg/dl VERY HIGH Performed By: #### FT3, TSH, CMP, T4, LIPID #### [facility] [address] [place] [address] Dr. Elizabeth McphersonTriglyceride [Mass/Vol]151 mg/dLCritically high<=150The [facility] on above:Performed By: #### FT3, TSH, CMP, T4, LIPID #### [facility] [address] [place] [address] Dr. Elizabeth Shah CALC30.2 mg/dLWexner Medical CenterComsouthwest regional rehabilitation center on above: Performed By: #### FT3, TSH, CMP, T4, LIPID #### [facility] [address] [place] [address] Dr. Elizabeth McphersonPROF 14(COMP METB)on 81-32-3710Gdodtgh [Mass/Vol]3.6 g/dLNormal 3.4-5.0The [facility] on above:Performed By: #### FT3, TSH, CMP, T4, LIPID #### [facility] [address] [place] [address] Dr. Elizabeth McphersonAlbumin/Globulin [Mass ratio]1.0 {ratio}NormalThe [facility] on above:Performed By: #### FT3, TSH, CMP, T4, LIPID #### [facility] [address] [place] [address] Dr. Elizabeth HeathP [Catalytic activity/Vol]74 U/XPvllro81-982Eyw [facility] Medical CenterComment on above:Performed By: #### FT3, TSH, CMP, T4, LIPID #### [facility] [address] [place] [address] [address] Elizabeth Castaneda [Catalytic activity/Vol]27 U/OKxqqje69-48Exd [facility] Medical CenterComment on above:Performed By: #### FT3, TSH, CMP, T4, LIPID #### [facility] [address] [place] [address] Dr. Elizabeth Fall gap [Moles/Vol]11.4 mmol/LNormalBl[facility]ard [facility] Comment on above:Performed By: #### FT3, TSH, CMP, T4, LIPID #### [facility] [address] [place] [address] Dr. Elizabeth McphersonAST [Catalytic activity/Vol]12 U/LCritically fly01-89Cfr [facility] Medical CenterComment on above:Performed By: #### FT3, TSH, CMP, T4, LIPID #### [facility] [address] [place] [address] Dr. Elizabeth McphersonBilirubin [Mass/Vol]0.3 mg/dLNormal0.2-1.0The [facility] Comment on above:Performed By: #### FT3, TSH, CMP, T4, LIPID #### [facility] [address] [place] [address] Dr. Elizabeth McphersonCalcium [Mass/Vol]8.8 mg/dLNormal8.5-10.1[facility] Comment on above:Performed By: #### FT3, TSH, CMP, T4, LIPID #### [facility] [address] [place] [address] Dr. Elizabeth McphersonChloride [Moles/Vol]106 mmol/ABhowhq40-692Ggh [facility] Comment on above:Performed By: #### FT3, TSH, CMP, T4, LIPID #### [facility] [address] [place] [address] Dr. Elizabeth McphersonCO2 [Moles/Vol]27.9 mmol/ABfhywv23.0-32.0[facility] Comment on above:Performed By: #### FT3, TSH, CMP, T4, LIPID #### [facility] [address] [place] [address] Dr. Elizabeth McphersonCreatinine [Mass/Vol]0.88 mg/dLNormal0.55-1.02[facility] HospitalComment on above:Performed By: #### FT3, TSH, CMP, T4, LIPID #### [facility] [address] [place] [address] Dr. Elizabeth DavidsonGFR-AF ARMENIAN>60Normal>=60The [facility] Medical CenterComment on above:Performed By: #### FT3, TSH, CMP, T4, LIPID #### [facility] [address] [place] [address] Dr. Elizabeth DavidsonGFR-NON AF ARMENIAN>60Normal>=60The [facility] Medical CenterComment on above:Performed By: #### FT3, TSH, CMP, T4, LIPID #### [facility] [address] [place] [address] Dr. Elizabeth McphersonGlobulin (S) [Mass/Vol]3.5 g/dLNormalThe [facility] Medical CenterComment on above:Performed By: #### FT3, TSH, CMP, T4, LIPID #### [facility] [address] [place] [address] Dr. Elizabeth McphersonGlucose [Mass/Vol]108 mg/dLCritically ysng97-423ZwgMercer County Community Hospital on above:Performed By: #### FT3, TSH, CMP, T4, LIPID #### [facility] [address] [place] [address] Dr. Elizabeth McphersonPotassium [Moles/Vol]4.3 mmol/LNormal3.5-5.1The [facility] Comment on above:Performed By: #### FT3, TSH, CMP, T4, LIPID #### [facility] [address] [place] [address] Dr. Elizabeth McphersonProtein [Mass/Vol]7.1 g/dLNormal6.4-8.2[facility] Comment on above:Performed By: #### FT3, TSH, CMP, T4, LIPID #### [facility] [address] [place] [address] [address] Elizabeth Mcarthurdium [Moles/Vol]141 mmol/GRycjfc348-444Ogh [facility] Comment on above:Performed By: #### FT3, TSH, CMP, T4, LIPID #### [facility] [address] [place] [address] [address] Elizabeth McphersonUrea nitrogen [Mass/Vol]19.0 mg/dLCritically high7.0-18.0The [facility] Medical CenterComment on above:Performed By: #### FT3, TSH, CMP, T4, LIPID #### [facility] [address] [place] [address] Dr. Elizabeth Dupree nitrogen/Creatinine [Mass ratio]21.6 mg/mgWexner Medical CenterComment on above:Performed By: #### FT3, TSH, CMP, T4, LIPID #### [facility] [address] [place] [address] Dr. Elizabeth McphersonT4on 41-25-4569U3 [Mass/Vol]7.60 ug/dLNormal4.80-13.90The [facility] Medical CenterComment on above:Performed By: #### FT3, TSH, CMP, T4, LIPID #### [facility] [address] [place] [address] Dr. Elizabeth MachadoHokhris 96-94-0944ZIO5.222 uIU/mLNormal0.358-3.740The [facility] Medical CenterComment on above:Performed By: #### FT3, TSH, CMP, T4, LIPID #### [facility] [address] [place] [address] Dr. Elizabeth McphersonVITAMIN D 25 [place]on 65-19-2988N[place] D 25-OH95.1 ng/mLNormalThe [facility] Medical CenterComment on above:Performed By: #### VITAD #### [facility] [address] [place] [address] Dr. Elizabeth Limon D RANGESSEE BELOWNormalThe [facility] HospitalComment on above: Result Comment: <20 ng/mL Vit D deficient 20 - <30 ng/mL Vit D insufficient 30 - 100 ng/mL Vit D sufficient >100 ng/mL Potential ToxicityPerformed By: #### VITAD #### [facility] [address] [place] [address] [address] Elizabeth Mcpherson Vital Signs Date TimeVital SignValuePerforming KsszocghpOmqheusk59-52-5398 11:16-0400 Diastolic blood ojhktala83 mm[Hg]Tenisha Barlow MD Work Phone: [phone])[address]10-14-2025 11:16-0400 Heart rate59 /Cole Barlow MD Work Phone: [phone])[address] [place], [place] 474[address]10-14-2025 11:16-0400 Respiratory rate16 /Cole Barlow MD Work Phone: [phone] [place], [place] 474[address]10-14-2025 11:16-0400 SaO2% (BldA) [Mass fraction]98 %Tenisha Barlow MD Work Phone: [phone])[address] [place], [place] 474[address]10-14-2025 11:16-0400 Systolic blood iumxzjcy122 mm[Hg]Tenisha Barlow MD Work Phone: [phone] [place], [place] 474[address]10-14-2025 10:42-0400 Inhaled oxygen flow rate3 L/Cole Barlow MD Work Phone: [phone] [place], [place] 474[address]10-14-2025 10:07-0400 Body oinxtb678.02 cmTenisha Barlow MD Work Phone: [phone] [place], [place] 474[address]10-14-2025 10:07-0400 Body znovnu04.57 kgTenisha Barlow MD Work Phone: [phone] [place], [place] 4746405-19-2025 13:16-0400 SaO2% (BldA) [Mass fraction]97 %Mary Romanmini [facility]05-19-2025 13:16-0400Heart rate62 /minMuhammad Sarmini [facility]05-19-2025 13:16-0400 Respiratory rate19 /minMuhammad Sarmini [facility]05-19-2025 13:15-0400 Respiratory rate11 /minMuhammad Sarmini [facility]05-19-2025 13:15-3315WxK8% (BldA) [Mass fraction]94 %Hernandez Sarmini [facility]05-19-2025 13:15-0400Heart rate61 /minMuhammad Sarmini [address] [place], [place] [address]5-19-2025 13:15-0400Blood Pressure LocationMuhammad Sarmini [address] [place], [place] 3233605-19-2025 13:15-0400 Diastolic blood cistowke61 mm[Hg]Hernandez Sarmini [address] [place], [place] [address]5-19-2025 13:15-0400Mean blood mm[Hg]Hernandez Sarmini [facility]05-19-2025 13:15-0400 Systolic blood cwflimgw660 mm[Hg]Hernandez Sarmini [address] [place], [place] [address]5-19-2025 13:10-4702BwR6% (BldA) [Mass fraction]94 %Hernandez Sarmini [facility]05-19-2025 13:10-0400Heart rate67 /minMuhammad Sarmini [facility]05-19-2025 13:10-0400 Respiratory rate15 /minMuhammad Sarmini [address] [place], [place] [address]5-19-2025 13:10-0400Blood Pressure LocationMuhammad Sarmini [address] [place], [place] 3233605-19-2025 13:10-0400 Diastolic blood iitojmjc88 mm[Hg]Hernandez Sarmini [address] [place], [place] 323[address]5-19-2025 13:10-0400Mean blood siegmyvb10 mm[Hg]Hernandez Sarmini [address]05-19-2025 13:10-0400 Systolic blood fxfyoayi114 mm[Hg]Hernandez Sarmini [address]05-19-2025 13:05-0400 Diastolic blood acunaswh04 mm[Hg]Hernandez Sarmini [address] [place], [place] 323[address]5-19-2025 13:05-0400 Systolic blood cmgsfifo542 mm[Hg]Hernandez Sarmini [address] [place], [place] 323[address]5-19-2025 13:05-0400Blood Pressure LocationMuhammad Sarmini [address] [place], [place] 323[address]5-19-2025 13:05-0400Mean blood txgkuieg89 mm[Hg]Hernandez Sarmini [address] [place], [place] 323[address]5-19-2025 12:58-0400Body btevzskfyno99.7 [degF]Hernandez Sarmini [address] [place], [place] 323[address]5-19-2025 12:55-0400 Respiratory rate12 /minMuhammad Sarmini [address] [place], [place] 323[address]5-19-2025 12:45-0400 Respiratory rate12 /minMuhammad Sarmini [address] [place], [place] 323[address]5-19-2025 12:30-0400 Respiratory rate12 /minMuterryd Jessiemini [facility]05-19-2025 11:52-0400Body blglsqryrzt16.88 [degF]Mary Romanmini [facility]02-18-2025 10:31-0500Body udlyyt259.29 cmTenisha Barlow MD Work Phone: [phone] [place], [place] [address]25[address]2-18-2025 10:31-0500 Body mass index (BMI) [Ratio]27.6 kg/t7OnzdwbrTenisha Barlow MD Work Phone: [phone])851-[address] [place], [place] [address]2-18-2025 10:31-0500 Body wfuayy78 kgTenisha Barlow MD Work Phone: [phone])[address]11-04-2024 10:30-0500 Body silgwx025.29 cmMD Tenisha Barlow Work Phone: [phone])[address]11-04-2024 10:30-0500 Body mass index (BMI) [Ratio]27.8 kg/m2MD Tenisha Barlow Work Phone: [phone] [place], [place] 4746411-04-2024 10:30-0500 Body ibeqbwmwmog96.2 [degF]MD Tenisha Barlow Work Phone: [phone] [place], [place] 4746411-04-2024 10:30-0500 Body uwnxcu26.57 kgMD Tenisha Barlow Work Phone: [phone] [place], [place] 4746411-04-2024 10:30-0500 Diastolic blood tdxhhogk11 mm[Hg]MD Tenisha Barlow Work Phone: [phone]11-04-2024 10:30-0500 Heart rate72 /minMD Tenisha Barlow Work Phone: [phone] [place], [place] 4746411-04-2024 10:30-0500 SaO2% (BldA) [Mass fraction]97 %MD Tenisha Barlow Work Phone: [phone] [place], [place] 0253611-04-2024 10:30-0500 Systolic blood nlhtscyx649 mm[Hg]MD Tenisha Barlow Work Phone: [phone]09-03-2024 11:02-0400 Body ghlpel333.56 cmMD Tenisha Yen Work Phone: [phone])[address]09-03-2024 11:02-0400 Body mass index (BMI) [Ratio]27.4 kg/m2MD Tenisha Fortunatoabel Work Phone: [phone])[address] [place], [place] 4746409-03-2024 11:02-0400 Body gwvkfijxyuj09.7 [degF]MD Tenisha Barlow Work Phone: [phone])[address] [place], [place] 4746409-03-2024 11:02-0400 Body pyfasr21.57 kgMD Tenisha Barlow Work Phone: [phone])[address] [place], [place] 4746409-03-2024 11:02-0400 Diastolic blood iakcqjvr18 mm[Hg]MD Tenisha Barlow Work Phone: [phone] [place], [place] 4746409-03-2024 11:02-0400 Heart rate62 /minMD Tenisha Barlow Work Phone: [phone] [place], [place] 4746409-03-2024 11:02-0400 Systolic blood czsxwdyk812 mm[Hg]MD Tenisha Barlow Work Phone: [phone]10-07-2021 12:00-0400 Body xahoqd426.56 cmThomas Felter Other [employer] Other 10-07-2021 12:00-0400Body mass index (BMI) [Ratio] 27.46 kg/o3Akkwhm Felter Other [employer] Other 10-07-2021 12:00-0400Body .58 kgThomas Felter Other [employer] Other Encounters Encounter DateEncounter TypeCare ProviderFacilityStart: 09-16-2025 End: 04-05-4434klyklkspdxYknmhby M Hoy MD Work Phone: [phone]-[facility] BCStart: 09-16-2025 End: 95-72-1616Kpbjakm encounter procedureThrocio KOHLIFormerly [facility] BC Work Phone: Start: 09-14-2025 End: 24-03-6732ocbifnprywJkfuwnfk Talal SarminiFacility:[facility] DHStart: 09-14-2025 End: 89-38-1494Fqqhvkz encounter procedureMuhammad Talal Sarmini [phone]-[facility]db[facility] Start: 09-02-2025 End: 83-66-4962yolppvahdaQrqzszs M Hoy MD Work Phone: [phone]-Nywzxyjwg Health Pain Mgmt BCStart: 09-02-2025 End: 38-85-0918Kcsmnjd encounter procedureThrocio KOHLIFormerly [facility] Work Phone: Start: 09-01-2025 End: 22-78-0643qbbwtexltrUqdzjyz M Hoy MD Work Phone: -Flu VaccineStart: 09-01-2025 End: 54-77-9495Yjrjvwu encounter procedureEarl Bain DO-Flu VaccineStart: 08-25-2025 End: 96-90-8357wlygtknaahGxfexd FelterFacility:[facility] Start: 94-49-5924Ifa-patient / Non-visitThrocio KOHLIFormerly [facility] BC Work Phone: Start: 08-11-2025 End: 92-98-2633upmirbhypnVcfhlnb M Hoy MD Work Phone: [facility] Work Phone: Start: 08-11-2025 End: 26-95-3268Pthfewe encounter procedureThrocio KOHLIFormerly [facility] Work Phone: Start: 07-14-2025 End: 98-78-4353gasckdeiwmYhdxsujt Talal SarminiFacility:FTMCStart: 07-14-2025 End: 55-08-0568eucvuueorsNqacozjd Talal SarminiFacility:CD:[id number]: 05-13-2025 End: 44-40-5869Oixuagr encounter procedureTenisha Ivory MD-MRI [address] Closed Work Phone: Start: 05-13-2025 End: 09-48-5736mxloqipylzUscxjxe M Hoy MD Work Phone: [facility] Work Phone: Start: 03-30-2025 End: 33-48-5264ykgberdxuoJmwvqroe Talal SarminiFacility:FTMCStart: 03-30-2025 End: 90-42-6897Lpkxvsd encounter procedureMuhammad Talal Sarmini [facility] Start: 02-12-2025 End: 25-00-6513qnvxxezgthMaggbdwp Talal SarminiFacility:[facility] DHStart: 01-21-2025 End: 17-50-6158Atlnpu outpatient visit 15 minutesEugene R Kubitz DPM Work Phone: NOPY SWS PODIATRYComment on above:Numbness of toes (Primary Dx)Start: 01-21-2025 End: 98-02-1284luhvgmnhapYOYXOW R KUBITZNot AvailableStart: 12-30-2024 End: 40-97-1961vqblcavfemSymmhyg M Hoy MD Work Phone: [facility] Work Phone: Start: 12-30-2024 End: 39-54-1999Lgjrhez encounter Vitor Barlow MD Work Phone: [facility] Work Phone: Start: 09-15-2024 End: 42-59-6778Frwvjkx encounter procedureMD Tenisha Hoy Work Phone: [facility] Vascular Surgery Work Phone: Start: 09-02-2024 End: 43-53-7791wnurmdftfoCQ Tenisha M Hoy Work Phone: [facility] Work Phone: Start: 09-02-2024 End: 78-71-7779Wjqqqtm encounter procedureMD Tenisha Hoy Work Phone: [facility] [address] Work Phone: start: 08-30-2024 End: 82-29-8375tlrrgoozzbPXYC REFERRALFacility:FTMCStart: 08-30-2024 End: 28-22-0511Iuqrgpo encounter procedureSELF REFERRALSelect [facility] Start: 07-15-2024 End: 60-83-6020bobztmaletAI Tenisha M Hoy Work Phone: [facility] Work Phone: Start: 07-15-2024 End: 09-16-4208Zuqfwab encounter procedureMD Tenisha Hoy Work Phone: [facility] Vascular Surgery Work Phone: Start: 06-02-2024 End: 26-30-9975mhaaauvijvTM Tenisha M Hoy Work Phone: [facility] Work Phone: Start: 06-02-2024 End: 72-48-5836Uvwwzbw encounter procedureMD Tenisha Hoy Work Phone: [facility]-Ultrasound [address] [place] Work Phone: Start: 08-04-2023 End: 66-32-8536Fenjnyy encounter procedureSELF REFERRALSelect [facility]ty [facility] Start: 09-16-2022 End: 58-18-1620plfxwrxlqhIU TENISHA HOYFacility:S8Axpjm: 07-01-2022 End: 73-40-9180Anbsqbf encounter procedureANTELMO FELDER [facility] Start: 10-64-1720Kbaookmck for general adult medical examination without abnormal findingsDR TENISHA FORTUNATOYThe Sugarloaf HospitalStart: 05-13-2022 End: 87-53-9203oqcxxfgoiiKE TENISHA HOYFacility:X8Ifgcu: 05-13-2022 End: 26-96-4646Angfmwuto for general adult medical examination without abnormal findingsDR TENISHA HOYFacility:C5Yxnaf: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
--- OUTSIDE RECORDS SUMMARY | 2025-10-08 05:55 | XMS_ITS | Clinical Summary ---
Author Organization [facility] Address [address] [place] [address] Care Team Providers Care Drafter Commercial Name Role Phone Unavailable Primary Care Provider Unavailabl e Allergies No known active allergies Medications MedicationSigDispense QuantityRefillsLast FilledStart DateEnd DateStatus cetirizine (ZyrTEC) 10 MG tablet Take 10 mg by mouth Daily11/06/2024ctive cholecalciferol (Vitamin D-3) 1.25 MG (40140 UT) capsule Take by mouth 1 (one) [...] tablet Take 8 mg by mouth at jelsnyj8002/15/2024ctive Ascorbic Acid (VITAMIN C PO) Take by mouthActive Multiple Vitamin (multivitamin) tablet Take 1 tablet by mouth DailyActive Active Problems No known active problems Family History Medical HistoryRelationNameCommentsHeart attackFatherDiabetes type INieceBreast cancerSisterDiabetes type ISisterRelationNameStatusCommentsFatherNieceAlive Sister Social History Tobacco UseTypesPacks/DayYears UsedDateSmoking Tobacco: QocapeAozcidgbrp697 Smokeless Tobacco: Former Tobacco Cessation:Counseling Given: Not Answered Alcohol UseStandard Drinks/WeekCommentsNot Currently0 (1 standard drink = 0.6 oz pure alcohol)CommentsUnknownSex and Gender InformationValueDate Recorded Sex Assigned at AgjqzAkstza51/11/2025 10:45 AM EDTLegal YteQsfsvy88/15/2023 11:05 PM EDTGender VtusxkzxBtfvdc87/11/2025 10:45 AM EDTSexual OrientationNot on file Last Filed Vital Signs Vital SignReadingTime TakenCommentsBlood Cyqeicic229/9301/ 12:00 PM EST Pulse--Temperature--Respiratory Rate--Oxygen Saturation--Inhaled Oxygen Concentration--Bcfbov35.2 kg (157 lb)09/16/2021 12:00 PM GOTHkkzio670 cm (5' 3 ) 09/16/2021 12:00 PM EDTBody Mass Index27.8109/16/2021 12:00 PM EDT Plan of Treatment Health MaintenanceDue DateLast DoneCommentsCT Uaosdemgunyi1963FIT-DNA 1963FIT1963FOBT1963 6605Facpobpqjmjxt1963Pap Smear02/10/1984 Cervical Cancer Kuzontdin65/31/1993HPV/Tascfa5102/09/19936943Esvdipxgh73/23/2024 08/04/2023, 07/01/2022, 02/10/2022, Additional history existsCOVID-19 Vaccine ( season)501/, 12/16/2020, 11/18/2020Influenza Vaccine (#1)/02/2023, 08/18/2021, 08/09/2020, Additional history exists Rqulqqitmnp70/16/203104/olorectal Cancer Elvqlyhqs75/16/2031Pneumococcal Vaccine: Pediatrics (0 to 5 Years) and At-Risk Patients (6 to 64 Years)Aged Out No longer eligible based on patient's age to complete this topic Procedures Procedure NamePriorityDate/TimeAssociated DiagnosisCommentsMAMMOGRAM, BILATERAL, SCREEN:*Aqiffym4408/04/2023 11:58 AM EDTfrom Last 3 Months or Most Recently Relevant to Health Maintenance Results * MAMMOGRAM, BILATERAL, SCREEN:* (08/04/2023 11:58 AM EDT)Anatomical Region LateralityModalityRadiographic Imaging Narrative Authorizing ProviderResult TypeResult StatusUnknown Practice AIMG XR PROCEDURES Final Result from Last 3 Months or Most Recently Relevant to Health Maintenance Insurance
--- OUTSIDE RECORDS SUMMARY | 2025-10-08 05:56 | XMS_ITS | Patient Health Record ---
Author Organization [facility] [place] Address [address] [place] [address] Care Team Providers Care Sole Blacker Name Role Phone Baljinder Barlow Primary Care Provider [phone] Allergies No Known Allergies Results Component Value Reference Range Notes XR chest 2V Reviewed date:03/08/2025 01:05:46 PM Interpretation: Performing Lab: Notes/Report: Source Facility: [place] [address] XRay Report Signed Patient: CAMMY MENCHACA MR#: [id number] : 1965 Acct:[id number] Age/Sex: 60 / F ADM Date: 03/07/25 Loc: RAD Attending Dr: Tenisha Barlow M.D. Ordering Physician: Tenisha Barlow M.D. Date of Service: 03/07/25 Procedure(s): XR chest 2V Accession Number(s): [id number] cc: Tenisha Barlow M.D. [address] [address] Patient Name: CAMMY MENCHACA MRN: [id number] date: 1965 Sex: F Assigned Patient Location: RAD Current Patient Location: RAD Accession/Order Number: [id number] Exam Date: 03/07/2025 14:17 Report Date: 03/07/2025 [...] Elliott M.D. 03/07/2025 2:18 PM Dictation Location: [place] [address] Electronically authenticated by: [id number] Y Date: 03/07/2025 14:18 Dictated By: Presley Elliott M.D. Signed By: 03/07/25 1420 DD/ 1418 TD/TT: Marking Devices Assembler: LAB TESTING Reviewed date:04/18/2025 05:13:06 PM Interpretation: Performing Lab: Notes/Report: [id number] LEGIONELLA PNEUMOPHILA [facility] , Miscellaneous Test COMMENT . Test Ordered: [id number] Legionella pneumophila Abs. Legionella pneumophila Abs. Note: [...] diagnosis of infection with Legionella. Performed at: - [address] [id number] Glass Embosser: Handy Hua MD, Phone: [phone] Performed at: [facility] Lab[address] [id number] Glass Embosser: Swapnil Ruiz PhD, Phone: [phone] Performing Lab: see note LC - [facility] LBEpithelial Cells Reviewed date:06/25/2025 07:48:03 [...] ,Result 2See Below For Report Result 2 INDUSTRIAL PLANT CUSTODIAN Performing Lab:see note - [facility] LBResult 3 Reviewed date:06/25/2025 07:48:03 AM Interpretation: Performing Lab: Notes/Report: [facility] ,Result 3See Below For Report Result 3 INDUSTRIAL PLANT CUSTODIAN Performing Lab:see note - [facility] LBResult 4 Reviewed date:06/25/2025 07:48:03 AM Interpretation: Performing Lab: Notes/Report: [facility] ,Result 4See Below For Report Result 4 INDUSTRIAL PLANT CUSTODIAN Performing Lab:see note - [facility] LBGram Stain [...] parainfluenzae O:HAEPAR Isolated Lower Respiratory CulturePerformed at: - [facility] Lower Respiratory Culture Haemophilus parainfluenzae O:HAEPAR Isolated Lower Respiratory Cvestmk[address] [place], [place] [id number] Lower Respiratory Culture Haemophilus parainfluenzae O:HAEPAR Isolated Lower Respiratory CultureLab Director: Swapnil Ruiz PhD, Phone: [phone] Lower Respiratory Culture Haemophilus parainfluenzae O:HAEPAR Isolated Performing Lab:see note LC - [facility] LB SEE REPORT - Merchandise Supervisor Id information not found for OBX-specific print producer legend XR chest 2V Reviewed date:05/30/2025 02:53:00 PM Interpretation: Performing Lab: Notes/Report: Source Facility: [address] [place] [address] XRay Report Signed Patient: CAMMY MENCHACA MR#: [id number] : 1965 Acct:[id number] Age/Sex: 60 / F ADM Date: 05/30/25 Loc: LAB Attending Dr: Tenisha Barlow M.D. Ordering Physician: Tenisha Barlow M.D. Date of Service: 05/30/25 Procedure(s): XR chest 2V Accession Number(s): [id number] cc: Tenisha Barlow M.D. [address] [address] Patient Name: CAMMY MENCHACA MRN: [id number] date: 1965 Sex: F Assigned Patient Location: LAB Current Patient Location: LAB Accession/Order Number: [id number] Exam Date: 05/30/2025 08:05 Report Date: 05/30/2025 08:06 At the request of: TENISHA BARLOW MD Procedure: XR chest 2V PA AND LATERAL CHEST: CLINICAL HISTORY: RR05.3 Chronic coughing COMPARISON: 03/07/2025 FINDINGS: Unremarkable cardiomediastinal. Right hilar/mediastinal calcified granulomas. No focal opacity, effusion or pneumothorax. XR/XR chest 2V IMPRESSION: NO ACUTE CARDIOPULMONARY ABNORMALITY. Impression dictated by: Presley Elliott M.D. 05/30/2025 8:06 AM Dictation Location: [place] [address] Electronically authenticated by: [id number] Y Date: 05/30/2025 08:06 Dictated By: Presley Elliott M.D. Signed By: 05/30/25 0809 DD/ 0806 TD/TT: Marking Devices Assembler:White Blood Cells Reviewed date:06/25/2025 07:48:03 AM Interpretation: Performing Lab: Notes/Report: [facility] ,White Blood CellsSee Below For Report White Blood Cells White Blood CellsFew White Blood Cells Performing Lab:see noteLC - [facility] LBCBC AUTO DIFF Reviewed date:04/15/2025 09:10:22 PM Interpretation: Performing Lab: Notes/Report: [facility] ,White Blood Count4.74.0-11.0 10 3/uLRed Blood Count4.854.20-5.40 10 6/uL Gzufeeapsz92.112.0-16.0 g/mQXotwvgzofm02.336.0-48.0 %Mean Corpuscular Rmkvzo90.2 81.0-99.0 fLMean Corpuscular Zwyvgebugc42.126.7-34.0 pgMean Corpuscular HGB Conc 34.129.9-35.2 g/dLRed Cell Distribution Width13.811.0-15.0 %Platelet Upyom589 150-450 10 3/uLMean Platelet Wuytew24.89.5-13.5 fLNeutrophils Percent Auto44.0 43.0-75.0 %Lymphocytes Percent Auto37.420.5-60.0 %Monocytes Percent Auto9.51.7- 12.0 %Eosinophils Percent Auto8.50.9-7.0 %Basophils Percent Auto0.60.2-2.0 % Immature Granulocytes Pct Auto0.00.0-0.5 %Neutrophils Absolute Auto2.11.4-6.5 10 3/uLLymphocytes Absolute Auto1.81.2-3.8 10 3/uLMonocytes Absolute Auto0.50.3-0.8 10 3/uLEosinophils Absolute Auto0.40.0-0.7 10 3/uLBasophils Absolute Auto0.00.0- 0.1 10 3/uLImmature Granulocytes Abs Auto0.000.00-0.03 10 3/uLPerforming Lab:see noteML - [facility] LBXR soft tissue neck Reviewed date:03/08/2025 01:05:46 PM Interpretation: Performing Lab: Notes/Report: Source Facility: [facility]-[address] [place] [address] [place] [address] XRay Report Signed Patient: CAMMY MENCHACA MR#: [id number] : 1965 Acct:[id number] Age/Sex: 60 / F ADM Date: 03/07/25 Loc: RAD Attending Dr: Tenisha Barlow M.D. Ordering Physician: Tenisha Barlow M.D. Date of Service: 03/07/25 Procedure(s): XR soft tissue neck Accession Number(s): [id number] cc: Tenisha Barlow M.D. [place] [address] Patient Name: CAMMY MENCHACA MRN: [id number] date: 1965 Sex: F Assigned Patient Location: [facility] Current Patient Location: [facility] Accession/Order Number: [id number] Exam Date: 03/07/2025 14:18 Report Date: 03/07/2025 [...] Elliott M.D. 03/07/2025 2:20 PM Dictation Location: [place] [address] Electronically authenticated by: [id number] Y Date: 03/07/2025 14:20 Dictated By: Presley Elliott M.D. Signed By: 03/07/25 1423 DD/ 1420 TD/TT: Marking Devices Assembler:MR antonio gonzalez Reviewed date:09/22/2025 07:11:37 PM Interpretation: Performing Lab: Notes/Report: Source Facility: [place] [address] Magnetic Resonance Report Signed Patient: CAMMY MENCHACA MR#: [id number] : 1965 Acct:[id number] Age/Sex: 60 / F ADM Date: 09/22/25 Loc: MRI Attending Dr: Tenisha Barlow M.D. Ordering Physician: Tenisha Barlow M.D. Date of Service: 09/22/25 Procedure(s): MR pelvis wo con Accession Number(s): [id number] cc: Tenisha Barlow M.D. [place] [id number] Patient Name: CAMMY MENCHACA MRN: [id number] date: 1965 Sex: F Assigned Patient Location: MRI Current Patient Location: MRI Accession/Order Number: [id number] Exam Date: 09/22/2025 13:00 Report Date: 09/22/2025 [...] Cheung M.D. 09/22/2025 6:17 PM Dictation Location: [place] [address] Electronically authenticated by: [id number] Y Date: 09/22/2025 18:17 Dictated By: Paddy Cheung M.D. Signed By: 09/22/251819 DD/ 16 TD/TT: Marking Devices Assembler:MR lumbar spine wo con Reviewed date:09/22/2025 07:11:37 PM Interpretation: Performing Lab: Notes/Report: Source Facility: [place] [address] Magnetic Resonance Report Signed Patient: CAMMY MENCHACA MR#: [id number] : 1965 Acct:[id number] Age/Sex: 60 / F ADM Date: 09/22/25 Loc: MRI Attending Dr: Tenisha Barlow M.D. Ordering Physician: Tenisha Barlow M.D. Date of Service: 09/22/25 Procedure(s): MR lumbar spine wo con Accession Number(s): [id number] cc: Tenisha Barlow M.D. [place] [address] Patient Name: CAMMY MENCHACA MRN: [id number] date: 1965 Sex: F Assigned Patient Location: MRI Current Patient Location: MRI Accession/Order Number: [id number] Exam Date: 09/22/2025 13:00 Report Date: 09/22/2025 [...] Cheung M.D. 09/22/2025 6:04 PM Dictation Location: [place] [address] Electronically authenticated by: [id number] Y Date: 09/22/2025 18:04 Dictated By: Paddy Cheung M.D. Signed By: 09/22/25 1806 DD/ 1804 TD/TT: Marking Devices Assembler:LAB TESTING Reviewed date:04/18/2025 05:13:06 PM Interpretation: Performing Lab: Notes/Report: [id number] MYCOPLASMA PNEUMONIAE IGM,IGG [facility] ,Miscellaneous TestCOMMENT. Test Ordered: [id number] Mycoplasma pneu. IgG/IgM Abs M pneumoniae IgG Abs 602 [H ] U/mL CB Reference Range: 0-99 Negative: <100 Indeterminate: 100 [...] pneumoniae specific IgM antibody detected. Performed at: - [facility] [id number] Glass Embosser: Swapnil Ruiz PhD, Phone: [phone] Performing Lab:see note - [facility] LB Reason For Referral Diagnosis 1 Sacral fracture (S32 .10XA) Referral Organization [facility] Referring Provider First Name Baljinder Referring Provider Last Name Mitchell Referring Provider Speciality [facility] ty Referred Provider Karlos Puente Referred [...] DAY; Duration: 90 daysActiveVitamin D3 1.25 MG (36293 UT)1 capsule Orally once a week; Duration: [...] in the past year?Less than monthly (1 point)Rujncd1EwlyfuaobtrphqKgiepakaPZAHG-U (Standard) Question Answer Notes Did you have a drink containing alcohol in the p ast year? No Fvhkln2IoogfioehpdpsgQrqlotyh Problems Problem Type SNOMED Code ICD Code Onset Dates Problem Status W/U Status Risk Notes Problem Enthesopathy of hip region (3093 6004) Psoas tendinitis, right hip (M76.11) ActiveconfirmedProblemMigraine variant with headache (disorder) (499851217) Migraine headache (G43.909)ActiveconfirmedProblemHypothyroidism (48102380) Hypothyroidism (E03.9)ActiveconfirmedProblemVaricose vein (04715621)Varicose vein (I86.8)ActiveconfirmedProblemVitamin D deficiency (44495680)Vitamin D deficiency (E55.9)ActiveconfirmedProblemBarrett esophagus (236718361)Vickers esophagus (K22.70)ActiveconfirmedProblemLumbar radiculopathy (461414125)Lumbar radiculopathy (M54.16)ActiveconfirmedProblemArthralgia (58226054)Arthralgia (M25.50)ActiveconfirmedProblemSacroiliitis (03527246)Sacroiliitis (M46.1)Active confirmedProblemColitis (56178085)Colitis (K52.9)ActiveconfirmedProblem Osteoporosis (90792543)Osteoporosis (M81.0)ActiveconfirmedProblemAcute bronchitis (07446340)Acute bronchitis (J20.9)ActiveconfirmedProblemWell adult (926860796)Well adult (Z00.00)ActiveconfirmedProblemCervical disc disease (377386891)Cervical disc disease (M50.90)ActiveconfirmedProblemAcute bronchitis (51740817)Acute bronchitis, unspecified organism (J20.9)ActiveconfirmedProblem Seasonal allergic rhinitis (505824608)Seasonal allergic rhinitis (J30.2)Active confirmedProblemInternal derangement of knee (85310312)Internal derangement of knee (M23.90)ActiveconfirmedProblemSchatzki's ring (00159391)Schatzki's ring (K22.2)Activeconfirmed Vital Signs Temperature 98.6 degrees Fahrenheit 02/16/2025 Blood pressure gqkzyvral79 mm Hg09/10/20254145Uikxtz14 in09/10/2025lood pressure ysqmnggy765 mm Hg09/10/20251845Puenjd069 lbs03/16/2025BMI30.47 kg/m203/16/2025 Encounters Encounter Location Date Provider Diagnosis [facility] [address] [place] [address] 09/23/2025 Balj[facility] [place] [address] 09/29/2025Doug [facility] [place] [address]/06/2025Doug [facility] [place] [address]/Doug HoyChronic coughing R05.3 and Cough, persistent R05.3B[facility] [place] [address]/Doug [facility] [place] [address]/02/2025Doug HoyLumbar radiculopathy M54.16[facility] [place] [address]/08/2025 Baljinder HoySacroiliitis M46.1B[facility] [place] [address]/09/2025Doug HoySacral fracture S32.10XABSt. [facility] Hospital[address] [place] [address]/02/2025[facility]oyBV[facility] [facility] [place] [address]/ Baljinder HoyAcute bronchitis J20.9BSt[facility] [facility] [place] [address]/Doug HoyChronic coughing R05.3BSt. [facility] [facility] [place] [address]/Doug Hoy [facility] [place] [address] 04/15/2025Doug HoyCough, persistent R05.3BSt. [facility] [facility] [place] [address]/05/2025Doug [facility] [place] [address]/Doug [facility] [place] [address]/ Baljinder HoyAcute bronchitis, unspecified organism J20.9B[facility] [place] [address]/Doug HoySeasonal allergic rhinitis J30.2BSt. [facility] [place] [address]/05/2025Doug HoyAcute bronchitis J20.9BSt. [facility] [facility] [place] [address]/03/2025Doug Hoy Acute bronchitis, unspecified organism J20.9B[facility] [facility] [place] [address]/10/2025Doug HoyInternal derangement of knee, right M23.91Bu[facility] [place] [address]/Doug HoyLumbar radiculopathy M54.16 Assessments Encounter Date Diagnosis (ICD Code) Assessment Notes Treatment Notes Treatment Clinical Notes Section Notes 12/25/2024 Acute bronchitis, unspecified or ganism (ICD-10 - J20.9) Rest and drink more liquids, especially water. You may use a humidifier or vaporizer to help keep the drainage moist. Yccg-ihx-znfazjz Nasal Saline may help the stuffy and runny nose. Use Ibuprofen and or Tylenol as needed for fever, chills, body aches or pain. Children 5 years old should not be given bnxq-fiv-bhhtakr cough and cold medications such as guaifenesin and dextromethorphan. If you're over age 5, you may try bwvb-eud-yyhqcbk cold medications such as guaifenesin and dextromethorphan, [...] go to the emergency room or call [address]/5Acute bronchitis (ICD-10 - J20.9)5Acute bronchitis, unspecified organism (ICD-10 - J20.9)Rest and drink more liquids, especially water. You may use a humidifier or vaporizer to help keep the drainage moist. Yqcg-rlo-xfhurrq Nasal Saline may help the stuffy and runny nose. Use Ibuprofen and or Tylenol as needed for fever, chills, body aches or pain. Children 5 years old should not be given vzqu-rka-vpuzafh cough and cold medications such as guaifenesin and dextromethorphan. If you're over age 5, you may try gbze-tzb-mvsvxdo cold medications such as guaifenesin and dextromethorphan, [...] go to the emergency room or call [phone] derangement of knee, right (ICD-10 - M23.91)06/03/2025Seasonal allergic rhinitis (ICD-10 - J30.2)09/10/2025Lumbar radiculopathy (ICD-10 - M54.16)5Acute bronchitis (ICD-10 - J20.9)5Chronic coughing (ICD-10 - R05.3)04/15/2025 Cough, persistent (ICD-10 - R05.3)5Chronic coughing (ICD-10 - R05.3) 05/28/2025ough, persistent (ICD-10 [...] Date MMO [employer] [address] [place] [address] [phone] [id number] Cammy Bolden Self - patient is the insured 3 Medications Administered Medication Instructions Date of Administration Dosage Notes Kenalog-40 mgKetorolac Wyphdpxtopir07/30/202560 mgOrphenadrine Citrate mgTriamcinolone 40 mg/ml mgTriamcinolone 40 mg/ml mgTriamcinolone 40 mg/ml20 mg Medical (General) History Medical History History ICD Code Colitis K52.9 Arthralgia M25.50 Cervical disc disease M50.90 Hypothyroidism E03.9 Migraine headache G43.909 Osteoporosis M81.0 Psoas tendinitis, right hip M76.11 Schatzki's ring K22.2 Seasonal allergic rhinitis J30.2 Vitamin D deficiency E55.9 Surgical History Surgery Date(Month/Year) Cervical branch Block C3,C4,C5 09/2021 Trapezius Trigger Point Inj- Dr. Chiu 08/2021 Total Abdominal Hysterectomy 11/2010 Esophageal Dilation- Dr. Howard 10/2018 Cervical Facet Medial Branch Denercation C3,C4,C5- Dr. Chiu 10/2021 EGD/Colonoscopy 03/30/2025
[2025-10-08 05:59] VITALS: BP 129/73
--- NOTE | 2025-10-08 06:01 | ED.GENADUL1 ---
HPI HPI - General Adult General Chief complaint: Epistaxis Stated complaint: NOSE, EAR BLEED Time Seen by Provider: 10/08/25 05:20 Source: patient Mode of arrival: Wheelchair Limitations: no limitations History of Present Illness HPI narrative: Patient is a 60-year-old female presenting to the emergency department for evaluation of a nosebleed. Patient woke up in the middle of the night about an hour ago with a nosebleed. The bleeding was so severe that she decided come to the emergency department for evaluation. She denies history of chronic nosebleeds. She denies any anticoagulation or antiplatelet medications. She denies history of trauma. No history of ENT conditions or prior procedures. Other than the nosebleed and some blood draining from the left ear, she denies any other symptoms. She denies any loss or changes in her hearing. She has had no vomiting. No chest pain or shortness of breath. No lightheadedness, dizziness, or palpitations. Related Data Home Medications ?Medication ?Instructions ?Recorded ?Confirmed No Known Home Medications 10/08/25 10/08/25 Allergies Allergy/AdvReac Type Severity Reaction Status Date / Time No Known Drug Allergies Allergy Verified 10/08/25 05:20 Review of Systems ROS Status of ROS 10 or more systems reviewed and unremarkable except as noted in history and below PFSH PFSH Social History Little interest or pleasure in doing things: not at all Feeling down, depressed, or hopeless: not at all Exam Narrative Exam Narrative: CONSTITUTIONAL: Appears uncomfortable, answering questions and following commands appropriately. SKIN: Was warm and dry. EYES: Sclerae white. No conjunctival pallor. EARS, NOSE, THROAT: There is a moderate amount of active, nonpulsatile bleeding from the bilateral naris. No septal hematoma. There is a small amount of blood draining from the left external auditory meatus and from behind the left TM with possible perforation. There is left sided hemotympanum. She has some muffled hearing in the left ear but is still able to hear quite well. The right TM is within normal limits. RESPIRATORY: Clear to auscultation bilaterally, no wheezes, crackles, or stridor, no use of accessory muscles CARDIOVASCULAR: Normal rate and regular rhythm. There is no S3, S4, murmur, rub. GASTROINTESTINAL: Abdomen is nondistended. MUSCULOSKELETAL: No peripheral edema. NEUROLOGIC: Patient is awake and alert. Facies were symmetrical. Constitutional Vital Signs, click to edit/add: Last Vital Signs Pulse 78 10/08/25 05:21 Resp 18 10/08/25 05:21 BP 129/73 10/08/25 05:59 Pulse Ox 98 10/08/25 05:21 O2 Del Method Room Air 10/08/25 05:21 Course Vital Signs Vital signs: Vital Signs Pulse Rate 78 10/08/25 05:21 Respiratory Rate 18 10/08/25 05:21 Blood Pressure 155/104 H 10/08/25 05:21 Pulse Oximetry 98 10/08/25 05:21 Oxygen Delivery Method Room Air 10/08/25 05:21 Pulse Rate 78 10/08/25 05:21 Respiratory Rate 18 10/08/25 05:21 Blood Pressure 129/73 10/08/25 05:59 Pulse Oximetry 98 10/08/25 05:21 Oxygen Delivery Method Room Air 10/08/25 05:21 Medical Decision Making MDM Narrative Medical decision making narrative: Patient is a 60-year-old female presenting to the emergency department with a 1 hour history of a nosebleed. Her vital signs on arrival are significant for mild hypertension, otherwise within normal limits. She is afebrile and hemodynamically stable. On examination, she is having a moderate amount of active, nonpulsatile bleeding from the bilateral nares and from the left ear. Anterior nasal packing with oxymetazoline and lidocaine w/ epinephrine soaked gauze were placed followed by 20 minutes of direct pressure. This initial measure adequately achieved hemostasis. She was monitored in the emergency department for an hour without recurrence of the bleeding. Patient's presentation is consistent with spontaneous, nontraumatic anterior epistaxis. She has no other systemic symptoms and feels at her baseline state of health. In regards to the bleeding from the left ear, there is evidence of hemotympanum and a possible small tympanic membrane rupture. There is may be a result of pressure behind the TM from blood accumulation. I did elect to empirically treat her with Ciprodex otic suspension and instructed her to follow-up with ENT. I do believe the patient is stable for discharge. They were instructed to follow up with the ENT clinic and her PCP for further care. Return precautions were given including any new or worsening symptoms, including persistent epistaxis despite direct pressure and oxymetazoline administration. They were given Ciprodex otic suspension to go home with - instructed to use 4 drops BID x 7 days. Patient understands and agrees to the plan. FINAL IMPRESSION: 1. Acute epistaxis, likely anterior, resolved 2. Acute left hemotympanum secondary to #1 DISPOSITION: Discharged home CONDITION: Fair Discharge Plan Discharge Chief Complaint: Epistaxis Clinical Impression: Epistaxis, Hematotympanum of left ear Patient Disposition: Home, Self-Care Time of Disposition Decision: 06:19 Condition: Good Mode of Transportation: Private Vehicle Prescriptions / Home Meds: No Action No Known Home Medications Print Language: Hungarian Instructions: Nosebleed (ED) Additional Instructions: Follow up with ENT (Dr. Painting) as soon as possible. Use Ciprodex - 4 drops in the left ear twice a day for 7 days. Referrals: Brad Medrano MD [Primary Care Provider, Family Practice] - 1 week Deb Painting MD [Physician, Ear, Nose, Throat] - As soon as possible Referral Note: Clinical Impression: Epistaxis; Hematotympanum of left ear
[2025-10-08] MEDS: CIPROFLOXACIN HCL/DEXAMETH 0.3%/0.1% OTIC SUSP 150 DROP/7.5 ML BOTTLE OT (06:31)
--- NOTE | 2025-10-08 06:58 | PC.NURSE ---
i gave this patient verbal and written discharge orders and this patient voices yes to understanding these.at time of discharge this patient voices no concerns, needs and shows no shows no signs of distress
== END 2025-10-08 06:58 | disposition home or self-care (01) ==
PROVIDERS: Emergency Provider Student in an Organized Health Care Education/Training Program; PCP Family Medicine
DX: R04.0 Epistaxis (principal); H92.22 Otorrhagia, left ear
CPT/HCPCS: 30901; 99282

== ENCOUNTER 2025-10-29 13:50 | Outpatient (OUT) | payer OTHER, SELFPAY ==
--- OUTSIDE RECORDS SUMMARY | 2025-10-26 10:57 | XMS_ITS | Continuity of Care Document ---
Author Organization [facility] Address [address] [place] [address] Phone Care Team Providers Care Inspectors And Regulatory Officers Name Role Phone Brad Medrano MD Primary Care Provider Stanislaw Chiu MD Attending Provider Stanislaw Chiu MD Other Provider Earl Shrestha DO Attending Provider Ariela Elliott APRN Attending Provider [phone] Jovani Edmonds DO Attending Provider [phone] Care Teams Patient Care Team Team Status: [...] 01, 2025 End: September 01radha Saunders - GASTON , DO CHCAttending ProviderActiveStart: September 01, 2025 End: September 01, 2025 Visit Care Team Team Status: Inactive Member Role/Relationship Status Dates Brad Medrano MD Primary Care Provider Active Start: September 02, 2025 End: September 02, 2025Thomas Sarah Chiuending ProviderActiveStart: September 02, 2025 End: September 02, 2025 Visit Care Team Team Status: Inactive Member Role/Relationship Status Dates Brad Medrano MD Primary Care Provider Active Start: September 16, 2025 End: September 16omas Itzel Chiu ProviderActiveStart: September 16, 2025 End: September 16, 2025 Visit Care Team Team Status: Inactive Member Role/Relationship Status Dates Brad Medrano MD Primary Care Provider Active Start: September 29, 2025 End: September 29, 2025Elena Earl , APRNAttending ProviderActiveStart: September 29, 2025 End: September 29, 2025 Patient Care Team Team Status: Inactive Member Role/Relationship Status Dates Brad eMdrano MD Primary Care Provider Active Start: October 26, 2025 End: October 26, 2025Eric Ann Edmonds , DOAttending ProviderActiveStart: October 26, 2025 End: October 26, 2025 Chief Complaint and Reason for Visit Chief Complaint Admit Date SCIATIC PAIN August 11, 2025 2:56pm LUMBAR PAIN August 25, 2025 9 :27am Z23 September 01, 2025 8 :00am F/U LEFT SI JOINT INJECTION August 10:22am RECHECK September 16, 2025 1 0:25am low back pain September 29, 2025 10:56am Sacrum Pain - request schedule per [facility] October 26, 2025 3:12pm Reason for Visit Admit Date Greater trochanteric [...] not elsewhere classified N ovember 2024 10:25am Sacral fracture September 29, 2025 10:56am Sacral insufficiency fracture September 122024 10:56am Reason for Referral Type Reason(s) Provider Provider Contact Information P rovider Address Start Date Sacral insufficiency fracture Fracture of sacrumCall Dr. Gerard office to schedule a follow up appointment if you do not already have one scheduledThomas Taya Chiu MDWork Phone: [phone] [employer] [place] [address]C58.48XA - Pathological fracture, other site, initial encounter for fracture,S32.10XA - Unspecified fracture of sacrum, initial encounter for closed fractureDianelys Ovalle MDWork Phone: [phone] [employer] [place] [address]Dxpkagrp 2024 Allergies, Adverse Reactions, Alerts Allergen Type Severity Reaction Last Updated Verified Status No Known Allergies Allergy Unknown October 26, 2025 2:51pmYesActive Social History Smoking Status Status Start Date End Date Date of Observa tion Ex-smoker (finding) August 12, 2025 10:09am Observation Status Observation Response Date of Response Legal Sex [facility] (finding) [facility] 1964 Family History Relationship Condition Age at Onset Recorded Date/T sergei father Heart disease Unknown DeceasedUnknown Problems Active Problems Problem Diagnosis/Recorded Date Onset Date Status C omments Sacral insufficiency fracture September 29, 2025 12:08pm Unknown Active Impingement syndrome of left shoulderFebruary 2024 11:17amUnknownActive Greater trochanteric bursitis of left hipSeptember 2024 2:47pmUnknown ActiveVaricose veins of bilateral lower extremities with painJune 2023 8:19amUnknownActiveArthritis of neckSeptember 2023 9:56amUnknownActiveLow back painSeptember 2024 2:47pmUnknownActiveChronic painSeptember 2023 9:56amUnknownActiveAge related osteoporosisNovember 2024 11:41amUnknown ActiveDegenerative disc disease, cervicalSept2023 9:56amUnknownActive Chronic back painOctober 2020 11:29amUnknownActiveLeft shoulder pain December 29, 2024 4:34pmUnknownActiveSacral fractureNovember 2024 12:08pmUnknownActiveSacroiliitis, not elsewhere classifiedSeptember 2024 2:47pmUnknownActiveInactive/Resolved Problems Problem [...] Acid (Vitamin C) (Vitamin C) 1,000 mg HkzhxuYkmpgy3RDNZFwzjuKkvkcjo 2020 11:00pmComplies with drug therapyAlendronate (Fosamax) 70 mg PsvwxrMjddmyguyzsy86BKYKocfse week September 08, 2021 11:00pmSeptember 2023 9:54amLevothyroxine 25 mcg Tablet Jydlig25AZIGFMdjggDymahnn 2020 11:00pmComplies with drug therapyPotassium 75 mg NhfezgTnahzt12ZOLRJaahhBxtbecj 28th, 2021 11:00pmComplies with drug therapyErgocalciferol (Vitamin D2) 1,250 mcg (50,000 unit) CapsuleDiscontinued 83337MCGGDCVq DirectedOctober 2020 11:00pmSept2023 9:54am Mesalamine (Lialda) 1.2 gram Tablet,Delayed Release (Dr/Ec)Active2.4GMPODaily September 08, 2021 11:00pmComplies with drug therapyMultivitamin (Daily Multi- Vitamin) mdcjcnNkpzhx2JHOVWRlaazWayjatt 13th, 2025 11:00pmComplies with drug therapyCholecalciferol (Vitamin D3) 1,250 mcg (50,000 unit) nlrzcikIjfqls27691 UNITPOevery weekS2023 11:00pmComplies with drug therapy Pantoprazole 40 mg tablet,delayed release (DR/EC)DiscontinuedMGPOSe2023 11:00pmAugust 11, 2025 2:24pmCetirizine 10 mg hmjabjVpsvrm47RGIAZsdzy July 14, 2024 11:00pmComplies with drug therapyMigaebler [facility] opucMhsiaowusrsj2JQFASAELCJRUOAGadrw4172Qeprbtuvc 2nd, 2024 11:00pm August 25, 2025 9:05amVaricose veins of both lower extremities with pain Varicose veins of bilateral lower extremities with siws27-06 compression thigh high stockingsCalcium Carbonate (Calcium 600) 600 mg calcium (1,500 mg) tablet Wrjsai786ZFIRZcgmz dailyNov2024 12:00amComplies with drug therapy Famotidine 40 mg fvdncmEeaiah04MBSXNbulr dailySept2024 11:00pm Complies with drug therapyEsomeprazole Magnesium 40 mg capsule,delayed release(DR/EC)Whtquz05THYQHevbbJxckkrenb 29th, 2025 11:00pmComplies with drug therapy Immunizations Immunization Event Date Not Given Reason Dose Number [employer] Lot Number Reason(s) Given Vaccine Information Statement (VIS) Detail Administration Location MUSCOGEEID-19 mRNA-1273 ([facility]) November 18, [id number] [place], [place] [address]COVID-19 mRNA-1273 (Moderna)November 252COVID-19 mRNA-1273 (Moderna)December [id number] Community Hospital CtrTrivalent Influenza VaccineOctroberts [facility] 2014 Vital Signs Vital Reading Result Reference Range Collection Date/Time Height 63 [in_i] August 25, 2025 9:61psGnarum33.57 kgOctroberts chapel 2024 9:07amHeart Rate59 /kje28-358Crudtxl 2024 10:16amRespiratory rate16 /spr72-20Yblftim 2024 10:16amOxygen saturation by Pulse luhxarkt20 %95-100[facility] 2024 10:16amBP Yihzmnxv166 mm[Hg]100-140[facility] 2024 10:16amBP Ljwlbaacz42 mm[Hg]60-100[facility] 2024 10:16amInhaled oxygen flow rate3 L/minKalkaska Memorial Health Center 2024 9:96wzHuqvah25 [in_i]September 29, 2025 11:17dnLsjxef39.20 kg September 29, 2025 11:05amBMI (Body Mass Index)30.9 kg/s1Aiokiigc2024 11:99hrRzcnfy77.20 kgDecebanner ironwood medical center 2024 3:15pm Advance Directives Advance Directive Response Recorded Date/ Time Advance Directives No August 12, 2025 9:09am Insurance Providers Guarantor Betsy Menchaca Address [address] [place] [phone] Info.Home Phone: Payer Group Member ID Coverage Type Subscriber Relationship to Subscriber Effective Date Expiration Date MMO Id: [id number] Encounters Encounter Location(s) Arrival/Admit Date Discharge/Departure Date Discharge/Departure Disposition Provider(s) Departed Physician/ Provider Office Visit -[facility] August 11, 2025 2:56pm August 11, 2025 3:54pm Discharged to home care or self care (routine discharge) Taya Caruso MD Non-patient / Non-visit -[facility] August 25, 2025 9:27am Taya Caruso MDDeparted Clinical-Flu VaccineSeptember 01, 2025 8:00am September 01, 2025 8:05Taya Franz DODeparted Physician/Provider Office Visit-[facility] [place] [facility]October 2024 10:22amOctober 2024 10:50amDischarged to home care or self care (routine discharge)Taya Caruso MDDeparted Physician/Provider Office Visit-[facility] September 16, 2025 10:25amNovember 2024 10:52amDischarged to home care or self care (routine discharge)Taya Caruso MDDeparted Physician/Provider Office Visit-[facility] NeurosurgeryNovember 2024 10:56amNovember 2024 11:40amDischarged to home care or self care (routine discharge)Ariela Elliott APRNDeparted Physician/Provider Office Visit-[facility] NeurosurgeryDeceer 2024 3:12pmDecember 2024 3:55pmDischarged to home care or self care (routine discharge)Jovani Edmonds , DO Recent Diagnosis Onset Date Admit Date Greater [...] elsewhere classified Unknown September 16, 2025 10:25am Sacral fracture Unknown September 29, 2 025 10:56am Sacral insufficiency fracture Unknown No vember 2024 10:56am Assessments Diagnosis Onset Date Resolution Status Admit Date Greater trochanteric bursitis of left hi p acuteSeptember 2024 2:56pmLow back painacuteSeptember 2024 2:56pm Sacroiliitis, not elsewhere classifiedacuteSeptember 2024 2:56pmGreater trochanteric bursitis of left hipacuteOctober 2024 10:22amLow back pain acuteOctober 2024 10:22amSacroiliitis, not elsewhere classifiedacute October 2024 10:22amGreater trochanteric bursitis of left hipacuteNovember 2024 10:25amLow back painacuteNovember 2024 10:25amSacroiliitis, not elsewhere classifiedacuteNovember 2024 10:25amSacral fractureacuteNovember 2024 10:56amSacral insufficiency fractureacuteNovember 2024 10:56am Plan of Treatment Author Daryl Pollack [facility] 2024 9:51amPatient notes considerable improvement in their [...] myself Stanislaw Chiu M.D. Author Stanislaw Chiu [facility] 2024 9:00amPatients primary complaint today is [...] amended by myself Stanislaw Chiu M.D. Author Ariela Earl [facility] CenterAuthoredNovflagstaff medical center 2024 12:07pmPatient is a 60-year-old female who presents today with complaints of lower back pain with radiation into bilateral buttocks and SIs. Her symptoms started initially about 3 months ago, she does not recall any injuries or falls. Patient does tell me that she has been diagnosed with osteoporosis in the past, however it has not been treated other than with vitamin D and calcium supplementation. Patient has seen Dr. Chiu with pain management and received bilateral SI and trochanteric injections. She did not have much improvement in her symptoms or it did not last for longer than a week and a half. She underwent a lumbar spine and pelvis MRIs which demonstrated bilateral sacral ala fractures, insufficiency type with the left being greater than the right. I also reviewed the lumbar spine MRI which demonstrates some degenerative changes, but no high-grade central or neuroforaminal stenosis. I went over the imaging findings with the patient in detail. We have discussed that most likely the insufficiency fracture had happened due to known osteoporosis. Last DEXA scan was at least several years ago, we are going to update that. I explained to the patient that most likely this is going to be managed conservatively. I offered to refer the patient to orthopedic surgery to discuss available options, she declines at this time. I encouraged the patient to follow-up with Dr. Chiu to discuss conservative measures to which she is agreeable. The DEXA scan will be ordered today. She can continue using yjxe-xed-jptwfbf modalities to help with the pain including Tylenol, ibuprofen, Lidoderm patches and Voltaren. She can also try a doughnut pillow to help relieve the pressure off the affected area. I can see her back in the office on as-needed basis to which the patient is agreeable. Author Stanislaw Chiu [facility] CenterAuthoredSeptember 2024 3:30pmPatients primary complaint today is severe [...] axial skeleton September 29, 2025 11:[address] pelvis wo conDecember 2024 3:46pm Future Visits Future appointment information is unavailable Future Procedures Procedure Name Ordered Date Scheduled Date Discharge Order August 25, 2025 10:21am Octob er 2024 10:21am Future Medications Future medication information is unavailable Patient Instructions Instruction Admit Date Low back pain in adults August 11, 2025 2:56pm Know your Meds Aram Non Diagnostic BlockOctober 2024 9:27am Hospital Discharge Instructions Ambulatory Orders* Referral to Orthopedics Location: None Selected
--- OUTSIDE RECORDS SUMMARY | 2025-10-26 11:30 | XMS_ITS ---
Author Organization [facility] in [place] Address [address] [place] [address] Care Team Providers Care Kitchen Porter Name Role Phone Baljinder Medrano Primary Care Provider [phone] Allergies No Known Allergies REASON FOR VISIT back pain is getting worse, follow up from neurosurgery appt today at pending sale to [facility] dr Edmonds Medications Medication SIG (Take, Route, Frequency, Duration) Notes Start Date End Date Status Vitamin D3 1.25 MG (63078 UT) 1 capsule Orally o nce a [...] 025 Encounters Encounter Location Date Provider Diagnosis [facility] [address] [place] [address] 10/26/2025 Baljinder Medrano Bloody nose R04.0 an [...] Betsy MENCHACA BDOB: [birth year] (60 yo F)Acc No.[id number]:10/26/2025 Progress Note Patient: Betsy CUNNINGHAM :?Brad Medrano ([facility]), MDDOB:1965???Age: 60 Y???Sex:FemaleDate:10/26/2025Phone:[phone]:[address] [facility] [id number] In:04:24 PM ESTCheck Out:05:42 PM EST Subjective: * Chief Complaints: * b ack pain is getting worse, follow up from neurosurgery appt today at pending sale to [facility] dr Edmonds * ROS: ???EENT:?hearing changes?denies.?visual changes?denies. [...] Psoas tendinitis, ri ght hip Modified On:05/20/2023 Status:renccxnghG45.909Migraine headache Modified On:05/20/2023 Status:zsnwapomuP15.9Hypothyroidism Modified On:05/20/2023 Status:fnlznrxgoH71.9Vitamin D deficiency Modified On:05/20/2023 Status:rszrqavltI57.50Arthralgia Modified On:05/20/2023 Status:foqwwszleQ75.9Colitis Modified On:05/20/2023 Status:ezmroqroqQ55.0Osteoporosis Modified On:05/20/2023 Status:krvjlvjfzQ26.90Cervical disc disease Modified On:05/20/2023 Status:metixtykcD94.2Seasonal allergic rhinitis Modified On:05/20/2023 Status:gtvjxjnetY85.2Schatzki's ring Modified On:08/20/2023 Status:xxrsbodfeE08.00Well adult Modified On:05/21/2023 Status:xqsoomxceF01.8Varicose vein Modified On:07/16/2024 Status:xkhyfqfvpO11.9Acute bronchitis, unspecified organism Modified On:12/25/2024U Status:yncwjllejI04.9Acute bronchitis Modified On:02/16/2025 Status:mxfwqbgolY52.90Internal derangement of knee Modified On:04/23/2025 Status:nzzzochshD62.70Barrett esophagus Modified On:07/20/2025 Status:zfaqxlsceJ78.1Sacroiliitis Modified On:08/13/2025U Status:phgwojwwbY69.16Lumbar radiculopathy Modified On:09/10/2025U Status:mlmwnzdekJ79.0Bloody nose Modified On:10/26/2025W/U Status:confirmed * Medical History: [...] Release 1 tablet orally twice daily Trelegy Ellipta(Hvyjfxishmt-Bofoirefe-Wqxgwz) 100-62.5-25 MCG/ACT Aerosol Powder Breath Activated 1 puff Inhalation Once a day Ventolin HFA(Albuterol Sulfate HFA) 108 (90 Base) MCG/ACT Aerosol Solution 2 puff as needed Inhalation every 4 hrs Vitamin C Vitamin D3 1.25 MG (81722 UT) Capsule 1 capsule Orally once a [...] 1 tablet orally twice daily Taking Trelegy Ellipta(Qnifeeckhul-Stoilikjk-Pwtlki) 100-62.5-25 MCG/ACT Aerosol Powder Breath Activated 1 puff Inhalation Once a day Taking Ventolin HFA(Albuterol Sulfate HFA) 108 (90 Base) MCG/ACT Aerosol Solution 2 puff as needed Inhalation every 4 hrs Taking Vitamin C Taking Vitamin D3 1.25 MG (54023 UT) Capsule 1 capsule Orally once a [...] true * Provider: Donald Medrano ([facility])MD Date: 1 12/27/2024 Generated for Printing/Faxing/eTransmitting on:?10/29/2025 01:54 PM EST History and Physical Notes * Examination [...]
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
--- NOTE | 2025-10-29 13:58 | CT_ITS ---
The [address] [address] Patient Name: CAMMY MERINO MRN: [id number] date: 1965 Sex: F Assigned Patient Location: CT Current Patient Location: CT Accession/Order Number: [id number] Exam Date: 10/29/2025 14:13 Report Date: 10/29/2025 14:43 At the request of: ALEXANDER DOOLEY DO Procedure: CT pelvis wo con CT PELVIS without INTRAVENOUS CONTRAST: CLINICAL HISTORY: Fracture Of Sacrum, Sacral Insufficiency Fracture COMPARISON: MRI pelvis 09/22/2025 TECHNIQUE: Spiral images were obtained through the pelvis without the administration of IV contrast. This CT exam was performed using one or more following dose reduction techniques: Automated exposure control, adjustment of the mA and/or kV according to patient size, or use of iterative reconstruction technique. FINDINGS: There is insufficiency fracture involving the sacrum with associated sclerosis as seen on the prior MRI study. SI joints demonstrate degenerative change. Pubic symphysis demonstrate degenerative change. Mild degenerative changes of the hips without fracture. No soft tissue swelling. No fluid collection. Intrapelvic contents demonstrates no acute findings. CT/CT pelvis wo con IMPRESSION: INSUFFICIENCY FRACTURE INVOLVING THE SACRUM GROSSLY SIMILAR TO THE PRIOR STUDY. Impression dictated by: Vipin Luna Jr., D.O. 10/29/2025 2:43 PM Dictation Location: [place] [address] Electronically authenticated by: [id number] Y Date: 10/29/2025 14:43
== END 2025-10-29 13:51 | disposition home or self-care (01) ==
LOC: CT 13:52
PROVIDERS: PCP Family Medicine; Visit Provider Neurological Surgery
DX: S32.10XD Unspecified fracture of sacrum, subsequent encounter for fracture with routine healing (principal)
CPT/HCPCS: 72192; 76376

== ENCOUNTER 2025-11-02 08:05 | Outpatient (OUT) | payer OTHER, SELFPAY ==
--- OUTSIDE RECORDS SUMMARY | 2025-10-26 11:30 | XMS_ITS ---
Author Organization [facility] in [place] Address [address] [place] [address] Care Team Providers Care Side Laster Tack Name Role Phone Baljinder Medrano Primary Care Provider [phone] Allergies No Known Allergies REASON FOR VISIT back pain is getting worse, follow up from neurosurgery appt today at [facility] Edmonds Medications Medication SIG (Take, Route, Frequency, Duration) Notes Start Date End Date Status Vitamin D3 1.25 MG (23245 UT) 1 capsule Orally o nce a week; Duration: 90 days ActiveVentolin HFA 108 (90 Base) MCG/ACT2 puff as needed Inhalation every 4 hrs 5ActiveVitamin CActiveNexIUM 20 MG1 tablet orally twice dailyActive Trelegy Ellipta 100-62.5-25 MCG/ACT1 puff Inhalation Once a day5Active Mupirocin 2 %1 application to inside 0 nose Externally Twice a day; Duration: 5 days5ActiveFamotidine 40 MG1 tablet Orally Once a day5Active Mesalamine 1.2 GMTAKE 2 TABLET BY MOUTH EVERY DAY; Duration: 90 daysActive MultivitaminActiveLevothyroxine Sodium 25 MCG1 tablet in the morning on an empty stomach Orally Once a day; Duration: 90 daysActiveTriamcinolone Acetonide 0.1 %1 application Externally bid5ActiveCetirizine HCl 10 MGTAKE 1 TABLET BY MOUTH EVERY DAY; Duration: 90ActiveBaclofen 20 MG1-2 tabs Orally qhs09/10/2025 ActiveCalcium 600 MG1 tablet with meals Orally Twice a day; Duration: 30 days 09/23/2025tive Social History Tobacco Use: Social History Observation Description Date Details (start date - stop date) Former Smoker 11/12/1981 - 11/12/2000 Tobacco Use/Smoking Question Answer Notes Patient is a former smoker When did you start smoking?11/12/1981When did you stop smoking?11/12/2000 Problems Problem Type SNOMED Code ICD Code Onset Dates Problem Status W/U Status Risk Notes Problem Bloody nose (R04.0)Activeconfirmed Vital Signs Height 63 in 10/26/2025 Blood pressure systolic 140 mm Hg 10/26/20 25 Blood pressure diastolic 72 mm Hg 025 Encounters Encounter Location Date Provider Diagnosis [facility] [address] [place] [address] 10/26/2025 Baljinder Medrano Bloody nose R04.0 an d Lumbar radiculopathy M54.16 Assessments Encounter Date Diagnosis (ICD Code) Assessment Notes Treatment Notes Treatment Clinical Notes Section Notes 10/26/2025 Bloody nose (ICD-10 - R04.0) 10/26/2025Lumbar radiculopathy (ICD-10 - M54.16) Plan Of Treatment Medication Medication Name Sig Start Date Stop Date Notes Mupirocin 2 % 1 application to ins prisca 0 nose Externally Twice a day; Duration: 5 days 10/26/2025 Triamcinolone Acetonide 0.1 %1 application Externally bid10/26/2025 Progress Notes * Betsy MENCHACA BDOB: [birth year] (60 yo F)Acc No.[id number]:10/26/2025 Progress Note Patient: Betsy CUNNINGHAM :?Brad Medrano ([facility]), MDDOB:1965???Age: 60 Y???Sex:FemaleDate:10/26/2025Phone:[phone]:[address] [facility] [id number] In:04:24 PM ESTCheck Out:05:42 PM EST Subjective: * Chief Complaints: * b ack pain is getting worse, follow up from neurosurgery appt today at [facility] Edmonds * ROS: ???EENT:?hearing changes?denies.?visual changes?denies. non-healing mouth sores?denies.?swollen glands or neck lumps?denies.?hoarseness?denies.?sore throat?denies.?difficulty swallowing?denies.?nose bleeds?denies.?nasal congestion?denies.?ear ache?denies.?ear discharge denies.?ringing in ears?denies.?light sensitivity?denies.?eye pain?denies.?blurring?denies.?eye irritation?denies.?double vision?denies. vision loss?denies.?General/Constitutional:?Sweats:?Denies.?Fatigue?denies.?Sleep proble ms?denies.?Anorexia?denies.?Malaise?denies.?Weight loss?denies. Fatigue or Weakness?denies.?Fever or Chills?denies.?Cardiovascular:?Shortness of Breath w/lying flat?denies.?Lightheadedne ss/dizziness?denies.?Chest tightness/ heavy pressure?denies.?Swelling of legs, a nkles, or feet?denies.?Waking up with shortness of breath?denies.?Chest pain&#16 0;denies.?Palpitations?denies.?Weight gain?denies.?Respiratory:?Chronic or frequent cough?denies.?Coughing up blood&#1 60;denies.?Difficulty breathing?denies.?Productive cough?denies.?Snoring&#1 60;denies.?Shortness of breath that awakens from sleep (PND)?denies.?Chest pain? denies.?Sputum production?denies.?Wheezing?denies.?Musculoskeletal:?Joint pain?denies.?Joint Fluid?denies.?Backpain?denies.?Knee pain?denies.?Neck pain?denies.?Joint Stiffness?denies.?Muscle cramps?denies.?Weakness of muscles?denies.?Arthritis?denies.?Muscle aches?denies.?Pain in shoulder(s)?denies.?Swollen joints?denies.? * Active Problem List M76.11 Psoas tendinitis, ri ght hip Modified On:05/20/2023 Status:olupqmirdB46.909Migraine headache Modified On:05/20/2023 Status:kwqsgwxzxV66.9Hypothyroidism Modified On:05/20/2023 Status:ibyecdawrQ22.9Vitamin D deficiency Modified On:05/20/2023 Status:qavdmlzlpK99.50Arthralgia Modified On:05/20/2023 Status:vmrjcvuigW81.9Colitis Modified On:05/20/2023 Status:bznrbdxuiA37.0Osteoporosis Modified On:05/20/2023 Status:ofokacenoY01.90Cervical disc disease Modified On:05/20/2023 Status:anybvikftA73.2Seasonal allergic rhinitis Modified On:05/20/2023 Status:plluwfclmZ06.2Schatzki's ring Modified On:08/20/2023 Status:tltahnpzoQ93.00Well adult Modified On:05/21/2023 Status:dqpeheotoO91.8Varicose vein Modified On:07/16/2024 Status:xirqupegqY52.9Acute bronchitis, unspecified organism Modified On:12/25/2024U Status:gqibycvuiM13.9Acute bronchitis Modified On:02/16/2025 Status:pdeimukymM02.90Internal derangement of knee Modified On:04/23/2025 Status:ungqvrwbyX66.70Barrett esophagus Modified On:07/20/2025 Status:awerxolbkC20.1Sacroiliitis Modified On:08/13/2025U Status:hfkdnqpsgK91.16Lumbar radiculopathy Modified On:09/10/2025U Status:wvdwxnxqcU17.0Bloody nose Modified On:10/26/2025W/U Status:confirmed * Medical History: * Surgical History: E sophageal Dilation- Dr. Howard 10/2018Total Abdominal Hysterectomy 11/2010Trapezius Trigger Point Inj- Dr. Chiu ervical branch Block C3,C4,C5 ervical Facet Medial Branch Denercation C3,C4,C5- Dr. Chiu GD/Colonoscopy 03/30/2025 * Hospitalization/Major Diagno stic Procedure: N o Hospitalization History. * Family History: F ather: 60 yrs, Heart Attack- at 60. M other: . B rother(s): alive. S ister(s): alive, breast cancer, diagnosed with Diabetes. S on(s): alive. 1 brother(s) , 2 sister(s) . 3 son(s) - healthy. . * Social History: ???Tobacco Use:?Tobacco Use/Smoking?Patient is a?former smoker ?When did you start smoking??11/12/1981 ?When did you stop smoking??11/12/2000 * Medications: T akingBaclofen 20 MG Tablet 1-2 tabs Orally qhs Calcium 600 MG Tablet 1 tablet with meals Orally Twice a day Cetirizine HCl 10 MG Tablet TAKE 1 TABLET BY MOUTH EVERY DAY Famotidine 40 MG Tablet 1 tablet Orally Once a day Levothyroxine Sodium 25 MCG Tablet 1 tablet in the morning on an empty stomach Orally Once a day Mesalamine 1.2 GM Tablet Delayed Release TAKE 2 TABLET BY MOUTH EVERY DAY Multivitamin NexIUM(Esomeprazole Magnesium) 20 MG Capsule Delayed Release 1 tablet orally twice daily Trelegy Ellipta(Zdcwgcodmkk-Fsyqimfhl-Xxliol) 100-62.5-25 MCG/ACT Aerosol Powder Breath Activated 1 puff Inhalation Once a day Ventolin HFA(Albuterol Sulfate HFA) 108 (90 Base) MCG/ACT Aerosol Solution 2 puff as needed Inhalation every 4 hrs Vitamin C Vitamin D3 1.25 MG (25842 UT) Capsule 1 capsule Orally once a week Medication List reviewed and reconciled with the patientTaking Baclofen 20 MG Tablet 1-2 tabs Orally qhs Taking Calcium 600 MG Tablet 1 tablet with meals Orally Twice a day Taking Cetirizine HCl 10 MG Tablet TAKE 1 TABLET BY MOUTH EVERY DAY Taking Famotidine 40 MG Tablet 1 tablet Orally Once a day Taking Levothyroxine Sodium 25 MCG Tablet 1 tablet in the morning on an empty stomach Orally Once a day Taking Mesalamine 1.2 GM Tablet Delayed Release TAKE 2 TABLET BY MOUTH EVERY DAY Taking Multivitamin Taking NexIUM(Esomeprazole Magnesium) 20 MG Capsule Delayed Release 1 tablet orally twice daily Taking Trelegy Ellipta(Zfxbtkiyrrk-Ocwqygjjh-Wqctmr) 100-62.5-25 MCG/ACT Aerosol Powder Breath Activated 1 puff Inhalation Once a day Taking Ventolin HFA(Albuterol Sulfate HFA) 108 (90 Base) MCG/ACT Aerosol Solution 2 puff as needed Inhalation every 4 hrs Taking Vitamin C Taking Vitamin D3 1.25 MG (29600 UT) Capsule 1 capsule Orally once a week Medication List reviewed and reconciled with the patient * Allergies: N .K.D.A.no[Allergies Verified] Objective: * Vitals: W t: Not Taken - Declined by Patient, Ht: 63 in, BP:140/72mm Hg. * Examination: ???Physical Exam: ?GENERAL:?well developed, well nourished, in no acute distress.?HEAD:?normocephalic/atraumatic.?EYES:?pupils equal, round and reactive to light, conjunctivae and sclerae normal.?EARS:?no deformity or lesion of external ear, canals and TM appear normal bilaterally, TM's intact, not inflamed with normal light reflex, hearing grossly normal to conversational speech.?NOSE:?no deformity, discharge, inflammation, or lesions. ?MOUTH:?mucous membranes moist, normal oropharynx and posterior pharynx without lesions or exudates, tongue normal, dentition normal.?NECK:?neck supple, no masses or palpable cervical nodes, trachea midline, thyroid without nodules, masses, tenderness, or enlargement.?CHEST:?no chest wall deformity, no chest wall tenderness. ?LUNGS:?normal respiratory effort and clear to auscultation, no wheezes, rales, or rhonchi, good air exchange.?CARDIO:?regular rate and rhythm, normal S1 and S2, nor murmur, rub, or gallop.?PULSES:?normal capillary refill.?ABDOMEN:?soft, non-distended, non-tender, no masses.?MUSCULOSKELETAL:?no deformity or scoliosis noted, normal range of motion, joints normal, no erythema, edema, effusion, or ecchymosis.?EXTREMITY:?no clubbing, cyanosis, edema, or deformity withnormal ROM in both upper and lower bilateral extremities.?NEUROLOGIC:?grossly normal.?SKIN:?no rashes, ulcerations, or suspicious lesions.?LYMPH NODES:?no cervical adenopathy, nodes normal.?MENTAL STATUS:?alert and oriented x3, normal mood and affect.? Assessment: * Assessment: 1.?Bloody nose - R04.0 (Primary)???2.?Lumbar radiculopathy - M54.16? ? Plan: * Treatment: Start Triamcinolone Acetonide Cream, 0.1 %, 1 application, Externally, bid, 60 grams, Refills 11; Start Mupirocin Ointment, 2 %, 1 application to inside 0 nose, Externally, Twice a day, 5 days, 30 gram, Refills 11.?? * Procedure Codes: * * Sign off status: CompletedVisit Status:?CHK (Check Out) true * Provider: Donald Medrano ([facility])MD Date: 12/27/2024 Generated for Printing/Faxing/eTransmitting on:?11/02/2025 08:06 AM EST History and Physical Notes * Examination CategorySub-CategoryDetailNotesCategory NotesPhysical ExamGENERAL:well developed, well nourished, in no acute distressHEAD:normocephalic/atraumatic EYES:pupils equal, round and reactive to light, conjunctivae and sclerae normal EARS:no deformity or lesion of external ear, canals and TM appear normal bilaterally, TM's intact, not inflamed with normal light reflex, hearing grossly normal to conversational speechNOSE:no deformity, discharge, inflammation, or lesionsMOUTH:mucous membranes moist, normal oropharynx and posterior pharynx without lesions or exudates, tonguenormal, dentition normalNECK:neck supple, no masses or palpable cervical nodes, trachea midline, thyroid without nodules, masses, tenderness, or enlargementCHEST:no chest wall deformity, no chest wall tendernessLUNGS:normal respiratory effort and clear to auscultation, no wheezes, rales, or rhonchi, good air exchangeCARDIO:regular rate and rhythm, normal S1 and S2, nor murmur, rub, or gallopPULSES:normal capillary refillABDOMEN:soft, non-distended, non-tender, no massesRECTAL:MUSCULOSKELETAL:no deformity or scoliosis noted, normal range of motion, joints normal, no erythema, edema, effusion, or ecchymosisEXTREMITY:no clubbing, cyanosis, edema, or deformity with normal ROM in both upper and lower bilateral extremitiesNEUROLOGIC:grossly normalSKIN:no rashes, ulcerations, or suspicious lesionsLYMPH NODES:no cervical adenopathy, nodes normalMENTAL STATUS:alert and oriented x3, normal mood and affect
--- NOTE | 2025-11-02 | XR_ITS ---
The [address] [address] Patient Name: CAMMY MERINO MRN: [id number] date: 1965 Sex: F Assigned Patient Location: [facility] Current Patient Location: [facility] Accession/Order Number: [id number] Exam Date: 11/02/2025 08:44 Report Date: 11/02/2025 10:21 At the request of: TIMOTHY DEL VALLE DO Procedure: XR pelvis 1-2V AP PELVIS - inlet and outlet views: CLINICAL HISTORY: Sacral Insufficiency Fracture. Pelvic pain for several months. COMPARISON: CT 10/29/2025 AP inlet and outlet views were obtained. Sclerosis is again visualized at the sacral ala, right side slightly more focal than left. The appearance correlates with the comparison CT and is compatible with healing fracture. No additional fractures are identified. There is no dislocation at the hips. The hip joint spaces are symmetric. There is no significant arthritic change. The SI joints are intact. There is degenerative change at the lower imaged lumbar spine. There are no soft tissue abnormalities. XR/XR pelvis 1-2V IMPRESSION: SACRAL SCLEROSIS COMPATIBLE WITH HEALING FRACTURES Impression dictated by: Priscilla Baxter M.D. 11/02/2025 10:21 AM Dictation Location: [facility] Electronically authenticated by: [id number] Y Date: 11/02/2025 10:21
--- OUTSIDE RECORDS SUMMARY | 2025-11-02 08:07 | XMS_ITS | Patient Health Record ---
Author Organization [facility] in [place] Address [address] [place] [address] Care Team Providers Care Marketing Mgr Name Role Phone Baljinder Barlow Primary Care Provider [phone] Allergies No Known Allergies Results Component Value Reference Range Notes XR soft tissue neck Reviewed date:03/08/2025 01:05:46 PM Interpretation: Performing Lab: Notes/Report: Source Facility: [place] [address] XRay Report Signed Patient: BETSY MENCHACA MR#: [id number] : 1965 Acct:[id number] Age/Sex: 60 / F ADM Date: 03/07/25 Loc: RAD Attending Dr: Tenisha Barlow M.D. Ordering Physician: Tenisha Barlow M.D. Date of Service: 03/07/25 Procedure(s): XR soft tissue neck Accession Number(s): [id number] cc: Tenisha Barlow M.D. [address] [address] Patient Name: BETSY MENCHACA MRN: [id number] date: 1965 Sex: F Assigned Patient Location: RAD Current Patient Location: RAD Accession/Order Number: [id number] Exam Date: 03/07/2025 14:18 Report Date: 03/07/2025 [...] Elliott M.D. 03/07/2025 2:20 PM Dictation Location: [place] [address] Electronically authenticated by: [id number] Y Date: 03/07/2025 14:20 Dictated By: Presley Elliott M.D. Signed By: 03/07/251422 DD/ 19 TD/TT: Window Cutter: XR chest 2V Reviewed date:03/08/2025 01:05:46 PM Interpretation: Performing Lab: Notes/Report: Source Facility: [place] [address] XRay Report Signed Patient: BETSY MENCHACA MR#: [id number] : 1965 Acct:[id number] Age/Sex: 60 / F ADM Date: 03/07/25 Loc: RAD Attending Dr: Tenisha Barlow M.D. Ordering Physician: Tenisha Barlow M.D. Date of Service: 03/07/25 Procedure(s): XR chest 2V Accession Number(s): [id number] cc: Tenisha Barlow M.D. [place] [address] Patient Name: BETSY MENCHACA MRN: [id number] date: 1965 Sex: F Assigned Patient Location: [facility] Current Patient Location: [facility] Accession/Order Number: [id number] Exam Date: 03/07/2025 14:17 Report Date: 03/07/2025 [...] Elliott M.D. 03/07/2025 2:18 PM Dictation Location: [place] [address] Electronically authenticated by: [id number] Y Date: 03/07/2025 14:18 Dictated By: Presley Elliott M.D. Signed By: 03/07/25 1420 DD/ 1418 TD/TT: Window Cutter: Lower Respiratory Culture Reviewed date:06/25/2025 07:48:03 AM Interpretation: Performing Lab: Notes/Report: [facility] , Lower Respiratory Culture See Below For Report Haemophilus parainfluenzae Isolated O:HAEPAR [...] Lower Respiratory Culture Lower Respiratory CulturePerformed at: CB - [facility] [place] Haemophilus parainfluenzae Isolated O:HAEPAR Lower Respiratory Culture Lower Respiratory [address] [place], [place] [id number] Haemophilus parainfluenzae Isolated O:HAEPAR Lower Respiratory Culture Lower Respiratory CultureLab Director: Swapnil Ruiz PhD, Phone: [phone] Haemophilus parainfluenzae Isolated O:HAEPAR Lower Respiratory Culture Performing Lab:see note LC - [facility] LB SEE REPORT - Training Associate Id information not found for OBX-specific 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 Ordering Physician: Alexander Edmonds D.O. Date of Service: 10/29/25 Procedure(s): CT pelvis wo con Accession Number(s): [id number] cc: Tenisha Barlow M.D. [place] [address] Patient Name: BETSY MENCHACA MRN: [id number] date: 1965 Sex: F Assigned Patient Location: CT Current Patient Location: CT Accession/Order Number: [id number] Exam Date: 10/29/2025 14:13 Report Date: 10/29/2025 14:43 At the request of: ALEXANDER EDMONDS DO Procedure: CT pelvis wo con CT PELVIS without INTRAVENOUS CONTRAST: CLINICAL HISTORY: Fracture Of Sacrum, Sacral Insufficiency Fracture COMPARISON: MRI pelvis 09/22/2025 TECHNIQUE: Spiral images were obtained through the pelvis without the administration of IV contrast. This CT exam was performed using one or more following dose reduction techniques: Automated exposure control, adjustment of the mA and/or kV according to patient size, or use of iterative reconstruction technique. FINDINGS: There is insufficiency fracture involving the sacrum with associated sclerosis as seen on the prior MRI study. SI joints demonstrate degenerative change. Pubic symphysis demonstrate degenerative change. Mild degenerative changes of the hips without fracture. No soft tissue swelling. No fluid collection. Intrapelvic contents demonstrates no acute findings. CT/CT pelvis wo con IMPRESSION: INSUFFICIENCY FRACTURE INVOLVING THE SACRUM GROSSLY SIMILAR TO THE PRIOR STUDY. Impression dictated by: Vipin Luna Jr., D.O. 10/29/2025 2:43 PM Dictation Location: [place] [address] Electronically authenticated by: [id number] Y Date: 10/29/2025 14:43 Dictated By: Vipin Luna M.D. Signed By: 10/29/25 1445 DD/ 144 TD/TT: Window Cutter:MR antonio gonzalez Reviewed date:09/22/2025 07:11:37 PM Interpretation: Performing Lab: Notes/Report: Source Facility: [place] [address] [place] [address] Magnetic Resonance Report Signed Patient: BETSY MENCHACA MR#: [id number] : 1965 Acct:[id number] Age/Sex: 60 / F ADM Date: 09/22/25 Loc: MRI Attending Dr: Tenisha Barlow M.D. Ordering Physician: Tenisha Barlow M.D. Date of Service: 09/22/25 Procedure(s): MR pelvis wo con Accession Number(s): [id number] cc: Tenisha Barlow M.D. [place] [address] Patient Name: BETSY MENCHACA MRN: [id number] date: 1965 Sex: F Assigned Patient Location: MRI Current Patient Location: MRI Accession/Order Number: [id number] Exam Date: 09/22/2025 13:00 Report Date: 09/22/2025 [...] Cheung M.D. 09/22/2025 6:17 PM Dictation Location: [place] [address] Electronically authenticated by: [id number] Y Date: 09/22/2025 18:17 Dictated By: aPddy Cheung M.D. Signed By: 09/22/251819 DD/ 16 TD/TT: Window Cutter:MR lumbar spine wo con Reviewed date:09/22/2025 07:11:37 PM Interpretation: Performing Lab: Notes/Report: Source Facility: [place] [address] Magnetic Resonance Report Signed Patient: BETSY MENCHACA MR#: [id number] : 1965 Acct:[id number] Age/Sex: 60 / F ADM Date: 09/22/25 Loc: MRI Attending Dr: Tenisha Barlow M.D. Ordering Physician: Tenisha Barlow M.D. Date of Service: 09/22/25 Procedure(s): MR lumbar spine wo con Accession Number(s): [id number] cc: Tenisha Barlow M.D. [place] [address] Patient Name: BETSY MENCHACA MRN: [id number] date: 1965 Sex: F Assigned Patient Location: MRI Current Patient Location: MRI Accession/Order Number: [id number] Exam Date: 09/22/2025 13:00 Report Date: 09/22/2025 [...] Cheung M.D. 09/22/2025 6:04 PM Dictation Location: [place] [address] Electronically authenticated by: [id number] Y Date: 09/22/2025 18:04 Dictated By: Paddy Cheung M.D. Signed By: 09/22/251805 DD/ 03 TD/TT: Window Cutter:BETHANIE chest 2V Reviewed date:05/30/2025 02:53:00 PM Interpretation: Performing Lab: Notes/Report: Source Facility: [place] [address] [address] XRay Report Signed Patient: BETSY MENCHACA MR#: [id number] : 1965 Acct:[id number] Age/Sex: 60 / F ADM Date: 05/30/25 Loc: LAB Attending Dr: Tenisha Barlow M.D. Ordering Physician: Tenisha Barlow M.D. Date of Service: 05/30/25 Procedure(s): XR chest 2V Accession Number(s): [id number] cc: Tenisha Barlow M.D. [address] [address] Patient Name: BETSY MENCHACA MRN: [id number] date: 1965 Sex: F Assigned Patient Location: LAB Current Patient Location: LAB Accession/Order Number: [id number] Exam Date: 05/30/2025 08:05 Report Date: 05/30/2025 08:06 At the request of: TENISHA BARLOW MD Procedure: XR chest 2V PA AND LATERAL CHEST: CLINICAL HISTORY: RR05.3 Chronic coughing COMPARISON: 03/07/2025 FINDINGS: Unremarkable cardiomediastinal. Right hilar/mediastinal calcified granulomas. No focal opacity, effusion or pneumothorax. XR/XR chest 2V IMPRESSION: NO ACUTE CARDIOPULMONARY ABNORMALITY. Impression dictated by: Presley Elliott M.D. 05/30/2025 8:06 AM Dictation Location: [place] [address] Electronically authenticated by: [id number] Y Date: 05/30/2025 08:06 Dictated By: Presley Elliott M.D. Signed By: 05/30/25 0809 DD/ 0806 TD/TT: Window Cutter:Gram Stain Evaluation Reviewed date:06/25/2025 07:48:03 AM Interpretation: Performing Lab: Notes/Report: [facility] ,Gram Stain EvaluationSee Below For Report This specimen is of good quality and is acceptable for routine Gram Stain Evaluation Gram Stain Evaluationbacterial culture. This specimen is of good quality and is acceptable for routine Gram Stain Evaluation Performing Lab:see noteLC - [facility] LBResult 4 Reviewed date:06/25/2025 07:48:03 AM Interpretation: Performing Lab: Notes/Report: [facility] ,Result 4See Below For Report TABLE GAMES FLOOR SUPERVISOR Result 4 Performing Lab:see note - [facility] LBResult 3 Reviewed date:06/25/2025 07:48:03 AM Interpretation: Performing Lab: Notes/Report: [facility] ,Result 3See Below For Report TABLE GAMES FLOOR SUPERVISOR Result 3 Performing Lab:see note - [facility] LBResult 2 Reviewed date:06/25/2025 07:48:03 AM Interpretation: Performing Lab: Notes/Report: [facility] ,Result 2See Below For Report Result 2 TABLE GAMES FLOOR SUPERVISOR Performing Lab:see note - [facility] LBResult 1 Reviewed date:06/25/2025 07:48:03 AM Interpretation: Performing Lab: Notes/Report: [facility] ,Result 1See Below For Report Few gram positive cocci Result 1 Performing Lab:see note - [facility] LBEpithelial Cells Reviewed date:06/25/2025 07:48:03 AM Interpretation: Performing Lab: Notes/Report: [facility] ,Epithelial CellsSee Below For Report Few Epithelial Cells Performing Lab:see note - [facility] LBWhite Blood Cells Reviewed date:06/25/2025 07:48:03 AM Interpretation: Performing Lab: Notes/Report: [facility] ,White Blood CellsSee Below For ReportWhite Blood CellsWhite Blood CellsFewWhite Blood CellsPerforming Lab:[facility] LBLAB TESTING Reviewed date:04/18/2025 05:13:06 PM Interpretation: Performing Lab: Notes/Report: [id number] LEGIONELLA PNEUMOPHILA [facility] ,Miscellaneous TestCOMMENT. Health Administration Teacher: Swapnil Ruiz PhD, Phone: [phone] Reference Range: Non Reactive Performed at: [facility] Test Ordered: [id number] Legionella pneumophila Abs. exposure/infection and current infection. Serological recommendations, culture of lower respiratory secretions for diagnosis of infection with Legionella. This assay cannot differentiate between previous [address] [place], [place] [address] Non Reactive (IgG/IgM/IgA) to L. pneumophila Groups 1-6 by EIA method. testing is not recommended for diagnosis. Per current Health Administration Teacher: Handy Hua MD, Phone: [phone] [address] [place], [place] [phone] Legionella pneumophila Abs. Note: BN and/or the Legionella urinary antigen test should be used Performed at: [facility] This is a qualitative assay that detects total antibodies Performing Lab:see [facility] LBLAB TESTING Reviewed date:04/18/2025 05:13:06 PM Interpretation: Performing Lab: Notes/Report: [id number] MYCOPLASMA PNEUMONIAE IGM,IGG [facility] ,Miscellaneous TestCOMMENT. confirmed either by a positive IgM result and/or an Performed at: [facility] baseline only. Values >100 may indicate a recent weeks later to assure reactivity. Indeterminate: 100 - 320 M. pneumoniae specific IgM presumptively detected. It Reference Range: 0-99 IgM antibody detected. M pneumoniae IgM Abs <770 U/mL CB Clinically significant amount of M. pneumoniae antibody [address] [place], [place] [phone] Positive: >320 not detected. Test Ordered: 155909 Mycoplasma pneu. IgG/IgM Abs additional specimen drawn 2-4 weeks later showing a Positive >950 Negative: <100 is recommended that another sample be collected 1-2 The reference interval established is intended as a infection with Mycoplasma pneumoniae and need to be significant increase in antibody levels. Reference Range: 0-769 Low Positive 770 - 950 Health Administration Teacher: Swapnil Ruiz PhD, Phone: [phone] M pneumoniae IgG Abs 602 [H ] U/mL CB Highly significant amount of M. pneumoniae specific Negative <770 Performing [facility] Reviewed date:04/15/2025 09:10:22 PM Interpretation: Performing Lab: Notes/Report: [facility] ,White Blood Count4.74.0-11.0 10 3/uLRed Blood Count4.854.20-5.40 10 6/uL Ftigragzqa66.112.0-16.0 g/wBKggyydmdyv82.336.0-48.0 %Mean Corpuscular Jdbpxn09.2 81.0-99.0 fLMean Corpuscular Tqaxpzzfpp80.126.7-34.0 pgMean Corpuscular HGB Conc 34.129.9-35.2 g/dLRed Cell Distribution Width13.811.0-15.0 %Platelet Gdzoq131 150-450 10 3/uLMean Platelet Avaxsq24.89.5-13.5 fLNeutrophils Percent Auto44.0 43.0-75.0 %Lymphocytes Percent Auto37.420.5-60.0 %Monocytes Percent Auto9.51.7- 12.0 %Eosinophils Percent Auto8.50.9-7.0 %Basophils Percent Auto0.60.2-2.0 % Immature Granulocytes Pct Auto0.00.0-0.5 %Neutrophils Absolute Auto2.11.4-6.5 10 3/uLLymphocytes Absolute Auto1.81.2-3.8 10 3/uLMonocytes Absolute Auto0.50.3-0.8 10 3/uLEosinophils Absolute Auto0.40.0-0.7 10 3/uLBasophils Absolute Auto0.00.0- 0.1 10 3/uLImmature Granulocytes Abs Auto0.000.00-0.03 10 3/uLPerforming Lab:see noteML - [facility] Reason For Referral Diagnosis 1 Sacral fracture (S32 .10XA) Referral Organization [facility] Referring Provider First Name Baljinder Referring Provider Last Name Mitchell Referring Provider Speciality Family Med connorne Referred Provider Karlos Puente Referred Provider Specialty [...] tabs Orally qhs 5ActiveVitamin D3 1.25 MG (15576 UT)1 capsule Orally once a week; Duration: [...] in the past year?Less than monthly (1 point)Rcbuiy1RyecsyvvyxgrbtRgmyloxcATTUH-L (Standard) Question Answer Notes Did you have a drink containing alcohol in the p ast year? No Rijbpn5MlyeuaktijkoxhRzxmzqni Problems Problem Type SNOMED Code ICD Code Onset Dates Problem Status W/U Status Risk Notes Problem Enthesopathy of hip region (3093 6004) Psoas tendinitis, right hip (M76.11) ActiveconfirmedProblemMigraine variant with headache (disorder) (954978187) Migraine headache (G43.909)ActiveconfirmedProblemHypothyroidism (81596429) Hypothyroidism (E03.9)ActiveconfirmedProblemVaricose vein (30624947)Varicose vein (I86.8)ActiveconfirmedProblemVitamin D deficiency (91496756)Vitamin D deficiency (E55.9)ActiveconfirmedProblemBarrett esophagus (165522791)Vickers esophagus (K22.70)ActiveconfirmedProblemLumbar radiculopathy (816244705)Lumbar radiculopathy (M54.16)ActiveconfirmedProblemArthralgia (73581885)Arthralgia (M25.50)ActiveconfirmedProblemSacroiliitis (68236997)Sacroiliitis (M46.1)Active confirmedProblemColitis (19521193)Colitis (K52.9)ActiveconfirmedProblem Osteoporosis (76117652)Osteoporosis (M81.0)ActiveconfirmedProblemAcute bronchitis (32621716)Acute bronchitis (J20.9)ActiveconfirmedProblemWell adult (174961769)Well adult (Z00.00)ActiveconfirmedProblemCervical disc disease (659031360)Cervical disc disease (M50.90)ActiveconfirmedProblemAcute bronchitis (04696312)Acute bronchitis, unspecified organism (J20.9)ActiveconfirmedProblem Seasonal allergic rhinitis (716245187)Seasonal allergic rhinitis (J30.2)Active confirmedProblemBloody nose (R04.0)ActiveconfirmedProblemInternal derangement of knee (70274531)Internal derangement of knee (M23.90)ActiveconfirmedProblem Schatzki's ring (52195419)Schatzki's ring (K22.2)Activeconfirmed Vital Signs Temperature 98.6 degrees Fahrenheit 02/16/2025 Blood pressure zpfijrbjw37 mm Hg10/26/20250631Hdtmnf98 in10/26/2025lood pressure jajzispy632 mm Hg10/26/20252238Wzxixd971 lbs03/16/2025BMI30.47 kg/m203/16/2025 Encounters Encounter Location Date Provider Diagnosis [facility] [address] [place] [address] 09/23/2025 Baljinder [facility] [place] [address] 09/29/2025[facility] [place] [address]/15/2025[facility] [place] [address]/15/2025[facility] [place] [address]/Doug [facility] [place] [address]/[facility] [place] [address]/06/2025 [facility] [place] [address]/Doug HoyChronic coughing R05.3 and Cough, persistent R05.3 [facility] [address] 05/30/2025[facility] [place] [address]/02/2025Doug HoyLumbar radiculopathy M54.16[facility] [address]/08/2025Doug Hoy Sacroiliitis M46.1[facility] [place] [address]/09/2025Doug HoySacral fracture S32.10X[facility] [place] [address]/02/2025[facility] [place] [address]/ Baljinder HoyAcute bronchitis J20.9[facility] [place] [address]/Doug HoyChronic coughing R05.3[facility] [place] [address]/Doug Hoy [facility] [place] [address] 04/15/2025Doug HoyCough, persistent R05.3[facility] [place] [address]/05/2025Doug HoyBAnna [place] [address] [facility] [place] [address]/Doug HoyBAnna [place] [address] [facility] [place] [address]/ Baljinder HoyAcute bronchitis, unspecified organism J20.9BAnna [place] [address] [facility] [place] [address]/Doug HoySeasonal allergic rhinitis J30.2BJanice [place] [address] [address] [facility] [place] [address]/05/2025Doug HoyAcute bronchitis J20.9BAnna [place] [address] [facility] [place] [address]/03/2025Doug Hoy Acute bronchitis, unspecified organism J20.9BAnna [place] [address] [facility] [place] [address]/10/2025Doug HoyInternal derangement of knee, right M23.91BuTracy [place] [address] [facility] [place] [address]/Doug HoyBloody nose R04.0 and Lumbar radiculopathy M54.[address] [place] [address] 09/10/2025Doug HoyLumbar radiculopathy M54.16 Assessments Encounter Date Diagnosis (ICD Code) Assessment Notes Treatment Notes Treatment Clinical Notes Section Notes 12/25/2024 Acute bronchitis, unspecified or ganism (ICD-10 - J20.9) Rest and drink more liquids, especially water. You may use a humidifier or vaporizer to help keep the drainage moist. Yokt-vna-vhkcdks Nasal Saline may help the stuffy and runny nose. Use Ibuprofen and or Tylenol as needed for fever, chills, body aches or pain. Children 5 years old should not be given exjd-jkt-ygrzdmu cough and cold medications such as guaifenesin and dextromethorphan. If you're over age 5, you may try umgv-cmx-qfhqylh cold medications such as guaifenesin and dextromethorphan, [...] go to the emergency room or call [address]/5Acute bronchitis (ICD-10 - J20.9)5Acute bronchitis, unspecified organism (ICD-10 - J20.9)Rest and drink more liquids, especially water. You may use a humidifier or vaporizer to help keep the drainage moist. Fvvt-eyl-gdmlidj Nasal Saline may help the stuffy and runny nose. Use Ibuprofen and or Tylenol as needed for fever, chills, body aches or pain. Children 5 years old should not be given lrvc-xap-jawylue cough and cold medications such as guaifenesin and dextromethorphan. If you're over age 5, you may try ubtx-jts-tioaawt cold medications such as guaifenesin and dextromethorphan, [...] go to the emergency room or call [address]/10/2025Internal derangement of knee, right (ICD-10 - M23.91)06/03/2025Seasonal allergic rhinitis (ICD-10 - J30.2)09/10/2025Lumbar radiculopathy (ICD-10 - M54.16)10/26/2025loody nose (ICD-10 - R04.0)10/26/2025Lumbar radiculopathy (ICD-10 - M54.16)02/27/2025 Acute bronchitis (ICD-10 - J20.9)03/06/2025hronic coughing (ICD-10 - R05.3) 04/15/2025ough, persistent (ICD-10 - R05.3)05/28/2025hronic coughing (ICD-10 - [...] Date MMO [employer] [address] [place] [address] [id number] Betsy Bolden Self - patient is the insured 3 Medications Administered Medication Instructions Date of Administration Dosage Notes Kenalog-40 380 mgKetorolac Rvyqwbvopwbr00/30/446963 mgOrphenadrine Citrate 560 mgTriamcinolone 40 mg/ml480 mgTriamcinolone 40 mg/ml 580 mgTriamcinolone 40 mg/ml5120 mg Medical (General) History Medical History History ICD Code Colitis K52.9 Arthralgia M25.50 Cervical disc disease M50.90 Hypothyroidism E03.9 Migraine headache G43.909 Osteoporosis M81.0 Psoas tendinitis, right hip M76.11 Schatzki's ring K22.2 Seasonal allergic rhinitis J30.2 Vitamin D deficiency E55.9 Surgical History Surgery Date(Month/Year) Cervical Facet Medial Branch Denercation C3,C4,C5- Dr. Chiu 10/2021 Esophageal Dilation- Dr. Howard 10/2018 Total Abdominal Hysterectomy 11/2010 Trapezius Trigger Point Inj- Dr. Chiu 08/2021 Cervical branch Block C3,C4,C5 09/2021 EGD/Colonoscopy 03/30/2025
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
== END 2025-11-02 08:06 | disposition home or self-care (01) ==
LOC: RAD 08:05
PROVIDERS: PCP Family Medicine; Visit Provider Orthopaedic Surgery Orthopaedic Trauma
DX: M84.48XD Pathological fracture, other site, subsequent encounter for fracture with routine healing (principal)
CPT/HCPCS: 72170